=== PATIENT | female | born 1990 | race Caucasian/White ===

== ENCOUNTER 2016-12-26 07:15 | Observation (INO) | payer MEDICARE, OTHER ==
--- NOTE | 2016-12-26 07:45 | ED ---
General Adult HPI - General Chief complaint: Abdominal Pain Stated complaint: abdominal pain Time Seen by Provider: 12/26/16 07:16 Source: patient, EMS, RN notes reviewed Mode of arrival: EMS Limitations: no limitations - History of Present Illness Initial comments: Patient is a pleasant 26-year-old female presenting to the emergency department complaining of abdominal discomfort. Onset of symptoms was last night. Patient has had multiple episodes of diarrhea. Patient has nausea. No vomiting. Patient does have history of ulcer colitis. Patient states discomfort is worse than her normal ulcerative colitis. No fevers. Patient does not believe she is . Patient is on her menses. Discomfort is mostly the lower abdomen. Nausea improved with medicine by EMS however pain remains. - Related Data Home Medications Medication Instructions Recorded Confirmed Dicyclomine [Bentyl] 20 mg PO QID PRN 12/26/16 12/26/16 Allergies Allergy/AdvReac Type Severity Reaction Status Date / Time codeine Allergy abd pain, Verified 12/26/16 07:41 itching Review of Systems ROS Statement: Those systems with pertinent positive or pertinent negative responses have been documented in the HPI. ROS Other: All systems not noted in ROS Statement are negative. Constitutional: Denies: fever Eyes: Denies: eye pain ENT: Denies: ear pain Respiratory: Denies: cough Cardiovascular: Denies: chest pain Endocrine: Denies: fatigue Gastrointestinal: Reports: abdominal pain, nausea, diarrhea. Denies: vomiting Genitourinary: Denies: dysuria Musculoskeletal: Denies: back pain Skin: Denies: rash Neurological: Denies: weakness Past Medical History Additional Past Medical History / Comment(s): ulcerative colitis-recent flare- ups, anemia (iron & pernicious) History of Any Multi-Drug Resistant Organisms: None Reported Past Surgical History: Cholecystectomy Additional Past Surgical History / Comment(s): colonoscopies Past Anesthesia/Blood Transfusion Reactions: No Reported Reaction Past Psychological History: Anxiety Smoking Status: Current every day smoker Past Alcohol Use History: None Reported Additional Past Alcohol Use History / Comment(s): smoking: started 2007 1.2 ppd Past Drug Use History: None Reported - Past Family History Mother Additional Family Medical History / Comment(s): "she had a lot of cysts on her ovaries" Father History Unknown: Yes General Exam Limitations: no limitations General appearance: alert Head exam: Present: atraumatic Eye exam: Present: normal appearance, PERRL ENT exam: Present: normal oropharynx Neck exam: Present: normal inspection Respiratory exam: Present: normal lung sounds bilaterally Cardiovascular Exam: Present: regular rate, normal rhythm Expanded Peripheral pulses: 2+: Dorsalis Pedis (R), Dorsalis Pedis (L) GI/Abdominal exam: Present: soft, tenderness (Mild to moderate tenderness lower abdomen), guarding, normal bowel sounds. Absent: distended, rebound, rigid, pulsatile mass External exam: Present: normal external exam (HARPER Friedman present) Speculum exam: Present: vaginal bleeding (Moderate with clots) By manual exam: Present: uterine tenderness (Mild). Absent: adnexal tenderness , adnexal mass Extremities exam: Present: normal inspection. Absent: pedal edema, calf tenderness Neurological exam: Present: alert Psychiatric exam: Present: normal affect, normal mood Skin exam: Present: normal color Course Vital Signs 12/26/16 12/26/16 12/26/16 07:16 08:04 08:47 Temperature 97.1 F L Pulse Rate 55 L 69 86 Respiratory 24 18 20 Rate Blood Pressure 163/119 100/60 110/58 O2 Sat by Pulse 100 99 97 Oximetry 12/26/16 10:11 Temperature Pulse Rate 108 H Respiratory 18 Rate Blood Pressure 122/61 O2 Sat by Pulse 98 Oximetry - Reevaluation(s) Reevaluation #1: 12/26/16 08:40 Patient states last menstrual period was approximately 6 weeks ago. Patient had one previous and therefore is . EKG Findings - EKG Comments: EKG Findings:: Normal sinus rhythm at 70. Normal intervals. Normal axis. Normal QRS. Normal ST-T. Medical Decision Making - Medical Decision Making Patient reevaluated and has continued bleeding and pain. Case discussed with Dr. Zavaleta who is agreeable to admit for observation and will see patient following his surgical case. - Lab Data Result diagrams: 12/26/16 07:20 12/26/16 07:20 Lab Results 12/26/16 12/26/16 12/26/16 Range/Units 07:20 07:20 07:20 WBC 13.7 H (3.8-10.6) k/uL RBC 4.23 (3.80-5.40) m/uL Hgb 11.8 (11.4-16.0) gm/dL Hct 35.3 (34.0-46.0) % MCV 83.5 (80.0-100.0) fL MCH 27.9 (25.0-35.0) pg MCHC 33.4 (31.0-37.0) g/dL RDW 16.1 H (11.5-15.5) % Plt Count 316 (150-450) k/uL Neutrophils % 84 % Lymphocytes % 12 % Monocytes % 3 % Eosinophils % 1 % Basophils % 0 % Neutrophils # 11.4 H (1.3-7.7) k/uL Lymphocytes # 1.6 (1.0-4.8) k/uL Monocytes # 0.4 (0-1.0) k/uL Eosinophils # 0.1 (0-0.7) k/uL Basophils # 0.0 (0-0.2) k/uL Anisocytosis Slight PT 10.4 (9.0-12.0) sec INR 1.0 (<1.1) APTT 23.7 (22.0-30.0) sec Sodium 139 (137-145) mmol/L Potassium 3.8 (3.5-5.1) mmol/L Chloride 107 (98-107) mmol/L Carbon Dioxide 19 L (22-30) mmol/L Anion Gap 13 mmol/L BUN 4 L (7-17) mg/dL Creatinine 0.54 (0.52-1.04) mg/dL Est GFR (MDRD) Af Amer >60 (>60 ml/min/1.73 sqM) Est GFR (MDRD) Non-Af >60 (>60 ml/min/1.73 sqM) Glucose 100 H (74-99) mg/dL Calcium 9.6 (8.4-10.2) mg/dL Total Bilirubin 0.4 (0.2-1.3) mg/dL AST 19 (14-36) U/L ALT 17 (9-52) U/L Alkaline Phosphatase 68 (38-126) U/L Total Protein 7.0 (6.3-8.2) g/dL Albumin 4.2 (3.5-5.0) g/dL Amylase 41 (30-110) U/L Lipase 46 (23-300) U/L HCG, Quant mIU/mL Urine Color Urine Appearance (Clear) Urine pH (5.0-8.0) Ur Specific [place] (1.001-1.035) Urine Protein (Negative) Urine Glucose (UA) (Negative) Urine Ketones (Negative) Urine Blood (Negative) Urine Nitrite (Negative) Urine Bilirubin (Negative) Urine Urobilinogen (<2.0) mg/dL Ur Leukocyte Esterase (Negative) Urine RBC (0-5) /hpf Urine WBC (0-5) /hpf Urine HCG, Qual (Not Detectd) Blood Type Blood Type Recheck 12/26/16 12/26/16 12/26/16 Range/Units 07:20 07:35 07:35 WBC (3.8-10.6) k/uL RBC (3.80-5.40) m/uL Hgb (11.4-16.0) gm/dL Hct (34.0-46.0) % MCV (80.0-100.0) fL MCH (25.0-35.0) pg MCHC (31.0-37.0) g/dL RDW (11.5-15.5) % Plt Count (150-450) k/uL Neutrophils % % Lymphocytes % % Monocytes % % Eosinophils % % Basophils % % Neutrophils # (1.3-7.7) k/uL Lymphocytes # (1.0-4.8) k/uL Monocytes # (0-1.0) k/uL Eosinophils # (0-0.7) k/uL Basophils # (0-0.2) k/uL Anisocytosis PT (9.0-12.0) sec INR (<1.1) APTT (22.0-30.0) sec Sodium (137-145) mmol/L Potassium (3.5-5.1) mmol/L Chloride (98-107) mmol/L Carbon Dioxide (22-30) mmol/L Anion Gap mmol/L BUN (7-17) mg/dL Creatinine (0.52-1.04) mg/dL Est GFR (MDRD) Af Amer (>60 ml/min/1.73 sqM) Est GFR (MDRD) Non-Af (>60 ml/min/1.73 sqM) Glucose (74-99) mg/dL Calcium (8.4-10.2) mg/dL Total Bilirubin (0.2-1.3) mg/dL AST (14-36) U/L ALT (9-52) U/L Alkaline Phosphatase (38-126) U/L Total Protein (6.3-8.2) g/dL Albumin (3.5-5.0) g/dL Amylase (30-110) U/L Lipase (23-300) U/L HCG, Quant 7654.0 mIU/mL Urine Color Red Urine Appearance Cloudy H (Clear) Urine pH 6.0 (5.0-8.0) Ur Specific [place] 1.017 (1.001-1.035) Urine Protein 1+ H (Negative) Urine Glucose (UA) Negative (Negative) Urine Ketones Trace H (Negative) Urine Blood Large H (Negative) Urine Nitrite Negative (Negative) Urine Bilirubin Negative (Negative) Urine Urobilinogen <2.0 (<2.0) mg/dL Ur Leukocyte Esterase Small H (Negative) Urine RBC >182 H (0-5) /hpf Urine WBC 53 H (0-5) /hpf Urine HCG, Qual Detected (Not Detectd) Blood Type Blood Type Recheck 12/26/16 Range/Units 08:20 WBC (3.8-10.6) k/uL RBC (3.80-5.40) m/uL Hgb (11.4-16.0) gm/dL Hct (34.0-46.0) % MCV (80.0-100.0) fL MCH (25.0-35.0) pg MCHC (31.0-37.0) g/dL RDW (11.5-15.5) % Plt Count (150-450) k/uL Neutrophils % % Lymphocytes % % Monocytes % % Eosinophils % % Basophils % % Neutrophils # (1.3-7.7) k/uL Lymphocytes # (1.0-4.8) k/uL Monocytes # (0-1.0) k/uL Eosinophils # (0-0.7) k/uL Basophils # (0-0.2) k/uL Anisocytosis PT (9.0-12.0) sec INR (<1.1) APTT (22.0-30.0) sec Sodium (137-145) mmol/L Potassium (3.5-5.1) mmol/L Chloride (98-107) mmol/L Carbon Dioxide (22-30) mmol/L Anion Gap mmol/L BUN (7-17) mg/dL Creatinine (0.52-1.04) mg/dL Est GFR (MDRD) Af Amer (>60 ml/min/1.73 sqM) Est GFR (MDRD) Non-Af (>60 ml/min/1.73 sqM) Glucose (74-99) mg/dL Calcium (8.4-10.2) mg/dL Total Bilirubin (0.2-1.3) mg/dL AST (14-36) U/L ALT (9-52) U/L Alkaline Phosphatase (38-126) U/L Total Protein (6.3-8.2) g/dL Albumin (3.5-5.0) g/dL Amylase (30-110) U/L Lipase (23-300) U/L HCG, Quant mIU/mL Urine Color Urine Appearance (Clear) Urine pH (5.0-8.0) Ur Specific [place] (1.001-1.035) Urine Protein (Negative) Urine Glucose (UA) (Negative) Urine Ketones (Negative) Urine Blood (Negative) Urine Nitrite (Negative) Urine Bilirubin (Negative) Urine Urobilinogen (<2.0) mg/dL Ur Leukocyte Esterase (Negative) Urine RBC (0-5) /hpf Urine WBC (0-5) /hpf Urine HCG, Qual (Not Detectd) Blood Type O Positive Blood Type Recheck No - Radiology Data Radiology results: image reviewed (Ultrasound shows no IUP. There is a hypoechoic area 7 4 x 5.2 x 6.6 cm within the cervix and upper portion of the vagina.) Disposition Clinical Impression: Incomplete Disposition: ADMITTED IP TO THIS [facility] Referrals: Nakia Love DO [Primary Care Provider] - 1-2 days Time of Disposition: 10:45
[2016-12-26] MEDS ORDERED: HYDROmorphone 1 MG/ML 1 ML SYRINGE IVP STA ×2 (07:46→10:04)
[2016-12-26] MEDS ORDERED: SODIUM CHLORIDE 0.9% 1,000 ML IV STA (07:46)
[2016-12-26] MEDS ORDERED: FAMOTIDINE 20 MG/2 ML VIAL IV STA (07:46)
[2016-12-26] MEDS ORDERED: RX INFO: IV CONTRAST WAS GIVEN 1 EACH MISC MISCELLANE PRN (07:46)
[2016-12-26 08:01] LABS: Anisocytosis Slight; Basophils % (A) 0 %; CH 27.5; Eosinophils # (A) 0.1 k/uL (0-0.7); Eosinophils % (A) 1 %; HCT 35.3 % (34.0-46.0); HDW 2.68; HGB 11.8 gm/dL (11.4-16.0); Luc # (Auto) 0.11; Luc % (Auto) 1; Lymphocytes # (A) 1.6 k/uL (1.0-4.8); Lymphocytes % (A) 12 %; MCH 27.9 pg (25.0-35.0); MCHC 33.4 g/dL (31.0-37.0); MCV 83.5 fL (80.0-100.0); Mean Platelet Volume 7.8; Monocytes # (A) 0.4 k/uL (0-1.0); Monocytes % (A) 3 %; Neutrophils # (A) 11.4 k/uL (1.3-7.7); Neutrophils % (A) 84 %; RBC 4.23 m/uL (3.80-5.40); RDW 16.1 % (11.5-15.5); WBC 13.7 k/uL (3.8-10.6); WBC (Perox) 14.53
[2016-12-26 08:10] LABS: ALT 17 U/L (9-52); AST 19 U/L (14-36); Alkaline Phosphatase 68 U/L (38-126); Amylase 41 U/L (30-110); Anion Gap 13 mmol/L; Blood Urea Nitrogen 4 mg/dL (7-17); Calcium 9.6 mg/dL (8.4-10.2); Carbon Dioxide 19 mmol/L (22-30); Chloride 107 mmol/L (98-107); Glucose 100 mg/dL (74-99); Non-African American GFR(MDRD) >60 (>60 ml/min/1.73 sqM); Potassium 3.8 mmol/L (3.5-5.1); Sodium 139 mmol/L (137-145); Total Bilirubin 0.4 mg/dL (0.2-1.3)
[2016-12-26 08:12] LABS: Partial Thromboplastin Time 23.7 sec (22.0-30.0); Prothrombin Time 10.4 sec (9.0-12.0)
[2016-12-26 08:14] LABS: Appearance,Urine Cloudy (Clear); Bilirubin,Urine Negative (Negative); Glucose,Urine (UA) Negative (Negative); Ketones,Urine Trace (Negative); Leukocyte Esterase,Urine Small (Negative); Nitrite,Urine Negative (Negative); Particle Count 7607; Protein,Urine 1+ (Negative); RBC,Urine >182 /hpf (0-5); Specific Gravity,Urine 1.017 (1.001-1.035); UA Billing (MACRO vs. MICRO) MICRO; Urobilinogen,Urine <2.0 mg/dL (<2.0); WBC,Urine 53 /hpf (0-5)
--- NOTE | 2016-12-26 10:11 | US ---
EXAMINATION TYPE: US OB <= 14 wk fetus DATE OF EXAM: 12/26/2016 9:13 AM COMPARISON: NONE CLINICAL HISTORY: Pain. Right pelvic pain and bleeding x 1 day, LMP October 2016, 2, para 1 EXAM PERFORMED: Transabdominal (TA) EXAM MEASUREMENTS: GESTATIONAL AGE / DATING Physician Established: Not established yet Dates by LMP: Patient unsure of exact dates Dates by First Scan: This is 1st scan Dates by Current Scan for: No IUP seen at this time MATERNAL ANATOMY Uterus: 13.5 x 5.2 x 6.5cm, anteverted, 7.4 x 5.2 x 6.6cm hypoechoic area within cervix and upper por tion of vagina Endometrium: measuring 0.4cm at fundal portion and 2.7cm at VERONICA with heterogeneous material within Right Ovary: 3.9 x 2.8 x 2.1cm, 2.6 x 1.6 x 1.7cm cystic area Left Ovary: 3.2 x 1.9 x 2.5cm Post CDS / Adnexa: wnl Presence of free fluid: no Presence of corpus luteal cyst: not seen with certainty at this time, cystic area right ovary possibl e corpus luteum Presence of subchorionic bleed: no GESTATION / SURVEY IUP: no IUP seen at this time Date of LMP: October 2016 Beta HcG (if available): 7,654.0 IMPRESSION: There is abnormal mass present at the level of the upper vagina, lower cervix, recommend pelvic exami nation. Follow-up as indicated.
[2016-12-26] MEDS ORDERED: NALOXONE 0.4 MG/ML 1 ML VIAL IV PRN (10:46)
[2016-12-26] MEDS ORDERED: ONDANSETRON 4 MG/2 ML VIAL IVP PRN (10:46)
[2016-12-26] MEDS ORDERED: SODIUM CHLORIDE 0.9% 1,000 ML IV SCH (11:00)
[2016-12-26 11:36] VITALS: BMI 22.8
[2016-12-26] MEDS: HYDROmorphone 1 MG/ML 1 ML SYRINGE IV PRN ×2 (12:41→17:22)
--- NOTE | 2016-12-26 14:05 | P.HPOB ---
History of Present Illness H&P Date: 12/26/16 Chief Complaint: Incomplete The patient is a 26-year-old 2 para 1001 who presented to the emergency room this morning with heavy vaginal bleeding. Her last menstrual period was approximate 6 weeks ago and she did not realize that she was . Beta hCG done in the emergency room confirms with a level above 7000 units. Examination by the emergency room team demonstrated moderate to heavy vaginal bleeding with no evidence of tissue seen or felt in the cervix. Ultrasound confirmed hypoechoic structure in the lower uterine segment or cervix and possibly even vagina. Since admission for observation, the patient has continued to have moderate bleeding passing several plum size clots over the course of the last couple of hours. She did not intend to be but was using condoms for control reportedly. She denies any signs or symptoms of orthostasis or any other concerning findings at this time. Obstetrical history: 2 para 1001 with 1 term vaginal delivery 6 years ago. Method of contraception has been condoms Gynecologic history: Apparently unremarkable with no history of any infections to include STDs. Review of Systems Review of systems is confined to history of present illness. Past Medical History Additional Past Medical History / Comment(s): ulcerative colitis-recent flare- ups, anemia (iron & pernicious) History of Any Multi-Drug Resistant Organisms: None Reported Past Surgical History: Cholecystectomy Additional Past Surgical History / Comment(s): colonoscopies Past Anesthesia/Blood Transfusion Reactions: No Reported Reaction Past Psychological History: Anxiety Smoking Status: Current every day smoker Past Alcohol Use History: None Reported Additional Past Alcohol Use History / Comment(s): smoking: started 08/04 ppd Past Drug Use History: None Reported - Past Family History Mother Additional Family Medical History / Comment(s): "she had a lot of cysts on her ovaries" Father History Unknown: Yes Family Medical History: No Reported History Additional Family Medical History / Comment(s): dad side of family has ulcerative colitis Medications and Allergies Home Medications Medication Instructions Recorded Confirmed Type Dicyclomine [Bentyl] 20 mg PO QID PRN 12/26/16 12/26/16 History Allergies Allergy/AdvReac Type Severity Reaction Status Date / Time codeine Allergy Severe Rash/Hives Verified 12/26/16 11:25 Exam - Vital Signs Vital signs: Vital Signs Temp Pulse Pulse Resp BP BP Pulse Ox 12/26/16 11:30 96.8 F L 74 20 104/56 99 12/26/16 11:13 97.4 F L 84 18 96/51 97 12/26/16 10:11 108 H 18 122/61 98 12/26/16 08:47 86 20 110/58 97 12/26/16 08:04 69 18 100/60 99 12/26/16 07:16 97.1 F L 55 L 24 163/119 100 Intake and Output 12/25/16 12/26/16 12/26/16 22:59 06:59 14:59 Output Total 175 Balance -175 Output: Urine 175 Other: Voiding Method Toilet Weight 62.3 kg Patient Weight 12/27/16 06:59 Weight 62.3 kg In general, this is a well-developed, well-nourished white female in no acute distress. Her heart has a regular rhythm and rate without murmur. Her lungs are clear to auscultation bilaterally in all stiles. Her abdomen is nondistended, has normal active bowel sounds, is soft, nontender, and without any palpable masses, hepatosplenomegaly, or hernias. Her extremities are without any cyanosis, clubbing, or edema and are nontender to palpation bilaterally. Pelvic examination is deferred to the operating room. Results Result Diagrams: 12/26/16 07:20 12/26/16 07:20 Abnormal Lab Results - Last 24 Hours (Table) 12/26/16 12/26/16 12/26/16 Range/Units 07:20 07:20 07:35 WBC 13.7 H (3.8-10.6) k/uL RDW 16.1 H (11.5-15.5) % Neutrophils # 11.4 H (1.3-7.7) k/uL Carbon Dioxide 19 L (22-30) mmol/L BUN 4 L (7-17) mg/dL Glucose 100 H (74-99) mg/dL Urine Appearance Cloudy H (Clear) Urine Protein 1+ H (Negative) Urine Ketones Trace H (Negative) Urine Blood Large H (Negative) Ur Leukocyte Esterase Small H (Negative) Urine RBC >182 H (0-5) /hpf Urine WBC 53 H (0-5) /hpf Assessment and Plan (1) Incomplete Status: Acute Plan: I discussed with the patient the options for ongoing management of miscarriage to include conservative management allowing the patient to pass the tissue on her own. I also discussed dilation and curettage. Given the degree of her bleeding over the course of the last several hours, I have recommended D&C to which the patient has agreed. I discussed the risks and complications at length including the risk for bleeding, bleeding requiring transfusion, infection, and injury to local structures to specifically include the risk for uterine perforation and possible Asherman syndrome. She has understood all this and agreed to proceed. I have contacted the operating room and an aborted the case to be done as soon as possible. Should everything be uncomplicated is anticipated, she will likely be discharged home later today to follow-up in the office in 2 weeks' time.
[2016-12-26] MEDS ORDERED: IV FLUID CONTINUATION 1,000 ML IV ONE (14:41)
[2016-12-26] MEDS ORDERED: LIDOCAINE 1% INJ 10MG/ML (20 ML MDV) ONE (14:44)
[2016-12-26] MEDS ORDERED: MIDAZOLAM 2 MG/2 ML VIAL ONE (14:44)
[2016-12-26] MEDS ORDERED: PROPOFOL 10 MG/ML 20 ML VIAL IV ONE (14:44)
[2016-12-26] MEDS ORDERED: fentaNYL (PF) 50 MCG/ML 2 ML AMP ONE (14:44)
[2016-12-26] MEDS ORDERED: ONDANSETRON 4 MG/2 ML VIAL ONE (14:44)
[2016-12-26] MEDS ORDERED: KETOROLAC 30 MG/ML 1 ML VIAL ONE (14:44)
[2016-12-26] MEDS ORDERED: METOCLOPRAMIDE 5 MG/ML 2 ML VIAL IVP PRN (15:08)
[2016-12-26] MEDS ORDERED: SIMETHICONE 80 MG CHEWABLE PO PRN (15:08)
[2016-12-26] MEDS ORDERED: diphenhydrAMINE 50 MG/ML 1 ML VIAL IVP PRN (15:08)
[2016-12-26] MEDS ORDERED: IBUPROFEN 600 MG TAB PO PRN (15:08)
[2016-12-26] MEDS ORDERED: KETOROLAC 30 MG/ML 1 ML VIAL IVP PRN (15:08)
[2016-12-26] MEDS ORDERED: LACTATED RINGERS 1,000 ML IV SCH (15:15)
--- NOTE | 2016-12-26 15:16 | P.OP ---
Date of Procedure: 12/26/16 Preoperative Diagnosis: Incomplete , approximately 6 weeks Postoperative Diagnosis: Same Procedure(s) Performed: Dilation and aspiration curettage Implants: Anesthesia: other (Gen. by facemask) Surgeon: Jean-Paul Tovar Estimated Blood Loss (ml): 50 IV fluids (ml): 300 Urine output (ml): 5 Pathology: other (Intrauterine contents) Condition: stable Disposition: PACU Indications for Procedure: Operative Findings: Preoperative pelvic examination demonstrated a 5-6 week midplane to slightly anteverted mobile normal shaped uterus with cervix open to at least 1 cm and tissue palpable within the cervical os. The tissue is seen and the cervical os prior to procedure but regressed further up into the uterus with traction on the cervix using a tenaculum. Tissue was clearly seen passing through the tubing during aspiration curettage with a #9 curved aspiration curet. No tissue was produced using the sharp curet. The typical gritty texture was encountered throughout the cavity using the sharp curet. Description of Procedure: The patient was prepped and draped in usual fashion after general anesthesia was administered by the anesthesiologist. A weighted speculum was placed and the bladder drained of 5 mL of clear leilani urine. The anterior lip of the cervix was grasped with a single-tooth tenaculum and tissue seen in the os as noted above. A #9 curved aspiration curet was selected and placed to the fundus of the uterus after sounding to 9 cm. Suction was applied and thorough and circumferential aspiration curettage carried out. A moderate to significant amount of tissue seen passing through the tubing on the first and second pass. On the third pass, there was no further tissue noted. Aspiration curet was set aside and the sharp curet introduced into the cavity. Thorough circumferential sharp curettage was carried out with the typical gritty texture encountered and no tissue produced. One more quick pass was made with aspiration curet during which no tissue was noted. All instrumentation was removed. There was no ongoing bleeding from the tenaculum site or the cervix itself. Estimated blood loss for the entire case was 50 mL or less. There were no complications. All sponge, instrument, and needle counts were correct. The patient tolerated the procedure well and proceeded to the recovery room in stable condition.
--- NOTE | 2016-12-26 15:20 | P.DS ---
Providers Date of admission: 12/26/16 10:46 Expected date of discharge: 12/26/16 Attending physician: Jean-Paul Tovar Primary care physician: Nakia Love - Discharge Diagnosis(es) (1) Incomplete Current Visit: Yes Status: Acute Hospital Course: The patient is a 26-year-old 2 para 1001 admitted at approximate 6 weeks of gestation by last menstrual period dating with an active ongoing spontaneous miscarriage which was incomplete in nature based upon ultrasound and her ongoing bleeding. She was initially admitted for observation. Once I was able to evaluate the patient, we discussed options and agreed to proceed towards dilation and curettage as the bleeding was fairly significant. She was taken to the operating room where she underwent dilation and aspiration curettage and an uneventful and the uncomplicated fashion. She was returned to the floor then to be discharged home to follow-up in the office in 2 weeks' time. Discharge instructions included calling for any significantly increased bleeding or signs or symptoms of fever. She was also to abstain from anything in the vagina for at least 62-3 weeks time to include intercourse. Discharge medications included only [id number] analgesic pain medications and any other medications she might use at home. Maternal blood type is O+. Procedures: #1. Dilation and aspiration curettage Patient Condition at Discharge: Good Plan - Discharge Summary Discharge Medication List Dicyclomine [Bentyl] 20 mg PO QID PRN 12/26/16 [History] Follow up Appointment(s)/Referral(s): Nakia Love DO [Primary Care Provider] - 1-2 days Discharge Disposition: HOME SELF-CARE
[2016-12-26 17:09] VITALS: TEMP 97.5
[2016-12-26 18:21] VITALS: RESP 16
[2016-12-26 18:54] VITALS: BP 98/57; PULSE 72
== END 2016-12-26 19:00 | disposition home or self-care (01) ==
LOC: EC 07:15 → 6PED 10:46
PROVIDERS: ADMIT Obstetrics & Gynecology; ATTEND Obstetrics & Gynecology
DX: O03.4 Incomplete spontaneous abortion without complication (principal); K51.90 Ulcerative colitis, unspecified, without complications; D51.0 Vitamin B12 deficiency anemia due to intrinsic factor deficiency; F17.200 Nicotine dependence, unspecified, uncomplicated; F41.9 Anxiety disorder, unspecified; Z3A.01 Less than 8 weeks gestation of pregnancy
CPT/HCPCS: 59812; 96376 ×2; 96361; 96374; 96375; 99285; 36415; 93005; 86900; 86901; 88305; 80053; 82150; 83690; 85025; 85610; 85730; 81001; 81025; 84702; 76801; G0378; J2250; J2405; J2001; J3010; J1885; J1170; J2704

== ENCOUNTER 2016-12-27 16:37 | Inpatient (IN) | payer MEDICARE, OTHER ==
[2016-12-27] MEDS ORDERED: SODIUM CHLORIDE 0.9% 1,000 ML IV STA (17:17)
[2016-12-27] MEDS ORDERED: ONDANSETRON 4 MG/2 ML VIAL IVP STA (17:31)
[2016-12-27] MEDS ORDERED: HYDROmorphone 1 MG/ML 1 ML SYRINGE IVP STA ×2 (17:31→18:22)
[2016-12-27 17:52] LABS: ALT 24 U/L (9-52); AST 22 U/L (14-36); Alkaline Phosphatase 71 U/L (38-126); Amylase 40 U/L (30-110); Anion Gap 13 mmol/L; Blood Urea Nitrogen 3 mg/dL (7-17); Calcium 9.8 mg/dL (8.4-10.2); Carbon Dioxide 20 mmol/L (22-30); Chloride 108 mmol/L (98-107); Glucose 101 mg/dL (74-99); Non-African American GFR(MDRD) >60 (>60 ml/min/1.73 sqM); Partial Thromboplastin Time 23.1 sec (22.0-30.0); Potassium 4.2 mmol/L (3.5-5.1); Prothrombin Time 10.3 sec (9.0-12.0); Sodium 141 mmol/L (137-145); Total Bilirubin 0.3 mg/dL (0.2-1.3); Total Protein 6.6 g/dL (6.3-8.2)
[2016-12-27 17:53] LABS: Anisocytosis Slight; Basophils % (A) 0 %; CH 27.9; CHCM 33.6; Eosinophils # (A) 0.2 k/uL (0-0.7); Eosinophils % (A) 3 %; HCT 28.4 % (34.0-46.0); HDW 2.84; Luc # (Auto) 0.12; Luc % (Auto) 2; Lymphocytes # (A) 2.2 k/uL (1.0-4.8); Lymphocytes % (A) 28 %; MCH 27.8 pg (25.0-35.0); MCHC 33.4 g/dL (31.0-37.0); MCV 83.2 fL (80.0-100.0); Mean Platelet Volume 7.6; Monocytes # (A) 0.2 k/uL (0-1.0); Monocytes % (A) 3 %; Neutrophils # (A) 4.9 k/uL (1.3-7.7); Neutrophils % (A) 64 %; RBC 3.42 m/uL (3.80-5.40); RDW 16.3 % (11.5-15.5); WBC 7.7 k/uL (3.8-10.6); WBC (Perox) 7.87
[2016-12-27 17:55] LABS: HGB 9.5 gm/dL (11.4-16.0)
--- NOTE | 2016-12-27 17:56 | ED ---
Abdominal Pain HPI - General Chief Complaint: Abdominal Pain Stated Complaint: Abd Pain, Fever Time Seen by Provider: 12/27/16 17:16 Source: patient, RN notes reviewed Mode of arrival: ambulatory Limitations: no limitations - History of Present Illness Initial Comments: This is a 26-year-old female presents emergency Department with chief complaint of abdominal pain, weakness, and nausea vomiting. Patient states that she was admitted yesterday for incomplete had a D&C by Dr. Zavaleta and discharged. She states she was having some rectal bleeding over the last few days prior to this but states is very mild. She has a history of ulcerative colitis and states that the pain is worsened and she feels that she's having exacerbation of her ulcerative colitis. Patient currently is on Bentyl. Patient states that her hemoglobin was 11 prior to the [place] and states that she 's had a history of blood transfusion. Patient states she is very palpable, very weak and feels that she is anemic. Patient states that she's been vomiting throughout the day and very nauseated. Patient also states that she's had low-grade temp. Patient denies any cough or chest congestion. Patient states that she is having vaginal bleeding with no major clots but states that she is having approximately a pad every couple hours. Patient denies any dysuria - Related Data Home Medications Medication Instructions Recorded Confirmed Dicyclomine [Bentyl] 20 mg PO QID PRN 12/26/16 12/27/16 Allergies Allergy/AdvReac Type Severity Reaction Status Date / Time codeine Allergy Severe Rash/Hives Verified 12/27/16 17:12 Review of Systems ROS Statement: Those systems with pertinent positive or pertinent negative responses have been documented in the HPI. ROS Other: All systems not noted in ROS Statement are negative. Past Medical History Additional Past Medical History / Comment(s): ulcerative colitis-recent flare- ups, anemia (iron & pernicious) History of Any Multi-Drug Resistant Organisms: None Reported Past Surgical History: Cholecystectomy Additional Past Surgical History / Comment(s): colonoscopies, d & c Past Anesthesia/Blood Transfusion Reactions: No Reported Reaction Past Psychological History: Anxiety Smoking Status: Current every day smoker Past Alcohol Use History: None Reported Additional Past Alcohol Use History / Comment(s): smoking: started 08/04 ppd Past Drug Use History: None Reported - Past Family History Mother Additional Family Medical History / Comment(s): "she had a lot of cysts on her ovaries" Father History Unknown: Yes Family Medical History: No Reported History Additional Family Medical History / Comment(s): dad side of family has ulcerative colitis General Exam Limitations: no limitations General appearance: alert, in no apparent distress Head exam: Present: atraumatic, normocephalic, normal inspection Respiratory exam: Present: normal lung sounds bilaterally. Absent: respiratory distress, wheezes, rales, rhonchi, stridor Cardiovascular Exam: Present: normal rhythm, tachycardia, normal heart sounds. Absent: systolic murmur, diastolic murmur, rubs, gallop, clicks GI/Abdominal exam: Present: soft, tenderness (Moderate upper abdominal tenderness with mild to moderate lower), normal bowel sounds. Absent: distended , guarding, rebound, rigid Neurological exam: Present: alert Skin exam: Present: warm, dry, intact, normal color. Absent: rash Course Vital Signs 12/27/16 17:06 Temperature 100.0 F H Pulse Rate 118 H Respiratory 20 Rate Blood Pressure 138/57 O2 Sat by Pulse 100 Oximetry Medical Decision Making - Lab Data Result diagrams: 12/27/16 17:30 12/27/16 17:30 Lab Results 12/27/16 12/27/16 12/27/16 Range/Units 17:30 17:30 17:30 WBC 7.7 (3.8-10.6) k/uL RBC 3.42 L (3.80-5.40) m/uL Hgb 9.5 L D (11.4-16.0) gm/dL Hct 28.4 L (34.0-46.0) % MCV 83.2 (80.0-100.0) fL MCH 27.8 (25.0-35.0) pg MCHC 33.4 (31.0-37.0) g/dL RDW 16.3 H (11.5-15.5) % Plt Count 379 (150-450) k/uL Neutrophils % 64 % Lymphocytes % 28 % Monocytes % 3 % Eosinophils % 3 % Basophils % 0 % Neutrophils # 4.9 (1.3-7.7) k/uL Lymphocytes # 2.2 (1.0-4.8) k/uL Monocytes # 0.2 (0-1.0) k/uL Eosinophils # 0.2 (0-0.7) k/uL Basophils # 0.0 (0-0.2) k/uL Anisocytosis Slight PT 10.3 (9.0-12.0) sec INR 1.0 (<1.1) APTT 23.1 (22.0-30.0) sec Sodium 141 (137-145) mmol/L Potassium 4.2 (3.5-5.1) mmol/L Chloride 108 H (98-107) mmol/L Carbon Dioxide 20 L (22-30) mmol/L Anion Gap 13 mmol/L BUN 3 L (7-17) mg/dL Creatinine 0.60 (0.52-1.04) mg/dL Est GFR (MDRD) Af Amer >60 (>60 ml/min/1.73 sqM) Est GFR (MDRD) Non-Af >60 (>60 ml/min/1.73 sqM) Glucose 101 H (74-99) mg/dL Calcium 9.8 (8.4-10.2) mg/dL Total Bilirubin 0.3 (0.2-1.3) mg/dL AST 22 (14-36) U/L ALT 24 (9-52) U/L Alkaline Phosphatase 71 (38-126) U/L Total Protein 6.6 (6.3-8.2) g/dL Albumin 4.0 (3.5-5.0) g/dL Amylase 40 (30-110) U/L Lipase 41 (23-300) U/L Urine Color Urine Appearance (Clear) Urine pH (5.0-8.0) Ur Specific [place] (1.001-1.035) Urine Protein (Negative) Urine Glucose (UA) (Negative) Urine Ketones (Negative) Urine Blood (Negative) Urine Nitrite (Negative) Urine Bilirubin (Negative) Urine Urobilinogen (<2.0) mg/dL Ur Leukocyte Esterase (Negative) Urine RBC (0-5) /hpf Urine WBC (0-5) /hpf Ur Squamous Epith Cells (0-4) /hpf Urine Bacteria (None) /hpf Blood Type Blood Type Recheck Antibody Screen Spec Expiration Date 12/27/16 12/27/16 Range/Units 17:30 17:50 WBC (3.8-10.6) k/uL RBC (3.80-5.40) m/uL Hgb (11.4-16.0) gm/dL Hct (34.0-46.0) % MCV (80.0-100.0) fL MCH (25.0-35.0) pg MCHC (31.0-37.0) g/dL RDW (11.5-15.5) % Plt Count (150-450) k/uL Neutrophils % % Lymphocytes % % Monocytes % % Eosinophils % % Basophils % % Neutrophils # (1.3-7.7) k/uL Lymphocytes # (1.0-4.8) k/uL Monocytes # (0-1.0) k/uL Eosinophils # (0-0.7) k/uL Basophils # (0-0.2) k/uL Anisocytosis PT (9.0-12.0) sec INR (<1.1) APTT (22.0-30.0) sec Sodium (137-145) mmol/L Potassium (3.5-5.1) mmol/L Chloride (98-107) mmol/L Carbon Dioxide (22-30) mmol/L Anion Gap mmol/L BUN (7-17) mg/dL Creatinine (0.52-1.04) mg/dL Est GFR (MDRD) Af Amer (>60 ml/min/1.73 sqM) Est GFR (MDRD) Non-Af (>60 ml/min/1.73 sqM) Glucose (74-99) mg/dL Calcium (8.4-10.2) mg/dL Total Bilirubin (0.2-1.3) mg/dL AST (14-36) U/L ALT (9-52) U/L Alkaline Phosphatase (38-126) U/L Total Protein (6.3-8.2) g/dL Albumin (3.5-5.0) g/dL Amylase (30-110) U/L Lipase (23-300) U/L Urine Color Colorless Urine Appearance Clear (Clear) Urine pH 7.0 (5.0-8.0) Ur Specific [place] 1.001 (1.001-1.035) Urine Protein Negative (Negative) Urine Glucose (UA) Negative (Negative) Urine Ketones Negative (Negative) Urine Blood Negative (Negative) Urine Nitrite Negative (Negative) Urine Bilirubin Negative (Negative) Urine Urobilinogen <2.0 (<2.0) mg/dL Ur Leukocyte Esterase Small H (Negative) Urine RBC <1 (0-5) /hpf Urine WBC 1 (0-5) /hpf Ur Squamous Epith Cells 1 (0-4) /hpf Urine Bacteria Rare H (None) /hpf Blood Type O Positive Blood Type Recheck No Antibody Screen NEGATIVE Spec Expiration Date 12/30/20162329 Disposition Clinical Impression: Ulcerative colitis, Intractable abdominal pain, Anemia Disposition: ADMITTED IP TO THIS HOSP Condition: Fair Referrals: Nakia Love DO [Primary Care Provider] - 1-2 days
[2016-12-27 18:05] LABS: Appearance,Urine Clear (Clear); Bacteria,Urine Rare /hpf; Bilirubin,Urine Negative (Negative); Glucose,Urine (UA) Negative (Negative); Ketones,Urine Negative (Negative); Leukocyte Esterase,Urine Small (Negative); Nitrite,Urine Negative (Negative); Particle Count 1164; Protein,Urine Negative (Negative); RBC,Urine <1 /hpf (0-5); Specific Gravity,Urine 1.001 (1.001-1.035); Squamous Epithelial Cell,Urine 1 /hpf (0-4); UA Billing (MACRO vs. MICRO) MICRO; Urobilinogen,Urine <2.0 mg/dL (<2.0); WBC,Urine 1 /hpf (0-5)
[2016-12-27] MEDS ORDERED: METOCLOPRAMIDE 5 MG/ML 2 ML VIAL IVP STA (18:22)
[2016-12-27] MEDS ORDERED: ACETAMINOPHEN TAB 325 MG TAB PO PRN (18:35)
[2016-12-27] MEDS ORDERED: NALOXONE 0.4 MG/ML 1 ML VIAL IV PRN (18:35)
[2016-12-27] MEDS: SODIUM CHLORIDE 0.9% 1,000 ML IV SCH (19:25)
[2016-12-27] MEDS: HYDROmorphone 1 MG/ML 1 ML SYRINGE IV PRN (21:04)
[2016-12-27 21:29] VITALS: BMI 22.9
[2016-12-28] MEDS: ONDANSETRON 4 MG/2 ML VIAL IVP PRN ×2 (02:44→12:50)
[2016-12-28] MEDS: HYDROmorphone 1 MG/ML 1 ML SYRINGE IV PRN ×2 (05:51→12:49)
[2016-12-28 07:48] LABS: Anisocytosis Slight; Basophils % (A) 1 %; CH 27.2; CHCM 31.6; Eosinophils # (A) 0.2 k/uL (0-0.7); Eosinophils % (A) 4 %; HDW 2.69; Hypochromasia Slight; Luc # (Auto) 0.12; Luc % (Auto) 2; Lymphocytes # (A) 3.1 k/uL (1.0-4.8); Lymphocytes % (A) 49 %; MCH 27.1 pg (25.0-35.0); MCHC 31.3 g/dL (31.0-37.0); MCV 86.5 fL (80.0-100.0); Mean Platelet Volume 7.7; Monocytes # (A) 0.3 k/uL (0-1.0); Monocytes % (A) 5 %; Neutrophils # (A) 2.5 k/uL (1.3-7.7); Neutrophils % (A) 40 %; RBC 2.54 m/uL (3.80-5.40); RDW 16.3 % (11.5-15.5); WBC 6.3 k/uL (3.8-10.6); WBC (Perox) 5.89
[2016-12-28 07:50] LABS: HGB 6.9 gm/dL (11.4-16.0)
[2016-12-28] MEDS: PANTOPRAZOLE 40 MG/10 ML VIAL IV SCH (08:08)
[2016-12-28] MEDS: SODIUM CHLORIDE 0.9% 1,000 ML IV SCH ×2 (08:10→16:13)
[2016-12-28] MEDS ORDERED: SODIUM CHLORIDE 0.9% 500 ML IV ONE (08:44)
--- NOTE | 2016-12-28 14:00 | P.HPIM ---
History of Present Illness H&P Date: 12/28/16 Chief Complaint: Rectal and vaginal bleeding This is a 26-year-old female with past medical history significant for underlying ulcerative colitis who recently underwent a dilatation and irritation for spontaneous miscarriage 2 days ago. Patient was discharged from the hospital in a stable condition. She said that she continue to have vaginal bleeding after her discharge. She was using multiple pads throughout the day. She also noted large blood clots passing. Yesterday she was having a bowel movement and noticed bright red blood mixed with her stool. She is pretty confident that the blood source was her rectum and not her vaginal bleeding. She was alarmed and decided to come to the emergency room for further evaluation. She is also having abdominal pain that is mostly periumbilical that she rates as 5 out of 10 in severity. She denies any nausea or vomiting. She was evaluated and currently admitted for further evaluation. Hemoglobin this morning was 6.9 and patient is currently receiving blood transfusion. Review of Systems Review of system: 14 points review of systems were obtained and were negative except to what were mentioned in the HPI. Past Medical History Additional Past Medical History / Comment(s): ulcerative colitis-recent flare- ups, anemia (iron & pernicious) History of Any Multi-Drug Resistant Organisms: None Reported Past Surgical History: Cholecystectomy Additional Past Surgical History / Comment(s): colonoscopies, d & c Past Anesthesia/Blood Transfusion Reactions: No Reported Reaction Past Psychological History: Anxiety Smoking Status: Current every day smoker Past Alcohol Use History: None Reported Additional Past Alcohol Use History / Comment(s): smoking: started 08/04 ppd Past Drug Use History: None Reported - Past Family History Mother Additional Family Medical History / Comment(s): "she had a lot of cysts on her ovaries" Father History Unknown: Yes Family Medical History: No Reported History Additional Family Medical History / Comment(s): dad side of family has ulcerative colitis Medications and Allergies Home Medications Medication Instructions Recorded Confirmed Type Dicyclomine [Bentyl] 20 mg PO QID PRN 12/26/16 12/27/16 History Allergies Allergy/AdvReac Type Severity Reaction Status Date / Time codeine Allergy Severe Rash/Hives Verified 12/27/16 18:44 Physical Exam Vitals: Vital Signs Temp Pulse Pulse Resp BP BP Pulse Ox 12/28/16 13:03 98 F 90 16 112/54 98 12/28/16 12:45 98 F 90 16 112/54 98 12/28/16 10:54 97.6 F 82 16 94/51 99 12/28/16 10:50 16 12/28/16 10:24 98 F 75 16 96/54 96 12/28/16 10:14 97 F L 90 16 108/55 100 12/28/16 08:00 98.6 F 83 16 86/49 97 12/28/16 03:29 96.7 F L 78 16 97/54 99 12/28/16 00:40 94/50 12/28/16 00:00 97.4 F L 80 16 86/41 98 12/27/16 21:09 96.8 F L 84 16 115/57 98 12/27/16 19:17 98.5 F 88 16 103/51 97 12/27/16 18:00 94 18 117/69 12/27/16 17:06 100.0 F H 118 H 20 138/57 100 Intake and Output 12/27/16 12/28/16 12/28/16 22:59 06:59 14:59 Intake Total 980 1480 754 Balance 980 1480 754 Intake: IV 500 800 Sodium Chloride 0.9% 1, 500 800 000 ml @ 100 mls/hr IV . Q10H [facility] Rx#:[id number] Oral 480 680 444 Blood Product 310 Rc As-1 Unit 310 [id number] Rc As-1 Unit 0 [id number] Other: Voiding Method Toilet Toilet # Voids 2 Weight 62.596 kg 65.3 kg General: The patient is awake and alert, in no distress Eye: there is normal conjunctiva bilaterally. Neck: The neck is supple, there is no JVD. Cardiovascular: Normal S1-S2, no S3-S4, no murmurs. Respiratory: Lungs clear to auscultation bilaterally Gastrointestinal: Abdomen is soft, nontender Musculoskeletal: There is no pedal edema. Neurological:. Speech is normal. Skin: Skin is warm and dry Results CBC & Chem 7: 12/28/16 07:21 12/27/16 17:30 Labs: Abnormal Lab Results - Last 24 Hours (Table) 12/27/16 12/27/16 12/27/16 Range/Units 17:30 17:30 17:30 RBC 3.42 L (3.80-5.40) m/uL Hgb 9.5 L D (11.4-16.0) gm/dL Hct 28.4 L (34.0-46.0) % RDW 16.3 H (11.5-15.5) % Chloride 108 H (98-107) mmol/L Carbon Dioxide 20 L (22-30) mmol/L BUN 3 L (7-17) mg/dL Glucose 101 H (74-99) mg/dL Ur Leukocyte Esterase (Negative) Urine Bacteria (None) /hpf Crossmatch See Detail 12/27/16 12/28/16 Range/Units 17:50 07:21 RBC 2.54 L (3.80-5.40) m/uL Hgb 6.9 L* D (11.4-16.0) gm/dL Hct 22.0 L (34.0-46.0) % RDW 16.3 H (11.5-15.5) % Chloride (98-107) mmol/L Carbon Dioxide (22-30) mmol/L BUN (7-17) mg/dL Glucose (74-99) mg/dL Ur Leukocyte Esterase Small H (Negative) Urine Bacteria Rare H (None) /hpf Crossmatch Thrombosis Risk Factor Assmnt - Choose All That Apply Any of the Below Risk Factors Present?: No Other Risk Factors: Yes Each Risk Factor Represents 2 Points: Major surgery Other congenital or acquired thrombophilia - If yes, enter type in comment: No Thrombosis Risk Factor Assessment Total Risk Factor Score: 2 Thrombosis Risk Factor Assessment Level: Low Risk Assessment and Plan Plan: 1. Hematochezia: With underlying history of ulcerative colitis. Currently awaiting GI evaluation. 2. Recent D&C for spontaneous miscarriage with ongoing vaginal bleeding. OB/ SHIP LABORER consult for further evaluation. 3. Acute on chronic blood loss anemia, currently receiving 2 units of PRBC transfusion 4. Chronic iron deficiency anemia 5. Underlying ulcerative colitis with questionable flareup Today, I reviewed her medication list lab work results. Continue supportive care. IV fluid hydration. Appreciate beauty consultant's recommendations.
--- NOTE | 2016-12-28 14:50 | CONS ---
DATE OF CONSULTATION: 12/28/2016 REASON FOR CONSULTATION: Anemia. Abdominal pain and diarrhea. HISTORY OF PRESENT ILLNESS: The patient is a 26-year-old pleasant, young girl who was admitted to the hospital because of abdominal pain, nausea, vomiting, diarrhea with some blood in the stool. The patient was just here in the hospital with incomplete 2 days ago and underwent D&C by Dr. Tovar and she was discharged home. Following discharge to the hospital, she continued to have a significant vaginal bleeding and yesterday she had ongoing bleeding and had to change pads at least ten times through the day. The bleeding has gradually improved. However, she started developing more abdominal pain, mostly in the epigastric area with nausea, vomiting, and started having diarrhea with some blood in the stool. The patient has a remote history of ulcerative colitis diagnosed in [facility] however, about a year ago she was having severe diarrhea and hence she underwent an upper endoscopy as well as colonoscopy by [place], which showed no evidence of ulcerative colitis or Crohn's disease and in fact biopsies were completely normal. She was subsequently started on Bentyl 10 mg 3 times daily and her symptoms have significantly improved. In fact, she was having only 1 or 2 bowel movements until yesterday. This morning she did not have any bowel movements so far. She still has abdominal pain, some nausea, is on a liquid diet. Requesting for more food. She denies any fever, chills or night sweats. No recent antibiotic use. The past medical history is significant for: 1. Remote history of ulcerative colitis but no active colitis recently. 2. Anemia. PAST SURGICAL HISTORY: Cholecystectomy, recent D&C, EGD and colonoscopy a year ago. FAMILY HISTORY: Mom has cyst in the ovary, father had ulcerative colitis. ALLERGIES: CODEINE. Medications at home: Bentyl 10 mg 4 times daily. REVIEW OF SYSTEMS: CARDIOPULMONARY: No chest pain or shortness of breath. GENITOURINARY: No dysuria or hematuria. MUSCULOSKELETAL: Unremarkable. SKIN: Unremarkable. ENDOCRINE: Unremarkable. PSYCHIATRIC: Unremarkable. NEUROLOGY: Unremarkable. ENT/vision: Unremarkable. CONSTITUTIONAL: No recent weight loss. No fever, chills, night sweats. On physical examination, she appears comfortable in no apparent distress. Vital signs are stable. Blood pressure is 86/41, pulse rate 80, temperature 98.1. HEENT EXAMINATION: Unremarkable. Conjunctivae pink. Sclerae anicteric. Oral cavity, no lesions. NECK: No JVD. CHEST: Clear to auscultation. HEART: Regular rate and rhythm. ABDOMEN: Soft. Bowel sounds are positive. No organomegaly. EXTREMITIES: No pedal edema. SKIN: No rashes. NEURO: She is alert and oriented x3. No focal deficits. LABS: WBC 7.7, hemoglobin yesterday was 9.5, today down to 6.9, platelets normal. Basic metabolic panel is within normal limits. IMPRESSION: This is a lady who presents to the hospital with abdominal pain, nausea, vomiting, and diarrhea with some blood in the stool that started yesterday following the D&C for an incomplete that was performed 2 days ago. She had significant amount of vaginal bleeding yesterday, but also started with diarrhea with streaks of blood in the stool, came into the ER and hemoglobin was 6.9 g/dL. Four days ago hemoglobin was 11.3 g/dL. She did have an EGD and colonoscopy for a remote history of ulcerative colitis about a year ago which showed normal-appearing colon and biopsies did not show any evidence of active colitis. She was subsequently diagnosed with irritable bowel syndrome and has been on Bentyl 10 mg 4 times daily and was doing extremely well. At this time, possibility of infectious colitis needs to be considered. I doubt we are dealing with exacerbation of ulcerative colitis. RECOMMENDATIONS: 1. We will obtain stool studies. 2. Advance diet as tolerated. 3. No need for any steroids at the present time. 4. Continue with symptomatic and supportive care. 5. I agree with blood transfusion. 6. We will follow her closely during her hospital stay. Thank you for this consultation.
--- NOTE | 2016-12-28 16:47 | US ---
EXAMINATION TYPE: US pelvis complete DATE OF EXAM: 12/28/2016 COMPARISON: 12/26/2016 CLINICAL HISTORY: Bleeding post D C. D&C 2 days ago, bleeding and cramping, previous ultrasound 12/26 TECHNIQUE: Transabdominal (TA) Date of LMP: October 2016 EXAM MEASUREMENTS: Uterus: 12.7 x 4.6 x 5.6 cm Endometrial Stripe: 1.0 cm Right Ovary: 3.7 x 2.0 x 2.6 cm Left Ovary: 2.3 x 1.4 x 1.6 cm 1. Uterus: anteverted, wnl 2. Endometrium: appears wnl 3. Right Ovary: 1.9 x 1.4 x 1.8cm cystic area 4. Left Ovary: wnl 5. Bilateral Adnexa: wnl 6. Posterior cul-de-sac: wnl IMPRESSION: There is a 1.5 cm right ovarian cyst. Normal uterus and endometrium. There is clearing of the 6 cm mass in the vaginal vault or involving the cervix compared to the last exam 2 days ago. Thi s was probably a blood clot.
--- NOTE | 2016-12-28 17:30 | P.OBCN ---
History of Present Illness Consult date: 12/28/16 Reason for consult: other (Vaginal bleeding, anemia, status post D&C for incomplete ) History of present illness: The patient is a 26-year-old 2 para 1011 who initially presented to the emergency room on Thursday morning with a moderate to heavy vaginal bleeding was discovered at that time to have a incomplete based upon ultrasound imaging in the degree of bleeding that she was having. She was approximately 6 weeks by last menstrual period dating. As she was having fairly heavy bleeding, she was taken to the operating room where she underwent dilation and aspiration curettage in an uncomplicated fashion with the tissue seen passing through the tubing. Her cervix was open at the time of procedure. Following the procedure, she had no significant heavy bleeding but did report that she was soaking a pad yesterday approximately every 2-3 hours. She has a long- standing history of ulcerative colitis and has been found to be anemic on several occasions in her past history and has had transfusions as a result. She additionally is complaining of significant generalized abdominal pain, more in the upper quadrants then in the pelvic region. She reports that she has had some rectal bleeding over the last several days to week but does not feel that that had been enough to justify her degree of anemia. She did present with nausea and vomiting as well as weakness. She is status post transfusion of 2 units of packed red blood cells but denies any signs or symptoms of orthostasis throughout her entire stay. On questioning today, she denies any significant ongoing vaginal bleeding and is actually having minimal scanty bleeding when pads are changed every several hours. She denies any significant uterine cramping or pelvic pain. Pelvic ultrasound ordered and performed today demonstrates the uterus to be entirely devoid of any potential retained products of conception and otherwise normal in size and shape. There is no free fluid apparent nor any other pelvic findings of note. Obstetrical history 2 para 1011 with 1 term vaginal delivery and the aforementioned incomplete resulting in D&C 2 days ago. Gynecologic history: Unremarkable with no history of any infections to include STDs. Review of Systems Review of systems is confined to history of present illness. Past Medical History Additional Past Medical History / Comment(s): ulcerative colitis-recent flare- ups, anemia (iron & pernicious) History of Any Multi-Drug Resistant Organisms: None Reported Past Surgical History: Cholecystectomy Additional Past Surgical History / Comment(s): colonoscopies, d & c Past Anesthesia/Blood Transfusion Reactions: No Reported Reaction Past Psychological History: Anxiety Smoking Status: Current every day smoker Past Alcohol Use History: None Reported Additional Past Alcohol Use History / Comment(s): smoking: started 08/04 ppd Past Drug Use History: None Reported - Past Family History Mother Additional Family Medical History / Comment(s): "she had a lot of cysts on her ovaries" Father History Unknown: Yes Family Medical History: No Reported History Additional Family Medical History / Comment(s): dad side of family has ulcerative colitis Medications and Allergies Home Medications Medication Instructions Recorded Confirmed Type Dicyclomine [Bentyl] 20 mg PO QID PRN 12/26/16 12/27/16 History Allergies Allergy/AdvReac Type Severity Reaction Status Date / Time codeine Allergy Severe Rash/Hives Verified 12/27/16 18:44 Exam - Vital Signs Vital signs: Vital Signs Temp Pulse Pulse Resp BP BP Pulse Ox 12/28/16 16:15 16 12/28/16 16:05 97 F L 73 16 93/50 99 12/28/16 13:43 98.2 F 75 88/47 98 12/28/16 13:15 98.4 F 88 16 99/56 100 12/28/16 13:13 98.4 F 88 16 99/56 100 12/28/16 13:03 98 F 90 16 112/54 98 12/28/16 12:45 98 F 90 16 112/54 98 12/28/16 10:54 97.6 F 82 16 94/51 99 12/28/16 10:50 16 12/28/16 10:24 98 F 75 16 96/54 96 12/28/16 10:14 97 F L 90 16 108/55 100 12/28/16 08:00 98.6 F 83 16 86/49 97 12/28/16 03:29 96.7 F L 78 16 97/54 99 12/28/16 00:40 94/50 12/28/16 00:00 97.4 F L 80 16 86/41 98 12/27/16 21:09 96.8 F L 84 16 115/57 98 12/27/16 19:17 98.5 F 88 16 103/51 97 12/27/16 18:00 94 18 117/69 Intake and Output 12/28/16 12/28/16 12/28/16 06:59 14:59 22:59 Intake Total 1480 1554 310 Balance 1480 1554 310 Intake: IV 800 800 Sodium Chloride 0.9% 1, 800 800 000 ml @ 100 mls/hr IV . Q10H [facility] Rx#:[id number] Oral 680 444 Blood Product 310 310 Rc As-1 Unit 310 [id number] Rc As-1 Unit 0 310 [id number] Other: Voiding Method Toilet Toilet Toilet # Voids 2 3 Weight 65.3 kg In general, this is a well-developed, well-nourished, somewhat pale white female in no acute distress. Exam is limited to abdominal examination which demonstrates mild diffuse abdominal tenderness with no palpable masses nor any guarding or rebound. Bimanual pelvic examination demonstrates her cervix to be closed and uterus to be approximately 4-5 weeks in size, midplane to slightly anteverted, mobile, nontender, normal in shape. Any discomfort found during the pelvic exam is elicited with the abdominal examining hand. Her extremities are without any cyanosis, clubbing, or edema and are nontender to palpation bilaterally. Results Result Diagrams: 12/28/16 07:21 12/27/16 17:30 Abnormal Lab Results - Last 24 Hours (Table) 12/27/16 12/27/16 12/27/16 Range/Units 17:30 17:30 17:30 RBC 3.42 L (3.80-5.40) m/uL Hgb 9.5 L D (11.4-16.0) gm/dL Hct 28.4 L (34.0-46.0) % RDW 16.3 H (11.5-15.5) % Chloride 108 H (98-107) mmol/L Carbon Dioxide 20 L (22-30) mmol/L BUN 3 L (7-17) mg/dL Glucose 101 H (74-99) mg/dL Ur Leukocyte Esterase (Negative) Urine Bacteria (None) /hpf Crossmatch See Detail 12/27/16 12/28/16 Range/Units 17:50 07:21 RBC 2.54 L (3.80-5.40) m/uL Hgb 6.9 L* D (11.4-16.0) gm/dL Hct 22.0 L (34.0-46.0) % RDW 16.3 H (11.5-15.5) % Chloride (98-107) mmol/L Carbon Dioxide (22-30) mmol/L BUN (7-17) mg/dL Glucose (74-99) mg/dL Ur Leukocyte Esterase Small H (Negative) Urine Bacteria Rare H (None) /hpf Crossmatch Assessment and Plan (1) Abdominal pain Status: Acute (2) Anemia Status: Acute Plan: Her anemia may possibly have been the result of retained products which appears to be entirely resolved at this time. Her examination bears out a closed cervix with minimal bleeding. There was no blood on the examining glove hand at the time of exam. Ultrasound confirms no tissue noted inside the uterus. I suspect that her pain and possibly some of her bleeding may be of GI origin given her history of ulcerative colitis and history of previous anemia resulting in transfusions. I do not feel any intervention from a gynecologic perspective is warranted at this time and have asked her to follow-up in the office in 2 weeks as previously specified. I would strongly consider addressing her ulcerative colitis more directly if such a treatment is available. Negative for again allowing me to participate in this patient's care and you may certainly contact me if you have any further questions but otherwise I will sign off of the case at this time.
[2016-12-28] MEDS: HYDROcodone/APAP 5-325MG 1 EACH TAB PO PRN ×2 (18:17→23:27)
[2016-12-28 19:30] LABS: CH 28.6; CHCM 32.6; HCT 30.4 % (34.0-46.0); HDW 3.21; Hypochromasia Slight; MCH 28.6 pg (25.0-35.0); MCHC 32.4 g/dL (31.0-37.0); MCV 88.1 fL (80.0-100.0); RBC 3.44 m/uL (3.80-5.40); RDW 15.8 % (11.5-15.5); WBC 6.9 k/uL (3.8-10.6)
[2016-12-28 19:31] LABS: HGB 9.8 gm/dL (11.4-16.0)
[2016-12-29] MEDS: ONDANSETRON 4 MG/2 ML VIAL IVP PRN ×2 (01:56→07:55)
[2016-12-29] MEDS: SODIUM CHLORIDE 0.9% 1,000 ML IV SCH ×3 (02:00→21:18)
[2016-12-29 02:41] VITALS: RESP 18
[2016-12-29] MEDS: HYDROcodone/APAP 5-325MG 1 EACH TAB PO PRN ×4 (04:38→22:11)
[2016-12-29] MEDS: PANTOPRAZOLE 40 MG/10 ML VIAL IV SCH (07:55)
[2016-12-29 09:12] LABS: Anisocytosis Slight; CHCM 32.9; HCT 31.4 % (34.0-46.0); HDW 3.35; HGB 10.2 gm/dL (11.4-16.0); MCH 28.6 pg (25.0-35.0); MCHC 32.4 g/dL (31.0-37.0); MCV 88.4 fL (80.0-100.0); Mean Platelet Volume 7.7; RBC 3.55 m/uL (3.80-5.40); RDW 16.1 % (11.5-15.5); WBC 6.1 k/uL (3.8-10.6)
[2016-12-29 09:26] LABS: ALT 19 U/L (9-52); AST 15 U/L (14-36); Alkaline Phosphatase 50 U/L (38-126); Anion Gap 6 mmol/L; Blood Urea Nitrogen 6 mg/dL (7-17); Calcium 8.9 mg/dL (8.4-10.2); Carbon Dioxide 22 mmol/L (22-30); Chloride 111 mmol/L (98-107); Glucose 93 mg/dL (74-99); Non-African American GFR(MDRD) >60 (>60 ml/min/1.73 sqM); Sodium 139 mmol/L (137-145); Total Bilirubin 0.5 mg/dL (0.2-1.3); Total Protein 5.6 g/dL (6.3-8.2)
--- NOTE | 2016-12-29 13:38 | PN ---
Patient is a 26-year-old pleasant white female admitted with abdominal pain, nausea, vomiting, and some bloody diarrhea of one day duration. Since being in the hospital she did not have any further episodes of diarrhea. In her stool studies were requested but could not be done because she had no bowel movement. This morning she is feeling better. She had hemoglobin of 6.9 g/dL and received 2 units of blood transfusion. This morning it is 9.3 g/dL. Presently on a soft diet, tolerating well. She had no bowel movement this morning. She had incomplete and underwent a D&C last Thursday. After that she had significant amount of vaginal bleeding, but that also has subsided presently. On physical examination, she appears comfortable in no apparent distress. Vitals as are stable. Blood pressure is 94/50, pulse is 76, temperature 97.2. HEENT: Unremarkable. Conjunctivae pink. Sclerae anicteric. Oral cavity, no lesions. NECK: No JVD or lymph node enlargement. CHEST: Clear to auscultation. HEART: Regular rate and rhythm. ABDOMEN: Soft. Bowel sounds are positive. No organomegaly. EXTREMITIES: No pedal edema. SKIN: No rashes. NEURO: She is alert and oriented x3. No focal deficits. Labs from this morning, WBC 6.9, hemoglobin 9.8, platelets are 255. Urinalysis was negative. IMPRESSION: Abdominal pain with nausea, vomiting, and some bloody diarrhea of one day duration, probably infectious colitis. Since being in the hospital did not have any further episodes of bleeding and the diarrhea has completely resolved. As mentioned earlier she did have an EGD and colonoscopy a year ago which was completely within normal limits and was diagnosed with IBS. Presently on Bentyl 10 mg 4 times daily and doing extremely well. RECOMMENDATIONS: 1. Advanced to normal diet. 2. She can be discharged from today with outpatient follow up in 2 to 3 weeks. 3. Continue with Bentyl 10 mg 4 times daily as needed. Thank you for this consultation.
--- NOTE | 2016-12-29 14:05 | P.PN ---
Subjective Patient is doing a lot better today. No bowel movement since yesterday. Hemoglobin is significantly better after 2 units of blood transfusion for Objective - Vital Signs Vital signs: Vital Signs Temp 97.8 F 12/29/16 11:34 Pulse 72 12/29/16 11:34 Resp 18 12/29/16 11:34 BP 100/56 12/29/16 11:34 Pulse Ox 100 12/29/16 11:34 Intake & Output 12/28/16 12/29/16 12/29/16 18:59 06:59 18:59 Intake Total 1864 1700 Output Total 250 Balance 1864 1450 Weight 65.5 kg Intake: IV 800 1100 Sodium Chloride 0.9% 1, 800 1100 000 ml @ 100 mls/hr IV . Q10H [facility] Rx#:[id number] Oral 444 600 Blood Product 620 Rc As-1 Unit 310 [id number] Rc As-1 Unit 310 [id number] Output: Urine 250 Other: Voiding Method Toilet Toilet Toilet # Voids 3 1 1 - Exam General: The patient is awake and alert, in no distress Eye: there is normal conjunctiva bilaterally. Neck: The neck is supple, there is no JVD. Cardiovascular: Normal S1-S2, no S3-S4, no murmurs. Respiratory: Lungs clear to auscultation bilaterally Gastrointestinal: Abdomen is soft, nontender Musculoskeletal: There is no pedal edema. Neurological:. Speech is normal. Skin: Skin is warm and dry - Labs CBC & Chem 7: 12/29/16 08:59 12/29/16 08:59 Labs: Abnormal Lab Results - Last 24 Hours (Table) 12/27/16 12/28/16 12/29/16 Range/Units 17:30 19:00 08:59 RBC 3.44 L 3.55 L (3.80-5.40) m/uL Hgb 9.8 L D 10.2 L (11.4-16.0) gm/dL Hct 30.4 L 31.4 L (34.0-46.0) % RDW 15.8 H 16.1 H (11.5-15.5) % Chloride (98-107) mmol/L BUN (7-17) mg/dL Total Protein (6.3-8.2) g/dL Albumin (3.5-5.0) g/dL Crossmatch See Detail 12/29/16 Range/Units 08:59 RBC (3.80-5.40) m/uL Hgb (11.4-16.0) gm/dL Hct (34.0-46.0) % RDW (11.5-15.5) % Chloride 111 H (98-107) mmol/L BUN 6 L (7-17) mg/dL Total Protein 5.6 L (6.3-8.2) g/dL Albumin 3.2 L (3.5-5.0) g/dL Crossmatch Assessment and Plan Plan: 1. Hematochezia: With underlying history of ulcerative colitis. Patient was seen and evaluated by GI. No steroid or further workup recommended. No further bleeding documented. Awaiting patient to have a bowel movement. 2. Recent D&C for spontaneous miscarriage with ongoing vaginal bleeding. OB/ ELECTRIC CAR OPERATOR consulted for further evaluation. Patient underwent ultrasound, report reviewed. Cleared by DIP LUBE OPERATOR for discharge. 3. Acute on chronic blood loss anemia, status post 2 units of PRBC transfusion 4. Chronic iron deficiency anemia 5. Underlying ulcerative colitis with questionable flareup Today, I reviewed her medication list lab work results. Continue supportive care. Appreciate forestry consultant's recommendations. Hemoglobin remained stable and patient has a normal bowel movement today she will be discharged home tomorrow.
[2016-12-29] MEDS: DICYCLOMINE 20 MG TAB PO SCH ×2 (16:53→21:21)
[2016-12-29] MEDS ORDERED: ZOLPIDEM 5 MG TAB PO PRN (20:34)
[2016-12-29] MEDS: NICOTINE 14MG/24HR PATCH TRANSDERM SCH (21:21)
[2016-12-30 05:12] VITALS: TEMP 97.7
[2016-12-30] MEDS: SODIUM CHLORIDE 0.9% 1,000 ML IV SCH (05:56)
[2016-12-30 06:25] LABS: Anisocytosis Slight; CH 28.6; CHCM 33.2; HCT 31.8 % (34.0-46.0); HDW 3.21; HGB 10.6 gm/dL (11.4-16.0); MCH 28.9 pg (25.0-35.0); MCHC 33.4 g/dL (31.0-37.0); MCV 86.4 fL (80.0-100.0); Mean Platelet Volume 7.5; RBC 3.68 m/uL (3.80-5.40); RDW 16.1 % (11.5-15.5); WBC 7.5 k/uL (3.8-10.6)
[2016-12-30] MEDS: HYDROcodone/APAP 5-325MG 1 EACH TAB PO PRN ×2 (06:30→11:58)
[2016-12-30] MEDS: DICYCLOMINE 20 MG TAB PO SCH ×2 (07:54→11:58)
[2016-12-30] MEDS: NICOTINE 14MG/24HR PATCH TRANSDERM SCH (07:54)
[2016-12-30] MEDS ORDERED: PANTOPRAZOLE 40 MG TABLET PO SCH (09:00)
--- NOTE | 2016-12-30 11:07 | PN ---
DATE OF SERVICE: 12/30/2016 The patient is a 26-year-old pleasant lady admitted to the hospital with acute onset of nausea, vomiting, abdominal pain and bloody diarrhea for one day duration. Stool studies so far showed negative C. difficile toxin and negative for occult blood. The rest are pending. Her diarrhea has resolved. She had one solid bowel movement last night. No further bleeding. On physical examination, she appears comfortable in no apparent distress. Vital signs are stable. Blood pressure is 101/68, pulse rate 71, temperature 97.6. HEENT examination unremarkable. Conjunctivae pink. Sclerae anicteric. Oral cavity, no lesions. NECK: No JVD or lymph node enlargement. Chest was clear to auscultation. HEART: Regular rate and rhythm. ABDOMEN: Soft. Bowel sounds are positive. No organomegaly. EXTREMITIES: No pedal edema. SKIN: No rashes. NEURO: She is alert and oriented x3. No focal deficits. Labs from today, hemoglobin 10.5. Stool occult blood negative. C. difficile negative. IMPRESSION: Acute onset of abdominal pain, nausea, vomiting, diarrhea, most likely infectious colitis which subsequently resolved. Stool studies so far are negative. Her diarrhea has improved and so has the bleeding. Last hemoglobin 10.5, after 2 units of blood transfusion. RECOMMENDATIONS: 1. Continue with Bentyl 20 mg 4 times daily. 2. Advance diet as tolerated. 3. She can be discharged home today with an outpatient follow up in 2 weeks.
[2016-12-30 12:10] VITALS: BP 104/52; PULSE 66
--- NOTE | 2016-12-30 13:31 | P.DS ---
Providers Date of admission: 12/27/16 19:02 Expected date of discharge: 12/30/16 Attending physician: Cornelia Velasquez Consults: 12/27/16 18:35 Consult Physician Stat Consulting Provider: Nuria Muñiz Consult Reason/Comments: Ulcerative colitis Do you want consulting provider notified?: Yes 12/28/16 12:50 Consult Physician Routine Consulting Provider: Jean-Paul Tovar Consult Reason/Comments: bleeding Do you want consulting provider notified?: Yes Primary care physician: Nakia Love [facility] Course: 1. Hematochezia: With underlying history of ulcerative colitis. Patient was seen and evaluated by GI. No steroid or further workup recommended. No further bleeding documented. Patient had a normal bowel movement on the day of discharge. Follow-up with GI in 2 weeks in the office. 2. Recent D&C for spontaneous miscarriage with ongoing vaginal bleeding. OB/ FORESTRY SCIENTIST consulted for further evaluation. Patient underwent ultrasound, report reviewed. Cleared by SLOT FLOOR SUPERVISOR for discharge. 3. Acute on chronic blood loss anemia, status post 2 units of PRBC transfusion. Hemoglobin of 10.6 on the day of discharge. 4. Chronic iron deficiency anemia 5. Underlying ulcerative colitis with questionable flareup Patient Condition at Discharge: Fair Plan - Discharge Summary New Discharge Prescriptions: Acetaminophen Tab [Tylenol Tab] 500 mg PO Q6H #30 tablet Nicotine 14Mg/24Hr Patch [Habitrol] 1 patch TRANSDERM DAILY #30 patch Ondansetron [Zofran] 4 mg PO Q8HR PRN #15 tab PRN Reason: Nausea Discharge Medication List Dicyclomine [Bentyl] 20 mg PO QID PRN 12/26/16 [History] Acetaminophen Tab [Tylenol Tab] 500 mg PO Q6H #30 tablet 12/30/16 [Rx] Nicotine 14Mg/24Hr Patch [Habitrol] 1 patch TRANSDERM DAILY #30 patch 12/30/16 [ Rx] Ondansetron [Zofran] 4 mg PO Q8HR PRN #15 tab 12/30/16 [Rx] Follow up Appointment(s)/Referral(s): Jean-Paul Tovar MD [STAFF PHYSICIAN] - 2 Weeks Nakia Love DO [Primary Care Provider] - 1-2 days Discharge Disposition: HOME SELF-CARE
== END 2016-12-30 13:49 | disposition home or self-care (01) | DRG 386 ==
LOC: EC 16:37 → 6SEL 19:02
PROVIDERS: ADMIT Internal Medicine; ATTEND Internal Medicine
PROC: 30233N1 Transfusion of Nonautologous Red Blood Cells into Peripheral Vein, Percutaneous Approach (ICD-10-PCS; principal; 2016-12-28)
DX: K51.90 Ulcerative colitis, unspecified, without complications (principal); A09 Infectious gastroenteritis and colitis, unspecified; D62 Acute posthemorrhagic anemia; D50.9 Iron deficiency anemia, unspecified; F17.200 Nicotine dependence, unspecified, uncomplicated; F41.9 Anxiety disorder, unspecified; Z88.5 Allergy status to narcotic agent
CPT/HCPCS: 36415; 76856; 80053; 81001; 81025; 82150; 82272; 83690; 84702; 85025; 85027; 85610; 85730; 86850; 86900; 86901; 86920; 87045; 87046; 87324; 87328; 87329; 88305; 89055; 93005; 96361; 96374; 96375; 96376; 99285

== ENCOUNTER 2017-02-27 18:05 | Inpatient (IN) | payer MEDICARE, OTHER ==
[2017-02-27] MEDS ORDERED: SODIUM CHLORIDE 0.9% 1,000 ML IV ONE ×2 (18:58→21:40)
[2017-02-27] MEDS ORDERED: ONDANSETRON 4 MG/2 ML VIAL IVP STA (18:58)
[2017-02-27] MEDS ORDERED: HYDROmorphone 1 MG/ML 1 ML SYRINGE IVP STA ×2 (18:58→20:15)
--- NOTE | 2017-02-27 19:02 | ED ---
Abdominal Pain HPI <Donavan Rose - Last Filed: 02/27/17 22:10> - General Source: patient, RN notes reviewed Mode of arrival: ambulatory Limitations: no limitations <Honey Jennings - Last Filed: 02/28/17 03:29> - General Chief Complaint: Abdominal Pain Stated Complaint: Colitis Flare-up Time Seen by Provider: 02/27/17 18:45 - History of Present Illness Initial Comments: Patient is a 26-year-old female presents to the emergency room for evaluation of abdominal pain. Patient states she has history ulcerative colitis. Patient states she has not had a flareup in about a year. Patient states she began having diffuse abdominal pain starting yesterday. Patient states she's been having diarrhea with dark stools. Patient does also states she has a history of anemia. Patient states she recently had a blood transfusion about a month and a half ago after having a miscarriage. Patient states been nauseous but denies vomiting. Patient states she has a history cholecystectomy. Patient denies any other abdominal surgeries. Patient denies pain or burning during urination, trouble urinating or blood in urine. Patient states been having on and off fevers and chills. Patient denies chest pain or shortness of breath. Patient denies headache. Patient does states she feels lightheaded and weak and feels that she might be anemic. (Honey Jennings) - Related Data Home Medications Medication Instructions Recorded Confirmed Dicyclomine [Bentyl] 20 mg PO TID 12/26/16 02/27/17 Ferrous Sulfate [Feosol] 650 mg PO DAILY 02/27/17 02/27/17 Ondansetron [Zofran ODT] 4 mg PO QID PRN 02/27/17 02/27/17 Allergies Allergy/AdvReac Type Severity Reaction Status Date / Time codeine Allergy Unknown Rash/Hives Verified 02/27/17 20:04 Review of Systems ROS Other: All systems not noted in ROS Statement are negative. <Donavan Rose - Last Filed: 02/27/17 22:10> ROS Other: All systems not noted in ROS Statement are negative. <Honey Jennings - Last Filed: 02/28/17 03:29> ROS Statement: Those systems with pertinent positive or pertinent negative responses have been documented in the HPI. Past Medical History Additional Past Medical History / Comment(s): ulcerative colitis-recent flare- ups, anemia (iron & pernicious) History of Any Multi-Drug Resistant Organisms: None Reported Past Surgical History: Cholecystectomy Additional Past Surgical History / Comment(s): colonoscopies, d & c Past Anesthesia/Blood Transfusion Reactions: No Reported Reaction Past Psychological History: Anxiety Smoking Status: Current every day smoker Past Alcohol Use History: None Reported Past Drug Use History: None Reported - Past Family History Mother Additional Family Medical History / Comment(s): "she had a lot of cysts on her ovaries" Father History Unknown: Yes Family Medical History: No Reported History Additional Family Medical History / Comment(s): dad side of family has ulcerative colitis <Honey Jennings - Last Filed: 02/28/17 03:29> General Exam <Donavan Rose - Last Filed: 02/27/17 22:10> Limitations: no limitations General appearance: alert, in no apparent distress Head exam: Present: atraumatic, normocephalic, normal inspection Eye exam: Present: normal appearance ENT exam: Present: normal exam Neck exam: Present: normal inspection Respiratory exam: Present: normal lung sounds bilaterally. Absent: respiratory distress Cardiovascular Exam: Present: normal rhythm, tachycardia, normal heart sounds GI/Abdominal exam: Present: soft, tenderness (Diffuse tenderness on palpation), guarding (Voluntary guarding on palpating over the abdomen), normal bowel sounds. Absent: distended, rebound, rigid Rectal exam: Present: normal inspection, normal rectal tone, heme (-) stool Extremities exam: Present: normal inspection Back exam: Present: normal inspection Neurological exam: Present: alert, oriented X3, CN II-XII intact, normal gait Psychiatric exam: Present: normal affect, normal mood Skin exam: Present: warm, dry, intact, normal color. Absent: rash <Honey Jennings - Last Filed: 02/28/17 03:29> - General Exam Comments Initial Comments: Sitting in exam room, no acute distress. (Honey Jennings) Medical Decision Making - Lab Data Result diagrams: 02/27/17 19:30 02/27/17 19:30 <Donavan Rose - Last Filed: 02/27/17 22:10> - Lab Data Result diagrams: 02/27/17 19:30 02/27/17 19:30 - Radiology Data Radiology results: report reviewed, image reviewed <Honey Jennings - Last Filed: 02/28/17 03:29> - Medical Decision Making Patient was seen and examined. All diagnostics were reviewed. The case was discussed with the PA and I agree with the findings. Case was discussed with internal medicine and they are agreeable to admission with GI to consult in starting Solu-Medrol 60 mg 4 times a day. (Donavan Rose) Patient is a 26-year-old female who presents to the emergency room for evaluation of abdominal pain. Hemoglobin is stable at this time. Elevated WBC. Fecal occult negative.CT abdomen/pelvis: There are some mildly dilated small bowel loops with fluid and minimal wall thickening in the mid abdomen. This appears new compared to old exam and could relate to ileus or inflammatory bowel disease. Partial small bowel obstruction cannot be entirely excluded. It does appear the patient is having a ulcerative colitis flareup. Case discussed with Dr. Rose. Dr. Rose discussed case with Dr. Castillo who agreed to admit patient. Patient will started on steroids. (Honey Jennings) - Lab Data Lab Results 02/27/17 02/27/17 02/27/17 Range/Units 19:30 19:30 19:30 WBC 16.6 H (3.8-10.6) k/uL RBC 4.01 (3.80-5.40) m/uL Hgb 11.2 L (11.4-16.0) gm/dL Hct 34.6 (34.0-46.0) % MCV 86.2 (80.0-100.0) fL MCH 28.0 (25.0-35.0) pg MCHC 32.5 (31.0-37.0) g/dL RDW 14.9 (11.5-15.5) % Plt Count 460 H (150-450) k/uL Neutrophils % 81 % Lymphocytes % 11 % Monocytes % 4 % Eosinophils % 2 % Basophils % 0 % Neutrophils # 13.5 H (1.3-7.7) k/uL Lymphocytes # 1.9 (1.0-4.8) k/uL Monocytes # 0.7 (0-1.0) k/uL Eosinophils # 0.4 (0-0.7) k/uL Basophils # 0.0 (0-0.2) k/uL Hypochromasia Slight PT (9.0-12.0) sec INR (<1.2) APTT (22.0-30.0) sec Sodium 139 (137-145) mmol/L Potassium 3.6 (3.5-5.1) mmol/L Chloride 105 (98-107) mmol/L Carbon Dioxide 25 (22-30) mmol/L Anion Gap 9 mmol/L BUN 8 (7-17) mg/dL Creatinine 0.81 (0.52-1.04) mg/dL Est GFR (MDRD) Af Amer >60 (>60 ml/min/1.73 sqM) Est GFR (MDRD) Non-Af >60 (>60 ml/min/1.73 sqM) Glucose 91 (74-99) mg/dL Calcium 9.4 (8.4-10.2) mg/dL Total Bilirubin 0.4 (0.2-1.3) mg/dL AST 23 (14-36) U/L ALT 25 (9-52) U/L Alkaline Phosphatase 104 (38-126) U/L Total Protein 6.8 (6.3-8.2) g/dL Albumin 4.2 (3.5-5.0) g/dL Amylase <30 L (30-110) U/L Lipase 115 (23-300) U/L Urine Color Urine Appearance (Clear) Urine pH (5.0-8.0) Ur Specific [place] (1.001-1.035) Urine Protein (Negative) Urine Glucose (UA) (Negative) Urine Ketones (Negative) Urine Blood (Negative) Urine Nitrite (Negative) Urine Bilirubin (Negative) Urine Urobilinogen (<2.0) mg/dL Ur Leukocyte Esterase (Negative) Urine RBC (0-5) /hpf Urine WBC (0-5) /hpf Ur Squamous Epith Cells (0-4) /hpf Hyaline Casts (0-2) /lpf Urine Mucus (None) /hpf Urine HCG, Qual Not Detected (Not Detectd) Stool Occult Blood (Negative) Blood Type Blood Type Recheck Antibody Screen Spec Expiration Date 02/27/17 02/27/17 02/27/17 Range/Units 19:30 19:30 19:30 WBC (3.8-10.6) k/uL RBC (3.80-5.40) m/uL Hgb (11.4-16.0) gm/dL Hct (34.0-46.0) % MCV (80.0-100.0) fL MCH (25.0-35.0) pg MCHC (31.0-37.0) g/dL RDW (11.5-15.5) % Plt Count (150-450) k/uL Neutrophils % % Lymphocytes % % Monocytes % % Eosinophils % % Basophils % % Neutrophils # (1.3-7.7) k/uL Lymphocytes # (1.0-4.8) k/uL Monocytes # (0-1.0) k/uL Eosinophils # (0-0.7) k/uL Basophils # (0-0.2) k/uL Hypochromasia PT 10.8 (9.0-12.0) sec INR 1.1 (<1.2) APTT 23.0 (22.0-30.0) sec Sodium (137-145) mmol/L Potassium (3.5-5.1) mmol/L Chloride (98-107) mmol/L Carbon Dioxide (22-30) mmol/L Anion Gap mmol/L BUN (7-17) mg/dL Creatinine (0.52-1.04) mg/dL Est GFR (MDRD) Af Amer (>60 ml/min/1.73 sqM) Est GFR (MDRD) Non-Af (>60 ml/min/1.73 sqM) Glucose (74-99) mg/dL Calcium (8.4-10.2) mg/dL Total Bilirubin (0.2-1.3) mg/dL AST (14-36) U/L ALT (9-52) U/L Alkaline Phosphatase (38-126) U/L Total Protein (6.3-8.2) g/dL Albumin (3.5-5.0) g/dL Amylase (30-110) U/L Lipase (23-300) U/L Urine Color Dark Brown Urine Appearance Cloudy H (Clear) Urine pH 5.5 (5.0-8.0) Ur Specific [place] 1.049 H (1.001-1.035) Urine Protein 2+ H (Negative) Urine Glucose (UA) Negative (Negative) Urine Ketones Trace H (Negative) Urine Blood Negative (Negative) Urine Nitrite Negative (Negative) Urine Bilirubin 1+ H (Negative) Urine Urobilinogen 4.0 (<2.0) mg/dL Ur Leukocyte Esterase Small H (Negative) Urine RBC 4 (0-5) /hpf Urine WBC 16 H (0-5) /hpf Ur Squamous Epith Cells 27 H (0-4) /hpf Hyaline Casts 6 H (0-2) /lpf Urine Mucus Many H (None) /hpf Urine HCG, Qual (Not Detectd) Stool Occult Blood Negative (Negative) Blood Type Blood Type Recheck Antibody Screen Spec Expiration Date 02/27/17 Range/Units 19:30 WBC (3.8-10.6) k/uL RBC (3.80-5.40) m/uL Hgb (11.4-16.0) gm/dL Hct (34.0-46.0) % MCV (80.0-100.0) fL MCH (25.0-35.0) pg MCHC (31.0-37.0) g/dL RDW (11.5-15.5) % Plt Count (150-450) k/uL Neutrophils % % Lymphocytes % % Monocytes % % Eosinophils % % Basophils % % Neutrophils # (1.3-7.7) k/uL Lymphocytes # (1.0-4.8) k/uL Monocytes # (0-1.0) k/uL Eosinophils # (0-0.7) k/uL Basophils # (0-0.2) k/uL Hypochromasia PT (9.0-12.0) sec INR (<1.2) APTT (22.0-30.0) sec Sodium (137-145) mmol/L Potassium (3.5-5.1) mmol/L Chloride (98-107) mmol/L Carbon Dioxide (22-30) mmol/L Anion Gap mmol/L BUN (7-17) mg/dL Creatinine (0.52-1.04) mg/dL Est GFR (MDRD) Af Amer (>60 ml/min/1.73 sqM) Est GFR (MDRD) Non-Af (>60 ml/min/1.73 sqM) Glucose (74-99) mg/dL Calcium (8.4-10.2) mg/dL Total Bilirubin (0.2-1.3) mg/dL AST (14-36) U/L ALT (9-52) U/L Alkaline Phosphatase (38-126) U/L Total Protein (6.3-8.2) g/dL Albumin (3.5-5.0) g/dL Amylase (30-110) U/L Lipase (23-300) U/L Urine Color Urine Appearance (Clear) Urine pH (5.0-8.0) Ur Specific [place] (1.001-1.035) Urine Protein (Negative) Urine Glucose (UA) (Negative) Urine Ketones (Negative) Urine Blood (Negative) Urine Nitrite (Negative) Urine Bilirubin (Negative) Urine Urobilinogen (<2.0) mg/dL Ur Leukocyte Esterase (Negative) Urine RBC (0-5) /hpf Urine WBC (0-5) /hpf Ur Squamous Epith Cells (0-4) /hpf Hyaline Casts (0-2) /lpf Urine Mucus (None) /hpf Urine HCG, Qual (Not Detectd) Stool Occult Blood (Negative) Blood Type O Positive Blood Type Recheck No Antibody Screen NEGATIVE Spec Expiration Date 03/02/2017 - 2330 Disposition <Donavan Rose - Last Filed: 02/27/17 22:10> Decision Date: 02/27/17 <Honey Jennings - Last Filed: 02/28/17 03:29> Clinical Impression: Ulcerative colitis, Partial small bowel obstruction Disposition: ADMITTED IP TO THIS HOSP Condition: Stable
[2017-02-27 19:42] LABS: Basophils % (A) 0 %; CH 28.3; Eosinophils # (A) 0.4 k/uL (0-0.7); Eosinophils % (A) 2 %; HCT 34.6 % (34.0-46.0); HDW 3.12; HGB 11.2 gm/dL (11.4-16.0); Hypochromasia Slight; Luc # (Auto) 0.13; Luc % (Auto) 1; Lymphocytes # (A) 1.9 k/uL (1.0-4.8); Lymphocytes % (A) 11 %; MCHC 32.5 g/dL (31.0-37.0); MCV 86.2 fL (80.0-100.0); Mean Platelet Volume 7.4; Monocytes # (A) 0.7 k/uL (0-1.0); Monocytes % (A) 4 %; Neutrophils # (A) 13.5 k/uL (1.3-7.7); Neutrophils % (A) 81 %; RBC 4.01 m/uL (3.80-5.40); RDW 14.9 % (11.5-15.5); WBC 16.6 k/uL (3.8-10.6); WBC (Perox) 17.16
[2017-02-27 19:49] LABS: Appearance,Urine Cloudy (Clear); Bilirubin,Urine 1+ (Negative); Glucose,Urine (UA) Negative (Negative); Ketones,Urine Trace (Negative); Leukocyte Esterase,Urine Small (Negative); Mucus,Urine Many /hpf; Nitrite,Urine Negative (Negative); PH, Urine 5.5 (5.0-8.0); Particle Count 22917; Protein,Urine 2+ (Negative); RBC,Urine 4 /hpf (0-5); Squamous Epithelial Cell,Urine 27 /hpf (0-4); UA Billing (MACRO vs. MICRO) MICRO; WBC,Urine 16 /hpf (0-5)
[2017-02-27 19:50] LABS: Specific Gravity,Urine 1.049 (1.001-1.035)
[2017-02-27 19:52] LABS: ALT 25 U/L (9-52); AST 23 U/L (14-36); Alkaline Phosphatase 104 U/L (38-126); Amylase <30 U/L (30-110); Anion Gap 9 mmol/L; Blood Urea Nitrogen 8 mg/dL (7-17); Calcium 9.4 mg/dL (8.4-10.2); Carbon Dioxide 25 mmol/L (22-30); Chloride 105 mmol/L (98-107); Glucose 91 mg/dL (74-99); Non-African American GFR(MDRD) >60 (>60 ml/min/1.73 sqM); Potassium 3.6 mmol/L (3.5-5.1); Sodium 139 mmol/L (137-145); Total Bilirubin 0.4 mg/dL (0.2-1.3); Total Protein 6.8 g/dL (6.3-8.2)
[2017-02-27 20:06] LABS: INR 1.1 (<1.2); Prothrombin Time 10.8 sec (9.0-12.0)
[2017-02-27] MEDS ORDERED: RX INFO: IV CONTRAST WAS GIVEN 1 EACH MISC MISCELLANE PRN (20:11)
[2017-02-27] MEDS ORDERED: METOCLOPRAMIDE 5 MG/ML 2 ML VIAL IVP STA (20:15)
--- NOTE | 2017-02-27 21:04 | CT ---
EXAMINATION TYPE: CT abdomen pelvis w con DATE OF EXAM: 02/27/2017 COMPARISON: 12/30/2014 HISTORY: Nausea, vomiting and diarrhea, hx of ulcertive coloitis. CT DLP: 935 mGycm Automated exposure control for dose reduction was used. TECHNIQUE: Helical acquisition of images was performed from the lung bases through the pelvis. CONTRAST: Performed without Oral Contrast and with IV Contrast, patient injected with 100 mL of Omnipaque 300. FINDINGS: Lung bases are clear of consolidation. There is no pleural effusion. There are clips from cholecystec tevin. Liver spleen pancreas appear normal. Bile ducts are not dilated. There is no adrenal mass. Kidneys show satisfactory contrast opacification. There is no hydronephrosi s. There is no retroperitoneal adenopathy. There is no ascites. There is probably a 2.5 cm cyst on th e right ovary. Bladder is almost empty. There are some distended loops of small bowel in the left mid abdomen with fluid. These measure up to 3 cm. There is also mild wall thickening. I see no definite sign of appendicitis. Uterus appears nor mal. I see no bony destructive process. IMPRESSION: THERE ARE SOME MILDLY DILATED SMALL BOWEL LOOPS WITH FLUID AND MINIMAL WALL THICKENING IN THE MID ABD OMEN. THIS APPEARS NEW COMPARED TO OLD EXAM AND COULD RELATE TO ILEUS OR INFLAMMATORY BOWEL DISEASE. A PARTIAL SMALL BOWEL OBSTRUCTION CANNOT BE ENTIRELY EXCLUDED.
[2017-02-27] MEDS ORDERED: NALOXONE 0.4 MG/ML 1 ML VIAL IV PRN (21:41)
[2017-02-27] MEDS: SODIUM CHLORIDE 0.9% 1,000 ML IV SCH (21:58)
[2017-02-27] MEDS: HYDROmorphone 1 MG/ML 1 ML SYRINGE IV PRN (22:30)
[2017-02-27 22:42] VITALS: BMI 25.4
[2017-02-27] MEDS: methylPREDNISolone SOD SUCCI 125 MG/2 ML VIAL IV SCH (23:46)
[2017-02-28] MEDS: PROCHLORPERAZINE 5 MG TAB PO PRN ×2 (00:31→09:38)
[2017-02-28] MEDS: HYDROmorphone 1 MG/ML 1 ML SYRINGE IV PRN ×7 (03:27→23:06)
[2017-02-28] MEDS: methylPREDNISolone SOD SUCCI 125 MG/2 ML VIAL IV SCH ×4 (05:31→23:13)
[2017-02-28] MEDS: ONDANSETRON 4 MG/2 ML VIAL IVP PRN ×3 (06:29→23:05)
[2017-02-28 07:34] LABS: Basophils % (A) 0 %; CH 27.7; Eosinophils % (A) 0 %; HDW 3.08; HGB 10.3 gm/dL (11.4-16.0); Hypochromasia Moderate; Luc # (Auto) 0.03; Luc % (Auto) 0; Lymphocytes # (A) 0.6 k/uL (1.0-4.8); Lymphocytes % (A) 4 %; MCH 27.2 pg (25.0-35.0); MCHC 30.4 g/dL (31.0-37.0); MCV 89.5 fL (80.0-100.0); Mean Platelet Volume 7.5; Monocytes # (A) 0.1 k/uL (0-1.0); Monocytes % (A) 1 %; Neutrophils % (A) 95 %; RBC 3.79 m/uL (3.80-5.40); RDW 14.7 % (11.5-15.5); WBC 12.7 k/uL (3.8-10.6); WBC (Perox) 13.53
[2017-02-28] MEDS: SODIUM CHLORIDE 0.9% 1,000 ML IV SCH ×3 (07:34→23:05)
[2017-02-28 07:56] LABS: ALT 28 U/L (9-52); AST 21 U/L (14-36); Alkaline Phosphatase 99 U/L (38-126); Anion Gap 8 mmol/L; Blood Urea Nitrogen 4 mg/dL (7-17); Calcium 8.2 mg/dL (8.4-10.2); Carbon Dioxide 19 mmol/L (22-30); Chloride 111 mmol/L (98-107); Glucose 116 mg/dL (74-99); Non-African American GFR(MDRD) >60 (>60 ml/min/1.73 sqM); Potassium 4.2 mmol/L (3.5-5.1); Sodium 138 mmol/L (137-145); Total Bilirubin 0.3 mg/dL (0.2-1.3); Total Protein 5.8 g/dL (6.3-8.2)
--- NOTE | 2017-02-28 11:05 | CONS ---
REQUESTING PHYSICIAN: Dr. Castillo REASON FOR CONSULTATION: Abdominal pain, nausea, vomiting and diarrhea. HISTORY OF PRESENT ILLNESS: The patient is a 26-year-old pleasant white female know to me from her previous hospitalizations. She was diagnosed with irritable bowel syndrome a year ago. There was some questionable history of ulcerative colitis diagnosed 10 year ago but recent colonoscopy in November 2015 for evaluation of nausea, vomiting and diarrhea did not show any significant GI pathology and there was no evidence of ulcerative colitis. She was diagnosed with IBS and since has been on Bentyl 20 mg three times daily. She presents to the hospital with acute onset of epigastric pain associated with nausea, vomiting and diarrhea since Thursday night. She had about 10 bowel movements, loose to watery in consistency with some mucous, but no blood. The patient was getting worse despite taking Bentyl 20 mg three times daily. She also had low grade fever at home. She came to the emergency room. She had CT of the abdomen and pelvis that showed some dilated small bowel loops suspicious for ileus versus small bowel obstruction. This morning she is on clear liquid diet, tolerating well and requesting for advancing her diet. She says that she still has epigastric pain. Fever has resolved. No rectal bleeding or melena. Her past medical history is significant for irritable bowel syndrome diagnosed one year ago, questionable remote history of ulcerative colitis diagnosed 10 years ago. PAST SURGICAL HISTORY: Cholecystectomy, colonoscopies, D&C. Medications at home include: Zofran, Bentyl, iron sulfate. ALLERGIES: CODEINE. SOCIAL HISTORY: Chronic smoker. No alcohol use. FAMILY HISTORY: Mother has ovarian cysts. Father had ulcerative colitis. REVIEW OF SYSTEMS: CARDIOPULMONARY: No chest pain or shortness of breath. GENITOURINARY: No dysuria, hematuria. MUSCULOSKELETAL: Unremarkable. SKIN: Unremarkable. ENDOCRINE: Unremarkable. PSYCHIATRIC: Unremarkable. NEUROLOGICAL: Unremarkable. ENT/VISION: Unremarkable. CONSTITUTIONAL: No recent weight loss. No fever, chills or night sweats. On physical examination, temperature 98.4, blood pressure 170/61, pulse rate 83. HEENT examination unremarkable. Conjunctivae pink. Sclerae anicteric. Oral cavity, no lesions. No JVD or lymph node enlargement. Chest was clear to auscultation. Heart: Regular rate and rhythm. Abdomen is soft, bowel sounds are positive. No organomegaly. Extremities: No pedal edema. Skin: No rashes. Neuro: Alert and oriented x3. No focal deficits. Labs done at the time of admission to the hospital: WBC 16.6, hemoglobin 11.2, platelets are 416. This morning WBC 12.7. PT/INR are within normal limits. ALT, AST and alk phos are all within normal limits. Amylase and lipase are normal. IMPRESSION: 1. This is a lady who presents with acute onset of epigastric pain associated with nausea and vomiting, diarrhea for the last 3 days duration. She also says that she had low grade fever. Most likely we are dealing with infectious gastroenteritis which appears to be resolving. CT scan of the abdomen showed some dilated small bowel loops but clinically the patient does not have any evidence of small bowel obstruction. 2. History of irritable bowel syndrome diagnosed in November 2015. She had EGD and colonoscopy with biopsies that were unremarkable. No history of inflammatory bowel disease. RECOMMENDATIONS: 1. Obtain stool studies. 2. Advanced diet as tolerated. 3. Continue with symptomatic and supportive care. 4. No reason for endoscopic intervention. Will follow her closely during hospital stay. Thank you for this consultation. GIOVANNA
[2017-02-28] MEDS ORDERED: HYDROmorphone 1 MG/ML 1 ML SYRINGE IVP STA (13:09)
[2017-02-28 15:08] VITALS: RESP 16
--- NOTE | 2017-02-28 15:48 | P.HPIM ---
History of Present Illness H&P Date: 02/28/17 Chief Complaint: Abdominal pain Radha Flynn is a 26-year-old female patient of [facility] who presented to [facility] emergency room with a chief complaint of severe abdominal pain patient describes a pressure sensation in the epigastric area that she rates at 10 out of 10, she has a known history of ulcerative colitis that was diagnosed in 2010 she states that at that time she was in and out of the hospital every month or every other month but her colitis improved and she has not been in the hospital for the last year or 2. She does not take any medication for ulcerative colitis as outpatient at this time. She was evaluated in the past by Dr. Grey and [facility] however she does not follow with them at this time. Patient had an EGD and colonoscopy in 2015 that was negative. Computed tomography scan of the abdomen and pelvis was done on presentation to emergency room and revealed evidence of some dilated bowel loops suspicious for ileus versus small bowel obstruction. Past Medical History Additional Past Medical History / Comment(s): ulcerative colitis-recent flare- ups, anemia (iron & pernicious) History of Any Multi-Drug Resistant Organisms: None Reported Past Surgical History: Cholecystectomy Additional Past Surgical History / Comment(s): colonoscopies, d & c Past Anesthesia/Blood Transfusion Reactions: No Reported Reaction Past Psychological History: Anxiety Smoking Status: Current every day smoker Past Alcohol Use History: None Reported Past Drug Use History: None Reported - Past Family History Mother Additional Family Medical History / Comment(s): "she had a lot of cysts on her ovaries" Father History Unknown: Yes Family Medical History: No Reported History Additional Family Medical History / Comment(s): dad side of family has ulcerative colitis Medications and Allergies Home Medications Medication Instructions Recorded Confirmed Type Dicyclomine [Bentyl] 20 mg PO TID 12/26/16 02/27/17 History Ferrous Sulfate [Feosol] 650 mg PO DAILY 02/27/17 02/27/17 History Ondansetron [Zofran ODT] 4 mg PO QID PRN 02/27/17 02/27/17 History Allergies Allergy/AdvReac Type Severity Reaction Status Date / Time codeine Allergy Unknown Rash/Hives Verified 02/27/17 20:04 Physical Exam Vitals: Vital Signs Temp Pulse Pulse Resp BP BP Pulse Ox 02/28/17 15:28 89 16 02/28/17 15:00 97.6 F 89 16 102/55 96 02/28/17 08:00 94 18 02/28/17 07:00 98.0 F 94 18 108/65 98 02/28/17 00:00 88 17 02/27/17 22:32 97.7 F 88 17 114/72 100 02/27/17 21:59 98.4 F 83 18 117/61 96 02/27/17 20:22 98 18 115/66 100 02/27/17 18:25 97.6 F 110 H 20 110/62 99 Intake and Output 02/28/17 02/28/17 02/28/17 06:59 14:59 22:59 Intake Total 202 1540 Balance 202 1540 Intake: Intake, IV Titration 202 700 Amount Sodium Chloride 0.9% 1, 700 000 ml @ 100 mls/hr IV . Q10H JOSE Rx#:[id number] Oral 840 Other: Voiding Method Toilet Toilet # Voids 1 3 3 Weight 58.967 kg 58.967 kg Patient Weight 03/01/17 06:59 Weight 58.967 kg In general patient is alert and oriented 3 in no apparent distress HEENT head normocephalic and atraumatic Neck is supple no JVD no goiter no lymphadenopathy Chest exam reveals a few scattered rhonchi no wheezing Cardiac exam reveals regular heart sounds no gallops no murmurs Abdomen is soft with mild diffuse tenderness no organomegaly no palpable masses no rigidity or rebound Extremity exam reveals no edema no cyanosis or clubbing Results CBC & Chem 7: 02/28/17 06:52 02/28/17 06:52 Labs: Abnormal Lab Results - Last 24 Hours (Table) 02/27/17 02/27/17 02/27/17 Range/Units 19:30 19:30 19:30 WBC 16.6 H (3.8-10.6) k/uL RBC (3.80-5.40) m/uL Hgb 11.2 L (11.4-16.0) gm/dL MCHC (31.0-37.0) g/dL Plt Count 460 H (150-450) k/uL Neutrophils # 13.5 H (1.3-7.7) k/uL Lymphocytes # (1.0-4.8) k/uL Chloride (98-107) mmol/L Carbon Dioxide (22-30) mmol/L BUN (7-17) mg/dL Glucose (74-99) mg/dL Calcium (8.4-10.2) mg/dL Total Protein (6.3-8.2) g/dL Albumin (3.5-5.0) g/dL Amylase <30 L (30-110) U/L Urine Appearance Cloudy H (Clear) Ur Specific [place] 1.049 H (1.001-1.035) Urine Protein 2+ H (Negative) Urine Ketones Trace H (Negative) Urine Bilirubin 1+ H (Negative) Ur Leukocyte Esterase Small H (Negative) Urine WBC 16 H (0-5) /hpf Ur Squamous Epith Cells 27 H (0-4) /hpf Hyaline Casts 6 H (0-2) /lpf Urine Mucus Many H (None) /hpf 02/28/17 02/28/17 Range/Units 06:52 06:52 WBC 12.7 H (3.8-10.6) k/uL RBC 3.79 L (3.80-5.40) m/uL Hgb 10.3 L (11.4-16.0) gm/dL MCHC 30.4 L (31.0-37.0) g/dL Plt Count (150-450) k/uL Neutrophils # 12.0 H (1.3-7.7) k/uL Lymphocytes # 0.6 L (1.0-4.8) k/uL Chloride 111 H (98-107) mmol/L Carbon Dioxide 19 L (22-30) mmol/L BUN 4 L (7-17) mg/dL Glucose 116 H (74-99) mg/dL Calcium 8.2 L (8.4-10.2) mg/dL Total Protein 5.8 L (6.3-8.2) g/dL Albumin 3.4 L (3.5-5.0) g/dL Amylase (30-110) U/L Urine Appearance (Clear) Ur Specific [place] (1.001-1.035) Urine Protein (Negative) Urine Ketones (Negative) Urine Bilirubin (Negative) Ur Leukocyte Esterase (Negative) Urine WBC (0-5) /hpf Ur Squamous Epith Cells (0-4) /hpf Hyaline Casts (0-2) /lpf Urine Mucus (None) /hpf Thrombosis Risk Factor Assmnt - Choose All That Apply Other Risk Factors: No Other congenital or acquired thrombophilia - If yes, enter type in comment: No Assessment and Plan Plan: #1 abdominal pain with abnormal computed tomography scan showing dilated small bowel loops. At this time patient is maintained on clear liquid diet, she was started on IV steroids in the emergency room due to history of ulcerative colitis Stool studies were ordered to rule out infectious colitis GI consultation requested #2 severe pain continue was current pain management was when necessary Dilaudid. #3 underlying history of tobacco abuse patient was counseled to quit #4 continue to treat symptomatically Will add Protonix for GI prophylaxis and Lovenox for DVT prophylaxis will recheck labs and follow in a.m.
[2017-02-28] MEDS: ESOMEPRAZOLE 20 MG in SODIUM CHLORIDE 0.9% 50 ML IVPB SCH (16:45)
[2017-02-28] MEDS: ENOXAPARIN 40 MG/0.4 ML SYRINGE SQ SCH (16:46)
[2017-03-01] MEDS: HYDROmorphone 1 MG/ML 1 ML SYRINGE IV PRN ×4 (03:29→12:30)
[2017-03-01] MEDS: methylPREDNISolone SOD SUCCI 125 MG/2 ML VIAL IV SCH (05:35)
[2017-03-01 07:34] LABS: Basophils % (A) 0 %; CH 27.2; CHCM 30.4; Eosinophils % (A) 0 %; HCT 30.9 % (34.0-46.0); HDW 3.17; HGB 9.5 gm/dL (11.4-16.0); Hypochromasia Marked; Luc # (Auto) 0.06; Luc % (Auto) 0; Lymphocytes # (A) 0.8 k/uL (1.0-4.8); Lymphocytes % (A) 5 %; MCH 27.6 pg (25.0-35.0); MCHC 30.7 g/dL (31.0-37.0); MCV 89.9 fL (80.0-100.0); Monocytes # (A) 0.4 k/uL (0-1.0); Monocytes % (A) 2 %; Neutrophils # (A) 16.9 k/uL (1.3-7.7); Neutrophils % (A) 93 %; RBC 3.43 m/uL (3.80-5.40); RDW 14.1 % (11.5-15.5); WBC 18.3 k/uL (3.8-10.6); WBC (Perox) 18.01
[2017-03-01 08:03] LABS: ALT 19 U/L (9-52); AST 13 U/L (14-36); Alkaline Phosphatase 86 U/L (38-126); Anion Gap 8 mmol/L; Blood Urea Nitrogen 6 mg/dL (7-17); Calcium 8.7 mg/dL (8.4-10.2); Carbon Dioxide 21 mmol/L (22-30); Chloride 110 mmol/L (98-107); Glucose 136 mg/dL (74-99); Non-African American GFR(MDRD) >60 (>60 ml/min/1.73 sqM); Potassium 4.1 mmol/L (3.5-5.1); Sodium 139 mmol/L (137-145); Total Bilirubin <0.1 mg/dL (0.2-1.3); Total Protein 5.2 g/dL (6.3-8.2)
[2017-03-01 08:27] VITALS: BP 104/53; PULSE 82; TEMP 98.2
[2017-03-01] MEDS: ENOXAPARIN 40 MG/0.4 ML SYRINGE SQ SCH (08:35)
[2017-03-01] MEDS: ESOMEPRAZOLE 20 MG in SODIUM CHLORIDE 0.9% 50 ML IVPB SCH (08:35)
[2017-03-01] MEDS: ONDANSETRON 4 MG/2 ML VIAL IVP PRN (08:36)
--- NOTE | 2017-03-01 11:39 | PN ---
The patient is a 26-year-old pleasant lady with history of IBS admitted to the hospital with nausea, vomiting and diarrhea and epigastric pain of 2 days duration. This morning she is feeling much better, tolerating regular diet well. Abdominal pain has improved. Nausea, vomiting has subsided. She had no bowel movements since this morning. PHYSICAL EXAMINATION: She appears comfortable in no apparent distress. Vital signs are stable. Blood pressure 130/86, pulse rate 82 per minute and afebrile. HEENT: Unremarkable. Conjunctivae pink. Sclerae anicteric. Oral cavity no lesions. NECK: No JVD. No lymph node enlargement. CHEST: Clear to auscultation. HEART: Regular rate and rhythm. ABDOMEN: Soft, bowel sounds are positive. No organomegaly. EXTREMITIES: No pedal edema. SKIN: No rashes. NEURO: Alert, oriented x3. No focal deficits. Labs done today: WBC 10.3, hemoglobin 9.5, platelets are normal. Basic metabolic panel within normal limits. IMPRESSION: Acute onset of nausea, vomiting and diarrhea, possibly related to exacerbation of IBS or maybe superimposed viral gastroenteritis that has resolve.d. The patient was empirically started on IV steroids in the emergency room two days ago. Last EGD and colonoscopy in November 2015 did not show any evidence of inflammatory bowel disease. RECOMMENDATIONS: 1. Discontinue IV steroids. 2. Advance diet as tolerated. 3. She will be discharged from today with outpatient follow up in two weeks. 4. She will remain on Bentyl 20 mg four times daily. Thank you for this consultation. [facility]ENTERAyse
--- NOTE | 2017-03-01 12:31 | P.DS ---
Providers Date of admission: 02/27/17 21:41 Expected date of discharge: 03/01/17 Attending physician: Guicho Castillo Consults: 02/27/17 21:42 Consult Physician Urgent Consulting Provider: Nuria Muñiz Consult Reason/Comments: ulcerative colitis Do you want consulting provider notified?: Yes Primary care physician: Nakia Love [facility] Course: Diagnosis on discharge: #1 irritable bowel syndrome #2 possible viral gastroenteritis #3 anemia #4 remote history of ulcerative colitis #5 leukocytosis related to steroid use Hospital course Radha Flynn is a 26-year-old female patient of [facility] who presented to [facility] emergency room with a chief complaint of severe abdominal pain patient describes a pressure sensation in the epigastric area that she rates at 10 out of 10, she has a known history of ulcerative colitis that was diagnosed in 2010 she states that at that time she was in and out of the hospital every month or every other month but her colitis improved and she has not been in the hospital for the last year or 2. She does not take any medication for ulcerative colitis as outpatient at this time. She was evaluated in the past by Dr. Grey and Mary [facility] Patient had an EGD and colonoscopy in 2016 that was negative. And did not show any evidence of inflammatory bowel disease Computed tomography scan of the abdomen and pelvis was done on presentation to emergency room and revealed evidence of some dilated bowel loops suspicious for ileus versus small bowel obstruction. Patient improved gradually she was evaluated by Dr. Muñiz IV steroids were discontinued Patient was discharged home on 03/01/2017 She will follow-up with her primary care physician at [facility] she will also follow-up with Dr. Nuria Muñiz as outpatient Patient Condition at Discharge: Stable Plan - Discharge Summary New Discharge Prescriptions: Continue Dicyclomine [Bentyl] 20 mg PO TID Ondansetron [Zofran ODT] 4 mg PO QID PRN PRN Reason: Nausea Ferrous Sulfate [Iron (65 MG Elemental)] 650 mg PO DAILY Discharge Medication List Dicyclomine [Bentyl] 20 mg PO TID 12/26/16 [History] Ferrous Sulfate [Iron (65 MG Elemental)] 650 mg PO DAILY 02/27/17 [History] Ondansetron [Zofran ODT] 4 mg PO QID PRN 02/27/17 [History] Follow up Appointment(s)/Referral(s): Nakia Love DO [Primary Care Provider] - 1-2 days
[2017-03-01] MEDS: SODIUM CHLORIDE 0.9% 1,000 ML IV SCH (13:04)
== END 2017-03-01 14:17 | disposition home or self-care (01) | DRG 392 ==
LOC: EC 18:05 → 5MS5E 21:41
PROVIDERS: ADMIT Internal Medicine; ATTEND Internal Medicine
DX: K58.9 Irritable bowel syndrome, unspecified (principal); A09 Infectious gastroenteritis and colitis, unspecified; D64.9 Anemia, unspecified; F17.200 Nicotine dependence, unspecified, uncomplicated; T38.0X5A Adverse effect of glucocorticoids and synthetic analogues, initial encounter; D72.829 Elevated white blood cell count, unspecified; Z79.899 Other long term (current) drug therapy; Z88.5 Allergy status to narcotic agent
CPT/HCPCS: 36415; 74177; 80053; 81001; 81025; 82150; 82272; 83690; 85025; 85610; 85730; 86850; 86900; 86901; 96361; 96374; 96375; 96376; 99285

== ENCOUNTER 2017-03-10 13:36 | Emergency (ER) | payer MEDICARE, OTHER ==
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
[2017-03-10] MEDS ORDERED: HYDROmorphone 1 MG/ML 1 ML SYRINGE IM STA (16:35)
[2017-03-10 16:52] VITALS: BP 122/81; PULSE 96; RESP 18; TEMP 98.7
== END 2017-03-10 16:56 | disposition home or self-care (01) ==
LOC: EC 13:36
DX: S02.2XXA Fracture of nasal bones, initial encounter for closed fracture (principal); R51 Headache; H11.33 Conjunctival hemorrhage, bilateral; D64.9 Anemia, unspecified; F17.200 Nicotine dependence, unspecified, uncomplicated; Z88.5 Allergy status to narcotic agent; Z79.899 Other long term (current) drug therapy; Y08.89XA Assault by other specified means, initial encounter
CPT/HCPCS: 72125; 70486; 70450; 99284; 96372; J1170

== ENCOUNTER 2017-04-18 12:19 | Inpatient (IN) | payer MEDICARE, OTHER ==
[2017-04-18] MEDS ORDERED: SODIUM CHLORIDE 0.9% 1,000 ML IV STA ×2 (13:38)
[2017-04-18] MEDS ORDERED: MORPHINE SULFATE 4 MG/ML SYRINGE IV STA (13:38)
[2017-04-18] MEDS ORDERED: ONDANSETRON 4 MG/2 ML VIAL IVP STA ×2 (13:38→15:16)
[2017-04-18] MEDS ORDERED: PANTOPRAZOLE 40 MG/10 ML VIAL IVP STA (13:38)
--- NOTE | 2017-04-18 13:43 | ED ---
General Adult HPI - General Chief complaint: Abdominal Pain Stated complaint: ABd Pain, Fever Time Seen by Provider: 04/18/17 13:33 Source: patient, RN notes reviewed, old records reviewed Mode of arrival: ambulatory Limitations: no limitations - History of Present Illness Initial comments: 26-year-old female with history of ulcerative colitis and anemia presents with a three-day history of upper abdominal pain. Patient describes the pain as crampy and severe in nature. She is also had significant diarrhea and vomiting. Initially vomited food, now she has progressed to dry heaving multiple times per day. She also had diarrhea approximately every 2-3 hours. This is mostly mucus, no blood noted. Patient takes Bentyl and Motrin for ulcerative colitis at home. She is not on any long-term treatment for ulcerative colitis at this time. She has been unable to keep anything down over the past several days including her normal medications. She also complains of fever and chills. Diaphoresis. And dysuria. - Related Data Home Medications Medication Instructions Recorded Confirmed No Known Home Medications [No 04/18/17 04/18/17 Known Home Medications] Allergies Allergy/AdvReac Type Severity Reaction Status Date / Time codeine Allergy Unknown Rash/Hives Verified 04/18/17 14:23 Review of Systems ROS Statement: Those systems with pertinent positive or pertinent negative responses have been documented in the HPI. ROS Other: All systems not noted in ROS Statement are negative. Past Medical History Additional Past Medical History / Comment(s): ulcerative colitis-recent flare- ups, anemia (iron & pernicious) History of Any Multi-Drug Resistant Organisms: None Reported Past Surgical History: Cholecystectomy Additional Past Surgical History / Comment(s): colonoscopies, d & c Past Anesthesia/Blood Transfusion Reactions: No Reported Reaction Past Psychological History: Anxiety Smoking Status: Current every day smoker Past Alcohol Use History: None Reported Past Drug Use History: None Reported - Past Family History Mother Additional Family Medical History / Comment(s): "she had a lot of cysts on her ovaries" Father History Unknown: Yes Family Medical History: No Reported History Additional Family Medical History / Comment(s): dad side of family has ulcerative colitis General Exam Limitations: no limitations General appearance: alert, in no apparent distress, lethargic Head exam: Present: atraumatic, normocephalic Eye exam: Present: normal appearance (Pale conjunctiva), PERRL, other ENT exam: Present: mucous membranes dry Neck exam: Present: normal inspection. Absent: tenderness, meningismus Respiratory exam: Present: normal lung sounds bilaterally. Absent: respiratory distress, wheezes Cardiovascular Exam: Present: normal rhythm, tachycardia GI/Abdominal exam: Present: soft, tenderness (Tenderness to palpation in the right and left upper quadrants no rebound or guarding) Extremities exam: Present: normal inspection, normal capillary refill. Absent: pedal edema Back exam: Present: normal inspection, CVA tenderness (R), CVA tenderness (L) Neurological exam: Present: alert, oriented X3, CN II-XII intact. Absent: motor sensory deficit Psychiatric exam: Present: normal affect, normal mood Skin exam: Present: warm, dry, intact, pallor. Absent: cyanosis, diaphoretic Course Vital Signs 04/18/17 04/18/17 04/18/17 12:42 14:44 15:44 Temperature 97.8 F Pulse Rate 110 H 67 83 Respiratory 18 18 18 Rate Blood Pressure 129/63 103/58 92/53 O2 Sat by Pulse 95 100 93 L Oximetry - Reevaluation(s) Reevaluation #1: 04/18/17 16:19 On reevaluation, patient continues to have nausea and significant abdominal pain. She will be admitted for further treatment and evaluation Medical Decision Making - Medical Decision Making 26 yo female history of ulcerative colitis presenting with nausea vomiting diarrhea abdominal pain. Diarrhea nonbloody, mostly mucus. Vomiting has progressed to dry heaving. Abdominal pain upper abdomen. There is some tenderness to palpation. No rebound or guarding. No signs of acute abdomen. Patient has history of fever, no fever on the emergency department. Laboratory studies reveal normal white blood cell count, hemoglobin stable from previous at 10.6, no signs of acute kidney injury. Electrolytes including sodium and potassium are unremarkable. There is some mild acidosis with a CO2 of 17. Urinalysis shows no signs of infection. X-ray of the abdomen is negative for intraperitoneal air or obstruction. Patient receives multiple doses of antiemetics and pain medication while in the emergency department. She is not feeling better on reevaluation. She will be admitted for IV hydration, bowel rest, and pain control. Diagnosis: Intractable abdominal pain, ulcerative colitis - Lab Data Result diagrams: 04/18/17 13:51 04/18/17 14:47 Lab Results 04/18/17 04/18/17 04/18/17 Range/Units 13:00 13:00 13:51 WBC 6.2 (3.8-10.6) k/uL RBC 3.92 (3.80-5.40) m/uL Hgb 10.6 L (11.4-16.0) gm/dL Hct 32.5 L (34.0-46.0) % MCV 83.0 D (80.0-100.0) fL MCH 27.0 (25.0-35.0) pg MCHC 32.5 (31.0-37.0) g/dL RDW 15.3 (11.5-15.5) % Plt Count 312 (150-450) k/uL Neutrophils % 65 % Lymphocytes % 25 % Monocytes % 5 % Eosinophils % 3 % Basophils % 0 % Neutrophils # 4.0 (1.3-7.7) k/uL Lymphocytes # 1.6 (1.0-4.8) k/uL Monocytes # 0.3 (0-1.0) k/uL Eosinophils # 0.2 (0-0.7) k/uL Basophils # 0.0 (0-0.2) k/uL Hypochromasia Moderate Sodium (137-145) mmol/L Potassium (3.5-5.1) mmol/L Chloride (98-107) mmol/L Carbon Dioxide (22-30) mmol/L Anion Gap mmol/L BUN (7-17) mg/dL Creatinine (0.52-1.04) mg/dL Est GFR (MDRD) Af Amer (>60 ml/min/1.73 sqM) Est GFR (MDRD) Non-Af (>60 ml/min/1.73 sqM) Glucose (74-99) mg/dL Plasma Lactic Acid Artie (0.7-2.0) mmol/L Calcium (8.4-10.2) mg/dL Total Bilirubin (0.2-1.3) mg/dL AST (14-36) U/L ALT (9-52) U/L Alkaline Phosphatase (38-126) U/L Total Protein (6.3-8.2) g/dL Albumin (3.5-5.0) g/dL Amylase (30-110) U/L Lipase (23-300) U/L Urine Color Yellow Urine Appearance Cloudy H (Clear) Urine pH 5.0 (5.0-8.0) Ur Specific Hyden 1.017 (1.001-1.035) Urine Protein Negative (Negative) Urine Glucose (UA) Negative (Negative) Urine Ketones Negative (Negative) Urine Blood Negative (Negative) Urine Nitrite Negative (Negative) Urine Bilirubin Negative (Negative) Urine Urobilinogen <2.0 (<2.0) mg/dL Ur Leukocyte Esterase Moderate H (Negative) Urine RBC 2 (0-5) /hpf Urine WBC 9 H (0-5) /hpf Ur Squamous Epith Cells 10 H (0-4) /hpf Urine Mucus Rare H (None) /hpf Urine HCG, Qual Not Detected (Not Detectd) 04/18/17 04/18/17 Range/Units 13:51 14:47 WBC (3.8-10.6) k/uL RBC (3.80-5.40) m/uL Hgb (11.4-16.0) gm/dL Hct (34.0-46.0) % MCV (80.0-100.0) fL MCH (25.0-35.0) pg MCHC (31.0-37.0) g/dL RDW (11.5-15.5) % Plt Count (150-450) k/uL Neutrophils % % Lymphocytes % % Monocytes % % Eosinophils % % Basophils % % Neutrophils # (1.3-7.7) k/uL Lymphocytes # (1.0-4.8) k/uL Monocytes # (0-1.0) k/uL Eosinophils # (0-0.7) k/uL Basophils # (0-0.2) k/uL Hypochromasia Sodium 139 (137-145) mmol/L Potassium 4.6 (3.5-5.1) mmol/L Chloride 114 H (98-107) mmol/L Carbon Dioxide 17 L (22-30) mmol/L Anion Gap 8 mmol/L BUN 4 L (7-17) mg/dL Creatinine 0.59 (0.52-1.04) mg/dL Est GFR (MDRD) Af Amer >60 (>60 ml/min/1.73 sqM) Est GFR (MDRD) Non-Af >60 (>60 ml/min/1.73 sqM) Glucose 84 (74-99) mg/dL Plasma Lactic Acid Artie 0.9 (0.7-2.0) mmol/L Calcium 8.7 (8.4-10.2) mg/dL Total Bilirubin 0.5 (0.2-1.3) mg/dL AST 20 (14-36) U/L ALT 19 (9-52) U/L Alkaline Phosphatase 95 (38-126) U/L Total Protein 5.8 L (6.3-8.2) g/dL Albumin 3.4 L (3.5-5.0) g/dL Amylase <30 L (30-110) U/L Lipase 45 (23-300) U/L Urine Color Urine Appearance (Clear) Urine pH (5.0-8.0) Ur Specific Hyden (1.001-1.035) Urine Protein (Negative) Urine Glucose (UA) (Negative) Urine Ketones (Negative) Urine Blood (Negative) Urine Nitrite (Negative) Urine Bilirubin (Negative) Urine Urobilinogen (<2.0) mg/dL Ur Leukocyte Esterase (Negative) Urine RBC (0-5) /hpf Urine WBC (0-5) /hpf Ur Squamous Epith Cells (0-4) /hpf Urine Mucus (None) /hpf Urine HCG, Qual (Not Detectd) Disposition Clinical Impression: Ulcerative colitis, Abdominal pain Disposition: ADMITTED IP TO THIS [facility] Condition: Stable Referrals: Nakia Love DO [Primary Care Provider] - 1-2 days Decision to Admit Reason: Admit from EC Decision Date: 04/18/17 Decision Time: 15:45
[2017-04-18] MEDS ORDERED: HYDROmorphone 1 MG/ML 1 ML SYRINGE IVP STA ×2 (14:05→15:16)
[2017-04-18 14:12] LABS: Basophils % (A) 0 %; CHCM 31.4; Eosinophils # (A) 0.2 k/uL (0-0.7); Eosinophils % (A) 3 %; HCT 32.5 % (34.0-46.0); HDW 3.06; HGB 10.6 gm/dL (11.4-16.0); Hypochromasia Moderate; Luc # (Auto) 0.06; Luc % (Auto) 1; Lymphocytes # (A) 1.6 k/uL (1.0-4.8); Lymphocytes % (A) 25 %; MCHC 32.5 g/dL (31.0-37.0); Mean Platelet Volume 7.8; Monocytes # (A) 0.3 k/uL (0-1.0); Monocytes % (A) 5 %; Neutrophils % (A) 65 %; RBC 3.92 m/uL (3.80-5.40); RDW 15.3 % (11.5-15.5); WBC 6.2 k/uL (3.8-10.6); WBC (Perox) 6.49
[2017-04-18 14:45] LABS: Appearance,Urine Cloudy (Clear); Bilirubin,Urine Negative (Negative); Glucose,Urine (UA) Negative (Negative); Ketones,Urine Negative (Negative); Leukocyte Esterase,Urine Moderate (Negative); Mucus,Urine Rare /hpf; Nitrite,Urine Negative (Negative); Particle Count 9444; Protein,Urine Negative (Negative); RBC,Urine 2 /hpf (0-5); Specific Gravity,Urine 1.017 (1.001-1.035); Squamous Epithelial Cell,Urine 10 /hpf (0-4); UA Billing (MACRO vs. MICRO) MICRO; Urobilinogen,Urine <2.0 mg/dL (<2.0); WBC,Urine 9 /hpf (0-5)
--- NOTE | 2017-04-18 14:50 | XR ---
EXAMINATION TYPE: XR KUB DATE OF EXAM: 04/18/2017 2:24 PM CLINICAL HISTORY: Ulcerative colitis and abdominal pain TECHNIQUE: Single supine KUB image of the abdomen is obtained. COMPARISON: 09/09/2015. FINDINGS: Scattered gas is seen in non-distended small bowel loops. Gas and fecal material is seen in non-distended colon. There is no visceromegaly, pneumoperitoneum, or abnormal calcification apprecia denis. The lung bases are clear and the osseous structures are intact. Cholecystectomy clips are seen w ithin the gallbladder fossa. Slight dextroconvex scoliotic curvature of the lumbar spine is likely po sitional as it was not seen on the prior radiograph. IMPRESSION: Nonobstructive bowel gas pattern.
[2017-04-18 15:10] LABS: ALT 19 U/L (9-52); AST 20 U/L (14-36); Alkaline Phosphatase 95 U/L (38-126); Amylase <30 U/L (30-110); Anion Gap 8 mmol/L; Blood Urea Nitrogen 4 mg/dL (7-17); Calcium 8.7 mg/dL (8.4-10.2); Carbon Dioxide 17 mmol/L (22-30); Chloride 114 mmol/L (98-107); Glucose 84 mg/dL (74-99); Non-African American GFR(MDRD) >60 (>60 ml/min/1.73 sqM); Potassium 4.6 mmol/L (3.5-5.1); Sodium 139 mmol/L (137-145); Total Bilirubin 0.5 mg/dL (0.2-1.3); Total Protein 5.8 g/dL (6.3-8.2)
[2017-04-18] MEDS ORDERED: SODIUM CHLORIDE 0.9% 1,000 ML IV ONE (16:18)
[2017-04-18] MEDS ORDERED: NALOXONE 0.4 MG/ML 1 ML VIAL IV PRN (16:26)
[2017-04-18 18:18] VITALS: BMI 22.6
[2017-04-18] MEDS: HYDROmorphone 1 MG/ML 1 ML SYRINGE IV PRN ×2 (18:29→21:32)
[2017-04-18] MEDS: SODIUM CHLORIDE 0.9% 1,000 ML IV SCH (18:30)
[2017-04-19] MEDS: methylPREDNISolone SOD SUCCI 40 MG/ML 1 ML VIAL IV SCH ×2 (00:32→10:21)
[2017-04-19] MEDS: HYDROmorphone 1 MG/ML 1 ML SYRINGE IV PRN ×7 (00:33→20:33)
[2017-04-19] MEDS: SODIUM CHLORIDE 0.9% 1,000 ML IV SCH ×3 (01:38→20:40)
[2017-04-19] MEDS: ONDANSETRON 4 MG/2 ML VIAL IVP PRN ×2 (04:07→19:54)
[2017-04-19 07:54] LABS: Basophils % (A) 0 %; CH 25.6; CHCM 30.6; Eosinophils % (A) 0 %; HCT 31.6 % (34.0-46.0); HDW 3.06; Hypochromasia Marked; Luc # (Auto) 0.02; Luc % (Auto) 0; Lymphocytes # (A) 0.7 k/uL (1.0-4.8); Lymphocytes % (A) 8 %; MCH 26.6 pg (25.0-35.0); MCHC 31.7 g/dL (31.0-37.0); MCV 84.2 fL (80.0-100.0); Mean Platelet Volume 7.2; Monocytes # (A) 0.1 k/uL (0-1.0); Monocytes % (A) 1 %; Neutrophils # (A) 7.3 k/uL (1.3-7.7); Neutrophils % (A) 90 %; RBC 3.76 m/uL (3.80-5.40); RDW 15.1 % (11.5-15.5); WBC 8.1 k/uL (3.8-10.6); WBC (Perox) 8.55
[2017-04-19 08:08] LABS: ALT 22 U/L (9-52); AST 15 U/L (14-36); Alkaline Phosphatase 95 U/L (38-126); Anion Gap 9 mmol/L; Blood Urea Nitrogen 3 mg/dL (7-17); Calcium 9.2 mg/dL (8.4-10.2); Carbon Dioxide 20 mmol/L (22-30); Chloride 111 mmol/L (98-107); Glucose 133 mg/dL (74-99); Magnesium 1.4 mg/dL (1.6-2.3); Non-African American GFR(MDRD) >60 (>60 ml/min/1.73 sqM); Potassium 4.6 mmol/L (3.5-5.1); Sodium 140 mmol/L (137-145); Total Bilirubin 0.2 mg/dL (0.2-1.3); Total Protein 5.8 g/dL (6.3-8.2)
[2017-04-19] MEDS: PANTOPRAZOLE 40 MG/10 ML VIAL IV SCH (11:06)
--- NOTE | 2017-04-19 11:21 | P.HPIM ---
History of Present Illness H&P Date: 04/19/17 Chief Complaint: Abdominal pain 26-year-old female with past medical history noted for irritable bowel syndrome presented to the emergency room with abdominal pain. Patient was recently hospitalized and January. Patient keeps saying that she has ulcerative colitis and she was evaluated by GI many times and had scopes most recently in November 2015 and they were all negative for any evidence of inflammatory bowel disease. Patient said that her pain started couple of weeks ago and is mostly periumbilical that she rates as 10 out of 10. She said for the past couple of days she was having a lot of diarrhea up to 10 bowel movements of mucousy stool. She also said that she is having nausea and vomiting. She presented to the emergency room and was evaluated and abdominal x-ray showed nonobstructive bowel gas pattern. Patient was started on IV steroids given her reported history of ulcerative colitis and was admitted to the hospital for further evaluation. Patient did not have any episode of vomiting or diarrhea since admission. She was kept nothing by mouth. She is awaiting GI evaluation. Review of Systems Review of system: 14 points review of systems were obtained and were negative except to what were mentioned in the HPI. Past Medical History Additional Past Medical History / Comment(s): ulcerative colitis-recent flare- ups, anemia (iron & pernicious) History of Any Multi-Drug Resistant Organisms: None Reported Past Surgical History: Cholecystectomy Additional Past Surgical History / Comment(s): colonoscopies, d & c Past Anesthesia/Blood Transfusion Reactions: No Reported Reaction Past Psychological History: Anxiety Smoking Status: Current every day smoker Past Alcohol Use History: None Reported Additional Past Alcohol Use History / Comment(s): smoking: started 08/04 ppd Past Drug Use History: None Reported - Past Family History Mother Additional Family Medical History / Comment(s): "she had a lot of cysts on her ovaries" Father History Unknown: Yes Family Medical History: No Reported History Additional Family Medical History / Comment(s): dad side of family has ulcerative colitis Medications and Allergies Home Medications Medication Instructions Recorded Confirmed Type Dicyclomine [Bentyl] 20 mg PO QID 04/18/17 04/18/17 History Allergies Allergy/AdvReac Type Severity Reaction Status Date / Time codeine Allergy Unknown Rash/Hives Verified 04/18/17 14:23 Physical Exam Vitals: Vital Signs Temp Pulse Pulse Resp BP BP Pulse Ox 04/19/17 08:00 98 F 77 16 114/73 98 04/19/17 04:00 98.9 F 76 18 101/58 98 04/18/17 21:30 99.3 F 80 18 105/66 99 04/18/17 17:37 97.2 F L 81 18 110/64 99 04/18/17 17:22 97.8 F 83 16 102/55 99 04/18/17 15:44 83 18 92/53 93 L 04/18/17 14:44 67 18 103/58 100 04/18/17 12:42 97.8 F 110 H 18 129/63 95 Intake and Output 04/18/17 04/19/17 04/19/17 22:59 06:59 14:59 Intake Total 850 Output Total 350 1000 Balance -350 -150 Intake: Intake, IV Titration 850 Amount Sodium Chloride 0.9% 1, 850 000 ml @ 100 mls/hr IV . Q10H [facility] Rx#:[id number] Output: Urine 350 1000 Other: Weight 61.598 kg General: The patient is awake and alert, in no distress Eye: there is normal conjunctiva bilaterally. Neck: The neck is supple, there is no JVD. Cardiovascular: Normal S1-S2, no S3-S4, no murmurs. Respiratory: Lungs clear to auscultation bilaterally Gastrointestinal: Abdomen is soft, nontender Musculoskeletal: There is no pedal edema. Neurological:. Speech is normal. Skin: Skin is warm and dry Results CBC & Chem 7: 04/19/17 06:34 04/19/17 06:34 Labs: Abnormal Lab Results - Last 24 Hours (Table) 04/18/17 04/18/17 04/18/17 Range/Units 13:00 13:51 14:47 RBC (3.80-5.40) m/uL Hgb 10.6 L (11.4-16.0) gm/dL Hct 32.5 L (34.0-46.0) % Lymphocytes # (1.0-4.8) k/uL Chloride 114 H (98-107) mmol/L Carbon Dioxide 17 L (22-30) mmol/L BUN 4 L (7-17) mg/dL Glucose (74-99) mg/dL Magnesium (1.6-2.3) mg/dL Total Protein 5.8 L (6.3-8.2) g/dL Albumin 3.4 L (3.5-5.0) g/dL Amylase <30 L (30-110) U/L Urine Appearance Cloudy H (Clear) Ur Leukocyte Esterase Moderate H (Negative) Urine WBC 9 H (0-5) /hpf Ur Squamous Epith Cells 10 H (0-4) /hpf Urine Mucus Rare H (None) /hpf 04/19/17 04/19/17 Range/Units 06:34 06:34 RBC 3.76 L (3.80-5.40) m/uL Hgb 10.0 L (11.4-16.0) gm/dL Hct 31.6 L (34.0-46.0) % Lymphocytes # 0.7 L (1.0-4.8) k/uL Chloride 111 H (98-107) mmol/L Carbon Dioxide 20 L (22-30) mmol/L BUN 3 L (7-17) mg/dL Glucose 133 H (74-99) mg/dL Magnesium 1.4 L (1.6-2.3) mg/dL Total Protein 5.8 L (6.3-8.2) g/dL Albumin 3.4 L (3.5-5.0) g/dL Amylase (30-110) U/L Urine Appearance (Clear) Ur Leukocyte Esterase (Negative) Urine WBC (0-5) /hpf Ur Squamous Epith Cells (0-4) /hpf Urine Mucus (None) /hpf Thrombosis Risk Factor Assmnt - Choose All That Apply Any of the Below Risk Factors Present?: Yes Each Factor Represents 1 point: Hx of IBD Other Risk Factors: No Other congenital or acquired thrombophilia - If yes, enter type in comment: No Thrombosis Risk Factor Assessment Total Risk Factor Score: 1 Thrombosis Risk Factor Assessment Level: Low Risk Assessment and Plan Plan: 1. Abdominal pain 2. Reported nausea and vomiting 3. Underlying irritable bowel syndrome 4. Contaminated urine sample on urinalysis with no evidence of UTI This is a 26-year-old female that is here with abdominal pain. Patient did not have any vomiting or diarrhea since admission even though she reported having up to 10 bowel movements per day prior to presentation at home. Abdominal x- ray showed non-obstructive gas pattern. Patient was evaluated previously by GI and was informed that she does not have any evidence of ulcerative colitis that she keep reporting ulcerative colitis to medical staff. She was started on IV steroids which I would discontinue. She is showing evidence of pain medication seeking behavior. I would continue IV fluid hydration for now. Will keep nothing by mouth until seen by GI. Patient was counseled about her condition. Anticipate discharge home possibly tomorrow.
[2017-04-19] MEDS: HEPARIN SODIUM,PORCINE 5,000 UNIT/ML 1 ML VIAL SQ SCH (19:58)
--- NOTE | 2017-04-19 22:04 | P.CONS ---
History of Present Illness - Reason for Consult Consult date: 04/19/17 - History of Present Illness 26-year-old female with past medical history noted for irritable bowel syndrome presented to the emergency room with abdominal pain. Patient was recently hospitalized and [facility]. Patient keeps saying that she has ulcerative colitis and she was evaluated by GI many times and had scopes most recently in November 2015 and they were all negative for any evidence of inflammatory bowel disease. Patient said that her pain started couple of weeks ago and is mostly periumbilical that she rates as 10 out of 10. She said for the past couple of days she was having a lot of diarrhea up to 10 bowel movements of mucousy stool. She also said that she is having nausea and vomiting. She presented to the emergency room and was evaluated and abdominal x-ray showed nonobstructive bowel gas pattern. Patient was started on IV steroids given her reported history of ulcerative colitis and was admitted to the hospital for further evaluation. Patient did not have any episode of vomiting or diarrhea since admission. Review of Systems Constitutional: No fevers at home over the past year denies weight gain, or loss. HEENT: Negative for migraines, blurred vision or loss, earaches, drainage, tinnitus, oral mucosal lesions, dysphagia, or odynophagia. Cardiac: Negative for chest pain, arrhythmias, or palpitation. Respiratory: Negative for shortness of breath, hemoptysis, cough, or sputum production. Gastrointestinal: See HPI for pertinent findings. Genitourinary: Negative for hematuria, urgency, frequency, polyuria, dysuria. Musculoskeletal: Negative for muscle aches, swelling, arthritis, and arthralgias. Neurologic: Negative for stroke or TIA. Endocrine: Negative for thyroid problems. Skin: Negative for rash or itching. Psychiatric: Negative history for depression and anxiety. Past Medical History Additional Past Medical History / Comment(s): ulcerative colitis-recent flare- ups, anemia (iron & pernicious) History of Any Multi-Drug Resistant Organisms: None Reported Past Surgical History: Cholecystectomy Additional Past Surgical History / Comment(s): colonoscopies, d & c Past Anesthesia/Blood Transfusion Reactions: No Reported Reaction Past Psychological History: Anxiety Smoking Status: Current every day smoker Past Alcohol Use History: None Reported Additional Past Alcohol Use History / Comment(s): smoking: started 08/04 ppd Past Drug Use History: None Reported - Past Family History Mother Additional Family Medical History / Comment(s): "she had a lot of cysts on her ovaries" Father History Unknown: Yes Family Medical History: No Reported History Additional Family Medical History / Comment(s): dad side of family has ulcerative colitis Medications and Allergies Home Medications Medication Instructions Recorded Confirmed Type Dicyclomine [Bentyl] 20 mg PO QID 04/18/17 04/18/17 History Allergies Allergy/AdvReac Type Severity Reaction Status Date / Time codeine Allergy Unknown Rash/Hives Verified 04/18/17 14:23 Physical Exam Vitals: Vital Signs Temp Pulse Pulse Resp BP BP Pulse Ox 04/19/17 20:00 98.2 F 86 18 114/63 99 04/19/17 15:43 97.9 F 82 18 106/60 98 04/19/17 11:50 99.1 F 70 19 103/61 97 04/19/17 08:00 98 F 77 16 114/73 98 04/19/17 04:00 98.9 F 76 18 101/58 98 Intake and Output 04/19/17 04/19/17 04/19/17 06:59 14:59 22:59 Intake Total 850 360 Output Total 1000 700 700 Balance -150 -700 -340 Intake: Intake, IV Titration 850 Amount Sodium Chloride 0.9% 1, 850 000 ml @ 100 mls/hr IV . Q10H [facility] Rx#:[id number] Oral 360 Output: Urine 1000 700 700 Other: Voiding Method Toilet General appearance: The patient is alert, oriented, in no acute distress. HET: Head is normocephalic and atraumatic. Pupils are equal and reactive. Oropharynx is clear without lesions. Neck: Supple without lymphadenopathy. Trachea midline. Heart: S1 S2. Regular rate and rhythm. Lungs: No crackles or wheezes are heard. Abdomen: Soft, no definite masses felt. No tenderness. No peritoneal signs. No palpable organomegaly. Bowel sounds present. Extremities: Normal skin color and turgor. No cyanosis, rash, ulceration, clubbing, or edema. Radial and pedal pulses are 2/4 bilaterally. Neurological: No focal deficits. Strength and sensation are grossly intact. Results CBC & Chem 7: 04/19/17 06:34 04/19/17 06:34 Labs: Abnormal Lab Results - Last 24 Hours (Table) 04/19/17 04/19/17 Range/Units 06:34 06:34 RBC 3.76 L (3.80-5.40) m/uL Hgb 10.0 L (11.4-16.0) gm/dL Hct 31.6 L (34.0-46.0) % Lymphocytes # 0.7 L (1.0-4.8) k/uL Chloride 111 H (98-107) mmol/L Carbon Dioxide 20 L (22-30) mmol/L BUN 3 L (7-17) mg/dL Glucose 133 H (74-99) mg/dL Magnesium 1.4 L (1.6-2.3) mg/dL Total Protein 5.8 L (6.3-8.2) g/dL Albumin 3.4 L (3.5-5.0) g/dL Assessment and Plan Plan: 26-year-old female with history of irritable bowel syndrome, presenting with abdominal pain and altered bowel function. The possibility of gastroenteritis is something to be kept in mind because of the short duration since the beginning of the recurrence of her symptoms. Will allow liquid diet and see how she tolerates that. I did not schedule any repeat endoscopies at this time. I'll discuss with you and follow with you with interest.
[2017-04-20] MEDS: HYDROmorphone 1 MG/ML 1 ML SYRINGE IV PRN ×3 (00:20→10:10)
[2017-04-20] MEDS: SODIUM CHLORIDE 0.9% 1,000 ML IV SCH (05:56)
[2017-04-20] MEDS: ONDANSETRON 4 MG/2 ML VIAL IVP PRN (06:19)
[2017-04-20 06:48] LABS: Basophils % (A) 0 %; CH 25.6; Eosinophils % (A) 0 %; HCT 27.9 % (34.0-46.0); HDW 3.08; Hypochromasia Moderate; Luc # (Auto) 0.14; Luc % (Auto) 2; Lymphocytes % (A) 36 %; MCH 26.6 pg (25.0-35.0); MCV 83.1 fL (80.0-100.0); Mean Platelet Volume 7.1; Monocytes # (A) 0.5 k/uL (0-1.0); Monocytes % (A) 6 %; Neutrophils # (A) 4.6 k/uL (1.3-7.7); Neutrophils % (A) 55 %; RBC 3.36 m/uL (3.80-5.40); RDW 15.3 % (11.5-15.5); WBC 8.3 k/uL (3.8-10.6); WBC (Perox) 8.65
[2017-04-20 07:00] LABS: Anion Gap 5 mmol/L; Blood Urea Nitrogen 7 mg/dL (7-17); Calcium 8.7 mg/dL (8.4-10.2); Carbon Dioxide 23 mmol/L (22-30); Chloride 111 mmol/L (98-107); Glucose 82 mg/dL (74-99); Magnesium 1.3 mg/dL (1.6-2.3); Non-African American GFR(MDRD) >60 (>60 ml/min/1.73 sqM); Potassium 3.9 mmol/L (3.5-5.1); Sodium 139 mmol/L (137-145)
[2017-04-20] MEDS: HEPARIN SODIUM,PORCINE 5,000 UNIT/ML 1 ML VIAL SQ SCH (08:08)
[2017-04-20] MEDS: PANTOPRAZOLE 40 MG/10 ML VIAL IV SCH (08:09)
[2017-04-20 08:15] VITALS: PULSE 78
[2017-04-20] MEDS: MAGNESIUM SULFATE-D5W PMX 1 GM in DEXTROSE/WATER 1 100ML.BAG IVPB SCH ×2 (08:38→10:14)
[2017-04-20] MEDS ORDERED: traMADol 50 MG TAB PO PRN (11:07)
[2017-04-20 12:17] VITALS: BP 112/68; RESP 22; TEMP 97
[2017-04-20] MEDS ORDERED: DICYCLOMINE 20 MG TAB PO SCH (13:00)
--- NOTE | 2017-04-20 13:09 | P.DS ---
Providers Date of admission: 04/18/17 16:28 Expected date of discharge: 04/20/17 Attending physician: Cornelia Velasquez Consults: 04/19/17 11:16 Consult Physician Routine Consulting Provider: Nuria Muñiz Consult Reason/Comments: Abdominal pain Do you want consulting provider notified?: Yes Primary care physician: Nakia Love Hospital Course: Discharge diagnosis 1. Abdominal pain with vomiting and diarrhea. She's had no further episodes of vomiting and diarrhea. Symptoms are likely related to the gastroenteritis. Still having some abdominal discomfort but tolerating diet advancement. Evaluated by GI service there is no plan for endoscopy at this time 2. Reported nausea and vomiting 3. Underlying irritable bowel syndrome 4. Contaminated urine sample on urinalysis with no evidence of UTI 5. Hypomagnesemia 6. Anemia with known history of iron deficiency anemia. Her hemoglobin is at 9 at time of discharge. No signs of active bleeding. Patient did receive a lot of IV fluids and that could contribute to her anemia as well as she has the history of iron deficiency anemia. Hospital course 26-year-old female with past medical history noted for irritable bowel syndrome presented to the emergency room with abdominal pain. Patient was recently hospitalized and [facility]. Patient keeps saying that she has ulcerative colitis and she was evaluated by GI many times and had scopes most recently in November 2015 and they were all negative for any evidence of inflammatory bowel disease. Patient said that her pain started couple of weeks ago and is mostly periumbilical that she rates as 10 out of 10. She said for the past couple of days she was having a lot of diarrhea up to 10 bowel movements of mucousy stool. She also said that she is having nausea and vomiting. She presented to the emergency room and was evaluated and abdominal x-ray showed nonobstructive bowel gas pattern. Patient was started on IV steroids given her reported history of ulcerative colitis and was admitted to the hospital for further evaluation. Patient did not have any episode of vomiting or diarrhea since admission. Patient was seen evaluated by GI service. If her symptoms are likely related to a gastroenteritis. She's had no further vomiting or diarrhea. Diet has been advanced to full liquids at breakfast and soft at lunch. As of now she is tolerating diet. Still having some abdominal pain. There is concern of pain seeking behavior. IV Dilaudid has been discontinued. She is switched over to oral pain medication. If patient tolerates her lunch we will discharge her home. Have her follow-up with her PCP on Thursday for repeat magnesium and CBC. Patient is medically stable for discharge. Please refer to chart for any further details. I performed an examination of the patient and discussed their management with the physician Community Engagement Representative. I have reviewed the Physician Community Engagement Representative's notes and agree with the documented findings and plan of care Patient Condition at Discharge: Stable Plan - Discharge Summary New Discharge Prescriptions: Continue Dicyclomine [Bentyl] 20 mg PO QID Discharge Medication List Dicyclomine [Bentyl] 20 mg PO QID 04/18/17 [History] Follow up Appointment(s)/Referral(s): Nakia Love DO [Primary Care Provider] - 3 Days Activity/Diet/Wound Care/Special Instructions: Diet: soft Activity: as tolerated Discharge Disposition: HOME SELF-CARE
== END 2017-04-20 14:25 | disposition home or self-care (01) | DRG 392 ==
LOC: EC 12:19 → 6PED 16:28
PROVIDERS: ADMIT Internal Medicine; ATTEND Internal Medicine
DX: K52.9 Noninfective gastroenteritis and colitis, unspecified (principal); E87.2 Acidosis; E83.42 Hypomagnesemia; D50.9 Iron deficiency anemia, unspecified; F41.9 Anxiety disorder, unspecified; F17.200 Nicotine dependence, unspecified, uncomplicated; Z87.19 Personal history of other diseases of the digestive system; Z90.49 Acquired absence of other specified parts of digestive tract; Z88.6 Allergy status to analgesic agent; Z79.899 Other long term (current) drug therapy; Z76.5 Malingerer [conscious simulation]; Z83.79 Family history of other diseases of the digestive system; Z79.1 Long term (current) use of non-steroidal anti-inflammatories (NSAID)
CPT/HCPCS: 36415; 74000; 80048; 80053; 81001; 81025; 82150; 83605; 83690; 83735; 85025; 96361; 96374; 96375; 96376; 99285

== ENCOUNTER 2018-11-01 16:08 | Observation (INO) | payer MEDICARE, OTHER ==
[2018-11-01 17:18] LABS: Anisocytosis Slight; Basophils % (A) 1 %; Eosinophils # (A) 0.1 k/uL (0-0.7); Eosinophils % (A) 2 %; HCT 29.3 % (34.0-46.0); HGB 8.7 gm/dL (11.4-16.0); Hypochromasia Marked; Lymphocytes % (A) 34 %; MCH 20.2 pg (25.0-35.0); MCHC 29.6 g/dL (31.0-37.0); MCV 68.2 fL (80.0-100.0); Mean Platelet Volume 6.6; Microcytosis Marked; Monocytes # (A) 0.3 k/uL (0-1.0); Monocytes % (A) 5 %; Neutrophils # (A) 3.3 k/uL (1.3-7.7); Neutrophils % (A) 57 %; Platelet Count 412 k/uL (150-450); Poikilocytosis Slight; WBC 5.9 k/uL (3.8-10.6)
[2018-11-01 17:32] LABS: ALT 20 U/L (9-52); AST 21 U/L (14-36); Albumin 4.4 g/dL (3.5-5.0); Alkaline Phosphatase 79 U/L (38-126); Amylase 37 U/L (30-110); Anion Gap 7 mmol/L; Blood Urea Nitrogen 9 mg/dL (7-17); Calcium 9.8 mg/dL (8.4-10.2); Carbon Dioxide 24 mmol/L (22-30); Chloride 110 mmol/L (98-107); Glucose 90 mg/dL (74-99); Lipase 53 U/L (23-300); Potassium 4.3 mmol/L (3.5-5.1); Sodium 141 mmol/L (137-145); Total Bilirubin 0.4 mg/dL (0.2-1.3); Total Protein 7.2 g/dL (6.3-8.2)
[2018-11-01] MEDS ORDERED: MORPHINE SULFATE 2 MG/ML SYRINGE IVP STA (17:44)
[2018-11-01] MEDS ORDERED: ONDANSETRON 4 MG/2 ML VIAL IVP STA (17:44)
[2018-11-01] MEDS ORDERED: HYDROmorphone 0.5 MG/0.5 ML SYRINGE IVP STA (17:46)
[2018-11-01 18:04] LABS: Appearance,Urine Cloudy (Clear); Bilirubin,Urine Negative (Negative); Blood,Urine Negative (Negative); Color,Urine Yellow; Glucose,Urine (UA) Negative (Negative); Ketones,Urine Negative (Negative); Leukocyte Esterase,Urine Trace (Negative); Mucus,Urine Few /hpf; Nitrite,Urine Negative (Negative); Protein,Urine Trace (Negative); Specific Gravity,Urine 1.024 (1.001-1.035); Squamous Epithelial Cell,Urine 12 /hpf (0-4); Urobilinogen,Urine <2.0 mg/dL (<2.0); WBC,Urine 2 /hpf (0-5)
--- NOTE | 2018-11-01 18:06 | ED ---
Abdominal Pain HPI - General Chief Complaint: Abdominal Pain Stated Complaint: Vomiting/can not keep anything down/diarrhea Time Seen by Provider: 11/01/18 16:55 Source: patient Mode of arrival: ambulatory Limitations: no limitations - History of Present Illness Initial Comments: 28-year-old female past medical history of ulcerative colitis and anemia pr esenting today for chief complaint of abdominal pain, blood in stools, general malaise. Patient states that his history of ulcerative colitis as well as anemia. She states the past her day she's had diarrhea with blood in the stools. Patient states this has caused anemia in the past. Patient states is identical to her ulcerative colitis flares in the past. Patient states she is on Bentyl daily denies any use of new suppressants or steroids. 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 Patient states she's had cold intolerance increasing, general malaise and fatigue. She states this feels similar to her hemoglobin was low in the past and presented for medication. Patient states she also has had abdominal pain she states is mostly mid abdomen without radiation. Patient states his stabbing. Comes and goes. Patient admit to occasional vomiting and nausea, she denies hematemesis. Patient denies dysuria urgency frequency vaginal bleeding, , fever,night sweats. Review of system negative. Upon arrival patient heart rate elevated at 95. Blood pressure within normal limits. Patient appears pale. - Related Data Home Medications Medication Instructions Recorded Confirmed Dicyclomine [Bentyl] 20 mg PO QID PRN 04/18/17 11/01/18 Allergies Allergy/AdvReac Type Severity Reaction Status Date / Time codeine Allergy Unknown Rash/Hives Verified 11/01/18 17:34 Review of Systems ROS Statement: Those systems with pertinent positive or pertinent negative responses have been documented in the HPI. ROS Other: All systems not noted in ROS Statement are negative. Past Medical History Additional Past Medical History / Comment(s): ulcerative colitis-recent flare- ups, anemia (iron & pernicious) History of Any Multi-Drug Resistant Organisms: None Reported Past Surgical History: Cholecystectomy Additional Past Surgical History / Comment(s): colonoscopies, d & c Past Anesthesia/Blood Transfusion Reactions: No Reported Reaction Past Psychological History: Anxiety Smoking Status: Current every day smoker Past Alcohol Use History: None Reported Past Drug Use History: None Reported - Past Family History Mother Additional Family Medical History / Comment(s): "she had a lot of cysts on her ovaries" Father History Unknown: Yes Family Medical History: No Reported History Additional Family Medical History / Comment(s): dad side of family has ulcerative colitis General Exam - General Exam Comments Initial Comments: General: The patient is awake and alert, in no distress, and does not appear acutely ill. Eye: Pupils are equal, round and reactive to light, extra-ocular movements are intact. No nystagmus. There is normal conjunctiva bilaterally. No signs of icterus. Ears, nose, mouth and throat: There are moist mucous membranes and no oral lesions. Pale mucous membranes. Neck: The neck is supple, there is no tenderness or JVD. Cardiovascular: There is a regular rate and rhythm. No murmur, rub or gallop is appreciated. Respiratory: Lungs are clear to auscultation, respirations are non-labored, breath sounds are equal. No wheezes, stridor, rales, or rhonchi. Gastrointestinal: Soft, non-distended, diffusely tender lower abdomen without masses or organomegaly noted. There is no rebound or guarding present. No CVA tenderness. Bowel sounds are unremarkable. Musculoskeletal: Normal ROM, no tenderness. Strength 5/5. Sensation intact. Radial pulses equal bilaterally 2+. Neurological: A&O x 3. CN II-XII intact, There are no obvious motor or sensory deficits. Coordination appears grossly intact. Speech is normal. Skin: Skin is warm and dry and no rashes or lesions are noted. Psychiatric: Cooperative, appropriate mood & affect, normal judgment. Limitations: no limitations Course Vital Signs 11/01/18 11/01/18 16:11 18:40 Temperature 98.5 F Pulse Rate 94 65 Respiratory 18 17 Rate Blood Pressure 103/67 97/60 O2 Sat by Pulse 99 100 Oximetry Medical Decision Making - Medical Decision Making 28-year-old female presenting for abdominal pain, diarrhea with blood in stools. Patient history of ulcerative colitis. Patient hemoglobin 8.7. Patient complains of cold intolerance and fatigue. CT abdomen pelvic (-) for acute process. No rigidity or guarding on abdominal exam. No peritoneal irritation signs. At this time I feel has symptomatic anemia. Will be admitted for pain control and serial CBC. Patient is agreeable to admission. Discussed the case with her provider Dr. Mathur who is agreeable with plan of care and admission. - Lab Data Result diagrams: 11/01/18 17:00 11/01/18 17:00 Lab Results 11/01/18 11/01/18 11/01/18 Range/Units 17:00 17:00 17:40 WBC 5.9 (3.8-10.6) k/uL RBC 4.30 (3.80-5.40) m/uL Hgb 8.7 L (11.4-16.0) gm/dL Hct 29.3 L (34.0-46.0) % MCV 68.2 L (80.0-100.0) fL MCH 20.2 L (25.0-35.0) pg MCHC 29.6 L (31.0-37.0) g/dL RDW 17.0 H (11.5-15.5) % Plt Count 412 (150-450) k/uL Neutrophils % 57 % Lymphocytes % 34 % Monocytes % 5 % Eosinophils % 2 % Basophils % 1 % Neutrophils # 3.3 (1.3-7.7) k/uL Lymphocytes # 2.0 (1.0-4.8) k/uL Monocytes # 0.3 (0-1.0) k/uL Eosinophils # 0.1 (0-0.7) k/uL Basophils # 0.0 (0-0.2) k/uL Hypochromasia Marked Poikilocytosis Slight Anisocytosis Slight Microcytosis Marked Sodium 141 (137-145) mmol/L Potassium 4.3 (3.5-5.1) mmol/L Chloride 110 H (98-107) mmol/L Carbon Dioxide 24 (22-30) mmol/L Anion Gap 7 mmol/L BUN 9 (7-17) mg/dL Creatinine 0.55 (0.52-1.04) mg/dL Est GFR (CKD-EPI)AfAm >90 (>60 ml/min/1.73 sqM) Est GFR (CKD-EPI)NonAf >90 (>60 ml/min/1.73 sqM) Glucose 90 (74-99) mg/dL Calcium 9.8 (8.4-10.2) mg/dL Total Bilirubin 0.4 (0.2-1.3) mg/dL AST 21 (14-36) U/L ALT 20 (9-52) U/L Alkaline Phosphatase 79 (38-126) U/L Total Protein 7.2 (6.3-8.2) g/dL Albumin 4.4 (3.5-5.0) g/dL Amylase 37 (30-110) U/L Lipase 53 (23-300) U/L Urine Color Urine Appearance (Clear) Urine pH (5.0-8.0) Ur Specific [place] (1.001-1.035) Urine Protein (Negative) Urine Glucose (UA) (Negative) Urine Ketones (Negative) Urine Blood (Negative) Urine Nitrite (Negative) Urine Bilirubin (Negative) Urine Urobilinogen (<2.0) mg/dL Ur Leukocyte Esterase (Negative) Urine WBC (0-5) /hpf Ur Squamous Epith Cells (0-4) /hpf Urine Mucus (None) /hpf Urine HCG, Qual Not Detected (Not Detectd) 11/01/18 Range/Units 17:40 WBC (3.8-10.6) k/uL RBC (3.80-5.40) m/uL Hgb (11.4-16.0) gm/dL Hct (34.0-46.0) % MCV (80.0-100.0) fL MCH (25.0-35.0) pg MCHC (31.0-37.0) g/dL RDW (11.5-15.5) % Plt Count (150-450) k/uL Neutrophils % % Lymphocytes % % Monocytes % % Eosinophils % % Basophils % % Neutrophils # (1.3-7.7) k/uL Lymphocytes # (1.0-4.8) k/uL Monocytes # (0-1.0) k/uL Eosinophils # (0-0.7) k/uL Basophils # (0-0.2) k/uL Hypochromasia Poikilocytosis Anisocytosis Microcytosis Sodium (137-145) mmol/L Potassium (3.5-5.1) mmol/L Chloride (98-107) mmol/L Carbon Dioxide (22-30) mmol/L Anion Gap mmol/L BUN (7-17) mg/dL Creatinine (0.52-1.04) mg/dL Est GFR (CKD-EPI)AfAm (>60 ml/min/1.73 sqM) Est GFR (CKD-EPI)NonAf (>60 ml/min/1.73 sqM) Glucose (74-99) mg/dL Calcium (8.4-10.2) mg/dL Total Bilirubin (0.2-1.3) mg/dL AST (14-36) U/L ALT (9-52) U/L Alkaline Phosphatase (38-126) U/L Total Protein (6.3-8.2) g/dL Albumin (3.5-5.0) g/dL Amylase (30-110) U/L Lipase (23-300) U/L Urine Color Yellow Urine Appearance Cloudy H (Clear) Urine pH 8.0 (5.0-8.0) Ur Specific [place] 1.024 (1.001-1.035) Urine Protein Trace H (Negative) Urine Glucose (UA) Negative (Negative) Urine Ketones Negative (Negative) Urine Blood Negative (Negative) Urine Nitrite Negative (Negative) Urine Bilirubin Negative (Negative) Urine Urobilinogen <2.0 (<2.0) mg/dL Ur Leukocyte Esterase Trace H (Negative) Urine WBC 2 (0-5) /hpf Ur Squamous Epith Cells 12 H (0-4) /hpf Urine Mucus Few H (None) /hpf Urine HCG, Qual (Not Detectd) Disposition Clinical Impression: Diarrhea, Symptomatic anemia, Intractable abdominal pain, Hematochezia Disposition: ADMITTED IP TO THIS HOSP Condition: Stable Is patient prescribed a controlled substance at d/c from ED?: No Referrals: Nakia Love DO [Primary Care Provider] - 1-2 days Time of Disposition: 19:52 Decision to Admit Reason: Admit from EC Decision Date: 11/01/18 Decision Time: 19:55
--- NOTE | 2018-11-01 18:35 | CT ---
EXAMINATION TYPE: CT abdomen pelvis w con DATE OF EXAM: 11/01/2018 HISTORY: Generalized pain with nausea CT DLP: 528.6mGycm Automated Exposure Control for Dose Reduction was Utilized. CONTRAST: CT scan of the abdomen and pelvis is performed without oral but with with IV Contrast, patient inject ed with 100 mL of Isovue 300. COMPARISON: CT abdomen and pelvis February 27, 2017 FINDINGS: LUNG BASES: No significant abnormality is appreciated. LIVER/GB: Cholecystectomy clips are present. PANCREAS: No significant abnormality is seen. SPLEEN: No significant abnormality is seen. ADRENALS: No significant abnormality is seen. KIDNEYS: No significant abnormality is seen. BOWEL: Evaluation bowel is suboptimal secondary to lack of enteric contrast. UTERUS/ADNEXA: Anteverted uterus is redemonstrated. Both ovaries are redemonstrated and right ovary i s slightly larger than left ovary with anterior 1.9 cm hypodense lesion favoring prominent follicle o r simple small ovarian cysts noted axial image 73. LYMPH NODES: No greater than 1cm abdominal or pelvic lymph nodes are appreciated. OSSEOUS STRUCTURES: No significant abnormality is seen. OTHER: No significant additional abnormality is seen. IMPRESSION: No bowel obstruction. No significant new or acute finding is seen to account for patient' s clinical symptoms on this study.
[2018-11-01] MEDS ORDERED: SODIUM CHLORIDE 0.9% 1,000 ML IV ONE (19:41)
[2018-11-01] MEDS ORDERED: NALOXONE 0.4 MG/ML 1 ML VIAL IV PRN (19:58)
[2018-11-01] MEDS: ONDANSETRON 4 MG/2 ML VIAL IVP PRN (20:30)
[2018-11-01] MEDS: HYDROmorphone 0.5 MG/0.5 ML SYRINGE IVP PRN ×2 (20:31→23:30)
[2018-11-01] MEDS: SODIUM CHLORIDE 0.9% 1,000 ML IV SCH (21:44)
[2018-11-01 21:59] VITALS: BMI 23.1
[2018-11-01 23:37] LABS: Anisocytosis Slight; Basophils % (A) 0 %; Eosinophils # (A) 0.1 k/uL (0-0.7); Eosinophils % (A) 2 %; HCT 26.5 % (34.0-46.0); HGB 7.6 gm/dL (11.4-16.0); Hypochromasia Marked; Lymphocytes # (A) 2.8 k/uL (1.0-4.8); Lymphocytes % (A) 42 %; MCH 20.2 pg (25.0-35.0); MCHC 28.6 g/dL (31.0-37.0); MCV 70.5 fL (80.0-100.0); Mean Platelet Volume 7.2; Microcytosis Marked; Monocytes # (A) 0.5 k/uL (0-1.0); Monocytes % (A) 7 %; Neutrophils # (A) 3.2 k/uL (1.3-7.7); Neutrophils % (A) 47 %; Platelet Count 321 k/uL (150-450); Poikilocytosis Slight; RBC 3.76 m/uL (3.80-5.40); WBC 6.8 k/uL (3.8-10.6)
[2018-11-02] MEDS: HYDROmorphone 0.5 MG/0.5 ML SYRINGE IVP PRN ×7 (03:17→22:36)
[2018-11-02] MEDS: ONDANSETRON 4 MG/2 ML VIAL IVP PRN ×2 (03:31→18:26)
[2018-11-02 03:45] LABS: Anisocytosis Slight; Basophils % (A) 0 %; Eosinophils # (A) 0.2 k/uL (0-0.7); Eosinophils % (A) 3 %; HCT 25.7 % (34.0-46.0); HGB 7.6 gm/dL (11.4-16.0); Hypochromasia Marked; Lymphocytes # (A) 3.1 k/uL (1.0-4.8); Lymphocytes % (A) 47 %; MCH 20.7 pg (25.0-35.0); MCHC 29.4 g/dL (31.0-37.0); MCV 70.3 fL (80.0-100.0); Mean Platelet Volume 7.4; Microcytosis Moderate; Monocytes # (A) 0.4 k/uL (0-1.0); Monocytes % (A) 6 %; Neutrophils # (A) 2.8 k/uL (1.3-7.7); Neutrophils % (A) 43 %; Platelet Count 325 k/uL (150-450); Poikilocytosis Slight; RBC 3.65 m/uL (3.80-5.40); RDW 16.6 % (11.5-15.5); WBC 6.5 k/uL (3.8-10.6)
--- NOTE | 2018-11-02 14:00 | P.HPIM ---
History of Present Illness H&P Date: 11/02/18 Chief Complaint: Abdominal pain This is a 28-year-old female with a known history of iron deficiency anemia and irritable bowel syndrome. There is a questionable history of ulcerative colitis. Patient reports she was diagnosed in 2009 with ulcerative colitis. Patient had colonoscopy and EGD in November 2015. At that time EGD had shown mild antral gastritis and colonoscopy was normal in appearance with no evidence of colitis. Patient presents to the emergency room with complaints of abdominal pain and diarrhea for about 5 days. The initial 3 days she reports that there was blood in the diarrhea. She's having about 10 bowel movements a day. She reports every time she eats causes multiple bowel movements. Computed tomography scan of the abdomen was negative. Fecal occult blood negative. Hemoglobin has dropped from 8.7-7.6. She's scheduled for IV iron today and tomorrow. GI has been placed on consult. Continue with IV fluids. Start patient on IV Protonix. She denies any chest pain or shortness of breath. Denies any nausea or vomiting. Reports feeling fatigued and tired. She also notes occasional shortness of breath. Review of Systems Please refer to HPI that was unremarkable Past Medical History Additional Past Medical History / Comment(s): ulcerative colitis-recent flare-up s, anemia (iron & pernicious) History of Any Multi-Drug Resistant Organisms: None Reported Past Surgical History: Cholecystectomy Additional Past Surgical History / Comment(s): colonoscopies, d & c Past Anesthesia/Blood Transfusion Reactions: No Reported Reaction Past Psychological History: Anxiety Smoking Status: Current every day smoker Past Alcohol Use History: None Reported Additional Past Alcohol Use History / Comment(s): smoking: started 2007 4-5 cigarettes per day Past Drug Use History: None Reported - Past Family History Mother Additional Family Medical History / Comment(s): "she had a lot of cysts on her ovaries" Father History Unknown: Yes Family Medical History: No Reported History Additional Family Medical History / Comment(s): dad side of family has ulcerative colitis Medications and Allergies Home Medications Medication Instructions Recorded Confirmed Type Dicyclomine [Bentyl] 20 mg PO QID PRN 04/18/17 11/01/18 History Allergies Allergy/AdvReac Type Severity Reaction Status Date / Time codeine Allergy Unknown Rash/Hives Verified 11/01/18 17:34 Physical Exam Vitals: Vital Signs Temp Pulse Pulse Resp BP BP Pulse Ox 11/02/18 12:15 97.6 F 68 14 99/63 100 11/02/18 07:58 97.8 F 62 20 99/61 99 11/02/18 03:26 97.8 F 75 16 101/64 98 11/01/18 22:08 16 11/01/18 21:47 98.4 F 65 16 100/62 100 11/01/18 18:40 65 17 97/60 100 11/01/18 16:11 98.5 F 94 18 103/67 99 Intake and Output 11/01/18 11/02/18 11/02/18 22:59 06:59 14:59 Intake Total 1000 100 Balance 1000 100 Intake: Intake, IV Titration 1000 Amount Sodium Chloride 0.9% 1, 1000 000 ml @ 999 mls/hr IV . Q1H1M ONE Rx#:[id number] Oral 100 Other: Voiding Method Toilet Toilet Toilet Weight 63 kg Gen.: Patient is pale no evidence of distress Head normocephalic Neck supple Lungs clear to auscultation bilaterally no wheezing or crackles Heart regular rate and rhythm S1-S2, no rub or gallop Abdomen is soft diffuse tenderness nondistended positive bowel sounds no hepatosplenomegaly Extremities no edema Neuro alert and orientated to 3 Results CBC & Chem 7: 11/02/18 03:20 11/01/18 17:00 Labs: Abnormal Lab Results - Last 24 Hours (Table) 11/01/18 11/01/18 11/01/18 Range/Units 17:00 17:00 17:40 RBC (3.80-5.40) m/uL Hgb 8.7 L (11.4-16.0) gm/dL Hct 29.3 L (34.0-46.0) % MCV 68.2 L (80.0-100.0) fL MCH 20.2 L (25.0-35.0) pg MCHC 29.6 L (31.0-37.0) g/dL RDW 17.0 H (11.5-15.5) % Chloride 110 H (98-107) mmol/L Urine Appearance Cloudy H (Clear) Urine Protein Trace H (Negative) Ur Leukocyte Esterase Trace H (Negative) Ur Squamous Epith Cells 12 H (0-4) /hpf Urine Mucus Few H (None) /hpf 11/01/18 11/02/18 Range/Units 23:18 03:20 RBC 3.76 L 3.65 L (3.80-5.40) m/uL Hgb 7.6 L 7.6 L (11.4-16.0) gm/dL Hct 26.5 L 25.7 L (34.0-46.0) % MCV 70.5 L 70.3 L (80.0-100.0) fL MCH 20.2 L 20.7 L (25.0-35.0) pg MCHC 28.6 L 29.4 L (31.0-37.0) g/dL RDW 17.0 H 16.6 H (11.5-15.5) % Chloride (98-107) mmol/L Urine Appearance (Clear) Urine Protein (Negative) Ur Leukocyte Esterase (Negative) Ur Squamous Epith Cells (0-4) /hpf Urine Mucus (None) /hpf Assessment and Plan Assessment: 1. Abdominal pain with bloody diarrhea: Patient is no longer having blood in the stools. Stool for occult blood was negative. Computed tomography scan of the abdomen and pelvis was negative for any acute abnormality. Hemoglobin has dropped to 7.6. She will receive IV iron. GI has been placed on consult. Last colonoscopy was in 2016 and reported normal at that time. Resume patient's Bentyl. We'll continue with Dilaudid as needed for pain control 2. Anemia with known iron deficiency anemia and possible acute blood loss anemia. Hemoglobin is 7.6. No further active bleeding. We'll give IV iron today and tomorrow. Check iron studies. 3. History of irritable bowel syndrome 4. Questionable history of ulcerative colitis 5. Nicotine dependence: Start nicotine patch GI prophylaxis Protonix and DVT prophylaxis SCDs Time with Patient: Greater than 30 (Greater than 50% of the total time spent in counseling and coordination of care.I performed an examination of the patient and discussed their management with the physician Administrator Social Welfare. I have reviewed the Physician Administrator Social Welfare's notes and agree with the documented findings and plan of care)
[2018-11-02] MEDS: PANTOPRAZOLE 40 MG/10 ML VIAL IVP SCH (14:53)
[2018-11-02] MEDS: NICOTINE 14MG/24HR PATCH TRANSDERM SCH (14:53)
[2018-11-02] MEDS: SODIUM CHLORIDE 0.9% 1,000 ML IV SCH ×2 (14:54→22:37)
[2018-11-02] MEDS: DICYCLOMINE 20 MG TAB PO PRN (14:55)
[2018-11-02] MEDS: SODIUM FERRIC GLUCONAT-SUCROSE 125 MG in SODIUM CHLORIDE 0.9% 100 ML IVPB SCH (15:46)
--- NOTE | 2018-11-02 19:04 | XR ---
EXAMINATION TYPE: XR chest 1V portable DATE OF EXAM: 11/02/2018 COMPARISON: 03/31/2014 HISTORY: Short of breath TECHNIQUE: Single frontal view of the chest is obtained. FINDINGS: Heart and mediastinum are normal. Lungs are clear. Diaphragm is normal. Bony thorax is int act. IMPRESSION: Normal chest. No change.
--- NOTE | 2018-11-02 23:47 | P.CONS ---
History of Present Illness - Reason for Consult Consult date: 11/02/18 Anemia, colitis Requesting physician: Guicho Castillo - Chief Complaint Anemia - History of Present Illness 28-year-old female with a medical history significant for iron deficiency anemia, IBS diarrhea predominant and a questionable history of ulcerative colitis who presented to the hospital with complaints of weakness and shortness of breath secondary to anemia. The patient reports feeling increasingly weak and short of breath at home which she attributes to anemia. The patient reports a history of ulcerative colitis but on review of the medical record she had a colonoscopy in January 2015 with negative biopsies of the terminal ileum and bowel and no gross abnormalities. She also had EGD and colonoscopy in 11/16/2015 for evaluation of anemia which was significant only for gastritis with a normal colon and terminal ileum and negative biopsies. She reports at baseline she is 5-6 bowel movements per day and intermittently sees blood. She reports that she is required treatment of her colitis with steroids in the past. She is on treatment with Bentyl which she takes multiple times per day. Hemoglobin was found to be 7.6 on presentation with testing for occult blood negative. Review of Systems REVIEW OF SYSTEMS: CONSTITUTIONAL: Denies any fevers, chills, weight change does report fatigue. CARDIOVASCULAR: Denies any chest pain, palpitations high or low blood pressures RESPIRATORY: Denies any hemoptysis or cough, but does report shortness of breath. GENITOURINARY: No dysuria or hematuria, but does report heavy menses. MUSCULOSKELETAL: No weakness reported. SKIN: Denies any new rashes or lesions, jaundice or pallor. PSYCHIATRIC: Denies any depression or anxiety. NEUROLOGY: Denies headache, denies any new focal deficits. EARS/NOSE/THROAT: No recent hearing change, congestion, nasal discharge or sore throat. EYES: No pain in eyes, discharge or change in vision. GASTROINTESTINAL: As per HPI. Past Medical History Additional Past Medical History / Comment(s): ulcerative colitis-recent flare- ups, anemia (iron & pernicious) History of Any Multi-Drug Resistant Organisms: None Reported Past Surgical History: Cholecystectomy Additional Past Surgical History / Comment(s): colonoscopies, d & c Past Anesthesia/Blood Transfusion Reactions: No Reported Reaction Past Psychological History: Anxiety Smoking Status: Current every day smoker Past Alcohol Use History: None Reported Additional Past Alcohol Use History / Comment(s): smoking: started 2007 4-5 cigarettes per day Past Drug Use History: None Reported - Past Family History Mother Additional Family Medical History / Comment(s): "she had a lot of cysts on her ovaries" Father History Unknown: Yes Family Medical History: No Reported History Additional Family Medical History / Comment(s): dad side of family has ulcerative colitis Medications and Allergies Home Medications Medication Instructions Recorded Confirmed Type Dicyclomine [Bentyl] 20 mg PO QID PRN 04/18/17 11/01/18 History Allergies Allergy/AdvReac Type Severity Reaction Status Date / Time codeine Allergy Unknown Rash/Hives Verified 11/01/18 17:34 Physical Exam Vitals: Vital Signs Temp Pulse Resp BP Pulse Ox 11/02/18 20:50 98.6 F 69 16 92/46 100 11/02/18 17:50 83 20 102/63 100 11/02/18 16:10 98 F 73 16 101/63 99 11/02/18 12:15 97.6 F 68 14 99/63 100 11/02/18 07:58 97.8 F 62 20 99/61 99 11/02/18 03:26 97.8 F 75 16 101/64 98 Intake and Output 11/02/18 11/02/18 11/03/18 14:59 22:59 06:59 Other: Voiding Method Toilet Toilet # Voids 3 2 On physical examination, patient appears comfortable in no apparent distress. HEAD: Normocephalic, atraumatic. EYES: No scleral icterus. No conjunctival injection. MOUTH: No lesions, tongue midline. NECK: Trachea midline, no gross abnormalities. CHEST: Clear to auscultation with no wheezing or rhonchi appreciated. HEART: Regular rate and rhythm. ABDOMEN: Soft, obese. Bowel sounds are positive. No organomegaly. No guarding or rigidity. EXTREMITIES: No pedal edema. SKIN: No rashes, no jaundice. NEUROLOGIC: Alert and oriented x3. No focal deficits. Results CBC & Chem 7: 11/02/18 03:20 11/01/18 17:00 Labs: Abnormal Lab Results - Last 24 Hours (Table) 11/01/18 11/02/18 Range/Units 23:18 03:20 RBC 3.76 L 3.65 L (3.80-5.40) m/uL Hgb 7.6 L 7.6 L (11.4-16.0) gm/dL Hct 26.5 L 25.7 L (34.0-46.0) % MCV 70.5 L 70.3 L (80.0-100.0) fL MCH 20.2 L 20.7 L (25.0-35.0) pg MCHC 28.6 L 29.4 L (31.0-37.0) g/dL RDW 17.0 H 16.6 H (11.5-15.5) % CT scan - abdomen: report reviewed (Computed tomography scan of the abdomen with no acute findings) Assessment and Plan (1) Symptomatic anemia Narrative/Plan: Patient presenting with symptomatic anemia, with stool testing negative for occult blood GI bleed is unlikely. Patient also reports a history of ulcerative colitis but past colonoscopies in 2014 and 2015 did not show active inflammation with negative biopsies of the small bowel and colon. Current Visit: Yes Status: Acute Code(s): D64.9 - ANEMIA, UNSPECIFIED SNOMED Code(s): 613121126 Plan: Supportive care Okay for diet Continue to monitor hemoglobin and transfuse as needed Iron infusion was ordered today Iron studies are pending Vitamin B-12 and folate levels ordered ESR and CRP pending Continue to monitor for signs or symptoms GI bleeding Continue Bentyl therapy Thank you for allowing us to participate in the care of this patient we will continue to follow
[2018-11-03] MEDS: HYDROmorphone 0.5 MG/0.5 ML SYRINGE IVP PRN ×7 (02:02→22:00)
[2018-11-03 02:20] LABS: Iron Saturation 56.77 (12.00-45.00)
[2018-11-03] MEDS: ONDANSETRON 4 MG/2 ML VIAL IVP PRN ×2 (06:05→18:42)
[2018-11-03] MEDS: NICOTINE 14MG/24HR PATCH TRANSDERM SCH (08:02)
[2018-11-03] MEDS: PANTOPRAZOLE 40 MG/10 ML VIAL IVP SCH (08:02)
[2018-11-03 08:21] LABS: Anisocytosis Slight; Basophils % (A) 0 %; Eosinophils # (A) 0.1 k/uL (0-0.7); Eosinophils % (A) 2 %; HCT 25.3 % (34.0-46.0); HGB 7.5 gm/dL (11.4-16.0); Hypochromasia Marked; Lymphocytes # (A) 1.4 k/uL (1.0-4.8); Lymphocytes % (A) 19 %; MCH 20.7 pg (25.0-35.0); MCHC 29.5 g/dL (31.0-37.0); MCV 70.3 fL (80.0-100.0); Mean Platelet Volume 7.1; Microcytosis Moderate; Monocytes # (A) 0.4 k/uL (0-1.0); Monocytes % (A) 5 %; Neutrophils # (A) 5.4 k/uL (1.3-7.7); Neutrophils % (A) 73 %; Platelet Count 333 k/uL (150-450); Poikilocytosis Slight; RDW 16.5 % (11.5-15.5); WBC 7.5 k/uL (3.8-10.6)
[2018-11-03 08:38] LABS: AST 16 U/L (14-36); Blood Urea Nitrogen 4 mg/dL (7-17); Carbon Dioxide 25 mmol/L (22-30); Glucose 87 mg/dL (74-99); Total Bilirubin 0.3 mg/dL (0.2-1.3); Total Protein 5.5 g/dL (6.3-8.2)
[2018-11-03] MEDS: SODIUM FERRIC GLUCONAT-SUCROSE 125 MG in SODIUM CHLORIDE 0.9% 100 ML IVPB SCH (09:00)
[2018-11-03 09:02] LABS: ALT 22 U/L (9-52); Albumin 3.2 g/dL (3.5-5.0); Alkaline Phosphatase 57 U/L (38-126); Anion Gap 5 mmol/L; Calcium 8.7 mg/dL (8.4-10.2); Chloride 109 mmol/L (98-107); Potassium 3.8 mmol/L (3.5-5.1); Sodium 139 mmol/L (137-145)
[2018-11-03 10:14] LABS: C Reactive Protein 5.5 mg/L (<10.0)
[2018-11-03 10:37] LABS: Erythrocyte Sedimentation Rate 11 mm/hr (0-20)
--- NOTE | 2018-11-03 11:54 | P.PN ---
Subjective Progress Note Date: 11/03/18 This is a 28-year-old female with a known history of iron deficiency anemia and irritable bowel syndrome. There is a questionable history of ulcerative colitis. Patient reports she was diagnosed in 2009 with ulcerative colitis. Patient had colonoscopy and EGD in November 2015. At that time EGD had shown mild antral gastritis and colonoscopy was normal in appearance with no evidence of colitis. Patient presents to the emergency room with complaints of abdominal pain and diarrhea for about 5 days. The initial 3 days she reports that there was blood in the diarrhea. She's having about 10 bowel movements a day. She reports every time she eats causes multiple bowel movements. Computed tomography scan of the abdomen was negative. Fecal occult blood negative. Hemoglobin has dropped from 8.7-7.6. She's scheduled for IV iron today and tomorrow. GI has been placed on consult. Continue with IV fluids. Start patient on IV Protonix. She denies any chest pain or shortness of breath. Denies any nausea or vomiting. Reports feeling fatigued and tired. She also notes occasional shortness of breath. On 11/03/2018 patient's alert and oriented 3. Patient is still complaining of upper epigastric pain. Did discuss case with GI Dr. Santiago planning EGD today. Hemoglobin 7.5. Patient to receive additional dose of IV iron today continue to monitor hemoglobin closely. Patient denies chest pain or shortness breath. Patient denies nausea vomiting or diarrhea. Patient denies any urinary burning or frequency. Objective - Vital Signs Vital signs: Vital Signs Temp 99.0 F 11/03/18 09:47 Pulse 83 11/03/18 08:00 Resp 20 11/03/18 08:00 BP 106/56 11/03/18 08:00 Pulse Ox 97 11/03/18 08:00 Intake & Output 11/02/18 11/03/18 11/03/18 18:59 06:59 18:59 Other: Voiding Method Toilet Toilet # Voids 3 1 - Exam Gen.: Patient is pale no evidence of distress Head normocephalic Neck supple Lungs clear to auscultation bilaterally no wheezing or crackles Heart regular rate and rhythm S1-S2, no rub or gallop Abdomen is soft diffuse tenderness nondistended positive bowel sounds no hepatosplenomegaly Extremities no edema Neuro alert and orientated to 3 - Labs CBC & Chem 7: 11/03/18 07:53 11/03/18 07:53 Labs: Abnormal Lab Results - Last 24 Hours (Table) 11/02/18 11/03/18 11/03/18 Range/Units 17:10 07:53 07:53 RBC 3.60 L (3.80-5.40) m/uL Hgb 7.5 L (11.4-16.0) gm/dL Hct 25.3 L (34.0-46.0) % MCV 70.3 L (80.0-100.0) fL MCH 20.7 L (25.0-35.0) pg MCHC 29.5 L (31.0-37.0) g/dL RDW 16.5 H (11.5-15.5) % Chloride 109 H (98-107) mmol/L BUN 4 L (7-17) mg/dL Iron 239 H (50-170) ug/dL Iron Saturation 56.77 H (12.00-45.00) Ferritin 3.5 L (10.0-291.0) ng/mL Total Protein 5.5 L (6.3-8.2) g/dL Albumin 3.2 L (3.5-5.0) g/dL Assessment and Plan Assessment: 1. Abdominal pain with bloody diarrhea: Patient is no longer having blood in the stools. Stool for occult blood was negative. Computed tomography scan of the abdomen and pelvis was negative for any acute abnormality. Hemoglobin has dropped to 7.6. She will receive IV iron. GI has been placed on consult. Last colonoscopy was in 2016 and reported normal at that time. Resume patient's Bentyl. We'll continue with Dilaudid as needed for pain control. Discussed case with GI services. Planning for EGD today. 2. Anemia with known iron deficiency anemia and possible acute blood loss anemia. Hemoglobin is 7.6. No further active bleeding. We'll give IV iron today and tomorrow. Check iron studies. Globin 7.5. Patient to receive iris tional dose of IV iron today. We'll continue to monitor 3. History of irritable bowel syndrome 4. Questionable history of ulcerative colitis 5. Nicotine dependence: Start nicotine patch GI prophylaxis Protonix and DVT prophylaxis SCDs I performed an examination of the patient and discussed their management with the Nurse Practitioner. I have reviewed the Nurse Practitioner's notes and ag ree with the documented findings and plan of care
[2018-11-03] MEDS ORDERED: PROPOFOL 10 MG/ML 20 ML VIAL IV ONE (13:39)
[2018-11-03] MEDS ORDERED: IV FLUID CONTINUATION 1,000 ML IV ONE (13:41)
[2018-11-03 13:44] LABS: Folate, Serum 10.9 ng/mL
--- NOTE | 2018-11-03 14:09 | P.PCN ---
Date of Procedure: 11/03/18 Description of Procedure: BRIEF HISTORY: 28-year-old female with a medical history significant for iron deficiency anemia, IBS diarrhea predominant and a questionable history of ulcerative colitis who presented to the hospital with complaints of weakness and shortness of breath secondary to anemia. The patient reports feeling increasingly weak and short of breath at home which she attributes to anemia. The patient reports a history of ulcerative colitis but on review of the medical record she had a colonoscopy in January 2015 with negative biopsies of the terminal ileum and bowel and no gross abnormalities. She also had EGD and colonoscopy in 11/16/2015 for evaluation of anemia which was significant only for gastritis with a normal colon and terminal ileum and negative biopsies. She reports at baseline she is 5-6 bowel movements per day and intermittently sees blood. She reports that she is required treatment of her colitis with steroids in the past. She is on treatment with Bentyl which she takes multiple times per day. Hemoglobin was found to be 7.6 on presentation with testing for occult blood negative. Patient had an episode of epigastric abdominal pain overnight and EGD was ordered for further evaluation. PROCEDURE PERFORMED: Esophagogastroduodenoscopy with biopsy. PREOPERATIVE DIAGNOSIS: Iron deficiency anemia, epigastric abdominal pain. ESTIMATED BLOOD LOSS: Minimal. IV sedation per anesthesia. PROCEDURE: After informed consent was obtained, the patient was brought into the endoscopy unit. IV sedation was administered by Anesthesia under continuous monitoring. Initially the Olympus GIF-190 video endoscope was inserted into the mouth. Esophagus intubated without any difficulty. It was gradually advanced into the stomach and duodenum and carefully examined. The bulb and the second part of the duodenum appeared normal, with biopsies taken. The scope at this time was withdrawn to the stomach, adequately insufflated with air, and upon careful examination, mucosa of the antrum, body, cardia and the fundus appeared grossly normal however there were 2 cratered nonbleeding antral ulcers without high risk stigmata for rebleeding with biopsies of the ulcers taken as well as biopsies of the antrum and body of the stomach. Small hiatal hernia was noted. The scope was then withdrawn into the esophagus. The GE junction was located at 34 cm from the incisors. The esophagus appeared normal. There were no erosions or ulcerations seen and the patient tolerated the procedure well. IMPRESSION: 1. 2 nonbleeding antral ulcers, biopsied. 2. Duodenal biopsies. Antrum and body biopsies. 3. Small hiatal hernia. RECOMMENDATIONS: The findings of this examination were discussed with the patient. Okay for diet. Continue Protonix twice daily. Await pathology from biopsies. Repeat EGD in 6-8 weeks to check for ulcer healing. Duodenal monitor hemoglobin and hematocrit and transfuse as needed. Avoid NSAID use.
[2018-11-03] MEDS: SODIUM CHLORIDE 0.9% 1,000 ML IV SCH (15:08)
[2018-11-03] MEDS: DICYCLOMINE 20 MG TAB PO PRN (18:42)
[2018-11-03] MEDS: PANTOPRAZOLE 40 MG TABLET PO SCH (22:00)
[2018-11-04] MEDS: HYDROmorphone 0.5 MG/0.5 ML SYRINGE IVP PRN ×3 (03:04→11:31)
[2018-11-04] MEDS: SODIUM CHLORIDE 0.9% 1,000 ML IV SCH (03:05)
[2018-11-04] MEDS: PANTOPRAZOLE 40 MG TABLET PO SCH (07:50)
[2018-11-04 07:57] LABS: ALT 23 U/L (9-52); AST 14 U/L (14-36); Albumin 3.1 g/dL (3.5-5.0); Alkaline Phosphatase 52 U/L (38-126); Anion Gap 5 mmol/L; Blood Urea Nitrogen 7 mg/dL (7-17); Calcium 8.6 mg/dL (8.4-10.2); Carbon Dioxide 26 mmol/L (22-30); Chloride 108 mmol/L (98-107); Glucose 84 mg/dL (74-99); Potassium 3.9 mmol/L (3.5-5.1); Sodium 139 mmol/L (137-145); Total Bilirubin 0.3 mg/dL (0.2-1.3); Total Protein 5.2 g/dL (6.3-8.2)
[2018-11-04 07:59] LABS: Anisocytosis Slight; Basophils % (A) 0 %; Eosinophils # (A) 0.2 k/uL (0-0.7); Eosinophils % (A) 3 %; HCT 24.1 % (34.0-46.0); HGB 7.1 gm/dL (11.4-16.0); Hypochromasia Marked; Lymphocytes # (A) 2.5 k/uL (1.0-4.8); Lymphocytes % (A) 37 %; MCH 20.1 pg (25.0-35.0); MCHC 29.4 g/dL (31.0-37.0); MCV 68.4 fL (80.0-100.0); Mean Platelet Volume 7.6; Microcytosis Marked; Monocytes # (A) 0.4 k/uL (0-1.0); Monocytes % (A) 6 %; Neutrophils # (A) 3.5 k/uL (1.3-7.7); Neutrophils % (A) 52 %; Platelet Count 350 k/uL (150-450); Poikilocytosis Slight; RBC 3.52 m/uL (3.80-5.40); RDW 17.2 % (11.5-15.5); WBC 6.8 k/uL (3.8-10.6)
[2018-11-04] MEDS: NICOTINE 14MG/24HR PATCH TRANSDERM SCH (08:23)
[2018-11-04 09:20] LABS: Polychromasia Present
[2018-11-04 10:30] VITALS: RESP 16
[2018-11-04] MEDS ORDERED: traMADol 50 MG TAB PO PRN (12:29)
[2018-11-04 12:50] VITALS: BP 107/69; PULSE 80; TEMP 97.9
--- NOTE | 2018-11-04 13:41 | P.PN ---
Subjective Progress Note Date: 11/04/18 This is a 28-year-old female with a known history of iron deficiency anemia and irritable bowel syndrome. There is a questionable history of ulcerative colitis. Patient reports she was diagnosed in 2009 with ulcerative colitis. Patient had colonoscopy and EGD in November 2015. At that time EGD had shown mild antral gastritis and colonoscopy was normal in appearance with no evidence of colitis. Patient presents to the emergency room with complaints of abdominal pain and diarrhea for about 5 days. The initial 3 days she reports that there was blood in the diarrhea. She's having about 10 bowel movements a day. She reports every time she eats causes multiple bowel movements. Computed tomography scan of the abdomen was negative. Fecal occult blood negative. Hemoglobin has dropped from 8.7-7.6. She's scheduled for IV iron today and tomorrow. GI has been placed on consult. Continue with IV fluids. Start patient on IV Protonix. She denies any chest pain or shortness of breath. Denies any nausea or vomiting. Reports feeling fatigued and tired. She also notes occasional shortness of breath. On 11/03/2018 patient's alert and oriented 3. Patient is still complaining of upper epigastric pain. Did discuss case with GI Dr. Santiago planning EGD today. Hemoglobin 7.5. Patient to receive additional dose of IV iron today continue to monitor hemoglobin closely. Patient denies chest pain or shortness breath. Patient denies nausea vomiting or diarrhea. Patient denies any urinary burning or frequency. 11/04/2018 patient lying in bed comfortably. Hemoglobin is down to 7.1. She did receive a total of 2 iron transfusions. Underwent EGD yesterday showing 2 nonbleeding antral ulcers and a small hiatal hernia. GI recommended Protonix 40 mg twice a day. Patient reports improvement in her abdominal pain. But it is printing grey cloth tender in the epigastric area. She's had no further bowel movements. No nausea or vomiting. Patient reporting that she is not been on her menstrual cyc le. Patient does report some shortness of breath and fatigue. She is satting 98% on room air Objective - Vital Signs Vital signs: Vital Signs Temp 98.0 F 11/04/18 08:57 Pulse 73 11/04/18 08:57 Resp 16 11/04/18 08:57 BP 98/60 11/04/18 08:57 Pulse Ox 98 11/04/18 08:57 Intake & Output 11/03/18 11/04/18 11/04/18 18:59 06:59 18:59 Intake Total 350 Balance 350 Intake: IV 50 Oral 300 Other: Voiding Method Toilet # Voids 1 1 - Exam Head normocephalic Neck supple Lungs clear to auscultation bilaterally no wheezing or crackles Heart regular rate and rhythm S1-S2, no rub or gallop Abdomen is soft epigastric tenderness nondistended positive bowel sounds no hepatosplenomegaly Extremities no edema Neuro alert and orientated to 3 - Labs CBC & Chem 7: 11/04/18 07:23 11/04/18 07:23 Labs: Abnormal Lab Results - Last 24 Hours (Table) 11/04/18 11/04/18 Range/Units 07:23 07:23 RBC 3.52 L (3.80-5.40) m/uL Hgb 7.1 L (11.4-16.0) gm/dL Hct 24.1 L (34.0-46.0) % MCV 68.4 L (80.0-100.0) fL MCH 20.1 L (25.0-35.0) pg MCHC 29.4 L (31.0-37.0) g/dL RDW 17.2 H (11.5-15.5) % Chloride 108 H (98-107) mmol/L Total Protein 5.2 L (6.3-8.2) g/dL Albumin 3.1 L (3.5-5.0) g/dL Assessment and Plan Assessment: 1. Abdominal pain with bloody diarrhea: Status post EGD revealing 2 nonbleeding antral ulcers and a small hiatal hernia. Continue Protonix 40 mg twice a day. Patient is no longer having blood in the stools. Stool for occult blood was negative. Computed tomography scan of the abdomen and pelvis was negative for any acute abnormality. Last colonoscopy was in 2016 and reported normal at that time. Resume patient's Bentyl. Discontinue Dilaudid. We will add Ultram as needed for pain control. Patient followed by GI service. Tolerating diet. 2. Anemia with known iron deficiency anemia and possible acute blood loss anemia. Patient has received 2 doses of IV iron. Hemoglobin remains low at 7.1. Iron levels high at 239. Iron level drawn during and IV iron transfusion. Will give patient another dose of IV iron prior to discharge 3. History of irritable bowel syndrome 4. Questionable history of ulcerative colitis 5. Nicotine dependence: Start nicotine patch. Discussed smoking cessation for greater than 3 minutes GI prophylaxis Protonix and DVT prophylaxis SCDs Encouraged patient ambulate in the hallway at least 3 times day I performed an examination of the patient and discussed their management with the physician Outpatient Therapist. I have reviewed the Physician Outpatient Therapist's notes and agree with the documented findings and plan of care
--- NOTE | 2018-11-04 13:55 | P.DS ---
Providers Date of admission: 11/01/18 19:57 Expected date of discharge: 11/04/18 Attending physician: Guicho Castillo Consults: 11/01/18 19:58 Consult Physician Routine Consulting Provider: Nuria Muñiz Consult Reason/Comments: intractable abdominal pain, symptomatic anemia, hx of UC/previous transfusi Do you want consulting provider notified?: Yes, Notify in am Primary care physician: Nakia Love Hospital Course: Discharge diagnosis 1. Abdominal pain with bloody diarrhea: Likely secondary to antral ulcers. Symptoms have now resolved. Status post EGD revealing 2 nonbleeding antral ulcers and a small hiatal hernia. Continue Protonix 40 mg twice a day. Patient is no longer having blood in the stools. Stool for occult blood was negative. Computed tomography scan of the abdomen and pelvis was negative for any acute abnormality. Last colonoscopy was in 2015 and reported normal at that time. Resume patient's Bentyl. 2. Anemia with known iron deficiency anemia and possible acute blood loss anemia secondary to antral ulcers. Patient's hemoglobin at discharge is 7.1. She will receive another IV iron transfusion. Recommend repeating CBC in 3 days with her primary care office. Also continue ferrous sulfate 3 and 25 mg twice a day 3. History of irritable bowel syndrome 4. Questionable history of ulcerative colitis 5. Nicotine dependence Hospital course This is a 28-year-old female with a known history of iron deficiency anemia and irritable bowel syndrome. There is a questionable history of ulcerative colitis. Patient reports she was diagnosed in 2009 with ulcerative colitis. Patient had colonoscopy and EGD in November 2015. At that time EGD had shown mild antral gastritis and colonoscopy was normal in appearance with no evidence of colitis. Patient presents to the emergency room with complaints of abdominal pain and diarrhea for about 5 days. The initial 3 days she reports that there was blood in the diarrhea. She's having about 10 bowel movements a day. She reports every time she eats causes multiple bowel movements. Computed tomography scan of the abdomen was negative. Fecal occult blood negative. Hemoglobin has dropped from 8.7-7.6. She's scheduled for IV iron today and tomorrow. GI has been placed on consult. Continue with IV fluids. Start patient on IV Protonix. She denies any chest pain or shortness of breath. Denies any nausea or vomiting. Reports feeling fatigued and tired. She also notes occasional shortness of breath. On 11/03/2018 patient's alert and oriented 3. Patient is still complaining of upper epigastric pain. Did discuss case with GI Dr. Santiago planning EGD today. Hemoglobin 7.5. Patient to receive additional dose of IV iron today continue to monitor hemoglobin closely. Patient denies chest pain or shortness breath. Patient denies nausea vomiting or diarrhea. Patient denies any urinary burning or frequency. 11/04/2018 patient lying in bed comfortably. Hemoglobin is down to 7.1. She did receive a total of 2 iron transfusions. Underwent EGD yesterday showing 2 nonbleeding antral ulcers and a small hiatal hernia. GI recommended Protonix 40 mg twice a day. Patient reports improvement in her abdominal pain. But it is naphthalene still operator in the epigastric area. She's had no further bowel movements. No nausea or vomiting. Patient reporting that she is not been on her menstrual cycle. Patient does report some shortness of breath and fatigue. She is satting 98% on room air Patient will be discharged on 11/04/2018. She is medically stable for discharge. As stated above hemoglobin at discharge is 7.1. She is receiving another transfusion of IV iron. We'll continue with ferrous sulfate 325 mg twice a day when discharge. Recommend following up with her PCP in 3 days to have a recheck on her CBC. Patient is to continue the Protonix 40 mg twice a day for her antral ulcers. Patient is agreeable to discharge. She'll follow up with GI service in 1 week. They're recommending a repeat EGD in 6-8 weeks to check for ulcer healing. Avoid NSAID use. I performed an examination of the patient and discussed their management with the physician Supervisor Furnace Process. I have reviewed the Physician Supervisor [employer] Process's notes and agree with the documented findings and plan of care Patient Condition at Discharge: Stable Plan - Discharge Summary Discharge Rx Participant: No New Discharge Prescriptions: New Ferrous Sulfate [Feosol] 325 mg PO BID #60 tab Pantoprazole [Protonix] 40 mg PO AC-BID #60 tablet. Continue Dicyclomine [Bentyl] 20 mg PO QID PRN PRN Reason: Gi Upset Discharge Medication List Dicyclomine [Bentyl] 20 mg PO QID PRN 04/18/17 [History] Ferrous Sulfate [Feosol] 325 mg PO BID #60 tab 11/04/18 [Rx] Pantoprazole [Protonix] 40 mg PO AC-BID #60 tablet. 11/04/18 [Rx] Follow up Appointment(s)/Referral(s): Nakia Love DO [Primary Care Provider] - 3 Days Jann Santiago MD [STAFF PHYSICIAN] - 1 Week Ambulatory/Diagnostic Orders: Complete Blood Count w/diff [LAB.AMB] Time Frame: 3 Days, Location: None Selected Activity/Diet/Wound Care/Special Instructions: Diet: bland, regular Activity: as tolerated Discharge Disposition: HOME SELF-CARE
[2018-11-04] MEDS ORDERED: SODIUM FERRIC GLUCONAT-SUCROSE 125 MG in SODIUM CHLORIDE 0.9% 100 ML IVPB ONE (14:00)
== END 2018-11-04 15:48 | disposition home or self-care (01) ==
LOC: EC 16:08 → 6PED 19:52 → UNDOADMIN 19:52 → 6PED 19:57
PROVIDERS: ADMIT Internal Medicine; ATTEND Internal Medicine
DX: R10.13 Epigastric pain (principal); K25.4 Chronic or unspecified gastric ulcer with hemorrhage; D50.9 Iron deficiency anemia, unspecified; K58.0 Irritable bowel syndrome with diarrhea; K44.9 Diaphragmatic hernia without obstruction or gangrene; F17.210 Nicotine dependence, cigarettes, uncomplicated; Z88.5 Allergy status to narcotic agent; Z90.49 Acquired absence of other specified parts of digestive tract; F41.9 Anxiety disorder, unspecified; Z87.19 Personal history of other diseases of the digestive system; Z83.79 Family history of other diseases of the digestive system; Z84.2 Family history of other diseases of the genitourinary system
CPT/HCPCS: 96361 ×3; 96365; 96366 ×2; 96376 ×4; 96375; 99285; 36415; 93005; 88305; 80053 ×3; 85652; 82607; 82728; 82150; 82746; 83540; 83550; 83690; 85025 ×4; 86140; 82272; 81001; 81025; 71045; 74177; 43239; G0378 ×4; S4990 ×3; J2405 ×3; J2916 ×3; J2704; C9113 ×2; J1170 ×4; Q9967

== ENCOUNTER 2019-02-19 17:25 | Emergency (ER) | payer OTHER ==
[2019-02-19] MEDS ORDERED: SODIUM CHLORIDE 0.9% 1,000 ML IV STA (17:38)
[2019-02-19] MEDS ORDERED: PANTOPRAZOLE 40 MG/10 ML VIAL IVP STA (17:38)
[2019-02-19] MEDS ORDERED: MORPHINE SULFATE 4 MG/ML SYRINGE IV STA (17:38)
[2019-02-19] MEDS ORDERED: ONDANSETRON 4 MG/2 ML VIAL IVP STA (17:38)
[2019-02-19 18:11] LABS: Anisocytosis Slight; Basophils % (A) 0 %; Eosinophils # (A) 0.4 k/uL (0-0.7); Eosinophils % (A) 4 %; HCT 33.3 % (34.0-46.0); HGB 10.7 gm/dL (11.4-16.0); Hypochromasia Slight; Lymphocytes # (A) 2.6 k/uL (1.0-4.8); Lymphocytes % (A) 28 %; MCH 25.4 pg (25.0-35.0); MCHC 32.1 g/dL (31.0-37.0); MCV 78.9 fL (80.0-100.0); Mean Platelet Volume 7.1; Microcytosis Slight; Monocytes # (A) 0.4 k/uL (0-1.0); Monocytes % (A) 4 %; Neutrophils # (A) 5.6 k/uL (1.3-7.7); Neutrophils % (A) 61 %; Platelet Count 415 k/uL (150-450); RBC 4.22 m/uL (3.80-5.40); RDW 17.2 % (11.5-15.5); WBC 9.2 k/uL (3.8-10.6)
--- NOTE | 2019-02-19 18:15 | XR ---
EXAMINATION TYPE: XR abdomen acute w cxr DATE OF EXAM: 02/19/2019 COMPARISON: 04/18/2017 HISTORY: Abdominal pain TECHNIQUE: Chest x-ray with supine and upright abdomen FINDINGS: Heart and mediastinum are normal. Lungs are clear. Diaphragm is normal. Bony thorax appears normal. T here are clips from cholecystectomy. Bowel gas pattern is normal. There is no sign of intestinal obst ruction or pneumoperitoneum. Fecal pattern is normal. There is no sign of a mass. There are no pathol ogic calcifications over the kidneys. Bony structures appear intact. IMPRESSION: Nonacute abdomen. Normal chest.
[2019-02-19 18:16] LABS: Amorphous Sediment,Urine Few /hpf; Appearance,Urine Cloudy (Clear); Bilirubin,Urine Negative (Negative); Blood,Urine Negative (Negative); Color,Urine Yellow; Glucose,Urine (UA) Negative (Negative); Ketones,Urine Negative (Negative); Leukocyte Esterase,Urine Trace (Negative); Mucus,Urine Rare /hpf; Nitrite,Urine Negative (Negative); PH, Urine 7.5 (5.0-8.0); Protein,Urine Trace (Negative); Specific Gravity,Urine 1.025 (1.001-1.035); Squamous Epithelial Cell,Urine 14 /hpf (0-4); WBC,Urine 10 /hpf (0-5)
[2019-02-19 18:34] LABS: ALT 14 U/L (9-52); AST 17 U/L (14-36); African American GFR (CKD) >90 (>60 ml/min/1.73 sqM); Albumin 4.3 g/dL (3.5-5.0); Alkaline Phosphatase 86 U/L (38-126); Amylase 46 U/L (30-110); Anion Gap 8 mmol/L; Blood Urea Nitrogen 14 mg/dL (7-17); Calcium 9.6 mg/dL (8.4-10.2); Carbon Dioxide 24 mmol/L (22-30); Chloride 110 mmol/L (98-107); Creatine Kinase 49 U/L (30-135); Glucose 92 mg/dL (74-99); Sodium 142 mmol/L (137-145); Total Bilirubin 0.3 mg/dL (0.2-1.3); Total Protein 6.9 g/dL (6.3-8.2)
[2019-02-19] MEDS ORDERED: HYDROmorphone 1 MG/ML 1 ML SYRINGE IVP STA (18:34)
[2019-02-19 18:49] LABS: HCG,Quantitative Serum <2.4 mIU/mL
--- NOTE | 2019-02-19 18:58 | ED ---
Abdominal Pain HPI - General Chief Complaint: Abdominal Pain Stated Complaint: Abd pain Time Seen by Provider: 02/19/19 17:36 Source: patient, RN notes reviewed, old records reviewed Mode of arrival: ambulatory Limitations: no limitations - History of Present Illness Initial Comments: This is a 28-year-old female the ER for evaluation. Patient resents today for evaluation regarding abdominal pain. History also placed. History of similar pain in the past she is having bowel was no blood, mild nausea with no vomiting. No fevers of recent. No recent significant weight loss. Patient denies drugs or alcohol. MD Complaint: abdominal pain -: hour(s) Location: diffuse Radiation: none Migration to: no migration Severity: moderate Severity scale (1-10): 4 Quality: aching Consistency: constant Improves With: nothing Worsens With: nothing Associated Symptoms: nausea, diarrhea - Related Data Home Medications Medication Instructions Recorded Confirmed Dicyclomine [Bentyl] 20 mg PO TID 04/18/17 02/19/19 Allergies Allergy/AdvReac Type Severity Reaction Status Date / Time codeine Allergy Unknown Rash/Hives Verified 02/19/19 17:47 Review of Systems ROS Statement: Those systems with pertinent positive or pertinent negative responses have been documented in the HPI. ROS Other: All systems not noted in ROS Statement are negative. Past Medical History Additional Past Medical History / Comment(s): ulcerative colitis-recent flare- ups, anemia (iron & pernicious) History of Any Multi-Drug Resistant Organisms: None Reported Past Surgical History: Cholecystectomy Additional Past Surgical History / Comment(s): colonoscopies, d & c Past Anesthesia/Blood Transfusion Reactions: No Reported Reaction Past Psychological History: Anxiety Smoking Status: Current every day smoker Past Alcohol Use History: Occasional Past Drug Use History: None Reported - Past Family History Mother Additional Family Medical History / Comment(s): "she had a lot of cysts on her ovaries" Father History Unknown: Yes Family Medical History: No Reported History Additional Family Medical History / Comment(s): dad side of family has ulcerative colitis General Exam Limitations: no limitations General appearance: alert, in no apparent distress Head exam: Present: atraumatic, normocephalic, normal inspection Eye exam: Present: normal appearance, PERRL, EOMI. Absent: scleral icterus, conjunctival injection, periorbital swelling ENT exam: Present: normal exam, mucous membranes moist Neck exam: Present: normal inspection. Absent: tenderness, meningismus, lymphadenopathy Respiratory exam: Present: normal lung sounds bilaterally. Absent: respiratory distress, wheezes, rales, rhonchi, stridor Cardiovascular Exam: Present: regular rate, normal rhythm, normal heart sounds. Absent: systolic murmur, diastolic murmur, rubs, gallop, clicks GI/Abdominal exam: Present: soft, normal bowel sounds. Absent: distended, tenderness, guarding, rebound, rigid Extremities exam: Present: normal inspection, full ROM, normal capillary refill. Absent: tenderness, pedal edema, joint swelling, calf tenderness Back exam: Present: normal inspection Neurological exam: Present: alert, oriented X3, CN II-XII intact Psychiatric exam: Present: normal affect, normal mood Skin exam: Present: warm, dry, intact, normal color. Absent: rash Course Vital Signs 02/19/19 02/19/19 17:27 19:43 Temperature 98.6 F 98.2 F Pulse Rate 100 86 Respiratory 18 16 Rate Blood Pressure 114/77 116/77 O2 Sat by Pulse 100 98 Oximetry - Reevaluation(s) Reevaluation #1: medical record is reviewed patient has adequate pain control Medical Decision Making - Medical Decision Making 20 female the ER with history of ulcer colitis having flare. Patient now has a dequate pain control. X-ray negative labwork is normal. Patient feels good for discharge - Lab Data Result diagrams: 02/19/19 17:40 02/19/19 17:40 Lab Results 02/19/19 02/19/19 02/19/19 Range/Units 17:40 17:40 17:40 WBC 9.2 (3.8-10.6) k/uL RBC 4.22 (3.80-5.40) m/uL Hgb 10.7 L (11.4-16.0) gm/dL Hct 33.3 L (34.0-46.0) % MCV 78.9 L (80.0-100.0) fL MCH 25.4 (25.0-35.0) pg MCHC 32.1 (31.0-37.0) g/dL RDW 17.2 H (11.5-15.5) % Plt Count 415 (150-450) k/uL Neutrophils % 61 % Lymphocytes % 28 % Monocytes % 4 % Eosinophils % 4 % Basophils % 0 % Neutrophils # 5.6 (1.3-7.7) k/uL Lymphocytes # 2.6 (1.0-4.8) k/uL Monocytes # 0.4 (0-1.0) k/uL Eosinophils # 0.4 (0-0.7) k/uL Basophils # 0.0 (0-0.2) k/uL Hypochromasia Slight Anisocytosis Slight Microcytosis Slight Sodium 142 (137-145) mmol/L Potassium 4.0 (3.5-5.1) mmol/L Chloride 110 H (98-107) mmol/L Carbon Dioxide 24 (22-30) mmol/L Anion Gap 8 mmol/L BUN 14 (7-17) mg/dL Creatinine 0.74 (0.52-1.04) mg/dL Est GFR (CKD-EPI)AfAm >90 (>60 ml/min/1.73 sqM) Est GFR (CKD-EPI)NonAf >90 (>60 ml/min/1.73 sqM) Glucose 92 (74-99) mg/dL Plasma Lactic Acid Artie 0.9 (0.7-2.0) mmol/L Calcium 9.6 (8.4-10.2) mg/dL Total Bilirubin 0.3 (0.2-1.3) mg/dL AST 17 (14-36) U/L ALT 14 (9-52) U/L Alkaline Phosphatase 86 (38-126) U/L Creatine Kinase 49 (30-135) U/L Total Protein 6.9 (6.3-8.2) g/dL Albumin 4.3 (3.5-5.0) g/dL Amylase 46 (30-110) U/L Lipase 114 (23-300) U/L HCG, Quant <2.4 mIU/mL Urine Color Urine Appearance (Clear) Urine pH (5.0-8.0) Ur Specific [place] (1.001-1.035) Urine Protein (Negative) Urine Glucose (UA) (Negative) Urine Ketones (Negative) Urine Blood (Negative) Urine Nitrite (Negative) Urine Bilirubin (Negative) Urine Urobilinogen (<2.0) mg/dL Ur Leukocyte Esterase (Negative) Urine WBC (0-5) /hpf Ur Squamous Epith Cells (0-4) /hpf Amorphous Sediment (None) /hpf Urine Mucus (None) /hpf 02/19/19 Range/Units 17:40 WBC (3.8-10.6) k/uL RBC (3.80-5.40) m/uL Hgb (11.4-16.0) gm/dL Hct (34.0-46.0) % MCV (80.0-100.0) fL MCH (25.0-35.0) pg MCHC (31.0-37.0) g/dL RDW (11.5-15.5) % Plt Count (150-450) k/uL Neutrophils % % Lymphocytes % % Monocytes % % Eosinophils % % Basophils % % Neutrophils # (1.3-7.7) k/uL Lymphocytes # (1.0-4.8) k/uL Monocytes # (0-1.0) k/uL Eosinophils # (0-0.7) k/uL Basophils # (0-0.2) k/uL Hypochromasia Anisocytosis Microcytosis Sodium (137-145) mmol/L Potassium (3.5-5.1) mmol/L Chloride (98-107) mmol/L Carbon Dioxide (22-30) mmol/L Anion Gap mmol/L BUN (7-17) mg/dL Creatinine (0.52-1.04) mg/dL Est GFR (CKD-EPI)AfAm (>60 ml/min/1.73 sqM) Est GFR (CKD-EPI)NonAf (>60 ml/min/1.73 sqM) Glucose (74-99) mg/dL Plasma Lactic Acid Artie (0.7-2.0) mmol/L Calcium (8.4-10.2) mg/dL Total Bilirubin (0.2-1.3) mg/dL AST (14-36) U/L ALT (9-52) U/L Alkaline Phosphatase (38-126) U/L Creatine Kinase (30-135) U/L Total Protein (6.3-8.2) g/dL Albumin (3.5-5.0) g/dL Amylase (30-110) U/L Lipase (23-300) U/L HCG, Quant mIU/mL Urine Color Yellow Urine Appearance Cloudy H (Clear) Urine pH 7.5 (5.0-8.0) Ur Specific [place] 1.025 (1.001-1.035) Urine Protein Trace H (Negative) Urine Glucose (UA) Negative (Negative) Urine Ketones Negative (Negative) Urine Blood Negative (Negative) Urine Nitrite Negative (Negative) Urine Bilirubin Negative (Negative) Urine Urobilinogen 2.0 (<2.0) mg/dL Ur Leukocyte Esterase Trace H (Negative) Urine WBC 10 H (0-5) /hpf Ur Squamous Epith Cells 14 H (0-4) /hpf Amorphous Sediment Few H (None) /hpf Urine Mucus Rare H (None) /hpf - Radiology Data Radiology results: report reviewed (X-ray abdominal series chest x-rays negative), image reviewed Disposition Clinical Impression: Ulcerative colitis, Abdominal pain Disposition: HOME SELF-CARE Condition: Good Instructions (If sedation given, give patient instructions): Abdominal Pain (ED) Is patient prescribed a controlled substance at d/c from ED?: No Referrals: Nakia Love DO [Primary Care Provider] - 1-2 days
[2019-02-19 19:43] VITALS: BP 116/77; PULSE 86; RESP 16; TEMP 98.2
== END 2019-02-19 19:43 | disposition home or self-care (01) ==
LOC: EC 17:25
DX: K51.90 Ulcerative colitis, unspecified, without complications (principal); F17.200 Nicotine dependence, unspecified, uncomplicated; Z88.5 Allergy status to narcotic agent; Z79.899 Other long term (current) drug therapy; Z90.49 Acquired absence of other specified parts of digestive tract; Z83.79 Family history of other diseases of the digestive system; Z53.8 Procedure and treatment not carried out for other reasons
CPT/HCPCS: 36415; 80053; 82150; 82550; 83605; 83690; 85025; 81001; 84702; 87086; 87077; 87186; 74022; 99284; 96374; 96375 ×2; 96361; J2405; J1170; C9113

== ENCOUNTER 2019-06-30 20:13 | Emergency (ER) | payer OTHER ==
[2019-06-30 20:21] VITALS: TEMP 97.6
[2019-06-30] MEDS ORDERED: SODIUM CHLORIDE 0.9% 500 ML 500 ML IV STA ×2 (20:33→21:43)
[2019-06-30] MEDS ORDERED: METOCLOPRAMIDE 5 MG/ML 2 ML VIAL IVP STA (20:33)
[2019-06-30] MEDS ORDERED: ONDANSETRON 4 MG/2 ML VIAL IVP STA (20:33)
[2019-06-30] MEDS ORDERED: diphenhydrAMINE 50 MG/ML 1 ML VIAL IVP STA (20:33)
[2019-06-30] MEDS ORDERED: SODIUM CHLORIDE 0.9% 1,000 ML IV STA ×2 (20:33)
--- NOTE | 2019-06-30 20:33 | ED ---
Nausea/Vomiting/Diarrhea HPI - General Chief complaint: Nausea/Vomiting/Diarrhea Stated complaint: Abd Pain Time Seen by Provider: 06/30/19 20:26 Source: patient, RN notes reviewed, old records reviewed Mode of arrival: ambulatory Limitations: no limitations - History of Present Illness Initial comments: This is a 29-year-old female here for evaluation or history of Crohn's colitis. Patient however severe abdominal pain severe not as severe vomiting. Denying current diarrhea no blood in her vomit or stool, no fevers. No no recent travels or sick contacts.Hospitalizations for similar complaint. Patient doesn't possibly of his the past her same MD complaint: nausea, vomiting, diarrhea -: days(s) Description of Vomiting: food contents, watery Description of Diarrhea: water Associated Abdominal Pain: Yes Location: periumbilical Radiation: chest Severity: moderate Severity scale (1-10): 5 Quality: cramping, stabbing, aching Consistency: intermittent Improves with: none, bowel movement Associated Symptoms: myalgias - Related Data Home Medications Medication Instructions Recorded Confirmed Dicyclomine [Bentyl] 20 mg PO TID 04/18/17 02/19/19 Allergies Allergy/AdvReac Type Severity Reaction Status Date / Time codeine Allergy Unknown Rash/Hives Verified 06/30/19 20:23 Review of Systems ROS Statement: Those systems with pertinent positive or pertinent negative responses have been documented in the HPI. ROS Other: All systems not noted in ROS Statement are negative. Past Medical History Additional Past Medical History / Comment(s): ulcerative colitis-recent flare- ups, anemia (iron & pernicious) History of Any Multi-Drug Resistant Organisms: None Reported Past Surgical History: Cholecystectomy Additional Past Surgical History / Comment(s): colonoscopies, d & c Past Anesthesia/Blood Transfusion Reactions: No Reported Reaction Past Psychological History: Anxiety Smoking Status: Current every day smoker Past Alcohol Use History: Occasional Past Drug Use History: None Reported - Past Family History Mother Additional Family Medical History / Comment(s): "she had a lot of cysts on her ovaries" Father History Unknown: Yes Family Medical History: No Reported History Additional Family Medical History / Comment(s): dad side of family has ulcerative colitis General Exam Limitations: no limitations General appearance: alert, in no apparent distress Head exam: Present: atraumatic, normocephalic, normal inspection Eye exam: Present: normal appearance, PERRL, EOMI. Absent: scleral icterus, conjunctival injection, periorbital swelling ENT exam: Present: normal exam, mucous membranes moist Neck exam: Present: normal inspection. Absent: tenderness, meningismus, lymphadenopathy Respiratory exam: Present: normal lung sounds bilaterally. Absent: respiratory distress, wheezes, rales, rhonchi, stridor Cardiovascular Exam: Present: normal rhythm, tachycardia, normal heart sounds. Absent: systolic murmur, diastolic murmur, rubs, gallop, clicks GI/Abdominal exam: Present: soft, normal bowel sounds. Absent: distended, tenderness, guarding, rebound, rigid Extremities exam: Present: normal inspection, full ROM, normal capillary refill. Absent: tenderness, pedal edema, joint swelling, calf tenderness Back exam: Present: normal inspection Neurological exam: Present: alert, oriented X3, CN II-XII intact Psychiatric exam: Present: normal affect, normal mood Skin exam: Present: warm, dry, intact, normal color. Absent: rash Course Vital Signs 06/30/19 06/30/19 20:19 21:20 Temperature 97.6 F Pulse Rate 109 H Respiratory 16 Rate Blood Pressure 120/73 106/70 O2 Sat by Pulse 97 100 Oximetry - Reevaluation(s) Reevaluation #1: 06/30/19 21:42 Medical record is reviewed Reevaluation #2: 06/30/19 21:42 Patient's pain is improved Medical Decision Making - Medical Decision Making 29-year-old female here for evaluation here for evaluation severe abdominal pain nausea vomiting symptoms are improving and the patient will be able to be discharged home - Lab Data Result diagrams: 06/30/19 20:40 06/30/19 20:40 Lab Results 06/30/19 06/30/19 06/30/19 Range/Units 20:40 20:40 20:40 WBC 6.5 (3.8-10.6) k/uL RBC 4.06 (3.80-5.40) m/uL Hgb 8.7 L (11.4-16.0) gm/dL Hct 29.1 L (34.0-46.0) % MCV 71.8 L (80.0-100.0) fL MCH 21.5 L (25.0-35.0) pg MCHC 29.9 L (31.0-37.0) g/dL RDW 16.4 H (11.5-15.5) % Plt Count 362 (150-450) k/uL Neutrophils % 51 % Lymphocytes % 38 % Monocytes % 6 % Eosinophils % 2 % Basophils % 1 % Neutrophils # 3.3 (1.3-7.7) k/uL Lymphocytes # 2.5 (1.0-4.8) k/uL Monocytes # 0.4 (0-1.0) k/uL Eosinophils # 0.2 (0-0.7) k/uL Basophils # 0.0 (0-0.2) k/uL Hypochromasia Marked Poikilocytosis Slight Anisocytosis Slight Microcytosis Moderate Sodium 142 (137-145) mmol/L Potassium 3.9 (3.5-5.1) mmol/L Chloride 106 (98-107) mmol/L Carbon Dioxide 23 (22-30) mmol/L Anion Gap 13 mmol/L BUN 10 (7-17) mg/dL Creatinine 0.76 (0.52-1.04) mg/dL Est GFR (CKD-EPI)AfAm >90 (>60 ml/min/1.73 sqM) Est GFR (CKD-EPI)NonAf >90 (>60 ml/min/1.73 sqM) Glucose 82 (74-99) mg/dL Calcium 9.9 (8.4-10.2) mg/dL Phosphorus 4.9 H (2.5-4.5) mg/dL Magnesium 1.5 L (1.6-2.3) mg/dL Total Bilirubin 0.3 (0.2-1.3) mg/dL AST 24 (14-36) U/L ALT 18 (9-52) U/L Alkaline Phosphatase 72 (38-126) U/L Total Protein 7.6 (6.3-8.2) g/dL Albumin 4.7 (3.5-5.0) g/dL Lipase 93 (23-300) U/L Urine Color Yellow Urine Appearance Clear (Clear) Urine pH 5.0 (5.0-8.0) Ur Specific [place] 1.014 (1.001-1.035) Urine Protein Negative (Negative) Urine Glucose (UA) Negative (Negative) Urine Ketones Negative (Negative) Urine Blood Negative (Negative) Urine Nitrite Negative (Negative) Urine Bilirubin Negative (Negative) Urine Urobilinogen <2.0 (<2.0) mg/dL Ur Leukocyte Esterase Negative (Negative) Disposition Clinical Impression: Ulcerative colitis, Abdominal pain, Intractable abdominal pain Disposition: HOME SELF-CARE Condition: Good Instructions (If sedation given, give patient instructions): Abdominal Pain (ED) Is patient prescribed a controlled substance at d/c from ED?: No Referrals: Nakia Love DO [Primary Care Provider] - 1-2 days
[2019-06-30] MEDS ORDERED: PANTOPRAZOLE 40 MG/10 ML VIAL IVP STA (20:34)
[2019-06-30] MEDS ORDERED: HYDROmorphone 1 MG/ML 1 ML SYRINGE IVP STA (20:34)
[2019-06-30 20:59] LABS: Anisocytosis Slight; Appearance,Urine Clear (Clear); Basophils % (A) 1 %; Bilirubin,Urine Negative (Negative); Blood,Urine Negative (Negative); Color,Urine Yellow; Eosinophils # (A) 0.2 k/uL (0-0.7); Eosinophils % (A) 2 %; Glucose,Urine (UA) Negative (Negative); HCT 29.1 % (34.0-46.0); HGB 8.7 gm/dL (11.4-16.0); Hypochromasia Marked; Ketones,Urine Negative (Negative); Leukocyte Esterase,Urine Negative (Negative); Lymphocytes # (A) 2.5 k/uL (1.0-4.8); Lymphocytes % (A) 38 %; MCH 21.5 pg (25.0-35.0); MCHC 29.9 g/dL (31.0-37.0); MCV 71.8 fL (80.0-100.0); Microcytosis Moderate; Monocytes # (A) 0.4 k/uL (0-1.0); Monocytes % (A) 6 %; Neutrophils # (A) 3.3 k/uL (1.3-7.7); Neutrophils % (A) 51 %; Nitrite,Urine Negative (Negative); Platelet Count 362 k/uL (150-450); Poikilocytosis Slight; Protein,Urine Negative (Negative); RBC 4.06 m/uL (3.80-5.40); RDW 16.4 % (11.5-15.5); Specific Gravity,Urine 1.014 (1.001-1.035); Urobilinogen,Urine <2.0 mg/dL (<2.0); WBC 6.5 k/uL (3.8-10.6)
[2019-06-30 21:13] LABS: ALT 18 U/L (9-52); AST 24 U/L (14-36); African American GFR (CKD) >90 (>60 ml/min/1.73 sqM); Albumin 4.7 g/dL (3.5-5.0); Alkaline Phosphatase 72 U/L (38-126); Anion Gap 13 mmol/L; Blood Urea Nitrogen 10 mg/dL (7-17); Calcium 9.9 mg/dL (8.4-10.2); Carbon Dioxide 23 mmol/L (22-30); Chloride 106 mmol/L (98-107); Glucose 82 mg/dL (74-99); Magnesium 1.5 mg/dL (1.6-2.3); Non-African American GFR(CKD) >90 (>60 ml/min/1.73 sqM); Phosphorus 4.9 mg/dL (2.5-4.5); Potassium 3.9 mmol/L (3.5-5.1); Sodium 142 mmol/L (137-145); Total Bilirubin 0.3 mg/dL (0.2-1.3); Total Protein 7.6 g/dL (6.3-8.2)
[2019-06-30] MEDS ORDERED: DIAZEPAM 5 MG/ML 2 ML INJ IVP STA (21:43)
[2019-06-30] MEDS ORDERED: MORPHINE SULFATE 4 MG/ML SYRINGE IVP STA (21:43)
[2019-06-30] MEDS ORDERED: KETOROLAC 30 MG/ML 1 ML VIAL IVP STA (21:43)
[2019-06-30 22:38] VITALS: BP 108/70; PULSE 80; RESP 18
== END 2019-06-30 22:38 | disposition home or self-care (01) ==
LOC: EC 20:13
DX: K51.90 Ulcerative colitis, unspecified, without complications (principal); R11.2 Nausea with vomiting, unspecified; F17.200 Nicotine dependence, unspecified, uncomplicated; Z79.899 Other long term (current) drug therapy; Z88.5 Allergy status to narcotic agent; Z90.49 Acquired absence of other specified parts of digestive tract; Z87.19 Personal history of other diseases of the digestive system
CPT/HCPCS: 36415; 80053; 83690; 83735; 84100; 85025; 81003; 99284; 96374; 96375 ×4; 96361; J1200; J2765; J2405; J1170; C9113

== ENCOUNTER 2019-07-26 23:08 | Inpatient (IN) | payer OTHER ==
[2019-07-26] MEDS ORDERED: ONDANSETRON 4 MG/2 ML VIAL IVP STA (23:59)
[2019-07-27 00:13] LABS: Anisocytosis Slight; Basophils % (A) 0 %; Eosinophils # (A) 0.2 k/uL (0-0.7); Eosinophils % (A) 1 %; HGB 7.7 gm/dL (11.4-16.0); Hypochromasia Marked; Lymphocytes # (A) 1.6 k/uL (1.0-4.8); Lymphocytes % (A) 11 %; MCH 20.7 pg (25.0-35.0); MCHC 29.6 g/dL (31.0-37.0); MCV 70.1 fL (80.0-100.0); Mean Platelet Volume 7.9; Microcytosis Marked; Monocytes # (A) 0.5 k/uL (0-1.0); Monocytes % (A) 3 %; Neutrophils # (A) 12.3 k/uL (1.3-7.7); Neutrophils % (A) 83 %; Platelet Count 409 k/uL (150-450); Poikilocytosis Slight; RBC 3.71 m/uL (3.80-5.40); RDW 16.9 % (11.5-15.5); WBC 14.8 k/uL (3.8-10.6)
[2019-07-27 00:27] LABS: ALT 15 U/L (4-34); AST 31 U/L (14-36); African American GFR (CKD) >90 (>60 ml/min/1.73 sqM); Albumin 3.9 g/dL (3.5-5.0); Alkaline Phosphatase 85 U/L (38-126); Anion Gap 7 mmol/L; Blood Urea Nitrogen 8 mg/dL (7-17); Calcium 9.3 mg/dL (8.4-10.2); Carbon Dioxide 23 mmol/L (22-30); Chloride 110 mmol/L (98-107); Glucose 110 mg/dL (74-99); Non-African American GFR(CKD) >90 (>60 ml/min/1.73 sqM); Sodium 140 mmol/L (137-145); Total Bilirubin 0.3 mg/dL (0.2-1.3); Total Protein 6.4 g/dL (6.3-8.2)
--- NOTE | 2019-07-27 00:34 | ED ---
Abdominal Pain HPI - General Chief Complaint: Abdominal Pain Stated Complaint: Abd Pain Time Seen by Provider: 07/26/19 23:34 Source: patient, EMS Mode of arrival: EMS Limitations: no limitations - History of Present Illness Initial Comments: Radha is a 29-year-old female with a history of Crohn's who presents to the emergency department today for evaluation of abdominal pain nausea and vomiting. Patient reports that she woke this morning with mid abdominal pain, nausea and vomiting. Pain is been constant throughout the day, progressively worsening. She's not been able to identify any exacerbating or relieving factors. She attempted to eat dinner but continued to vomit. She denies any diarrhea or constipation. She reports this does not feel similar to previous Crohn's flares. - Related Data Home Medications Medication Instructions Recorded Confirmed Dicyclomine [Bentyl] 20 mg PO TID 04/18/17 02/19/19 Allergies Allergy/AdvReac Type Severity Reaction Status Date / Time codeine Allergy Unknown Rash/Hives Verified 07/26/19 23:34 Review of Systems ROS Statement: Those systems with pertinent positive or pertinent negative responses have been documented in the HPI. ROS Other: All systems not noted in ROS Statement are negative. Past Medical History Additional Past Medical History / Comment(s): ulcerative colitis-recent flare- ups, anemia (iron & pernicious) History of Any Multi-Drug Resistant Organisms: None Reported Past Surgical History: Cholecystectomy Additional Past Surgical History / Comment(s): colonoscopies, d & c Past Anesthesia/Blood Transfusion Reactions: No Reported Reaction Past Psychological History: Anxiety Smoking Status: Current every day smoker Past Alcohol Use History: Occasional Past Drug Use History: None Reported - Past Family History Mother Additional Family Medical History / Comment(s): "she had a lot of cysts on her ovaries" Father History Unknown: Yes Family Medical History: No Reported History Additional Family Medical History / Comment(s): dad side of family has ulcerative colitis General Exam - General Exam Comments Initial Comments: Physical Exam GENERAL: Patient is well-developed and well-nourished. Patient is nontoxic and well- hydrated and is in no distress. HENT: Normocephalic, Atraumatic. EYES: PERRL, EOMI PULMONARY: Unlabored respirations. No audible rales rhonchi or wheezing was noted. CARDIOVASCULAR: There is a regular rate and rhythm without any murmurs gallops or rubs. ABDOMEN: Soft with normal bowel sounds. Endocrine to palpation in the epigastrium left upper and left lower quadrants SKIN: Skin is clear with no lesions or rashes and otherwise unremarkable. : Deferred NEUROLOGIC: Patient is alert and oriented x3. Moving all extremities spontaneously MUSCULOSKELETAL: Normal extremities with adequate strength and full range of motion. No lower extremity swelling or edema. No calf tenderness. PSYCHIATRIC: Normal psychiatric evaluation. Limitations: no limitations Course Vital Signs 07/26/19 23:23 Temperature 98.2 F Pulse Rate 85 Respiratory 18 Rate Blood Pressure 122/82 O2 Sat by Pulse 100 Oximetry Medical Decision Making - Medical Decision Making The patient was seen and evaluated, history is obtained from the patient and review of medical record Labs pain, patient has significant leukocytosis, chronic anemia slightly worse than previous Urinalysis with no gross signs of infection, patient is currently on her menses therefore there is some blood and protein noted Patient pain was treated with Dilaudid Patient with persistent pain and therefore computed tomography scan was obtained and did reveal an acute appendicitis. Patient was updated on findings, patient reports Dilaudid improve pain transiently, additional dose was ordered Patient care was discussed with surgeon media consultant Dr. Davies who agrees with plan for admission to observation for planned appendectomy later in the day. Patient was made nothing by mouth, antibiotics analgesics and antiemetics were ordered. - Lab Data Result diagrams: 07/26/19 23:30 07/26/19 23:30 Lab Results 07/26/19 07/26/19 07/26/19 Range/Units 23:30 23:30 23:52 WBC 14.8 H (3.8-10.6) k/uL RBC 3.71 L (3.80-5.40) m/uL Hgb 7.7 L (11.4-16.0) gm/dL Hct 26.0 L (34.0-46.0) % MCV 70.1 L (80.0-100.0) fL MCH 20.7 L (25.0-35.0) pg MCHC 29.6 L (31.0-37.0) g/dL RDW 16.9 H (11.5-15.5) % Plt Count 409 (150-450) k/uL Neutrophils % 83 % Lymphocytes % 11 % Monocytes % 3 % Eosinophils % 1 % Basophils % 0 % Neutrophils # 12.3 H (1.3-7.7) k/uL Lymphocytes # 1.6 (1.0-4.8) k/uL Monocytes # 0.5 (0-1.0) k/uL Eosinophils # 0.2 (0-0.7) k/uL Basophils # 0.0 (0-0.2) k/uL Hypochromasia Marked Poikilocytosis Slight Anisocytosis Slight Microcytosis Marked Sodium 140 (137-145) mmol/L Potassium 4.0 (3.5-5.1) mmol/L Chloride 110 H (98-107) mmol/L Carbon Dioxide 23 (22-30) mmol/L Anion Gap 7 mmol/L BUN 8 (7-17) mg/dL Creatinine 0.69 (0.52-1.04) mg/dL Est GFR (CKD-EPI)AfAm >90 (>60 ml/min/1.73 sqM) Est GFR (CKD-EPI)NonAf >90 (>60 ml/min/1.73 sqM) Glucose 110 H (74-99) mg/dL Calcium 9.3 (8.4-10.2) mg/dL Total Bilirubin 0.3 (0.2-1.3) mg/dL AST 31 (14-36) U/L ALT 15 (4-34) U/L Alkaline Phosphatase 85 (38-126) U/L Total Protein 6.4 (6.3-8.2) g/dL Albumin 3.9 (3.5-5.0) g/dL Lipase 87 (23-300) U/L Urine Color Urine Appearance (Clear) Urine pH (5.0-8.0) Ur Specific [place] (1.001-1.035) Urine Protein (Negative) Urine Glucose (UA) (Negative) Urine Ketones (Negative) Urine Blood (Negative) Urine Nitrite (Negative) Urine Bilirubin (Negative) Urine Urobilinogen (<2.0) mg/dL Ur Leukocyte Esterase (Negative) Urine RBC (0-5) /hpf Urine WBC (0-5) /hpf Ur Squamous Epith Cells (0-4) /hpf Urine Bacteria (None) /hpf Urine Mucus (None) /hpf Urine HCG, Qual Not Detected (Not Detectd) 07/26/19 Range/Units 23:52 WBC (3.8-10.6) k/uL RBC (3.80-5.40) m/uL Hgb (11.4-16.0) gm/dL Hct (34.0-46.0) % MCV (80.0-100.0) fL MCH (25.0-35.0) pg MCHC (31.0-37.0) g/dL RDW (11.5-15.5) % Plt Count (150-450) k/uL Neutrophils % % Lymphocytes % % Monocytes % % Eosinophils % % Basophils % % Neutrophils # (1.3-7.7) k/uL Lymphocytes # (1.0-4.8) k/uL Monocytes # (0-1.0) k/uL Eosinophils # (0-0.7) k/uL Basophils # (0-0.2) k/uL Hypochromasia Poikilocytosis Anisocytosis Microcytosis Sodium (137-145) mmol/L Potassium (3.5-5.1) mmol/L Chloride (98-107) mmol/L Carbon Dioxide (22-30) mmol/L Anion Gap mmol/L BUN (7-17) mg/dL Creatinine (0.52-1.04) mg/dL Est GFR (CKD-EPI)AfAm (>60 ml/min/1.73 sqM) Est GFR (CKD-EPI)NonAf (>60 ml/min/1.73 sqM) Glucose (74-99) mg/dL Calcium (8.4-10.2) mg/dL Total Bilirubin (0.2-1.3) mg/dL AST (14-36) U/L ALT (4-34) U/L Alkaline Phosphatase (38-126) U/L Total Protein (6.3-8.2) g/dL Albumin (3.5-5.0) g/dL Lipase (23-300) U/L Urine Color Yellow Urine Appearance Clear (Clear) Urine pH 8.0 (5.0-8.0) Ur Specific [place] 1.021 (1.001-1.035) Urine Protein Trace H (Negative) Urine Glucose (UA) Negative (Negative) Urine Ketones Negative (Negative) Urine Blood Trace H (Negative) Urine Nitrite Negative (Negative) Urine Bilirubin Negative (Negative) Urine Urobilinogen <2.0 (<2.0) mg/dL Ur Leukocyte Esterase Trace H (Negative) Urine RBC 1 (0-5) /hpf Urine WBC 4 (0-5) /hpf Ur Squamous Epith Cells 4 (0-4) /hpf Urine Bacteria Rare H (None) /hpf Urine Mucus Rare H (None) /hpf Urine HCG, Qual (Not Detectd) Disposition Clinical Impression: Acute appendicitis Disposition: ADMITTED IP TO THIS HOSP Condition: Stable
[2019-07-27 00:40] LABS: Appearance,Urine Clear (Clear); Bacteria,Urine Rare /hpf; Bilirubin,Urine Negative (Negative); Blood,Urine Trace (Negative); Color,Urine Yellow; Glucose,Urine (UA) Negative (Negative); Ketones,Urine Negative (Negative); Leukocyte Esterase,Urine Trace (Negative); Mucus,Urine Rare /hpf; Nitrite,Urine Negative (Negative); Protein,Urine Trace (Negative); RBC,Urine 1 /hpf (0-5); Specific Gravity,Urine 1.021 (1.001-1.035); Squamous Epithelial Cell,Urine 4 /hpf (0-4); Urobilinogen,Urine <2.0 mg/dL (<2.0); WBC,Urine 4 /hpf (0-5)
[2019-07-27] MEDS ORDERED: IOPAMIDOL CONTRAST (ORAL USE) VIAL PO PRN (01:04)
[2019-07-27] MEDS ORDERED: HYDROmorphone 1 MG/ML 1 ML SYRINGE IVP STA ×2 (01:05→01:57)
--- NOTE | 2019-07-27 01:54 | CT ---
EXAMINATION TYPE: CT abdomen pelvis w con DATE OF EXAM: 07/27/2019 COMPARISON: 11/01/2018 HISTORY: Abd pain CT DLP: 627.40 mGycm Automated exposure control for dose reduction was used. CONTRAST: Performed with IV Contrast, patient injected with 100 mL of Isovue 300. Lung bases are clear. There is no pleural effusion. Heart size is normal. spleen pancreas appear normal. There are clips from cholecystectomy. There is mild periportal edema. Stomach appears intact. There is no adrenal mass. Kidneys show satisfactory contrast opacification. There is no hydronephrosi s. Ureters are not dilated. Uterus is anteverted. Bladder distends smoothly. There is no free fluid in the pelvis. There is 3 cm cyst on the right ovary. There is dilated appendix with fluid that measures up to 13 mm. There is very minimal fat stranding a round the appendix. This is best seen on coronal image 40. The lumbar spine is intact. Bony pelvis is intact. IMPRESSION: Dilated fluid-filled appendix consistent with acute appendicitis that is a change compared to old exa m. No abscess. There is mild periportal edema that is nonspecific and could relate to hepatitis.
[2019-07-27] MEDS ORDERED: PIPERACILLIN-TAZOBACTAM 3.375 GM in SODIUM CHLORIDE 0.9% 100 ML IVPB STA (01:57)
[2019-07-27] MEDS ORDERED: HYDROmorphone 1 MG/ML 1 ML SYRINGE IVP PRN (01:59)
[2019-07-27] MEDS ORDERED: NALOXONE 0.4 MG/ML 1 ML VIAL IV PRN (01:59)
[2019-07-27] MEDS ORDERED: ONDANSETRON 4 MG/2 ML VIAL IVP PRN (01:59)
[2019-07-27] MEDS: SODIUM CHLORIDE 0.9% 1,000 ML IV SCH ×3 (02:23→23:19)
--- NOTE | 2019-07-27 08:44 | P.GSHP ---
History of Present Illness H&P Date: 07/27/19 29-year-old female presents to the emergency department with complaints of abdominal pain. She states that the abdominal pain began in the epigastrium and has migrated towards the right lower quadrant. She complained of some nausea episodes but denies any emesis. She denies any blood in her stool. She states that she felt feverish, however is unsure of any documented fevers. She states that she does have a history of ulcerative colitis for which she is not on any treatment. She does have chronic iron deficiency anemia and does follow with hematology for iron transfusions secondary to this. On workup in the emergency department, CT of the abdomen and pelvis was performed that did show a dilated appendix and concern for acute appendicitis. The patient denies any additional complaints at this time. - Review of Systems All systems: negative Past Medical History Additional Past Medical History / Comment(s): ulcerative colitis-recent flare- ups, anemia (iron & pernicious) History of Any Multi-Drug Resistant Organisms: None Reported Past Surgical History: Cholecystectomy Additional Past Surgical History / Comment(s): colonoscopies, d & c Past Anesthesia/Blood Transfusion Reactions: No Reported Reaction Past Psychological History: Anxiety Smoking Status: Current every day smoker Past Alcohol Use History: Occasional Additional Past Alcohol Use History / Comment(s): smoking: started 2008 4-5 cigarettes per day; 07/27/19 pt states she "smokes half a pack per day" Past Drug Use History: None Reported - Past Family History Mother Additional Family Medical History / Comment(s): "she had a lot of cysts on her ovaries" Father History Unknown: Yes Family Medical History: No Reported History Additional Family Medical History / Comment(s): dad side of family has ulcerative colitis Medications and Allergies Home Medications Medication Instructions Recorded Confirmed Type Dicyclomine [Bentyl] 20 mg PO TID 04/18/17 02/19/19 History Allergies Allergy/AdvReac Type Severity Reaction Status Date / Time codeine Allergy Unknown Rash/Hives Verified 07/26/19 23:34 Surgical - Exam Osteopathic Statement: *. No significant issues noted on an osteopathic structural exam other than those noted in the History and Physical/Consult. Vital Signs Temp Pulse Resp BP Pulse Ox 98.2 F 85 18 122/82 100 07/26/19 23:23 07/26/19 23:23 07/26/19 23:23 07/26/19 23:23 07/26/19 23:23 - General well nourished, no distress - Eyes PERRL - ENT Poor dentition - Respiratory normal respiratory effort - Abdomen Soft, tender to palpation in right lower quadrant, nondistended, no rebound, no guarding - Psychiatric oriented to time, oriented to person, oriented to place Results - Labs 07/26/19 23:30 07/26/19 23:30 Abnormal Lab Results - Last 24 Hours (Table) 07/26/19 07/26/19 07/26/19 Range/Units 23:30 23:30 23:52 WBC 14.8 H (3.8-10.6) k/uL RBC 3.71 L (3.80-5.40) m/uL Hgb 7.7 L (11.4-16.0) gm/dL Hct 26.0 L (34.0-46.0) % MCV 70.1 L (80.0-100.0) fL MCH 20.7 L (25.0-35.0) pg MCHC 29.6 L (31.0-37.0) g/dL RDW 16.9 H (11.5-15.5) % Neutrophils # 12.3 H (1.3-7.7) k/uL Chloride 110 H (98-107) mmol/L Glucose 110 H (74-99) mg/dL Urine Protein Trace H (Negative) Urine Blood Trace H (Negative) Ur Leukocyte Esterase Trace H (Negative) Urine Bacteria Rare H (None) /hpf Urine Mucus Rare H (None) /hpf Diabetes panel 07/26/19 Range/Units 23:30 Sodium 140 (137-145) mmol/L Potassium 4.0 (3.5-5.1) mmol/L Chloride 110 H (98-107) mmol/L Carbon Dioxide 23 (22-30) mmol/L BUN 8 (7-17) mg/dL Creatinine 0.69 (0.52-1.04) mg/dL Glucose 110 H (74-99) mg/dL Calcium 9.3 (8.4-10.2) mg/dL AST 31 (14-36) U/L ALT 15 (4-34) U/L Alkaline Phosphatase 85 (38-126) U/L Total Protein 6.4 (6.3-8.2) g/dL Albumin 3.9 (3.5-5.0) g/dL Calcium panel 07/26/19 Range/Units 23:30 Calcium 9.3 (8.4-10.2) mg/dL Albumin 3.9 (3.5-5.0) g/dL Pituitary panel 07/26/19 Range/Units 23:30 Sodium 140 (137-145) mmol/L Potassium 4.0 (3.5-5.1) mmol/L Chloride 110 H (98-107) mmol/L Carbon Dioxide 23 (22-30) mmol/L BUN 8 (7-17) mg/dL Creatinine 0.69 (0.52-1.04) mg/dL Glucose 110 H (74-99) mg/dL Calcium 9.3 (8.4-10.2) mg/dL Adrenal panel 07/26/19 Range/Units 23:30 Sodium 140 (137-145) mmol/L Potassium 4.0 (3.5-5.1) mmol/L Chloride 110 H (98-107) mmol/L Carbon Dioxide 23 (22-30) mmol/L BUN 8 (7-17) mg/dL Creatinine 0.69 (0.52-1.04) mg/dL Glucose 110 H (74-99) mg/dL Calcium 9.3 (8.4-10.2) mg/dL Total Bilirubin 0.3 (0.2-1.3) mg/dL AST 31 (14-36) U/L ALT 15 (4-34) U/L Alkaline Phosphatase 85 (38-126) U/L Total Protein 6.4 (6.3-8.2) g/dL Albumin 3.9 (3.5-5.0) g/dL Assessment and Plan (1) Acute appendicitis Narrative/Plan: 29-year-old female with acute appendicitis - Keep nothing by mouth - Begin antibiotics - Due to anemia, we will follow hemoglobin - Plan for laparoscopic appendectomy. Further recommendations after procedure. Current Visit: Yes Status: Acute Code(s): K35.80 - UNSPECIFIED ACUTE APPENDICITIS SNOMED Code(s): 54024188
[2019-07-27] MEDS ORDERED: LIDOCAINE 1% INJ 10MG/ML (20 ML MDV) ONE (08:53)
[2019-07-27] MEDS ORDERED: SUCCINYLCHOLINE CHLORIDE 100 MG/5 ML SYR IV ONE (08:53)
[2019-07-27] MEDS ORDERED: KETOROLAC 30 MG/ML 1 ML VIAL ONE (08:53)
[2019-07-27] MEDS ORDERED: ROCURONIUM BROMIDE 10 MG/ML 10 ML VIAL IV ONE (08:53)
[2019-07-27] MEDS ORDERED: NEOSTIGMINE 1 MG/ML 10 ML VIAL ONE (08:53)
[2019-07-27] MEDS ORDERED: PROPOFOL 10 MG/ML 20 ML VIAL IV ONE (08:53)
[2019-07-27] MEDS ORDERED: GLYCOPYRROLATE 0.2 MG/ML 2 ML VIAL ONE (08:53)
[2019-07-27] MEDS ORDERED: fentaNYL (PF) 50 MCG/ML 2 ML AMP ONE (08:53)
[2019-07-27] MEDS ORDERED: MIDAZOLAM 2 MG/2 ML VIAL ONE (08:53)
[2019-07-27] MEDS ORDERED: IV FLUID CONTINUATION 1,000 ML IV ONE (08:56)
[2019-07-27] MEDS ORDERED: BUPIVACAINE (PF) 0.25% 30 ML VIAL SQ ONE ×2 (09:11)
[2019-07-27] MEDS ORDERED: LACTATED RINGERS 1,000 ML IV ONE (09:16)
--- NOTE | 2019-07-27 09:45 | P.OP ---
Date of Procedure: 07/27/19 Preoperative Diagnosis: Acute appendicitis Postoperative Diagnosis: Acute appendicitis Procedure(s) Performed: Laparoscopic appendectomy Anesthesia: KIANNA Surgeon: Nav Davies Pathology: other (Appendix) Condition: stable Disposition: floor Indications for Procedure: This is a 29-year-old female that presented to the emergency department with abdominal pain. On workup she was found to have acute appendicitis. Secondary to this, plan for laparoscopic appendectomy was made. The patient was excellent the risks, benefits and alternatives to the procedure and did provide consent prior to attending the operating suite. Operative Findings: Inflamed and dilated appendix Description of Procedure: The patient was brought into the operating suite and placed in supine position on the operating table. Sedation was provided by anesthesia and the patient did undergo endotracheal intubation. The patient was then prepped and draped in regular sterile fashion. A super umbilical incision was made and dissection was carried to the fascia. The fascia was incised and entered with a 12 mm trocar. Pneumoperitoneum was achieved. 2 additional 5 mm trochars were placed. One was placed in the suprapubic region and one was placed in left lower quadrant. The patient was then positioned appropriately. The cecum was examined and the appendix was then clearly visualized. It was noted to be adhered to the terminal ileum with some exudative changes. The appendix was grasped and peeled off of the surrounding tissue. A window was then created between the appendix and the mesoappendix using a LigaSure device. Hemostasis was noted to be maintained. The base of the appendix was then clearly visualized. A stapler device was fired across the base of the appendix. Hemostasis was maintained. The appendix was then removed from the abdomen in an Endo Catch bag from the super umbilical incision site. Irrigation was then placed in the right lower quadrant and the pubis area. This was then suctioned. The super umbilical incision site was then closed with 0 Vicryl suture under direct visualization using a Jose Zendejas device. Pneumoperitoneum was released and all ports removed from the abdomen. All incision sites were closed with 4-0 Vicryl subcuticular suture.
[2019-07-27] MEDS: PIPERACILLIN-TAZOBACTAM 3.375 GM in SODIUM CHLORIDE 0.9% 100 ML IVPB SCH ×2 (10:00→17:55)
[2019-07-27] MEDS ORDERED: HYDROmorphone 0.5 MG/0.5 ML SYRINGE IVP ONE (10:15)
[2019-07-27] MEDS: KETOROLAC 30 MG/ML 1 ML VIAL IVP SCH ×3 (11:41→23:17)
[2019-07-27] MEDS: HYDROmorphone 0.5 MG/0.5 ML SYRINGE IVP PRN ×3 (12:31→23:16)
[2019-07-27] MEDS: HEPARIN SODIUM,PORCINE 5,000 UNIT/ML 1 ML VIAL SQ SCH ×2 (17:55→23:17)
[2019-07-27] MEDS: HYDROcodone/APAP 5-325MG 1 EACH TAB PO PRN (18:27)
[2019-07-28] MEDS: PIPERACILLIN-TAZOBACTAM 3.375 GM in SODIUM CHLORIDE 0.9% 100 ML IVPB SCH ×3 (02:07→19:18)
[2019-07-28] MEDS: HYDROmorphone 0.5 MG/0.5 ML SYRINGE IVP PRN ×2 (02:16→07:23)
[2019-07-28] MEDS: KETOROLAC 30 MG/ML 1 ML VIAL IVP SCH ×4 (05:07→23:18)
[2019-07-28] MEDS: HEPARIN SODIUM,PORCINE 5,000 UNIT/ML 1 ML VIAL SQ SCH ×3 (07:23→23:18)
[2019-07-28 08:49] LABS: Anisocytosis Slight; Basophils % (A) 0 %; Eosinophils % (A) 0 %; HCT 22.7 % (34.0-46.0); Hypochromasia Marked; Lymphocytes # (A) 2.5 k/uL (1.0-4.8); Lymphocytes % (A) 24 %; MCHC 28.9 g/dL (31.0-37.0); MCV 72.6 fL (80.0-100.0); Mean Platelet Volume 8.6; Microcytosis Moderate; Monocytes # (A) 0.4 k/uL (0-1.0); Monocytes % (A) 4 %; Neutrophils # (A) 7.7 k/uL (1.3-7.7); Neutrophils % (A) 71 %; Platelet Count 378 k/uL (150-450); RBC 3.13 m/uL (3.80-5.40); RDW 17.2 % (11.5-15.5); WBC 10.8 k/uL (3.8-10.6)
[2019-07-28 08:51] LABS: HGB 6.6 gm/dL (11.4-16.0)
[2019-07-28 08:53] LABS: African American GFR (CKD) >90 (>60 ml/min/1.73 sqM); Anion Gap 6 mmol/L; Blood Urea Nitrogen 12 mg/dL (7-17); Calcium 8.1 mg/dL (8.4-10.2); Carbon Dioxide 25 mmol/L (22-30); Chloride 110 mmol/L (98-107); Glucose 84 mg/dL (74-99); Non-African American GFR(CKD) >90 (>60 ml/min/1.73 sqM); Potassium 3.9 mmol/L (3.5-5.1); Sodium 141 mmol/L (137-145)
[2019-07-28 09:08] LABS: Ovalocytes Present; Poikilocytosis (M) Present; Polychromasia Present
[2019-07-28 09:09] LABS: Large Platelets Present
[2019-07-28] MEDS: HYDROcodone/APAP 5-325MG 1 EACH TAB PO PRN ×2 (09:39→23:18)
[2019-07-28] MEDS: SODIUM CHLORIDE 0.9% 1,000 ML IV SCH ×2 (09:39→20:45)
[2019-07-28 11:44] LABS: Reticulocyte % 1.8 % (0.5-2.0)
[2019-07-28] MEDS: MORPHINE SULFATE 2 MG/ML SYRINGE IVP PRN ×2 (12:54→18:11)
--- NOTE | 2019-07-28 16:13 | P.CONS ---
History of Present Illness - Reason for Consult Consult date: 07/28/19 persistent anemia post op Requesting physician: Nav Davies - Chief Complaint abd pain - History of Present Illness Ms. Flynn is a very pleasant 29-year-old female with a history of anemia since she was in high school, in 2010 she was diagnosed with irritable bowel disease (ulcerative colitis, diagnosed by patient and her family) patient was hospitalized in September 2015 with a flare, hemoglobin was in the 7 range, labs confirmed severe iron deficiency, B12 deficiency. She received IV iron, discharged on oral iron twice a day, she was referred to Dr. Adler after she was noted to have a persistently low hemoglobin. She had further workup, patient did receive parenteral iron. Dr. Adler felt that likely anemia was related to inflammation, heavy menses, gastrointestinal blood loss and likely a degree of malabsorption. Patient was also treated with parenteral B12, this was to be continued at her primary care physician's office. Pt has not been seen by hematology since 2015. Pt admitted for RLQ abd pain, associated with nausea and vomiting, unable to tolerate oral intake, no fever, chills, diarrhea or constipation, dysuria, she states her abd is tender but better then it was on admit. She continues to have rather heavy menses, denies any other bleeding, she has not recently taken iron, or received B12. Review of Systems 14 point ROS is negative except as stated in HPI Past Medical History Additional Past Medical History / Comment(s): ulcerative colitis-recent flare- ups, anemia (iron & pernicious) History of Any Multi-Drug Resistant Organisms: None Reported Past Surgical History: Cholecystectomy Additional Past Surgical History / Comment(s): colonoscopies, d & c Past Anesthesia/Blood Transfusion Reactions: No Reported Reaction Past Psychological History: Anxiety Smoking Status: Current every day smoker Past Alcohol Use History: Occasional Additional Past Alcohol Use History / Comment(s): smoking: started 2007 4-5 cigarettes per day; 07/27/19 pt states she "smokes half a pack per day" Past Drug Use History: None Reported - Past Family History Mother Additional Family Medical History / Comment(s): "she had a lot of cysts on her ovaries" Father History Unknown: Yes Family Medical History: No Reported History Additional Family Medical History / Comment(s): dad side of family has ulcerative colitis Medications and Allergies Home Medications Medication Instructions Recorded Confirmed Type Amoxicillin/Potassium Clav 1 tab PO Q12HR #10 tab 07/28/19 Rx [Augmentin 500-125 Tablet] HYDROcodone/APAP 5-325MG [[place] 1 each PO Q6HR PRN #10 tab 07/28/19 Rx 5-325] Allergies Allergy/AdvReac Type Severity Reaction Status Date / Time codeine Allergy Unknown Rash/Hives Verified 07/27/19 08:54 Physical Exam Vitals: Vital Signs Temp Pulse Pulse Pulse Resp BP BP 07/28/19 15:36 98.2 F 16 L 16 114/74 07/28/19 15:26 99.0 F 72 16 113/73 07/28/19 14:57 98.3 F 72 16 100/61 07/28/19 07:00 98.5 F 71 16 99/61 07/28/19 01:40 100/50 07/28/19 00:50 98.4 F 80 18 90/46 07/27/19 19:57 98.7 F 75 16 105/63 Pulse Ox 07/28/19 15:36 96 07/28/19 15:26 97 07/28/19 14:57 99 07/28/19 07:00 98 07/28/19 01:40 07/28/19 00:50 98 07/27/19 19:57 99 Intake and Output 07/28/19 07/28/19 07/28/19 06:59 14:59 22:59 Intake Total 0 Balance 0 Intake: Blood Product 0 Rc Pheresis 2 As3 Unit 0 [id number] Other: Voiding Method Toilet Toilet # Voids 2 - Constitutional General appearance: average body habitus, cooperative, no acute distress - EENT Eyes: anicteric sclerae, edentulous, poor dentition ENT: hearing grossly normal, normal oropharynx - Neck Neck: no lymphadenopathy - Respiratory Respiratory: bilateral: CTA - Cardiovascular Rhythm: regular Heart sounds: normal: S1, S2 Abnormal Heart Sounds: no systolic murmur, no diastolic murmur, no rub, no S3 Gallop, no S4 Gallop, no click, no other leg Peripheral Edema: bilateral: None - Gastrointestinal mild swelling, lap incisions well approximated, no bruising, drainage,mild tenderness General gastrointestinal: soft, tenderness - Integumentary Integumentary: normal, normal turgor - Neurologic Neurologic: CNII-XII intact - Musculoskeletal Musculoskeletal: strength equal bilaterally - Psychiatric Psychiatric: A&O x's 3, appropriate affect, intact judgment & insight Results CBC & Chem 7: 07/28/19 07:38 07/28/19 07:38 Labs: Abnormal Lab Results - Last 24 Hours (Table) 07/28/19 07/28/19 07/28/19 Range/Units 07:38 07:38 09:40 WBC 10.8 H (3.8-10.6) k/uL RBC 3.13 L (3.80-5.40) m/uL Hgb 6.6 L* (11.4-16.0) gm/dL Hct 22.7 L (34.0-46.0) % MCV 72.6 L (80.0-100.0) fL MCH 21.0 L (25.0-35.0) pg MCHC 28.9 L (31.0-37.0) g/dL RDW 17.2 H (11.5-15.5) % Chloride 110 H (98-107) mmol/L Calcium 8.1 L (8.4-10.2) mg/dL Crossmatch See Detail Assessment and Plan (1) Anemia Narrative/Plan: I confirmed with Dr. Love's office, patient has not received a B12 injection since July 23, 2018. Patient has not been taking iron. Anemia workup for iron deficiency and B12 deficiency is ordered. She will likely require supplementation. Will discuss with patient the importance of keeping up on these things so that she can reduce severity of anemia. On presentation years ago, patient's hemoglobin was in the 7 range, she was able to get into the normal Hgb range after several doses of iron and parenteral B12. She was anemia on admit and additional drop in Hgb is likely secondary to fluids that are typically administered with surgical procedures. Patient was not severely symptomatic. Pt ordered 1 unit of blood for Hgb 6.6. Transfuse to keep Hgb greater than or equal to 7. Current Visit: Yes Status: Chronic Priority: High Code(s): D64.9 - ANEMIA, UNSPECIFIED SNOMED Code(s): 221283603
[2019-07-28 16:37] LABS: % Iron Saturation 2.49 (12.00-45.00); Ferritin 8.9 ng/mL (10.0-291.0)
[2019-07-28] MEDS ORDERED: diphenhydrAMINE 50 MG/ML 1 ML VIAL IVP STA (18:29)
[2019-07-28] MEDS ORDERED: methylPREDNISolone SOD SUCCI 125 MG/2 ML VIAL IV STA (18:30)
--- NOTE | 2019-07-28 18:41 | XR ---
EXAMINATION TYPE: XR chest 1V DATE OF EXAM: 07/28/2019 COMPARISON: 02/19/2019 HISTORY: Abdominal pain. Short of breath. TECHNIQUE: Single view FINDINGS: There is no heart failure nor confluent pneumonic infiltrate. There is slight coarsening of the lung markings at the lung bases. There is no definite pleural effusion. There are no hilar ortega s. IMPRESSION: Slight increased lung markings. Inspiration decreased compared to old exam. No heart fail ure seen.
[2019-07-29] MEDS: PIPERACILLIN-TAZOBACTAM 3.375 GM in SODIUM CHLORIDE 0.9% 100 ML IVPB SCH ×2 (02:55→09:29)
[2019-07-29] MEDS: HYDROcodone/APAP 5-325MG 1 EACH TAB PO PRN ×2 (05:21→12:10)
[2019-07-29] MEDS: KETOROLAC 30 MG/ML 1 ML VIAL IVP SCH ×2 (05:21→12:07)
[2019-07-29 07:38] LABS: Anisocytosis Slight; Basophils % (A) 0 %; Eosinophils % (A) 0 %; HCT 26.4 % (34.0-46.0); HGB 7.9 gm/dL (11.4-16.0); Hypochromasia Marked; Lymphocytes # (A) 1.3 k/uL (1.0-4.8); Lymphocytes % (A) 14 %; MCHC 29.8 g/dL (31.0-37.0); MCV 73.9 fL (80.0-100.0); Mean Platelet Volume 8.5; Microcytosis Moderate; Monocytes # (A) 0.2 k/uL (0-1.0); Monocytes % (A) 2 %; Neutrophils # (A) 7.7 k/uL (1.3-7.7); Neutrophils % (A) 83 %; Platelet Count 384 k/uL (150-450); Poikilocytosis Moderate; RBC 3.57 m/uL (3.80-5.40); RDW 17.5 % (11.5-15.5); WBC 9.3 k/uL (3.8-10.6)
[2019-07-29 08:33] VITALS: RESP 16
[2019-07-29] MEDS: HEPARIN SODIUM,PORCINE 5,000 UNIT/ML 1 ML VIAL SQ SCH (09:29)
[2019-07-29] MEDS: SODIUM CHLORIDE 0.9% 1,000 ML IV SCH (14:32)
[2019-07-29 14:46] VITALS: BP 120/75; PULSE 80; TEMP 98.2
--- NOTE | 2019-07-29 15:12 | P.PN ---
Subjective Progress Note Date: 07/29/19 Patient had chest pain during her transfusion yesterday. Transfusion was stopped, she had CXR EKG and trops all negative. Medicine was consulted. Her chest pain is improved today. No complaints. Asking to go home Objective - Vital Signs Vital signs: Vital Signs Temp 98.2 F 07/29/19 14:45 Pulse 80 07/29/19 14:45 Resp 16 07/29/19 14:45 BP 120/75 07/29/19 14:45 Pulse Ox 96 07/29/19 14:45 Intake & Output 07/28/19 07/29/19 07/29/19 18:59 06:59 18:59 Intake Total 223 700 Balance 223 700 Intake: Intake, IV Titration 700 Amount Piperacillin-Tazobactam 3 100 .375 gm In Sodium Chloride 0.9% 100 ml @ 25 mls/hr IVPB Q8H [facility] Rx#: [id number] Sodium Chloride 0.9% 1, 600 000 ml @ 50 mls/hr IV . Q20H [facility] Rx#:[id number] Blood Product 223 Rc Pheresis 2 As3 Unit 223 [id number] Other: Voiding Method Toilet Toilet Toilet # Voids 2 2 - Constitutional General appearance: Present: cooperative - Respiratory Details: nonlabored - Cardiovascular Rhythm: regular - Gastrointestinal Gastrointestinal Comment(s): s/nt/nd - Psychiatric Psychiatric: Present: A&O x's 3 - Labs CBC & Chem 7: 07/29/19 07:08 07/28/19 07:38 Labs: Abnormal Lab Results - Last 24 Hours (Table) 07/28/19 07/28/19 07/29/19 Range/Units 07:38 09:40 07:08 RBC 3.57 L (3.80-5.40) m/uL Hgb 7.9 L (11.4-16.0) gm/dL Hct 26.4 L (34.0-46.0) % MCV 73.9 L (80.0-100.0) fL MCH 22.0 L (25.0-35.0) pg MCHC 29.8 L (31.0-37.0) g/dL RDW 17.5 H (11.5-15.5) % Iron 9 L (50-170) ug/dL % Saturation 2.49 L (12.00-45.00) Ferritin 8.9 L (10.0-291.0) ng/mL Crossmatch See Detail Assessment and Plan Assessment: s/p lap appy Plan: DC home follow up with primary and Dr. Davies
--- NOTE | 2019-07-29 16:43 | P.PN ---
Subjective Progress Note Date: 07/29/19 Principal diagnosis: persistent anemia Pt is feeling much better post op, she has had a BM, denies any bleeding, unusual pain or bruising Objective - Vital Signs Vital signs: Vital Signs Temp 98.2 F 07/29/19 14:45 Pulse 80 07/29/19 14:45 Resp 16 07/29/19 14:45 BP 120/75 07/29/19 14:45 Pulse Ox 96 07/29/19 14:45 Intake & Output 07/28/19 07/29/19 07/29/19 18:59 06:59 18:59 Intake Total 223 700 Balance 223 700 Intake: Intake, IV Titration 700 Amount Piperacillin-Tazobactam 3 100 .375 gm In Sodium Chloride 0.9% 100 ml @ 25 mls/hr IVPB Q8H [facility] Rx#: [id number] Sodium Chloride 0.9% 1, 600 000 ml @ 50 mls/hr IV . Q20H [facility] Rx#:[id number] Blood Product 223 Rc Pheresis 2 As3 Unit 223 [id number] Other: Voiding Method Toilet Toilet Toilet # Voids 2 2 - Constitutional General appearance: Present: average body habitus, cooperative, no acute distress - EENT Eyes: Present: EOMI ENT: Present: hearing grossly normal - Respiratory Details: respirations even and unlabored - Gastrointestinal General gastrointestinal: Present: normal bowel sounds, soft, tenderness - Neurologic Neurologic: Present: CNII-XII intact - Musculoskeletal Musculoskeletal: Present: strength equal bilaterally - Psychiatric Psychiatric: Present: A&O x's 3, appropriate affect, intact judgment & insight - Labs CBC & Chem 7: 07/29/19 07:08 07/28/19 07:38 Labs: Abnormal Lab Results - Last 24 Hours (Table) 07/28/19 07/28/19 07/29/19 Range/Units 07:38 09:40 07:08 RBC 3.57 L (3.80-5.40) m/uL Hgb 7.9 L (11.4-16.0) gm/dL Hct 26.4 L (34.0-46.0) % MCV 73.9 L (80.0-100.0) fL MCH 22.0 L (25.0-35.0) pg MCHC 29.8 L (31.0-37.0) g/dL RDW 17.5 H (11.5-15.5) % RBC Folate 1,076 H (280 - 791) ng/mL Crossmatch See Detail Assessment and Plan (1) Anemia Narrative/Plan: I confirmed with Dr. Love's office, patient has not received a B12 injection since July 23, 2018. Patient has not been taking iron. Anemia workup for iron deficiency and B12 deficiency is ordered. Hgb stable today post transfusion. She will require parenteral iron and B12 upplementation that can be provided in outpatient setting. Pt agreed with plan. Will have ofc sched f/u appt and contact pt Status: Chronic Priority: High Code(s): D64.9 - ANEMIA, UNSPECIFIED SNOMED Code(s): 101388546
[2019-07-30 15:48] LABS: Methylmalonic Acid 0.22 umol/L (<0.40)
== END 2019-07-29 16:19 | disposition home or self-care (01) | DRG 342 ==
LOC: EC 23:08 → 4SSUR 07-27 02:01 → OBSVTOIN 07-29 08:39
PROVIDERS: ADMIT Surgery; ATTEND Surgery
PROC: 0DTJ4ZZ Resection of Appendix, Percutaneous Endoscopic Approach (ICD-10-PCS; principal; 2019-07-27 07:40)
DX: K35.80 Unspecified acute appendicitis (principal); K50.911 Crohn's disease, unspecified, with rectal bleeding; K90.9 Intestinal malabsorption, unspecified; D50.9 Iron deficiency anemia, unspecified; F17.210 Nicotine dependence, cigarettes, uncomplicated; F41.9 Anxiety disorder, unspecified; N92.0 Excessive and frequent menstruation with regular cycle; E53.8 Deficiency of other specified B group vitamins; Z79.899 Other long term (current) drug therapy; Z88.5 Allergy status to narcotic agent; Z83.79 Family history of other diseases of the digestive system
CPT/HCPCS: 36415; 71045; 74177; 80048; 80053; 81001; 81025; 82607; 82728; 82747; 83540; 83550; 83690; 83921; 84484; 85025; 85045; 86850; 86880; 86900; 86901; 86920; 88304; 93005; 96374; 96376; 99285

== ENCOUNTER 2020-03-06 23:23 | Emergency (ER) | payer OTHER ==
[2020-03-06 23:31] VITALS: TEMP 98.4
--- NOTE | 2020-03-07 | ED ---
Psych HPI - General Chief Complaint: Psychiatric Symptoms Stated Complaint: Mental health Time Seen by Provider: 03/06/20 23:30 Source: patient, family Mode of arrival: ambulatory - History of Present Illness Initial Comments: This patient is 29-year-old woman who presents with concern that she is abusing methamphetamine and cocaine. Patient states she uses these approximately every day. She states that she is concerned that she is addicted and if she does not obtain help she will end up killing herself. Patient is here with mother who is highly supportive of her. MD Complaint: suicidal ideation, feels depressed -: days(s) Associated Psychiatric Symptoms: depression Quality: getting worse Improves With: none Worsens With: drug use Context: recent drug abuse Associated Symptoms: denies other symptoms - Related Data Previous Rx's Medication Instructions Recorded Amoxicillin/Potassium Clav 1 tab PO Q12HR #10 tab 07/28/19 [Augmentin 500-125 Tablet] HYDROcodone/APAP 5-325MG [[place] 1 each PO Q6HR PRN #10 tab 07/28/19 5-325] Allergies Allergy/AdvReac Type Severity Reaction Status Date / Time codeine Allergy Unknown Rash/Hives Verified 03/06/20 23:31 Review of Systems ROS Statement: Those systems with pertinent positive or pertinent negative responses have been documented in the HPI. ROS Other: All systems not noted in ROS Statement are negative. Constitutional: Denies: fever, chills Respiratory: Denies: cough, dyspnea Cardiovascular: Denies: chest pain, syncope Gastrointestinal: Denies: abdominal pain, nausea, vomiting Genitourinary: Reports: dysuria, frequency. Denies: hematuria Skin: Denies: rash Neurological: Denies: headache, weakness, numbness Psychiatric: Reports: depression, suicidal thoughts. Denies: auditory hallucinations, visual hallucinations, homicidal thoughts Past Medical History Additional Past Medical History / Comment(s): ulcerative colitis-recent flare- ups, anemia (iron & pernicious) History of Any Multi-Drug Resistant Organisms: None Reported Past Surgical History: Cholecystectomy Additional Past Surgical History / Comment(s): colonoscopies, d & c Past Anesthesia/Blood Transfusion Reactions: No Reported Reaction Past Psychological History: Anxiety Smoking Status: Current every day smoker Past Alcohol Use History: None Reported Past Drug Use History: Cocaine, Marijuana, Methamphetamine - Past Family History Mother Additional Family Medical History / Comment(s): "she had a lot of cysts on her ovaries" Father History Unknown: Yes Family Medical History: No Reported History Additional Family Medical History / Comment(s): dad side of family has ulcerative colitis General Exam General appearance: alert, in no apparent distress Head exam: Present: atraumatic, normocephalic Eye exam: Present: normal appearance. Absent: scleral icterus, conjunctival injection ENT exam: Present: normal oropharynx Neck exam: Present: normal inspection Respiratory exam: Present: normal lung sounds bilaterally. Absent: respiratory distress, wheezes, rales, rhonchi, stridor Cardiovascular Exam: Present: regular rate, normal rhythm, normal heart sounds. Absent: systolic murmur, diastolic murmur, rubs, gallop GI/Abdominal exam: Present: soft. Absent: distended, tenderness, guarding, rebound, rigid, mass Extremities exam: Present: normal inspection, normal capillary refill. Absent: pedal edema, calf tenderness Back exam: Present: normal inspection. Absent: CVA tenderness (R), CVA tenderness (L) Neurological exam: Present: alert Psychiatric exam: Present: depressed, suicidal ideation. Absent: agitated, anxious, flat affect, manic, homicidal ideation Skin exam: Present: warm, dry, intact, normal color. Absent: rash Course Vital Signs 03/06/20 23:26 Temperature 98.4 F Pulse Rate 99 Respiratory 18 Rate Blood Pressure 94/54 O2 Sat by Pulse 99 Oximetry Medical Decision Making - Medical Decision Making Patient is 29-year-old woman presenting to have help with substance abuse and also concerns about suicidal ideation. The patient is seen by EPS and they have come up with a safety plan. The patient will follow with substance abuse treatment. Patient is with her mother who is very supportive. Patient agrees to safety plan. - Lab Data Lab Results 03/06/20 03/06/20 03/06/20 Range/Units 00:01 23:50 23:50 Urine Color Yellow Urine Appearance Cloudy H (Clear) Urine pH 6.0 (5.0-8.0) Ur Specific [place] 1.027 (1.001-1.035) Urine Protein Trace H (Negative) Urine Glucose (UA) Negative (Negative) Urine Ketones Trace H (Negative) Urine Blood Negative (Negative) Urine Nitrite Negative (Negative) Urine Bilirubin Negative (Negative) Urine Urobilinogen <2.0 (<2.0) mg/dL Ur Leukocyte Esterase Small H (Negative) Urine RBC 13 H (0-5) /hpf Urine WBC 3 (0-5) /hpf Ur Squamous Epith Cells 22 H (0-4) /hpf Calcium Oxalate Crystal Few H (None) /hpf Urine Bacteria Rare H (None) /hpf Hyaline Casts 1 (0-2) /lpf Urine Mucus Few H (None) /hpf Urine HCG, Qual Not Detected (Not Detectd) Urine Opiates Screen Not Detected (NotDetected) Ur Oxycodone Screen Not Detected (NotDetected) Urine Methadone Screen Not Detected (NotDetected) Ur Propoxyphene Screen Not Detected (NotDetected) Ur Barbiturates Screen Not Detected (NotDetected) U Tricyclic Antidepress Not Detected (NotDetected) Ur Phencyclidine Scrn Not Detected (NotDetected) Ur Amphetamines Screen Detected H (NotDetected) U Methamphetamines Scrn Detected H (NotDetected) U Benzodiazepines Scrn Detected H (NotDetected) Urine Cocaine Screen Not Detected (NotDetected) U Marijuana (THC) Screen Detected H (NotDetected) Disposition Clinical Impression: Mood disorder Disposition: HOME SELF-CARE Condition: Good Is patient prescribed a controlled substance at d/c from ED?: No Referrals: Nakia Love DO [Primary Care Provider] - 1-2 days
[2020-03-07 00:11] LABS: Amphetamine Screen,Urine Detected (NotDetected); Barbiturate Screen,Urine Not Detected (NotDetected); Benzodiazepines Screen,Urine Detected (NotDetected); Cocaine Screen,Urine Not Detected (NotDetected); Methadone Screen, Urine Not Detected (NotDetected); Opiate Screen,Urine Not Detected (NotDetected); Oxycodone Screen, Urine Not Detected (NotDetected); Phencyclidine Screen,Urine Not Detected (NotDetected); Tricyclic Antidepressant,Urine Not Detected (NotDetected); Urn Cannabinoid Scrn Detected (NotDetected)
[2020-03-07 00:17] LABS: Appearance,Urine Cloudy (Clear); Bacteria,Urine Rare /hpf; Bilirubin,Urine Negative (Negative); Blood,Urine Negative (Negative); Calcium Oxalate Crystals,Urine Few /hpf; Color,Urine Yellow; Glucose,Urine (UA) Negative (Negative); Hyaline Casts,Urine 1 /lpf (0-2); Ketones,Urine Trace (Negative); Leukocyte Esterase,Urine Small (Negative); Mucus,Urine Few /hpf; Nitrite,Urine Negative (Negative); Protein,Urine Trace (Negative); RBC,Urine 13 /hpf (0-5); Specific Gravity,Urine 1.027 (1.001-1.035); Squamous Epithelial Cell,Urine 22 /hpf (0-4); Urobilinogen,Urine <2.0 mg/dL (<2.0); WBC,Urine 3 /hpf (0-5)
[2020-03-07] MEDS ORDERED: LORazepam 1 MG TAB PO STA (01:42)
[2020-03-07] MEDS ORDERED: PROMETHAZINE 25 MG TAB PO ONE (01:45)
[2020-03-07 02:37] VITALS: BP 98/51; PULSE 75; RESP 17
== END 2020-03-07 02:43 | disposition home or self-care (01) ==
LOC: EC 23:23
DX: F39 Unspecified mood [affective] disorder (principal); F17.200 Nicotine dependence, unspecified, uncomplicated; Z88.5 Allergy status to narcotic agent
CPT/HCPCS: 80306; 81001; 81025; 82075; 99285

== ENCOUNTER → 2020-03-07 | Outpatient (CLI) | payer OTHER | END | disposition home or self-care (01) | LOC: LABWHC1 14:00 | PROVIDERS: ATTEND Physician Assistant | DX: Z11.59 Encounter for screening for other viral diseases (principal) | CPT/HCPCS: 87635; C9803 ==

== ENCOUNTER 2020-12-26 08:57 | Observation (INO) | payer OTHER ==
[2020-12-26] MEDS ORDERED: HYDROmorphone 0.5 MG/0.5 ML SYRINGE IVP STA ×2 (09:09→09:49)
[2020-12-26] MEDS ORDERED: SODIUM CHLORIDE 0.9% 2,000 ML IV STA (09:09)
[2020-12-26] MEDS ORDERED: ONDANSETRON 4 MG/2 ML VIAL IVP STA (09:09)
[2020-12-26 09:29] LABS: Basophils % (A) 0 %; Eosinophils # (A) 0.2 k/uL (0-0.7); Eosinophils % (A) 3 %; HCT 42.4 % (34.0-46.0); HGB 14.7 gm/dL (11.4-16.0); Lymphocytes # (A) 2.2 k/uL (1.0-4.8); Lymphocytes % (A) 29 %; MCH 32.5 pg (25.0-35.0); MCHC 34.6 g/dL (31.0-37.0); MCV 94.1 fL (80.0-100.0); Mean Platelet Volume 7.3; Monocytes # (A) 0.3 k/uL (0-1.0); Monocytes % (A) 4 %; Neutrophils # (A) 4.8 k/uL (1.3-7.7); Neutrophils % (A) 63 %; Platelet Count 284 k/uL (150-450); RDW 12.3 % (11.5-15.5); WBC 7.6 k/uL (3.8-10.6)
[2020-12-26 09:38] LABS: ALT 19 U/L (4-34); AST 28 U/L (14-36); African American GFR (CKD) >90 (>60 ml/min/1.73 sqM); Albumin 4.6 g/dL (3.5-5.0); Alkaline Phosphatase 76 U/L (38-126); Anion Gap 9 mmol/L; Blood Urea Nitrogen 13 mg/dL (7-17); Calcium 9.5 mg/dL (8.4-10.2); Carbon Dioxide 23 mmol/L (22-30); Chloride 105 mmol/L (98-107); Glucose 94 mg/dL (74-99); Lipase 28 U/L (23-300); Non-African American GFR(CKD) >90 (>60 ml/min/1.73 sqM); Potassium 4.2 mmol/L (3.5-5.1); Sodium 137 mmol/L (137-145); Total Bilirubin 0.4 mg/dL (0.2-1.3); Total Protein 7.2 g/dL (6.3-8.2)
[2020-12-26 09:43] LABS: Partial Thromboplastin Time 23.9 sec (22.0-30.0); Prothrombin Time 10.8 sec (9.0-12.0)
[2020-12-26] MEDS ORDERED: FAMOTIDINE 20 MG/2 ML VIAL IV STA (09:49)
[2020-12-26] MEDS ORDERED: KETOROLAC 15 MG/ML 1 ML VIAL IVP STA (09:49)
[2020-12-26 11:22] LABS: Amorphous Sediment,Urine Rare /hpf; Appearance,Urine Cloudy (Clear); Bacteria,Urine Rare /hpf; Bilirubin,Urine Negative (Negative); Blood,Urine Negative (Negative); Color,Urine Yellow; Glucose,Urine (UA) Negative (Negative); Ketones,Urine Negative (Negative); Leukocyte Esterase,Urine Trace (Negative); Mucus,Urine Occasional /hpf; Nitrite,Urine Negative (Negative); Protein,Urine Negative (Negative); RBC,Urine 3 /hpf (0-5); Specific Gravity,Urine 1.023 (1.001-1.035); Squamous Epithelial Cell,Urine 25 /hpf (0-4); Urobilinogen,Urine <2.0 mg/dL (<2.0); WBC,Urine 4 /hpf (0-5)
--- NOTE | 2020-12-26 11:25 | ED ---
General Adult HPI - General Chief complaint: Nausea/Vomiting/Diarrhea Stated complaint: Vomiting/Nausea/Abd Pain Time Seen by Provider: 12/26/20 09:04 Source: patient, RN notes reviewed Mode of arrival: ambulatory Limitations: no limitations - History of Present Illness Initial comments: This is a 30-year-old female presents emergency Department chief complaint of abdominal pain. Patient's been having increasing abdominal pain in her upper abdomen, severe diarrhea which is bloody at times. Patient states that she's also had nausea vomiting. Patient states she has been seen her regular physician was here [place] [facility] for her ulcerative colitis. She has not seen GI recently they are trying to schedule her an appointment. Patient's had prior appendectomy, cholecystectomy no other abdominal surgeries denies any chance . Patient has no urinary frequency dysuria hematuria. Patient offers no complaints of fevers chills. - Related Data Home Medications Medication Instructions Recorded Confirmed Ferrous Sulfate [Iron (65 MG 325 mg PO DAILY 07/11/20 12/26/20 Elemental)] Dicyclomine HCl 10 mg PO TID PRN 12/26/20 12/26/20 Ondansetron HCl [Zofran] 4 mg PO Q6H PRN 12/26/20 12/26/20 QUEtiapine [SEROquel] 50 mg PO HS 12/26/20 12/26/20 Allergies Allergy/AdvReac Type Severity Reaction Status Date / Time codeine Allergy Unknown Rash/Hives Verified 12/26/20 08:58 Review of Systems ROS Statement: Those systems with pertinent positive or pertinent negative responses have been documented in the HPI. ROS Other: All systems not noted in ROS Statement are negative. Past Medical History Past Medical History: Blood Disorder Additional Past Medical History / Comment(s): ulcerative colitis-recent flare- ups, anemia (iron & pernicious). History of Any Multi-Drug Resistant Organisms: None Reported Past Surgical History: Appendectomy, Cholecystectomy Additional Past Surgical History / Comment(s): colonoscopies, d & c Past Anesthesia/Blood Transfusion Reactions: No Reported Reaction Past Psychological History: Anxiety Smoking Status: Current every day smoker Past Alcohol Use History: Occasional Past Drug Use History: None Reported - Past Family History Mother Additional Family Medical History / Comment(s): "she had a lot of cysts on her ovaries" Father History Unknown: Yes Family Medical History: No Reported History Additional Family Medical History / Comment(s): dad side of family has ulcerative colitis General Exam Limitations: no limitations General appearance: alert, in no apparent distress Head exam: Present: atraumatic, normocephalic, normal inspection Eye exam: Present: normal appearance, PERRL, EOMI. Absent: scleral icterus, conjunctival injection, periorbital swelling Neck exam: Present: normal inspection. Absent: tenderness, meningismus, lymphadenopathy Respiratory exam: Present: normal lung sounds bilaterally. Absent: respiratory distress, wheezes, rales, rhonchi, stridor Cardiovascular Exam: Present: normal rhythm, tachycardia, normal heart sounds. Absent: systolic murmur, diastolic murmur, rubs, gallop, clicks GI/Abdominal exam: Present: soft, tenderness (Mild to moderate upper), normal bowel sounds. Absent: distended, guarding, rebound, rigid Back exam: Absent: CVA tenderness (R), CVA tenderness (L) Neurological exam: Present: alert Skin exam: Present: warm, dry, intact, normal color. Absent: rash Course Vital Signs 12/26/20 12/26/20 12/26/20 08:58 10:15 12:06 Temperature 97.7 F Pulse Rate 106 H 85 74 Respiratory 16 20 18 Rate Blood Pressure 126/76 110/74 110/67 O2 Sat by Pulse 99 99 99 Oximetry Medical Decision Making - Medical Decision Making Laboratory unremarkable CT shows no evidence of moderate colitis no obstruction sepsis perforations. Patient discussed with Dr. Lee will admitted with IV steroids, GI consult. - Lab Data Result diagrams: 12/26/20 09:09 12/26/20 09:09 Lab Results 12/26/20 12/26/20 12/26/20 Range/Units 09:09 09:09 09:09 WBC 7.6 (3.8-10.6) k/uL RBC 4.50 (3.80-5.40) m/uL Hgb 14.7 (11.4-16.0) gm/dL Hct 42.4 (34.0-46.0) % MCV 94.1 (80.0-100.0) fL MCH 32.5 (25.0-35.0) pg MCHC 34.6 (31.0-37.0) g/dL RDW 12.3 (11.5-15.5) % Plt Count 284 (150-450) k/uL MPV 7.3 Neutrophils % 63 % Lymphocytes % 29 % Monocytes % 4 % Eosinophils % 3 % Basophils % 0 % Neutrophils # 4.8 (1.3-7.7) k/uL Lymphocytes # 2.2 (1.0-4.8) k/uL Monocytes # 0.3 (0-1.0) k/uL Eosinophils # 0.2 (0-0.7) k/uL Basophils # 0.0 (0-0.2) k/uL PT (9.0-12.0) sec INR (<1.2) APTT (22.0-30.0) sec Sodium 137 (137-145) mmol/L Potassium 4.2 (3.5-5.1) mmol/L Chloride 105 (98-107) mmol/L Carbon Dioxide 23 (22-30) mmol/L Anion Gap 9 mmol/L BUN 13 (7-17) mg/dL Creatinine 0.74 (0.52-1.04) mg/dL Est GFR (CKD-EPI)AfAm >90 (>60 ml/min/1.73 sqM) Est GFR (CKD-EPI)NonAf >90 (>60 ml/min/1.73 sqM) Glucose 94 (74-99) mg/dL Plasma Lactic Acid Artie (0.7-2.0) mmol/L Calcium 9.5 (8.4-10.2) mg/dL Total Bilirubin 0.4 (0.2-1.3) mg/dL AST 28 (14-36) U/L ALT 19 (4-34) U/L Alkaline Phosphatase 76 (38-126) U/L Total Protein 7.2 (6.3-8.2) g/dL Albumin 4.6 (3.5-5.0) g/dL Lipase 28 (23-300) U/L Urine Color Yellow Urine Appearance Cloudy H (Clear) Urine pH 5.0 (5.0-8.0) Ur Specific [place] 1.023 (1.001-1.035) Urine Protein Negative (Negative) Urine Glucose (UA) Negative (Negative) Urine Ketones Negative (Negative) Urine Blood Negative (Negative) Urine Nitrite Negative (Negative) Urine Bilirubin Negative (Negative) Urine Urobilinogen <2.0 (<2.0) mg/dL Ur Leukocyte Esterase Trace H (Negative) Urine RBC 3 (0-5) /hpf Urine WBC 4 (0-5) /hpf Ur Squamous Epith Cells 25 H (0-4) /hpf Amorphous Sediment Rare H (None) /hpf Urine Bacteria Rare H (None) /hpf Urine Mucus Occasional H (None) /hpf Urine HCG, Qual (Not Detectd) 12/26/20 12/26/20 12/26/20 Range/Units 09:15 09:15 09:15 WBC (3.8-10.6) k/uL RBC (3.80-5.40) m/uL Hgb (11.4-16.0) gm/dL Hct (34.0-46.0) % MCV (80.0-100.0) fL MCH (25.0-35.0) pg MCHC (31.0-37.0) g/dL RDW (11.5-15.5) % Plt Count (150-450) k/uL MPV Neutrophils % % Lymphocytes % % Monocytes % % Eosinophils % % Basophils % % Neutrophils # (1.3-7.7) k/uL Lymphocytes # (1.0-4.8) k/uL Monocytes # (0-1.0) k/uL Eosinophils # (0-0.7) k/uL Basophils # (0-0.2) k/uL PT 10.8 (9.0-12.0) sec INR 1.0 (<1.2) APTT 23.9 (22.0-30.0) sec Sodium (137-145) mmol/L Potassium (3.5-5.1) mmol/L Chloride (98-107) mmol/L Carbon Dioxide (22-30) mmol/L Anion Gap mmol/L BUN (7-17) mg/dL Creatinine (0.52-1.04) mg/dL Est GFR (CKD-EPI)AfAm (>60 ml/min/1.73 sqM) Est GFR (CKD-EPI)NonAf (>60 ml/min/1.73 sqM) Glucose (74-99) mg/dL Plasma Lactic Acid Artie 1.0 (0.7-2.0) mmol/L Calcium (8.4-10.2) mg/dL Total Bilirubin (0.2-1.3) mg/dL AST (14-36) U/L ALT (4-34) U/L Alkaline Phosphatase (38-126) U/L Total Protein (6.3-8.2) g/dL Albumin (3.5-5.0) g/dL Lipase (23-300) U/L Urine Color Urine Appearance (Clear) Urine pH (5.0-8.0) Ur Specific [place] (1.001-1.035) Urine Protein (Negative) Urine Glucose (UA) (Negative) Urine Ketones (Negative) Urine Blood (Negative) Urine Nitrite (Negative) Urine Bilirubin (Negative) Urine Urobilinogen (<2.0) mg/dL Ur Leukocyte Esterase (Negative) Urine RBC (0-5) /hpf Urine WBC (0-5) /hpf Ur Squamous Epith Cells (0-4) /hpf Amorphous Sediment (None) /hpf Urine Bacteria (None) /hpf Urine Mucus (None) /hpf Urine HCG, Qual Not Detected (Not Detectd) Disposition Clinical Impression: Exacerbation of ulcerative colitis, Intractable abdominal pain Disposition: ADMITTED IP TO THIS [facility] Condition: Fair Referrals: Suman Lee MD [Primary Care Provider] - 1-2 days
--- NOTE | 2020-12-26 12:09 | CT ---
EXAMINATION TYPE: CT abdomen pelvis w con DATE OF EXAM: 12/26/2020 HISTORY: ULCERATIVE COLITIS; pain and vomiting. CT DLP: 762.1mGycm Automated Exposure Control for Dose Reduction was Utilized. CONTRAST: CT scan of the abdomen and pelvis is performed without oral but with IV Contrast, patient injected wi th 100 mL of Isovue 300. COMPARISON: CT abdomen and pelvis July 27, 2019 and older CTs FINDINGS: LUNG BASES: No significant abnormality is appreciated. LIVER/GB: Cholecystectomy clips are redemonstrated. PANCREAS: No significant abnormality is seen. SPLEEN: No significant abnormality is seen. ADRENALS: No significant abnormality is seen. KIDNEYS: No significant abnormality is seen. BOWEL: Evaluation bowel is suboptimal secondary to lack of enteric contrast. No suspicious small or l arge bowel dilatation. Moderate wall thickening in the transverse colon mid to distal aspect extends into the left colon contiguously. No significant surrounding fat stranding. UTERUS/ADNEXA: Anteverted uterus is redemonstrated. Both ovaries are redemonstrated paired right ovar y shows continued increase enlargement with multiple low dense lesions likely reflecting ovarian cyst s. LYMPH NODES: No greater than 1cm abdominal or pelvic lymph nodes are appreciated. OSSEOUS STRUCTURES: No significant abnormality is seen. OTHER: No significant additional abnormality is seen. IMPRESSION: No bowel obstruction. Probable mild to moderate uncomplicated acute colitis versus produc t of poor distention.
[2020-12-26] MEDS ORDERED: methylPREDNISolone SOD SUCCI 125 MG/2 ML VIAL IV STA (12:21)
[2020-12-26] MEDS ORDERED: NALOXONE 0.4 MG/ML 1 ML VIAL IV PRN (12:22)
[2020-12-26] MEDS: HYDROmorphone 0.5 MG/0.5 ML SYRINGE IVP PRN ×4 (12:54→22:31)
[2020-12-26] MEDS: SODIUM CHLORIDE 0.9% 1,000 ML IV SCH ×2 (13:02→23:42)
[2020-12-26] MEDS: ONDANSETRON 4 MG/2 ML VIAL IVP PRN (16:09)
[2020-12-26] MEDS: PANTOPRAZOLE 40 MG/10 ML VIAL IVP SCH (16:18)
[2020-12-26] MEDS: NICOTINE 14MG/24HR PATCH TRANSDERM SCH (16:29)
[2020-12-26 17:55] LABS: Glucose,Whole Blood 163 mg/dL (75-99)
[2020-12-26] MEDS: methylPREDNISolone SOD SUCCI 125 MG/2 ML VIAL IV SCH ×2 (18:05→23:38)
[2020-12-26] MEDS: INSULIN ASPART (NovoLOG) 100 UNIT/ML VIAL SQ SCH ×2 (18:05→21:11)
[2020-12-26 20:49] LABS: Glucose,Whole Blood 135 mg/dL (75-99)
[2020-12-26] MEDS: QUEtiapine 50 MG TAB PO SCH (21:12)
[2020-12-26] MEDS ORDERED: DICYCLOMINE 10 MG CAP PO PRN (23:14)
[2020-12-27] MEDS: HYDROmorphone 0.5 MG/0.5 ML SYRINGE IVP PRN ×7 (01:55→22:47)
[2020-12-27] MEDS: ONDANSETRON 4 MG/2 ML VIAL IVP PRN ×3 (01:55→20:05)
[2020-12-27] MEDS: methylPREDNISolone SOD SUCCI 125 MG/2 ML VIAL IV SCH (05:33)
[2020-12-27 06:16] LABS: Glucose,Whole Blood 153 mg/dL (75-99)
[2020-12-27] MEDS: INSULIN ASPART (NovoLOG) 100 UNIT/ML VIAL SQ SCH ×2 (06:29→12:24)
[2020-12-27] MEDS: NICOTINE 14MG/24HR PATCH TRANSDERM SCH (08:17)
[2020-12-27] MEDS: PANTOPRAZOLE 40 MG/10 ML VIAL IVP SCH (08:20)
[2020-12-27] MEDS: SODIUM CHLORIDE 0.9% 1,000 ML IV SCH ×2 (11:55→11:56)
[2020-12-27 12:16] LABS: Glucose,Whole Blood 158 mg/dL (75-99)
[2020-12-27] MEDS ORDERED: HYOSCYAMINE ORAL DROPS 1.875 MG/15 ML BOTTLE PO PRN (14:48)
--- NOTE | 2020-12-27 15:32 | P.CONS ---
History of Present Illness - Reason for Consult Consult date: 12/27/20 Ulcerative colitis Requesting physician: Suman Lee - Chief Complaint Abdominal pain, diarrhea - History of Present Illness 30-year-old female who presented to the hospital for evaluation of symptoms of abdominal pain and diarrhea. The patient has reported a history of ulcerative colitis in the past however she has undergone multiple endoscopic evaluations locally with colonoscopy in 01/2015 and EGD and colonoscopy in 11/2015 significant for a normal-appearing colon and terminal ileum with negative random biopsies. The patient has no histologic evidence of ulcerative colitis on biopsies in the past. She has been treated for irritable bowel syndrome in the past and reports that she has been unable to tolerate Bentyl as she does not liquid makes her feel. She is also been treated for iron deficiency anemia in the past. Last EGD was in 11/2018 with 2 nonbleeding antral ulcers noted at that time as well as a small hiatal hernia. She reports that she is having abdominal pain diffusely across her abdomen described as cramping and burning in nature. She reports multiple episodes of loose stool. She denies any new medications, unusual foods or travel or other triggers. Hemoglobin currently stable at 14.7 with normal ESR and CRP. Computed tomography scan of the abdomen negative for any evidence of bowel obstruction with possible mild uncomplicated colitis versus under distention of the colon. Review of Systems REVIEW OF SYSTEMS: CONSTITUTIONAL: Denies any fevers, chills, weight change or fatigue. CARDIOVASCULAR: Denies any chest pain, palpitations high or low blood pressures RESPIRATORY: Denies any shortness of breath, hemoptysis or cough. GENITOURINARY: No dysuria or hematuria. MUSCULOSKELETAL: No weakness reported. SKIN: Denies any new rashes or lesions, jaundice or pallor. PSYCHIATRIC: Denies any depression or anxiety. NEUROLOGY: Denies headache, denies any new focal deficits. EARS/NOSE/THROAT: No recent hearing change, congestion, nasal discharge or sore throat. EYES: No pain in eyes, discharge or change in vision. GASTROINTESTINAL: As per HPI. Past Medical History Past Medical History: Blood Disorder Additional Past Medical History / Comment(s): ULCERATIVE COLITIS. ANEMIA History of Any Multi-Drug Resistant Organisms: None Reported Past Surgical History: Appendectomy, Cholecystectomy Additional Past Surgical History / Comment(s): D&C Past Anesthesia/Blood Transfusion Reactions: No Reported Reaction Past Psychological History: Anxiety, Depression Smoking Status: Current every day smoker Past Alcohol Use History: Occasional Past Drug Use History: None Reported - Past Family History Mother Additional Family Medical History / Comment(s): "she had a lot of cysts on her ovaries" Father History Unknown: Yes Family Medical History: No Reported History Additional Family Medical History / Comment(s): dad side of family has ulcerative colitis Medications and Allergies Home Medications Medication Instructions Recorded Confirmed Type Ferrous Sulfate [Iron (65 MG 325 mg PO DAILY 07/11/20 12/26/20 History Elemental)] Dicyclomine HCl 10 mg PO TID PRN 12/26/20 12/26/20 History Ondansetron HCl [Zofran] 4 mg PO Q6H PRN 12/26/20 12/26/20 History QUEtiapine [SEROquel] 50 mg PO HS 12/26/20 12/26/20 History Allergies Allergy/AdvReac Type Severity Reaction Status Date / Time codeine Allergy Unknown Rash/Hives Verified 12/26/20 13:38 Physical Exam Vitals: Vital Signs Temp Pulse Pulse Resp BP BP Pulse Ox 12/27/20 08:15 97.9 F 75 16 105/68 98 12/27/20 01:52 97.5 F L 73 16 98/61 98 12/26/20 20:25 16 12/26/20 19:00 98.3 F 76 18 102/68 97 12/26/20 14:25 98.4 F 87 16 106/65 97 12/26/20 12:06 74 18 110/67 99 Intake and Output 12/26/20 12/27/20 12/27/20 22:59 06:59 14:59 Intake Total 1500 Balance 1500 Intake: Oral 1500 Other: Voiding Method Toilet # Voids 1 1 # Bowel Movements 2 On physical examination, patient appears comfortable in no apparent distress. HEAD: Normocephalic, atraumatic. EYES: No scleral icterus. No conjunctival injection. MOUTH: No lesions, tongue midline. NECK: Trachea midline, no gross abnormalities. CHEST: Clear to auscultation with no wheezing or rhonchi appreciated. HEART: Regular rate and rhythm. ABDOMEN: Soft, mildly tender to palpation. Bowel sounds are positive. No organomegaly. No guarding or rigidity. EXTREMITIES: No pedal edema. SKIN: No rashes, no jaundice. NEUROLOGIC: Alert and oriented x3. No focal deficits. Results CBC & Chem 7: 12/26/20 09:09 12/26/20 09:09 Labs: Abnormal Lab Results - Last 24 Hours (Table) 12/26/20 12/26/20 12/27/20 Range/Units 17:53 20:47 06:15 POC Glucose (mg/dL) 163 H 135 H 153 H (75-99) mg/dL CT scan - abdomen: report reviewed (Computed tomography scan of the abdomen negative for any bowel obstruction with possible mild uncomplicated acute colitis versus under distention.) Assessment and Plan (1) Diarrhea Narrative/Plan: 30-year-old female presenting for abdominal pain and diarrhea. The patient reports a history of ulcerative colitis however she has had colonoscopy with random biopsies in 2014 as well as 2016 with a normal-appearing colon and terminal ileum and biopsies negative for any evidence of inflammatory bowel disease. She reports symptoms of periumbilical pain, cramping and burning. Multiple episodes of loose stool. Hemoglobin normal at 14.7 on presentation. Computed tomography scan suggestive of possible uncomplicated acute colitis versus under distention of the colon. ESR and CRP are normal. Unclear etiology, may be related to functional bowel disorder as patient has had no evidence of inflammatory bowel disease on multiple endoscopic evaluations in the past and has normal inflammatory markers at this time, stool studies will be ordered to rule out infectious process, or other etiology. Current Visit: No Status: Acute Code(s): R19.7 - DIARRHEA, UNSPECIFIED SNOMED Code(s): 43167132 (2) Intractable abdominal pain Current Visit: Yes Status: Acute Code(s): R10.9 - UNSPECIFIED ABDOMINAL PAIN SNOMED Code(s): 38413274 Plan: Supportive care Clear liquid diet Continue to monitor CBC, BMP, LFTs No indication for Solu-Medrol at this time is a patient has had endoscopic evaluation in 2014 in 2016 with negative random biopsies and no suggestion of inflammatory bowel disease Okay for antibiotic therapy with Unasyn 3 times a day for treatment of possible infectious colitis, although suspicion is for functional bowel disorder Trial of hyoscyamine 4 times a day as needed for abdominal pain and cramping Dietary modifications including a fodmap diet described to the patient at length Okay for discharge when otherwise medically stable with the patient encouraged to follow up with the GI service for continued monitoring and care Thank you for allowing us to participate in the care of the patient
[2020-12-27] MEDS ORDERED: methylPREDNISolone SOD SUCCI 40 MG/ML 1 ML VIAL IV SCH (16:00)
[2020-12-27] MEDS: AMPICILLIN-SULBACTAM 3 GM in SODIUM CHLORIDE 0.9% 100 ML IVPB SCH (16:32)
[2020-12-27] MEDS: QUEtiapine 50 MG TAB PO SCH (20:05)
[2020-12-27] MEDS ORDERED: NICOTINE 14MG/24HR PATCH TRANSDERM SCH (21:00)
[2020-12-27] MEDS ORDERED: QUEtiapine 50 MG TAB PO SCH (21:00)
[2020-12-28] MEDS: AMPICILLIN-SULBACTAM 3 GM in SODIUM CHLORIDE 0.9% 100 ML IVPB SCH ×2 (00:41→07:58)
[2020-12-28] MEDS: HYDROmorphone 0.5 MG/0.5 ML SYRINGE IVP PRN ×3 (03:01→09:49)
[2020-12-28] MEDS: SODIUM CHLORIDE 0.9% 1,000 ML IV SCH (06:45)
[2020-12-28] MEDS ORDERED: PANTOPRAZOLE 40 MG TABLET PO SCH (07:30)
--- NOTE | 2020-12-28 07:44 | P.HPIM ---
History of Present Illness H&P Date: 12/27/20 Chief Complaint: abdominal paln Radha Flynn is a 30 yo F with questionable history of Ulcerative colitis, who presented to the ED complaining of worsening nausea, vomiting, diarrhea and abdominal pain. She complains that over the past few days she has been feeling much worse, vomiting multiple times per day and diarreha with mucus and traces of blood. She was told in the past she had ulcerative colitis but recent colonoscopy negative for inflammatory bowel disease. On presentation, vitals stable, labs unremarkable, CT abd/pelvis with no acute findings. Review of Systems All systems: negative Constitutional: Reports malaise, Denies chills, Denies fever Eyes: denies blurred vision, denies pain Ears, nose, mouth and throat: Denies headache, Denies sore throat Cardiovascular: Denies chest pain, Denies shortness of breath Respiratory: Denies cough Gastrointestinal: Reports abdominal pain, Reports diarrhea, Reports nausea, Reports vomiting Genitourinary: Denies dysuria, Denies hematuria Musculoskeletal: Denies myalgias Integumentary: Denies pruritus, Denies rash Neurological: Denies numbness, Denies weakness Psychiatric: Denies anxiety, Denies depression Endocrine: Denies fatigue, Denies weight change Past Medical History Past Medical History: Blood Disorder Additional Past Medical History / Comment(s): ULCERATIVE COLITIS. ANEMIA History of Any Multi-Drug Resistant Organisms: None Reported Past Surgical History: Appendectomy, Cholecystectomy Additional Past Surgical History / Comment(s): D&C Past Anesthesia/Blood Transfusion Reactions: No Reported Reaction Past Psychological History: Anxiety, Depression Smoking Status: Current every day smoker Past Alcohol Use History: Occasional Past Drug Use History: None Reported - Past Family History Mother Additional Family Medical History / Comment(s): "she had a lot of cysts on her ovaries" Father History Unknown: Yes Family Medical History: No Reported History Additional Family Medical History / Comment(s): dad side of family has ulcerative colitis Medications and Allergies Home Medications Medication Instructions Recorded Confirmed Type Ferrous Sulfate [Iron (65 MG 325 mg PO DAILY 07/11/20 12/26/20 History Elemental)] Dicyclomine HCl 10 mg PO TID PRN 12/26/20 12/26/20 History Ondansetron HCl [Zofran] 4 mg PO Q6H PRN 12/26/20 12/26/20 History QUEtiapine [SEROquel] 50 mg PO HS 12/26/20 12/26/20 History Allergies Allergy/AdvReac Type Severity Reaction Status Date / Time codeine Allergy Unknown Rash/Hives Verified 12/26/20 13:38 Physical Exam Vitals: Vital Signs Temp Pulse Resp BP Pulse Ox 12/27/20 19:25 98.1 F 64 18 105/67 100 12/27/20 14:35 98.6 F 92 18 109/69 96 12/27/20 08:15 97.9 F 75 16 105/68 98 12/27/20 01:52 97.5 F L 73 16 98/61 98 Intake and Output 12/27/20 12/27/20 12/27/20 06:59 14:59 22:59 Intake Total 1500 240 Balance 1500 240 Intake: Oral 1500 240 Other: # Voids 1 1 # Bowel Movements 2 General: well nourished, well developed, NAD. Vitals reviewed Eyes: PERRL, EOMI, conjunctiva normal HENT: normocephalic, mucus membranes moist Neck: supple, no JVD Lungs: normal respiratory effort, no wheezes or rales CV: Regular rate and rhythm, no murmur. Peripheral pulses 2+ Abdomen: soft, nondistended, no organomegaly Lymph: no cervical or axillary LAD Skin: warm and dry. Neuro: A&Ox3, normal mood and affect Results CBC & Chem 7: 12/26/20 09:09 12/26/20 09:09 Labs: Abnormal Lab Results - Last 24 Hours (Table) 12/27/20 12/27/20 Range/Units 06:15 12:14 POC Glucose (mg/dL) 153 H 158 H (75-99) mg/dL Thrombosis Risk Factor Assmnt - Choose All That Apply Any of the Below Risk Factors Present?: Yes Each Factor Represents 1 point: Obesity (BMI >25) Thrombosis Risk Factor Assessment Total Risk Factor Score: 1 Thrombosis Risk Factor Assessment Level: Low Risk Assessment and Plan (1) Irritable bowel syndrome Current Visit: Yes Status: Acute Code(s): K58.9 - IRRITABLE BOWEL SYNDROME WITHOUT DIARRHEA SNOMED Code(s): 29583451 (2) Intractable abdominal pain Current Visit: Yes Status: Acute Code(s): R10.9 - UNSPECIFIED ABDOMINAL PAIN SNOMED Code(s): 22604931 (3) Abdominal pain Current Visit: No Status: Acute Code(s): R10.9 - UNSPECIFIED ABDOMINAL PAIN SNOMED Code(s): 05748625 Plan: 1. Nausea, vomiting, diarrhea. Intractable abdominal pain. Rule out UC flare vs IBD. GI consult. Start IV steroids. Pain control and bentyl prn
[2020-12-28] MEDS: ONDANSETRON 4 MG/2 ML VIAL IVP PRN (07:56)
[2020-12-28] MEDS: NICOTINE 14MG/24HR PATCH TRANSDERM SCH (07:59)
[2020-12-28 08:08] VITALS: BP 96/63; PULSE 72; RESP 18; TEMP 97.8
== END 2020-12-28 10:14 | disposition home or self-care (01) ==
LOC: EC 08:57 → 6PED 12:22
PROVIDERS: ADMIT Family Medicine; ATTEND Family Medicine
DX: K58.9 Irritable bowel syndrome, unspecified (principal); R11.2 Nausea with vomiting, unspecified; F41.9 Anxiety disorder, unspecified; F32.9 Major depressive disorder, single episode, unspecified; F17.200 Nicotine dependence, unspecified, uncomplicated; E66.9 Obesity, unspecified; Z68.25 Body mass index [BMI] 25.0-25.9, adult; K44.9 Diaphragmatic hernia without obstruction or gangrene; D51.0 Vitamin B12 deficiency anemia due to intrinsic factor deficiency; Z20.822 Contact with and (suspected) exposure to COVID-19; Z90.49 Acquired absence of other specified parts of digestive tract; Z79.899 Other long term (current) drug therapy; Z88.5 Allergy status to narcotic agent; Z87.11 Personal history of peptic ulcer disease; Z83.79 Family history of other diseases of the digestive system; Z84.2 Family history of other diseases of the genitourinary system
CPT/HCPCS: 96361 ×2; 96365; 96366; 96375 ×2; 96376 ×3; 99285; 36415; 80053; 85652; 83605; 83690; 85025; 85610; 85730; 86140; 81001; 81025; 87635; 74177; G0378 ×3; S4990 ×3; J2930 ×2; J2405 ×3; J0295 ×2; J1885; C9113 ×2; J1170 ×3; Q9967

== ENCOUNTER 2021-11-29 11:49 | Emergency (ER) | payer OTHER ==
[2021-11-29 12:01] VITALS: TEMP 98.5
[2021-11-29] MEDS ORDERED: SODIUM CHLORIDE 0.9% 1,000 ML IV STA (12:29)
[2021-11-29] MEDS ORDERED: ONDANSETRON ODT 8 MG TAB.RAPDIS PO STA (12:29)
[2021-11-29] MEDS ORDERED: HYDROmorphone 0.5 MG/0.5 ML SYRINGE IVP STA ×2 (12:29→14:16)
[2021-11-29] MEDS ORDERED: ONDANSETRON 4 MG/2 ML VIAL IVP STA (12:41)
[2021-11-29 13:16] LABS: Basophils # (A) 0.1 k/uL (0-0.2); Basophils % (A) 1 %; Eosinophils # (A) 0.1 k/uL (0-0.7); Eosinophils % (A) 2 %; HGB 13.2 gm/dL (11.4-16.0); Lymphocytes # (A) 1.2 k/uL (1.0-4.8); Lymphocytes % (A) 18 %; MCH 30.2 pg (25.0-35.0); MCHC 31.4 g/dL (31.0-37.0); MCV 96.2 fL (80.0-100.0); Mean Platelet Volume 7.6; Monocytes # (A) 0.4 k/uL (0-1.0); Monocytes % (A) 5 %; Neutrophils # (A) 5.1 k/uL (1.3-7.7); Neutrophils % (A) 74 %; Platelet Count 299 k/uL (150-450); RBC 4.36 m/uL (3.80-5.40); RDW 14.2 % (11.5-15.5)
[2021-11-29 13:22] LABS: ALT 21 U/L (4-34); AST 56 U/L (14-36); African American GFR (CKD) >90 (>60 ml/min/1.73 sqM); Albumin 4.2 g/dL (3.5-5.0); Alkaline Phosphatase 102 U/L (38-126); Amylase 40 U/L (30-110); Anion Gap 8 mmol/L; Blood Urea Nitrogen 8 mg/dL (7-17); Calcium 9.4 mg/dL (8.4-10.2); Carbon Dioxide 25 mmol/L (22-30); Chloride 104 mmol/L (98-107); Glucose 93 mg/dL (74-99); Lipase 111 U/L (23-300); Non-African American GFR(CKD) >90 (>60 ml/min/1.73 sqM); Potassium 3.8 mmol/L (3.5-5.1); Sodium 137 mmol/L (137-145); Total Bilirubin 0.9 mg/dL (0.2-1.3)
[2021-11-29 13:29] LABS: Appearance,Urine Cloudy (Clear); Bilirubin,Urine Negative (Negative); Blood,Urine Negative (Negative); Color,Urine Yellow; Glucose,Urine (UA) Negative (Negative); Ketones,Urine Negative (Negative); Leukocyte Esterase,Urine Negative (Negative); Mucus,Urine Moderate /hpf; Nitrite,Urine Negative (Negative); PH, Urine 6.5 (5.0-8.0); Protein,Urine Trace (Negative); RBC,Urine 2 /hpf (0-5); Specific Gravity,Urine 1.034 (1.001-1.035); Squamous Epithelial Cell,Urine 15 /hpf (0-4); WBC,Urine 2 /hpf (0-5)
[2021-11-29] MEDS ORDERED: methylPREDNISolone SOD SUCCI 125 MG/2 ML VIAL IV STA (14:16)
[2021-11-29] MEDS ORDERED: METOCLOPRAMIDE 5 MG/ML 2 ML VIAL IVP STA (14:16)
[2021-11-29 14:37] VITALS: BP 120/70; PULSE 71; RESP 17
--- NOTE | 2021-11-29 15:25 | ED ---
Abdominal Pain HPI - General Chief Complaint: Abdominal Pain Stated Complaint: colitis, Abd pain & Nausea Time Seen by Provider: 11/29/21 12:08 Source: patient, RN notes reviewed Mode of arrival: ambulatory Limitations: no limitations - History of Present Illness Initial Comments: This is a 31-year-old female who presents the emergency department for abdominal pain. The patient has a history of ulcerative colitis, states that she has not seen a medical typist in a few years and is not currently taking medication for the ulcerative colitis. She was able to make an appointment with Dr. Muñiz for 12/02. For the last 10 days she has had nausea, vomiting, diarrhea, and abdominal cramping. States that this feels like an ulcerative colitis flare up. Does not currently have blood in her stool. States that flareups are typically treated with prednisone. Denies any fevers, chills, chest pain, shortness of breath, dysuria, or hematuria. MD Complaint: abdominal pain Onset/Timin -: days(s) Quality: cramping Associated Symptoms: nausea, vomiting, diarrhea - Related Data Home Medications Medication Instructions Recorded Confirmed Ferrous Sulfate [Iron (65 MG 325 mg PO DAILY 07/11/20 11/29/21 Elemental)] QUEtiapine [SEROquel] 50 mg PO HS 12/26/20 11/29/21 Multivitamins, Thera [Multivitamin 1 tab PO DAILY 11/29/21 11/29/21 (formulary)] Previous Rx's Medication Instructions Recorded Metoclopramide [Reglan] 5 mg PO Q6H PRN #20 tab 11/29/21 Ondansetron Odt [Zofran Odt] 4 mg PO Q8HR PRN #20 tab 11/29/21 predniSONE 50 mg PO DAILY 5 Days #5 tab 11/29/21 Allergies Allergy/AdvReac Type Severity Reaction Status Date / Time codeine Allergy Unknown Rash/Hives Verified 11/29/21 13:46 Review of Systems ROS Statement: Those systems with pertinent positive or pertinent negative responses have been documented in the HPI. ROS Other: All systems not noted in ROS Statement are negative. Constitutional: Denies: fever, chills ENT: Denies: ear pain, throat pain Respiratory: Denies: cough, dyspnea Cardiovascular: Denies: chest pain, palpitations Endocrine: Denies: fatigue Gastrointestinal: Reports: abdominal pain, nausea, vomiting, diarrhea. Denies: hematemesis, melena, hematochezia Genitourinary: Denies: urgency, dysuria Musculoskeletal: Denies: back pain Skin: Denies: rash Neurological: Denies: headache Past Medical History Past Medical History: Blood Disorder Additional Past Medical History / Comment(s): ULCERATIVE COLITIS. ANEMIA History of Any Multi-Drug Resistant Organisms: None Reported Past Surgical History: Appendectomy, Cholecystectomy Additional Past Surgical History / Comment(s): D&C Past Anesthesia/Blood Transfusion Reactions: No Reported Reaction Past Psychological History: Anxiety, Depression Smoking Status: Current every day smoker Past Alcohol Use History: Occasional Past Drug Use History: None Reported - Past Family History Mother Additional Family Medical History / Comment(s): "she had a lot of cysts on her ovaries" Father History Unknown: Yes Family Medical History: No Reported History Additional Family Medical History / Comment(s): dad side of family has ulcerative colitis General Exam Limitations: no limitations General appearance: alert, in distress Head exam: Present: atraumatic, normocephalic, normal inspection Respiratory exam: Present: normal lung sounds bilaterally. Absent: respiratory distress, wheezes, rales, rhonchi, stridor Cardiovascular Exam: Present: regular rate, normal rhythm, normal heart sounds. Absent: systolic murmur, diastolic murmur, rubs, gallop, clicks GI/Abdominal exam: Present: soft, hyperactive bowel sounds. Absent: distended, tenderness, guarding, rebound, rigid Neurological exam: Present: alert, oriented X3, CN II-XII intact Psychiatric exam: Present: normal affect, normal mood Skin exam: Present: warm, dry, intact, normal color. Absent: rash Course Vital Signs 11/29/21 11/29/21 11:59 14:35 Temperature 98.5 F Pulse Rate 88 71 Respiratory 20 17 Rate Blood Pressure 118/77 120/70 O2 Sat by Pulse 100 99 Oximetry Medical Decision Making - Medical Decision Making This is a 31-year-old female who presents to the emergency department for abdominal pain. Lab work and urinalysis were negative. Patient tested negative for COVID and influenza. Nausea and vomiting were controlled with Zofran and Reglan. Pain was controlled with Dilaudid. Given that symptoms are consistent with previous flareups, we were able to control symptoms, and the lab work was unremarkable, will treat the patient with a dose of Solu-Medrol in the emergency department and discharge her on a five-day course of Prednisone. Rx for Zofran and Reglan sent to the pharmacy for nausea. Return precautions reviewed in depth, the patient is instructed to return to the emergency department with any new, worsening, or concerning symptoms. Patient verbalized understanding. This case was discussed in detail with the attending ED physician. Presentation, findings, and treatment plan discussed in detail as well. - Lab Data Result diagrams: 11/29/21 12:59 11/29/21 12:59 Lab Results 11/29/21 11/29/21 11/29/21 Range/Units 12:59 12:59 12:59 WBC 7.0 (3.8-10.6) k/uL RBC 4.36 (3.80-5.40) m/uL Hgb 13.2 (11.4-16.0) gm/dL Hct 42.0 (34.0-46.0) % MCV 96.2 (80.0-100.0) fL MCH 30.2 (25.0-35.0) pg MCHC 31.4 (31.0-37.0) g/dL RDW 14.2 (11.5-15.5) % Plt Count 299 (150-450) k/uL MPV 7.6 Neutrophils % 74 % Lymphocytes % 18 % Monocytes % 5 % Eosinophils % 2 % Basophils % 1 % Neutrophils # 5.1 (1.3-7.7) k/uL Lymphocytes # 1.2 (1.0-4.8) k/uL Monocytes # 0.4 (0-1.0) k/uL Eosinophils # 0.1 (0-0.7) k/uL Basophils # 0.1 (0-0.2) k/uL Sodium (137-145) mmol/L Potassium (3.5-5.1) mmol/L Chloride (98-107) mmol/L Carbon Dioxide (22-30) mmol/L Anion Gap mmol/L BUN (7-17) mg/dL Creatinine (0.52-1.04) mg/dL Est GFR (CKD-EPI)AfAm (>60 ml/min/1.73 sqM) Est GFR (CKD-EPI)NonAf (>60 ml/min/1.73 sqM) Glucose (74-99) mg/dL Plasma Lactic Acid Artie (0.7-2.0) mmol/L Calcium (8.4-10.2) mg/dL Total Bilirubin (0.2-1.3) mg/dL AST (14-36) U/L ALT (4-34) U/L Alkaline Phosphatase (38-126) U/L Troponin I (0.000-0.034) ng/mL Total Protein (6.3-8.2) g/dL Albumin (3.5-5.0) g/dL Amylase (30-110) U/L Lipase (23-300) U/L Urine Color Yellow Urine Appearance Cloudy H (Clear) Urine pH 6.5 (5.0-8.0) Ur Specific [place] 1.034 (1.001-1.035) Urine Protein Trace H (Negative) Urine Glucose (UA) Negative (Negative) Urine Ketones Negative (Negative) Urine Blood Negative (Negative) Urine Nitrite Negative (Negative) Urine Bilirubin Negative (Negative) Urine Urobilinogen 3.0 (<2.0) mg/dL Ur Leukocyte Esterase Negative (Negative) Urine RBC 2 (0-5) /hpf Urine WBC 2 (0-5) /hpf Ur Squamous Epith Cells 15 H (0-4) /hpf Urine Mucus Moderate H (None) /hpf Urine HCG, Qual Not Detected (Not Detectd) Coronavirus (PCR) (Not Detectd) Influenza Type A RNA (Not Detectd) Influenza Type B (PCR) (Not Detectd) 11/29/21 11/29/21 11/29/21 Range/Units 12:59 12:59 12:59 WBC (3.8-10.6) k/uL RBC (3.80-5.40) m/uL Hgb (11.4-16.0) gm/dL Hct (34.0-46.0) % MCV (80.0-100.0) fL MCH (25.0-35.0) pg MCHC (31.0-37.0) g/dL RDW (11.5-15.5) % Plt Count (150-450) k/uL MPV Neutrophils % % Lymphocytes % % Monocytes % % Eosinophils % % Basophils % % Neutrophils # (1.3-7.7) k/uL Lymphocytes # (1.0-4.8) k/uL Monocytes # (0-1.0) k/uL Eosinophils # (0-0.7) k/uL Basophils # (0-0.2) k/uL Sodium 137 (137-145) mmol/L Potassium 3.8 (3.5-5.1) mmol/L Chloride 104 (98-107) mmol/L Carbon Dioxide 25 (22-30) mmol/L Anion Gap 8 mmol/L BUN 8 (7-17) mg/dL Creatinine 0.79 (0.52-1.04) mg/dL Est GFR (CKD-EPI)AfAm >90 (>60 ml/min/1.73 sqM) Est GFR (CKD-EPI)NonAf >90 (>60 ml/min/1.73 sqM) Glucose 93 (74-99) mg/dL Plasma Lactic Acid Artie 0.9 (0.7-2.0) mmol/L Calcium 9.4 (8.4-10.2) mg/dL Total Bilirubin 0.9 (0.2-1.3) mg/dL AST 56 H (14-36) U/L ALT 21 (4-34) U/L Alkaline Phosphatase 102 (38-126) U/L Troponin I <0.012 (0.000-0.034) ng/mL Total Protein 7.0 (6.3-8.2) g/dL Albumin 4.2 (3.5-5.0) g/dL Amylase 40 (30-110) U/L Lipase 111 (23-300) U/L Urine Color Urine Appearance (Clear) Urine pH (5.0-8.0) Ur Specific [place] (1.001-1.035) Urine Protein (Negative) Urine Glucose (UA) (Negative) Urine Ketones (Negative) Urine Blood (Negative) Urine Nitrite (Negative) Urine Bilirubin (Negative) Urine Urobilinogen (<2.0) mg/dL Ur Leukocyte Esterase (Negative) Urine RBC (0-5) /hpf Urine WBC (0-5) /hpf Ur Squamous Epith Cells (0-4) /hpf Urine Mucus (None) /hpf Urine HCG, Qual (Not Detectd) Coronavirus (PCR) (Not Detectd) Influenza Type A RNA (Not Detectd) Influenza Type B (PCR) (Not Detectd) 11/29/21 11/29/21 Range/Units 12:59 12:59 WBC (3.8-10.6) k/uL RBC (3.80-5.40) m/uL Hgb (11.4-16.0) gm/dL Hct (34.0-46.0) % MCV (80.0-100.0) fL MCH (25.0-35.0) pg MCHC (31.0-37.0) g/dL RDW (11.5-15.5) % Plt Count (150-450) k/uL MPV Neutrophils % % Lymphocytes % % Monocytes % % Eosinophils % % Basophils % % Neutrophils # (1.3-7.7) k/uL Lymphocytes # (1.0-4.8) k/uL Monocytes # (0-1.0) k/uL Eosinophils # (0-0.7) k/uL Basophils # (0-0.2) k/uL Sodium (137-145) mmol/L Potassium (3.5-5.1) mmol/L Chloride (98-107) mmol/L Carbon Dioxide (22-30) mmol/L Anion Gap mmol/L BUN (7-17) mg/dL Creatinine (0.52-1.04) mg/dL Est GFR (CKD-EPI)AfAm (>60 ml/min/1.73 sqM) Est GFR (CKD-EPI)NonAf (>60 ml/min/1.73 sqM) Glucose (74-99) mg/dL Plasma Lactic Acid Artie (0.7-2.0) mmol/L Calcium (8.4-10.2) mg/dL Total Bilirubin (0.2-1.3) mg/dL AST (14-36) U/L ALT (4-34) U/L Alkaline Phosphatase (38-126) U/L Troponin I (0.000-0.034) ng/mL Total Protein (6.3-8.2) g/dL Albumin (3.5-5.0) g/dL Amylase (30-110) U/L Lipase (23-300) U/L Urine Color Urine Appearance (Clear) Urine pH (5.0-8.0) Ur Specific [place] (1.001-1.035) Urine Protein (Negative) Urine Glucose (UA) (Negative) Urine Ketones (Negative) Urine Blood (Negative) Urine Nitrite (Negative) Urine Bilirubin (Negative) Urine Urobilinogen (<2.0) mg/dL Ur Leukocyte Esterase (Negative) Urine RBC (0-5) /hpf Urine WBC (0-5) /hpf Ur Squamous Epith Cells (0-4) /hpf Urine Mucus (None) /hpf Urine HCG, Qual (Not Detectd) Coronavirus (PCR) Not Detected (Not Detectd) Influenza Type A RNA Not Detected (Not Detectd) Influenza Type B (PCR) Not Detected (Not Detectd) Disposition Clinical Impression: Ulcerative colitis Disposition: HOME SELF-CARE Instructions (If sedation given, give patient instructions): Ulcerative Colitis (ED) Additional Instructions: Return to the emergency department with any new, worsening, or concerning symptoms. Use the Zofran and Reglan as needed for nausea and vomiting. Take the prednisone as prescribed for 5 days. Follow-up with doctor Muñiz as scheduled on Thursday. Prescriptions: predniSONE 50 mg PO DAILY 5 Days #5 tab Metoclopramide [Reglan] 5 mg PO Q6H PRN #20 tab PRN Reason: Nausea And Vomiting Ondansetron Odt [Zofran Odt] 4 mg PO Q8HR PRN #20 tab PRN Reason: Nausea And Vomiting Is patient prescribed a controlled substance at d/c from ED?: No Referrals: Suman Lee MD [Primary Care Provider] - 1-2 days
== END 2021-11-29 15:39 | disposition home or self-care (01) ==
LOC: EC 11:49
DX: K51.90 Ulcerative colitis, unspecified, without complications (principal); F41.9 Anxiety disorder, unspecified; F32.A Depression, unspecified; F17.200 Nicotine dependence, unspecified, uncomplicated; Z20.822 Contact with and (suspected) exposure to COVID-19; Z88.5 Allergy status to narcotic agent; Z90.49 Acquired absence of other specified parts of digestive tract
CPT/HCPCS: 99284; 96374; 96375 ×3; 96376; 96361 ×2; 36415; 80053; 82150; 83605; 83690; 84484; 85025; 81001; 81025; 87502; 87635; J2765; J2930; J2405; J1170

== ENCOUNTER 2022-03-04 14:17 | Emergency (ER) | payer OTHER ==
[2022-03-04 14:22] VITALS: TEMP 98.1
[2022-03-04 15:21] VITALS: RESP 16
[2022-03-04] MEDS ORDERED: SODIUM CHLORIDE 0.9% 2,000 ML IV STA (15:24)
[2022-03-04] MEDS ORDERED: ONDANSETRON 4 MG/2 ML VIAL IVP STA ×2 (15:24→16:52)
[2022-03-04] MEDS ORDERED: DICYCLOMINE 20 MG TAB PO STA ×2 (15:26→16:52)
[2022-03-04] MEDS ORDERED: methylPREDNISolone SOD SUCCI 125 MG/2 ML VIAL IV STA (15:26)
[2022-03-04] MEDS ORDERED: HYDROmorphone 0.5 MG/0.5 ML SYRINGE IVP STA ×2 (15:26→16:51)
[2022-03-04 15:58] LABS: Basophils % (A) 0 %; Eosinophils # (A) 0.2 k/uL (0-0.7); Eosinophils % (A) 2 %; HCT 39.3 % (34.0-46.0); HGB 12.5 gm/dL (11.4-16.0); Lymphocytes # (A) 1.6 k/uL (1.0-4.8); Lymphocytes % (A) 19 %; MCH 29.4 pg (25.0-35.0); MCHC 31.7 g/dL (31.0-37.0); MCV 92.7 fL (80.0-100.0); Mean Platelet Volume 8.4; Monocytes # (A) 0.4 k/uL (0-1.0); Monocytes % (A) 4 %; Neutrophils # (A) 6.1 k/uL (1.3-7.7); Neutrophils % (A) 74 %; Platelet Count 319 k/uL (150-450); RBC 4.24 m/uL (3.80-5.40); WBC 8.3 k/uL (3.8-10.6)
--- NOTE | 2022-03-04 16:02 | ED ---
Abdominal Pain HPI - General Chief Complaint: Abdominal Pain Stated Complaint: Abd pain Time Seen by Provider: 03/04/22 14:44 Source: patient Mode of arrival: ambulatory - History of Present Illness Initial Comments: Patient is a 31-year-old female with past medical history of ulcerative colitis who presents to the emergency department with a chief complaint of lower abdominal pain. Patient states symptoms started 3 days ago. Patient endorses pain in the lower left and right abdomen. States the pain is consistent and 6/10 in severity. States the pain is typical of her ulcerative colitis flareups. Admits to nausea without vomiting. Admits to nonbloody diarrhea. Denies fever, chills, upper respiratory symptoms, side pain, shortness of breath, chest pain, burning with urination, blood in the urine, and other concerns. Patient states she has not had a scope in a couple years. States she was following with Dr. Muñiz but is looking elsewhere for another GI specialist. - Related Data Home Medications Medication Instructions Recorded Confirmed Ferrous Sulfate [Iron (65 MG 325 mg PO DAILY 07/11/20 11/29/21 Elemental)] Multivitamins, Thera [Multivitamin 1 tab PO DAILY 11/29/21 11/29/21 (formulary)] Previous Rx's Medication Instructions Recorded Dicyclomine [Bentyl] 20 mg PO TID #21 tablet 03/04/22 Ondansetron Odt [Zofran Odt] 4 mg PO Q8HR PRN #21 tab 03/04/22 predniSONE 50 mg PO DAILY #5 tab 03/04/22 Allergies Allergy/AdvReac Type Severity Reaction Status Date / Time codeine Allergy Unknown Rash/Hives Verified 03/04/22 16:19 Review of Systems ROS Statement: Those systems with pertinent positive or pertinent negative responses have been documented in the HPI. ROS Other: All systems not noted in ROS Statement are negative. Past Medical History Past Medical History: Blood Disorder Additional Past Medical History / Comment(s): ULCERATIVE COLITIS. ANEMIA History of Any Multi-Drug Resistant Organisms: None Reported Past Surgical History: Appendectomy, Cholecystectomy Additional Past Surgical History / Comment(s): D&C Past Anesthesia/Blood Transfusion Reactions: No Reported Reaction Past Psychological History: Anxiety, Depression Smoking Status: Current every day smoker Past Alcohol Use History: Occasional Past Drug Use History: None Reported - Past Family History Mother Additional Family Medical History / Comment(s): "she had a lot of cysts on her ovaries" Father History Unknown: Yes Family Medical History: No Reported History Additional Family Medical History / Comment(s): dad side of family has ulcerative colitis General Exam General appearance: alert, in no apparent distress Head exam: Present: atraumatic, normocephalic, normal inspection Eye exam: Present: normal appearance, PERRL, EOMI. Absent: scleral icterus, conjunctival injection, periorbital swelling Respiratory exam: Present: normal lung sounds bilaterally. Absent: respiratory distress, wheezes, rales, rhonchi, stridor Cardiovascular Exam: Present: regular rate, normal rhythm, normal heart sounds. Absent: systolic murmur, diastolic murmur, rubs, gallop, clicks GI/Abdominal exam: Present: soft, tenderness (mild in left and right lower quadrant), normal bowel sounds. Absent: distended, guarding, rebound, rigid Back exam: Absent: CVA tenderness (R), CVA tenderness (L) Neurological exam: Present: alert, oriented X3, CN II-XII intact Psychiatric exam: Present: normal affect, normal mood Skin exam: Present: warm, dry, intact, normal color. Absent: rash Course Vital Signs 03/04/22 03/04/22 14:18 15:20 Temperature 98.1 F Pulse Rate 82 85 Respiratory 18 16 Rate Blood Pressure 123/69 132/68 O2 Sat by Pulse 100 98 Oximetry Medical Decision Making - Medical Decision Making This is a 31-year-old female with ulcerative colitis who presents with lower abdominal pain. Thorough history and examination were performed. Patient is well-appearing and in no apparent distress. Afebrile. The abdomen is soft. There is mild tenderness in the right and left lower quadrant. Laboratory studies were obtained. Patient has normal white blood cell count 8.3. Liver enzymes are minimally to mildly elevated. AST at 108, ALT of 53, alk phos 127. CRP is within normal limits. ESR pending. Patient given Dilaudid, Bentyl, Solu-Medrol, and Zofran. On reevaluation patient states her symptoms have markedly improved. With symptoms typical of her ulcerative colitis, lack of fever, normal white blood cells/ESR, and improvement with medication, Imaging is not warranted at this time. Patient states 5 days of prednisone worked well for her last ulcerative colitis flareup. She will be discharged with Bentyl, prednisone, and Zofran. She is encouraged to establish care with a GI specialist. Return parameters discussed. Patient verbalizes understanding and is agreeable to this plan. Dr. Roland is my attending. - Lab Data Result diagrams: 03/04/22 15:45 03/04/22 15:45 Lab Results 03/04/22 03/04/22 03/04/22 Range/Units 15:45 15:45 15:45 WBC 8.3 (3.8-10.6) k/uL RBC 4.24 (3.80-5.40) m/uL Hgb 12.5 (11.4-16.0) gm/dL Hct 39.3 (34.0-46.0) % MCV 92.7 (80.0-100.0) fL MCH 29.4 (25.0-35.0) pg MCHC 31.7 (31.0-37.0) g/dL RDW 15.0 (11.5-15.5) % Plt Count 319 (150-450) k/uL MPV 8.4 Neutrophils % 74 % Lymphocytes % 19 % Monocytes % 4 % Eosinophils % 2 % Basophils % 0 % Neutrophils # 6.1 (1.3-7.7) k/uL Lymphocytes # 1.6 (1.0-4.8) k/uL Monocytes # 0.4 (0-1.0) k/uL Eosinophils # 0.2 (0-0.7) k/uL Basophils # 0.0 (0-0.2) k/uL ESR 8 (0-20) mm/hr Sodium (137-145) mmol/L Potassium (3.5-5.1) mmol/L Chloride (98-107) mmol/L Carbon Dioxide (22-30) mmol/L Anion Gap mmol/L BUN (7-17) mg/dL Creatinine (0.52-1.04) mg/dL Est GFR (CKD-EPI)AfAm (>60 ml/min/1.73 sqM) Est GFR (CKD-EPI)NonAf (>60 ml/min/1.73 sqM) Glucose (74-99) mg/dL Plasma Lactic Acid Artie (0.7-2.0) mmol/L Calcium (8.4-10.2) mg/dL Total Bilirubin (0.2-1.3) mg/dL AST (14-36) U/L ALT (4-34) U/L Alkaline Phosphatase (38-126) U/L C-Reactive Protein (<1.0) mg/dL Total Protein (6.3-8.2) g/dL Albumin (3.5-5.0) g/dL Lipase (23-300) U/L Urine Color Yellow Urine Appearance Cloudy H (Clear) Urine pH 6.5 (5.0-8.0) Ur Specific Page 1.025 (1.001-1.035) Urine Protein Trace H (Negative) Urine Glucose (UA) Negative (Negative) Urine Ketones Negative (Negative) Urine Blood Negative (Negative) Urine Nitrite Negative (Negative) Urine Bilirubin Negative (Negative) Urine Urobilinogen 2.0 (<2.0) mg/dL Ur Leukocyte Esterase Small H (Negative) Urine RBC 2 (0-5) /hpf Urine WBC 4 (0-5) /hpf Ur Squamous Epith Cells 5 H (0-4) /hpf Urine Mucus Many H (None) /hpf Urine HCG, Qual Not Detected (Not Detectd) 03/04/22 03/04/22 Range/Units 15:45 15:45 WBC (3.8-10.6) k/uL RBC (3.80-5.40) m/uL Hgb (11.4-16.0) gm/dL Hct (34.0-46.0) % MCV (80.0-100.0) fL MCH (25.0-35.0) pg MCHC (31.0-37.0) g/dL RDW (11.5-15.5) % Plt Count (150-450) k/uL MPV Neutrophils % % Lymphocytes % % Monocytes % % Eosinophils % % Basophils % % Neutrophils # (1.3-7.7) k/uL Lymphocytes # (1.0-4.8) k/uL Monocytes # (0-1.0) k/uL Eosinophils # (0-0.7) k/uL Basophils # (0-0.2) k/uL ESR (0-20) mm/hr Sodium 136 L (137-145) mmol/L Potassium 4.2 (3.5-5.1) mmol/L Chloride 103 (98-107) mmol/L Carbon Dioxide 29 (22-30) mmol/L Anion Gap 4 mmol/L BUN 9 (7-17) mg/dL Creatinine 0.64 (0.52-1.04) mg/dL Est GFR (CKD-EPI)AfAm >90 (>60 ml/min/1.73 sqM) Est GFR (CKD-EPI)NonAf >90 (>60 ml/min/1.73 sqM) Glucose 84 (74-99) mg/dL Plasma Lactic Acid Artie 0.8 (0.7-2.0) mmol/L Calcium 9.3 (8.4-10.2) mg/dL Total Bilirubin 0.8 (0.2-1.3) mg/dL AST 108 H (14-36) U/L ALT 53 H (4-34) U/L Alkaline Phosphatase 127 H (38-126) U/L C-Reactive Protein <0.5 (<1.0) mg/dL Total Protein 7.3 (6.3-8.2) g/dL Albumin 4.4 (3.5-5.0) g/dL Lipase 111 (23-300) U/L Urine Color Urine Appearance (Clear) Urine pH (5.0-8.0) Ur Specific Page (1.001-1.035) Urine Protein (Negative) Urine Glucose (UA) (Negative) Urine Ketones (Negative) Urine Blood (Negative) Urine Nitrite (Negative) Urine Bilirubin (Negative) Urine Urobilinogen (<2.0) mg/dL Ur Leukocyte Esterase (Negative) Urine RBC (0-5) /hpf Urine WBC (0-5) /hpf Ur Squamous Epith Cells (0-4) /hpf Urine Mucus (None) /hpf Urine HCG, Qual (Not Detectd) Disposition Clinical Impression: Ulcerative colitis, Diarrhea, Abdominal pain Disposition: HOME SELF-CARE Condition: Good Instructions (If sedation given, give patient instructions): Abdominal Pain (ED), Ulcerative Colitis (ED) Additional Instructions: Please take medication as directed. Follow-up with GI specialist in 1-2 days. Return to the emergency department experience new, concerning, or worsening symptoms. Prescriptions: Dicyclomine [Bentyl] 20 mg PO TID #21 tablet predniSONE 50 mg PO DAILY #5 tab Ondansetron Odt [Zofran Odt] 4 mg PO Q8HR PRN #21 tab PRN Reason: Nausea Is patient prescribed a controlled substance at d/c from ED?: No Referrals: Suman Lee MD [Primary Care Provider] - 1-2 days Nuria Muñiz MD [STAFF PHYSICIAN] - 1-2 days Time of Disposition: 16:55
[2022-03-04 16:10] LABS: African American GFR (CKD) >90 (>60 ml/min/1.73 sqM); Albumin 4.4 g/dL (3.5-5.0); Alkaline Phosphatase 127 U/L (38-126); Anion Gap 4 mmol/L; Blood Urea Nitrogen 9 mg/dL (7-17); Calcium 9.3 mg/dL (8.4-10.2); Carbon Dioxide 29 mmol/L (22-30); Chloride 103 mmol/L (98-107); Glucose 84 mg/dL (74-99); Lipase 111 U/L (23-300); Non-African American GFR(CKD) >90 (>60 ml/min/1.73 sqM); Sodium 136 mmol/L (137-145); Total Bilirubin 0.8 mg/dL (0.2-1.3); Total Protein 7.3 g/dL (6.3-8.2)
[2022-03-04 16:12] LABS: Appearance,Urine Cloudy (Clear); Bilirubin,Urine Negative (Negative); Blood,Urine Negative (Negative); Color,Urine Yellow; Glucose,Urine (UA) Negative (Negative); Ketones,Urine Negative (Negative); Leukocyte Esterase,Urine Small (Negative); Mucus,Urine Many /hpf; Nitrite,Urine Negative (Negative); PH, Urine 6.5 (5.0-8.0); Protein,Urine Trace (Negative); RBC,Urine 2 /hpf (0-5); Specific Gravity,Urine 1.025 (1.001-1.035); Squamous Epithelial Cell,Urine 5 /hpf (0-4); WBC,Urine 4 /hpf (0-5)
[2022-03-04 16:16] LABS: ALT 53 U/L (4-34); AST 108 U/L (14-36); C Reactive Protein <0.5 mg/dL (<1.0); Potassium 4.2 mmol/L (3.5-5.1)
[2022-03-04 16:49] LABS: Erythrocyte Sedimentation Rate 8 mm/hr (0-20)
[2022-03-04 17:25] VITALS: BP 110/60; PULSE 68
== END 2022-03-04 17:25 | disposition home or self-care (01) ==
LOC: EC 14:17
DX: K51.90 Ulcerative colitis, unspecified, without complications (principal); F17.200 Nicotine dependence, unspecified, uncomplicated; Z88.5 Allergy status to narcotic agent
CPT/HCPCS: 36415; 80053; 85652; 83605; 83690; 85025; 86140; 81001; 81025; 96374; 96375; 96376; 96361; 99284; J2930; J2405; J1170

== ENCOUNTER 2022-10-29 15:45 | Emergency (ER) | payer OTHER ==
[2022-10-29] MEDS ORDERED: ONDANSETRON 4 MG/2 ML VIAL IVP STA (17:39)
[2022-10-29] MEDS ORDERED: SODIUM CHLORIDE 0.9% 1,000 ML IV STA (17:39)
[2022-10-29] MEDS ORDERED: KETOROLAC 15 MG/ML 1 ML VIAL IVP STA ×2 (17:40→20:40)
--- NOTE | 2022-10-29 17:53 | ED ---
Abdominal Pain HPI - General Chief Complaint: Abdominal Pain Stated Complaint: Abd pain,fever Time Seen by Provider: 10/29/22 17:25 Source: patient Mode of arrival: ambulatory Limitations: no limitations - History of Present Illness Initial Comments: Patient is a 32-year-old female presenting with chief complaint of abdominal pain. Patient states the pain is been ongoing for the last 2 weeks. Located primarily periumbilically. She admits to intermittent nausea and vomiting. Pain is worse with eating. Patient has a history of ulcerative colitis. No fevers or chills. No chest pain or difficulty breathing. No hematemesis, hematochezia, melena. No dysuria or hematuria. She admits to some diarrhea, states that this is normal for her. - Related Data Home Medications Medication Instructions Recorded Confirmed Albuterol Sulfate [Albuterol 2 puff PO RT-Q4H PRN 10/29/22 10/29/22 Sulfate Hfa] QUEtiapine [SEROquel] 25 mg PO HS 10/29/22 10/29/22 Allergies Allergy/AdvReac Type Severity Reaction Status Date / Time codeine Allergy Unknown Rash/Hives Verified 10/29/22 20:42 Review of Systems ROS Statement: Those systems with pertinent positive or pertinent negative responses have been documented in the HPI. ROS Other: All systems not noted in ROS Statement are negative. Past Medical History Past Medical History: Blood Disorder Additional Past Medical History / Comment(s): ULCERATIVE COLITIS. ANEMIA History of Any Multi-Drug Resistant Organisms: None Reported Past Surgical History: Appendectomy, Cholecystectomy Additional Past Surgical History / Comment(s): D&C Past Anesthesia/Blood Transfusion Reactions: No Reported Reaction Past Psychological History: Anxiety, Depression Smoking Status: Current every day smoker Past Alcohol Use History: Occasional Past Drug Use History: None Reported - Past Family History Mother Additional Family Medical History / Comment(s): "she had a lot of cysts on her ovaries" Father History Unknown: Yes Family Medical History: No Reported History Additional Family Medical History / Comment(s): dad side of family has ulcerative colitis General Exam Limitations: no limitations General appearance: alert, in no apparent distress Head exam: Present: atraumatic, normocephalic, normal inspection Eye exam: Present: normal appearance Neck exam: Present: normal inspection, full ROM Respiratory exam: Present: normal lung sounds bilaterally. Absent: respiratory distress, wheezes, rales, rhonchi, stridor Cardiovascular Exam: Present: regular rate, normal rhythm, normal heart sounds. Absent: systolic murmur, diastolic murmur, rubs, gallop, clicks GI/Abdominal exam: Present: soft, tenderness. Absent: distended, guarding, rebound, rigid Neurological exam: Present: alert, oriented X3, CN II-XII intact Psychiatric exam: Present: normal affect, normal mood Skin exam: Present: warm, dry, intact, normal color. Absent: rash Course Vital Signs 10/29/22 10/29/22 16:32 20:59 Temperature 98.5 F 98.2 F Pulse Rate 67 80 Respiratory 20 17 Rate Blood Pressure 109/71 127/88 O2 Sat by Pulse 95 99 Oximetry Medical Decision Making - Medical Decision Making Was pt. sent in by a medical professional or institution (, PA, SERVICES ENGINEER, urgent care, hospital, or custodial...) When possible be specific @ -No Did you speak to anyone other than the patient for history (EMS, parent, family, police, friend...)? What history was obtained from this source @ -No Did you review nursing and triage notes (agree or disagree)? Why? @ -I reviewed and agree with nursing and triage notes Were old charts reviewed (outside hosp., previous admission, EMS record, old EKG, old radiological studies, urgent care reports/EKG's, custodial records)? Report findings @ -No old charts were reviewed Differential Diagnosis (chest pain, altered mental status, abdominal pain women, abdominal pain men, vaginal bleeding, weakness, fever, dyspnea, syncope, headache, dizziness, GI bleed, back pain, seizure, CVA, palpatations, mental health, musculoskeletal)? @ -MDM Differential Abdominal Pain Women: Appendicitis, Cholecystitis, diverticulosis, ischemic bowel, pancreatitis, hepatitis, UTI, gastroenteritis, AAA, incarcerated hernia, bowel obstruction, constipation, inflammatory bowel, hepatitis, peptic ulcer disease, splenic infarction, perforated viscus, vulvitis, ovarian torsion, PID, kidney stone, placenta abruption... This is not meant to be an all-inclusive list EKG interpreted by me (3pts min.). @ -As above X-rays interpreted by me (1pt min.). @ -None done CT interpreted by me (1pt min.). @ -CT shows a large cyst on the left ovary which is new compared to old exam. There are right-sided ovarian cyst without change. There is fatty infiltration of liver which appears new compared to old exam U/S interpreted by me (1pt. min.). @ -None done What testing was considered but not performed or refused? (CT, X-rays, U/S, labs)? Why? @ -None What meds were considered but not given or refused? Why? @ -None Did you discuss the management of the patient with other professionals (professionals i.e. , PA, SERVICES ENGINEER, lab, RT, psych nurse, social worker assistant, customer account technician, teacher, conservation officer, therapeutic case manager)? Give summary @ -No Was smoking cessation discussed for >3mins.? @ -No Was critical care preformed (if so, how long)? @ -No Were there social determinants of health that impacted care today? How? (Homelessness, low income, unemployed, alcoholism, drug addiction, transportation, low edu. Level, literacy, decrease access to med. care, senior care, rehab)? @ -No Was there de-escalation of care discussed even if they declined (Discuss DNR or withdrawal of care, Hospice)? DNR status @ -No What co-morbidities impacted this encounter? (DM, HTN, Smoking, COPD, CAD, Cancer, CVA, ARF, Chemo, Hep., AIDS, mental health diagnosis, sleep apnea, morbid obesity)? @ -None Was patient admitted / discharged? Hospital course, mention meds given and route, prescriptions, significant lab abnormalities, going to OR and other pert inent info. @ -Patient is a 32-year-old female presenting with chief complaint of abdominal pain, mainly periumbilically. She has history of ulcerative colitis. On physical examination there is diffuse tenderness, abdomen is soft and nondistended, examination is unimpressive. Lab work shows no leukocytosis. Hemoglobin 10.8, consistent with baseline. AST 383 ALT 101 alkaline phosphatase 206, these values appear to have been steadily increasing over the last year. Amylase and lipase are WNL. Urine is negative for any bleeding or infectious process and hCG is negative. CT shows ovarian cysts, as well as fatty infiltration of the liver. Patient is having no pelvic pain. Patient received Toradol, Reglan, and Zofran. Patient requested Dilaudid by name, declined at this time as patient is sitting up in bed in no acute distress. Patient is educated on labs and imaging findings. I stressed the importance of following up with her PCP regarding her elevated LFTs, stated that she must call office tomorrow for follow-up, she states that she has good follow-up with her PCP. Follow-up with PCP. Report back to ER with any new or worsening symptoms. Discussed return parameters and answered all questions. Patient conveyed verbal understanding and agreed to the plan. I discussed this case in detail with my attending Dr. Aviles Undiagnosed new problem with uncertain prognosis? @ -No Drug Therapy requiring intensive monitoring for toxicity (Heparin, Nitro, Insulin, Cardizem)? @ -No Were any procedures done? @ -No Diagnosis/symptom? @ -Transaminitis Acute, or Chronic, or Acute on Chronic? @ -Acute on chronic Uncomplicated (without systemic symptoms) or Complicated (systemic symptoms)? @ -Uncomplicated Side effects of treatment? @ -No Exacerbation, Progression, or Severe Exacerbation? @ -No Poses a threat to life or bodily function? How? (Chest pain, [place], NH, pneumonia, PE, COPD, DKA, ARF, appy, cholecystitis, CVA, Diverticulitis, Homicidal, Suicidal, threat to staff... and all critical care pts) @ -Without follow-up potentially - Lab Data Result diagrams: 10/29/22 18:07 10/29/22 18:07 Lab Results 10/29/22 10/29/22 10/29/22 Range/Units 18:07 18:07 18:07 WBC 6.2 (3.8-10.6) k/uL RBC 3.85 (3.80-5.40) m/uL Hgb 10.8 L (11.4-16.0) gm/dL Hct 33.7 L (34.0-46.0) % MCV 87.5 (80.0-100.0) fL MCH 28.1 (25.0-35.0) pg MCHC 32.1 (31.0-37.0) g/dL RDW 16.1 H (11.5-15.5) % Plt Count 264 (150-450) k/uL MPV 7.8 Neutrophils % 61 % Lymphocytes % 31 % Monocytes % 4 % Eosinophils % 3 % Basophils % 0 % Neutrophils # 3.8 (1.3-7.7) k/uL Lymphocytes # 1.9 (1.0-4.8) k/uL Monocytes # 0.3 (0-1.0) k/uL Eosinophils # 0.2 (0-0.7) k/uL Basophils # 0.0 (0-0.2) k/uL Anisocytosis Slight PT 10.7 (9.0-12.0) sec INR 1.0 (<1.2) APTT 25.2 (22.0-30.0) sec Sodium (137-145) mmol/L Potassium (3.5-5.1) mmol/L Chloride (98-107) mmol/L Carbon Dioxide (22-30) mmol/L Anion Gap mmol/L BUN (7-17) mg/dL Creatinine (0.52-1.04) mg/dL Est GFR (CKD-EPI)AfAm (>60 ml/min/1.73 sqM) Est GFR (CKD-EPI)NonAf (>60 ml/min/1.73 sqM) Glucose (74-99) mg/dL Plasma Lactic Acid Artie (0.7-2.0) mmol/L Calcium (8.4-10.2) mg/dL Total Bilirubin (0.2-1.3) mg/dL AST (14-36) U/L ALT (4-34) U/L Alkaline Phosphatase (38-126) U/L Total Protein (6.3-8.2) g/dL Albumin (3.5-5.0) g/dL Amylase (30-110) U/L Lipase (23-300) U/L Urine Color Yellow Urine Appearance Clear (Clear) Urine pH 6.0 (5.0-8.0) Ur Specific [place] 1.015 (1.001-1.035) Urine Protein Negative (Negative) Urine Glucose (UA) Negative (Negative) Urine Ketones Negative (Negative) Urine Blood Negative (Negative) Urine Nitrite Negative (Negative) Urine Bilirubin Negative (Negative) Urine Urobilinogen <2.0 (<2.0) mg/dL Ur Leukocyte Esterase Negative (Negative) Urine HCG, Qual (Not Detectd) 10/29/22 10/29/22 10/29/22 Range/Units 18:07 18:07 18:07 WBC (3.8-10.6) k/uL RBC (3.80-5.40) m/uL Hgb (11.4-16.0) gm/dL Hct (34.0-46.0) % MCV (80.0-100.0) fL MCH (25.0-35.0) pg MCHC (31.0-37.0) g/dL RDW (11.5-15.5) % Plt Count (150-450) k/uL MPV Neutrophils % % Lymphocytes % % Monocytes % % Eosinophils % % Basophils % % Neutrophils # (1.3-7.7) k/uL Lymphocytes # (1.0-4.8) k/uL Monocytes # (0-1.0) k/uL Eosinophils # (0-0.7) k/uL Basophils # (0-0.2) k/uL Anisocytosis PT (9.0-12.0) sec INR (<1.2) APTT (22.0-30.0) sec Sodium 137 (137-145) mmol/L Potassium 4.7 (3.5-5.1) mmol/L Chloride 104 (98-107) mmol/L Carbon Dioxide 25 (22-30) mmol/L Anion Gap 8 mmol/L BUN 10 (7-17) mg/dL Creatinine 0.51 L (0.52-1.04) mg/dL Est GFR (CKD-EPI)AfAm >90 (>60 ml/min/1.73 sqM) Est GFR (CKD-EPI)NonAf >90 (>60 ml/min/1.73 sqM) Glucose 83 (74-99) mg/dL Plasma Lactic Acid Artie 1.7 (0.7-2.0) mmol/L Calcium 8.3 L (8.4-10.2) mg/dL Total Bilirubin 0.6 (0.2-1.3) mg/dL AST 383 H (14-36) U/L ALT 101 H (4-34) U/L Alkaline Phosphatase 206 H (38-126) U/L Total Protein 6.5 (6.3-8.2) g/dL Albumin 3.6 (3.5-5.0) g/dL Amylase 37 (30-110) U/L Lipase 136 (23-300) U/L Urine Color Urine Appearance (Clear) Urine pH (5.0-8.0) Ur Specific [place] (1.001-1.035) Urine Protein (Negative) Urine Glucose (UA) (Negative) Urine Ketones (Negative) Urine Blood (Negative) Urine Nitrite (Negative) Urine Bilirubin (Negative) Urine Urobilinogen (<2.0) mg/dL Ur Leukocyte Esterase (Negative) Urine HCG, Qual Not Detected (Not Detectd) Disposition Clinical Impression: Abdominal pain, Transaminitis Disposition: HOME SELF-CARE Condition: Good Instructions (If sedation given, give patient instructions): Non-Alcoholic Fatty Liver Disease (ED), Abdominal Pain (ED) Additional Instructions: Follow-up with PCP, call his office tomorrow. Report back to ER with any new or worsening symptoms. Do not take Tylenol, [place], or any other medications containing acetaminophen until cleared by your PCP. Is patient prescribed a controlled substance at d/c from ED?: No Referrals: Suman Lee MD [Primary Care Provider] - 1-2 days Time of Disposition: 20:43
[2022-10-29 18:19] LABS: Anisocytosis Slight; Basophils % (A) 0 %; Eosinophils # (A) 0.2 k/uL (0-0.7); Eosinophils % (A) 3 %; HCT 33.7 % (34.0-46.0); HGB 10.8 gm/dL (11.4-16.0); Lymphocytes # (A) 1.9 k/uL (1.0-4.8); Lymphocytes % (A) 31 %; MCH 28.1 pg (25.0-35.0); MCHC 32.1 g/dL (31.0-37.0); MCV 87.5 fL (80.0-100.0); Mean Platelet Volume 7.8; Monocytes # (A) 0.3 k/uL (0-1.0); Monocytes % (A) 4 %; Neutrophils # (A) 3.8 k/uL (1.3-7.7); Neutrophils % (A) 61 %; Platelet Count 264 k/uL (150-450); RBC 3.85 m/uL (3.80-5.40); RDW 16.1 % (11.5-15.5); WBC 6.2 k/uL (3.8-10.6)
[2022-10-29 18:31] LABS: ALT 101 U/L (4-34); AST 383 U/L (14-36); African American GFR (CKD) >90 (>60 ml/min/1.73 sqM); Albumin 3.6 g/dL (3.5-5.0); Alkaline Phosphatase 206 U/L (38-126); Amylase 37 U/L (30-110); Anion Gap 8 mmol/L; Blood Urea Nitrogen 10 mg/dL (7-17); Calcium 8.3 mg/dL (8.4-10.2); Carbon Dioxide 25 mmol/L (22-30); Chloride 104 mmol/L (98-107); Glucose 83 mg/dL (74-99); Lipase 136 U/L (23-300); Non-African American GFR(CKD) >90 (>60 ml/min/1.73 sqM); Sodium 137 mmol/L (137-145); Total Bilirubin 0.6 mg/dL (0.2-1.3); Total Protein 6.5 g/dL (6.3-8.2)
[2022-10-29 18:40] LABS: Partial Thromboplastin Time 25.2 sec (22.0-30.0); Prothrombin Time 10.7 sec (9.0-12.0)
[2022-10-29 18:41] LABS: Potassium 4.7 mmol/L (3.5-5.1)
[2022-10-29 19:04] LABS: Appearance,Urine Clear (Clear); Bilirubin,Urine Negative (Negative); Blood,Urine Negative (Negative); Color,Urine Yellow; Glucose,Urine (UA) Negative (Negative); Ketones,Urine Negative (Negative); Leukocyte Esterase,Urine Negative (Negative); Nitrite,Urine Negative (Negative); Protein,Urine Negative (Negative); Specific Gravity,Urine 1.015 (1.001-1.035); Urobilinogen,Urine <2.0 mg/dL (<2.0)
--- NOTE | 2022-10-29 20:03 | CT ---
EXAMINATION TYPE: CT abdomen pelvis w con DATE OF EXAM: 10/29/2022 COMPARISON: 12/26/2020 HISTORY: periumbilical pain CT DLP: 551.5 mGycm Automated exposure control for dose reduction was used. CONTRAST: Performed with IV Contrast, patient injected with 100 mL of Isovue 300. Images obtained from the diaphragm to the floor the pelvis with the IV contrast. Lung bases are clear. No pleural effusion. Heart size is normal. No pericardial effusion. Liver and s pleen are intact. No pancreatic mass. There are clips from cholecystectomy. There is mild fatty repla cement of the liver. Stomach is intact. There is no adrenal mass. Kidneys show satisfactory contrast opacification. No hydronephrosis. Delaye d images show normal renal excretion. No retroperitoneal adenopathy. There are clips apparently from appendectomy. Bladder distends smoothly. Uterus is anteverted. There is a 3 cm cyst on the left ovary . There are 2 cysts on the right ovary that measure each 2 cm. There is no mesenteric edema. No ascites or free air. No sign of a bowel obstruction. The lumbar vert ebrae have normal alignment. Posterior elements are intact. No compression fracture. Bony pelvis is i ntact. The hip joints are intact. Sacroiliac joints are intact. IMPRESSION: There is a large cyst on the left ovary which is new compared to the old exam. There are right-sided ovarian cysts without change. There is fatty infiltration of the liver which appears new compared to old exam.
[2022-10-29] MEDS ORDERED: METOCLOPRAMIDE 5 MG/ML 2 ML VIAL IVP STA (20:40)
[2022-10-29 20:59] VITALS: BP 127/88; PULSE 80; RESP 17; TEMP 98.2
[2022-10-30 03:32] LABS: Hepatitis A Antibody IgM Nonreactive (Nonreactive); Hepatitis B Core IgM Nonreactive (Nonreactive); Hepatitis B Surface Antigen Nonreactive (Nonreactive); Hepatitis C IgG Antibody Nonreactive (Nonreactive)
== END 2022-10-29 21:00 | disposition home or self-care (01) ==
LOC: EC 15:45
DX: N83.201 Unspecified ovarian cyst, right side (principal); N83.202 Unspecified ovarian cyst, left side; F32.A Depression, unspecified; F41.9 Anxiety disorder, unspecified; F17.200 Nicotine dependence, unspecified, uncomplicated; Z88.8 Allergy status to other drugs, medicaments and biological substances
CPT/HCPCS: 36415; 80053; 80074; 82150; 83605; 83690; 85025; 85610; 85730; 81003; 81025; 74177; 99284; 96374; 96376; 96375 ×2; 96361; J2765; J2405; J1885; Q9967

== ENCOUNTER 2023-08-20 08:48 | Emergency (ER) | payer OTHER ==
[2023-08-20 08:54] VITALS: RESP 18
[2023-08-20] MEDS ORDERED: SODIUM CHLORIDE 0.9% 1,000 ML IV STA (09:22)
[2023-08-20] MEDS ORDERED: HYDROmorphone 0.5 MG/0.5 ML SYRINGE IVP STA ×2 (09:22→10:29)
[2023-08-20] MEDS ORDERED: DEXAMETHASONE SOD PHOSPHATE 10 MG/ML 1 ML VIAL IVP STA (09:22)
[2023-08-20] MEDS ORDERED: AMPICILLIN-SULBACTAM 3 GM in SODIUM CHLORIDE 0.9% 100 ML IVPB STA (09:22)
--- NOTE | 2023-08-20 09:22 | ED ---
General Adult HPI - General Chief complaint: Recheck/Abnormal Lab/Rx Stated complaint: Facial Swelling Time Seen by Provider: 08/20/23 08:56 Source: patient, RN notes reviewed, old records reviewed Mode of arrival: ambulatory Limitations: no limitations - History of Present Illness Initial comments: She is a 33-year-old female presents emergency Department complaining of right- sided facial pain. Has a history of poor dentition and was diagnosed with a possible until infection yesterday in urgent care. Symptoms have been present on and off for the last week. That is worsening right-sided facial swelling today. States she has had a few days of some pain with movement of the right eye, pain over the right side of her face in general. Denies any ear drainage or plugging. Denies any sore throat. Denies any difficulty in swallowing or difficulty in breathing. Swelling seems isolated to the right cheek, surrounding the right eye. Denies any blurry vision. Has a dentist appointment scheduled for early next week but per instruction of urgent care if swelling Got Worse She Should Present to the Emergency Department for Evaluation. She has taken one dose of her antibiotic that was prescribed, clindamycin. She has not taken any of the steroid that was prescribed. She is a history of ulcerative colitis but is not on any immunosuppressive medications. Also history of anemia. Presents for further evaluation. - Related Data Home Medications Medication Instructions Recorded Confirmed Albuterol Sulfate [Albuterol 2 puff PO RT-Q4H PRN 10/29/22 10/29/22 Sulfate Hfa] QUEtiapine [SEROquel] 25 mg PO HS 10/29/22 10/29/22 Previous Rx's Medication Instructions Recorded Amoxic-Pot Clav 875-125Mg 1 tab PO Q12HR 7 Days #14 tab 08/20/23 [Augmentin 875-125] Allergies Allergy/AdvReac Type Severity Reaction Status Date / Time codeine Allergy Unknown Rash/Hives Verified 08/20/23 08:53 Review of Systems ROS Statement: Those systems with pertinent positive or pertinent negative responses have been documented in the HPI. Review of Systems: CONST: Denies fever EYES: Denies blurry vision ENT: Endorses right-sided facial swelling, pain. Also endorses right upper tooth pain. C/V: Denies Chest pain RESP: Denies shortness of breath GI: Denies abdominal pain : Denies dysuria SKIN: Denies rash. MSK: Denies joint pain. NEURO: Denies headache ROS Other: All systems not noted in ROS Statement are negative. Past Medical History Past Medical History: Blood Disorder Additional Past Medical History / Comment(s): ULCERATIVE COLITIS. ANEMIA History of Any Multi-Drug Resistant Organisms: None Reported Past Surgical History: Appendectomy, Cholecystectomy Additional Past Surgical History / Comment(s): D&C Past Anesthesia/Blood Transfusion Reactions: No Reported Reaction Past Psychological History: Anxiety, Depression Smoking Status: Current every day smoker Past Alcohol Use History: Occasional Past Drug Use History: None Reported - Past Family History Mother Additional Family Medical History / Comment(s): "she had a lot of cysts on her ovaries" Father History Unknown: Yes Family Medical History: No Reported History Additional Family Medical History / Comment(s): dad side of family has ulcerative colitis General Exam - General Exam Comments Initial Comments: General: Appears in mild distress. HEAD: Normal with no signs of head trauma. EYES: PERRLA, EOMI, conjunctiva normal, no discharge. Pupils are 3 mm equal bilaterally. ENT: Hearing grossly intact, normal oropharynx. Right-sided periorbital edema with edema of the right cheek. Patient also has tetanus palpation of the right upper teeth with multiple dental caries. No obvious abscess appreciated. Posterior oropharynx within acceptable limits without any obvious edema. Uvula is midline. No floor the mouth swelling or tongue edema. No stridor auscultated. No evidence of Conrad angina at this time. RESPIRATORY: Clear breath sounds bilaterally. No wheezes, rales, or rhonchi. C/V: Regular rate and rhythm. S1 and S2 auscultated, peripheral pulses 2+ and intact throughout ABD: Abd is soft, nontender, nondistended EXT: Normal range of motion, no obvious deformity SKIN: No rashes or lesions observed on exposed skin. NEURO: Alert and oriented x 4. Cranial nerves II-XII intact. No focal sensory or strength deficits. Ambulates without issue. Limitations: no limitations Course Vital Signs 08/20/23 08/20/23 08/20/23 08:50 10:25 11:42 Temperature 98.4 F 97.7 F 98 F Pulse Rate 78 97 90 Respiratory 18 18 18 Rate Blood Pressure 110/65 117/77 115/84 O2 Sat by Pulse 99 100 100 Oximetry Medical Decision Making - Medical Decision Making Was pt. sent in by a medical professional or institution (, ANNA, SENIOR DIRECTOR, urgent care, hospital, or [facility]...) When possible be specific @ -No Did you speak to anyone other than the patient for history (EMS, parent, family, police, friend...)? What history was obtained from this source @ -No Did you review nursing and triage notes (agree or disagree)? Why? @ -I reviewed and agree with nursing and triage notes Were old charts reviewed (outside hosp., previous admission, EMS record, old EKG, old radiological studies, urgent care reports/EKG's, [facility] records)? Report findings @ -No old charts were reviewed Differential Diagnosis (chest pain, altered mental status, abdominal pain women, abdominal pain men, vaginal bleeding, weakness, fever, dyspnea, syncope, headache, dizziness, GI bleed, back pain, seizure, CVA, palpatations, mental health, musculoskeletal)? @ -Conrad angina, dental caries, dental infection, preseptal cellulitis, septal cellulitis. This list is not all inclusive. EKG interpreted by me (3pts min.). @ -None done X-rays interpreted by me (1pt min.). @ -None done CT interpreted by me (1pt min.). @ -CT brain and facial bones remarkable for no acute intracranial process. Patient does have periorbital cellulitis. U/S interpreted by me (1pt. min.). @ -None done What testing was considered but not performed or refused? (CT, X-rays, U/S, labs)? Why? @ -None What meds were considered but not given or refused? Why? @ -None Did you discuss the management of the patient with other professionals (professionals i.e. ANNA [place], SENIOR DIRECTOR, lab, RT, psych nurse, social worker health services, photography coordinator, teacher, railway patrol officer, estate manager)? Give summary @ -No Was smoking cessation discussed for >3mins.? @ -No Was critical care preformed (if so, how long)? @ -No Were there social determinants of health that impacted care today? How? (Homelessness, low income, unemployed, alcoholism, drug addiction, transportation, low edu. Level, literacy, decrease access to med. care, intermediate, rehab)? @ -No Was there de-escalation of care discussed even if they declined (Discuss DNR or withdrawal of care, Hospice)? DNR status @ -No What co-morbidities impacted this encounter? (DM, HTN, Smoking, COPD, CAD, Cancer, CVA, ARF, Chemo, Hep., AIDS, mental health diagnosis, sleep apnea, morbid obesity)? @ -None Was patient admitted / discharged? Hospital course, mention meds given and route, prescriptions, significant lab abnormalities, going to OR and other pertinent info. @ -Based on the patient's presentation and physical exam, presents for right- sided facial edema and pain. Has pain with movement of the right eye. Is requesting CT imaging of the brain is urgent care made her nervous infection may have spread. Has no neurological complaints but did recommend imaging of the facial bones and we will include CT of the brain at this time as well. She was in agreement this plan. She'll be empirically given a dose of IV Unasyn, steroids, fluids. Basic labs will be obtained. Patient was in agreement with this plan. Vital signs within acceptable limits. CT imaging reveals periorbital cellulitis. No acute intracranial process. Vital signs are within acceptable limits except for mild hypomagnesemia which will be replaced. I discussed results of the patient. She'll be discharged home at this time. She'll be discharged home with additional antibiotic Augmentin. Patient was in agreement this plan. She'll complete her course of steroids, antibiotics and follow-up with dentistry. I will provide the patient with a prescription for Augmentin, start pack Tylenol 3. I instructed the patient to follow up with their PCP in the next 1-3 days . I explained that the patient should return to the emergency department if they experience any worsening symptoms. Strict return precautions were discussed with the patient. The patient expressed understanding of these instructions. I answered all questions that the patient had. The patient was discharged home in good condition with their prescriptions and follow up information.. Undiagnosed new problem with uncertain prognosis? @ -No Drug Therapy requiring intensive monitoring for toxicity (Heparin, Nitro, Insulin, Cardizem)? @ -No Were any procedures done? @ -No Diagnosis/symptom? @ -Periorbital cellulitis, dental caries Acute, or Chronic, or Acute on Chronic? @ -Acute Uncomplicated (without systemic symptoms) or Complicated (systemic symptoms)? @ -Dictated Side effects of treatment? @ -none Exacerbation, Progression, or Severe Exacerbation] @ -no Poses a threat to life or bodily function? @ -Unlikely - Lab Data Result diagrams: 08/20/23 09:27 08/20/23 09:27 Lab Results 08/20/23 08/20/23 Range/Units 09: 09:27 WBC 10.4 (3.8-10.6) k/uL RBC 3.61 L (3.80-5.40) m/uL Hgb 10.0 L (11.4-16.0) gm/dL Hct 31.3 L (34.0-46.0) % MCV 86.6 (80.0-100.0) fL MCH 27.6 (25.0-35.0) pg MCHC 31.9 (31.0-37.0) g/dL RDW 17.3 H (11.5-15.5) % Plt Count 333 (150-450) k/uL MPV 7.9 Neutrophils % 93 % Lymphocytes % 5 % Monocytes % 1 % Eosinophils % 1 % Basophils % 0 % Neutrophils # 9.6 H (1.3-7.7) k/uL Lymphocytes # 0.5 L (1.0-4.8) k/uL Monocytes # 0.1 (0-1.0) k/uL Eosinophils # 0.1 (0-0.7) k/uL Basophils # 0.0 (0-0.2) k/uL Hypochromasia Moderate Anisocytosis Slight Sodium 144 (137-145) mmol/L Potassium 4.1 (3.5-5.1) mmol/L Chloride 112 H (98-107) mmol/L Carbon Dioxide 22 (22-30) mmol/L Anion Gap 10 mmol/L BUN 7 (7-17) mg/dL Creatinine 0.67 (0.52-1.04) mg/dL Est GFR (CKD-EPI)AfAm >90 (>60 ml/min/1.73 sqM) Est GFR (CKD-EPI)NonAf >90 (>60 ml/min/1.73 sqM) Glucose 119 H (74-99) mg/dL Calcium 8.7 (8.4-10.2) mg/dL Magnesium 1.2 L (1.6-2.3) mg/dL Total Bilirubin 0.4 (0.2-1.3) mg/dL AST 211 H (14-36) U/L ALT 73 H (4-34) U/L Alkaline Phosphatase 189 H (38-126) U/L Total Protein 7.0 (6.3-8.2) g/dL Albumin 3.9 (3.5-5.0) g/dL Disposition Clinical Impression: Dental caries, Preseptal cellulitis Disposition: HOME SELF-CARE Condition: Good Instructions (If sedation given, give patient instructions): Periorbital Cellulitis in Adults (ED) Prescriptions: Amoxic-Pot Clav 875-125Mg [Augmentin 875-125] 1 tab PO Q12HR 7 Days #14 tab Is patient prescribed a controlled substance at d/c from ED?: No Referrals: Nakia Love DO [Primary Care Provider] - 1-2 days Ramu Blackburn DO [Doctor of Osteopathic Medicine] - 1-2 days Time of Disposition: 10:32
[2023-08-20 09:51] LABS: Anisocytosis Slight; Basophils % (A) 0 %; Eosinophils # (A) 0.1 k/uL (0-0.7); Eosinophils % (A) 1 %; HCT 31.3 % (34.0-46.0); Hypochromasia Moderate; Lymphocytes # (A) 0.5 k/uL (1.0-4.8); Lymphocytes % (A) 5 %; MCH 27.6 pg (25.0-35.0); MCHC 31.9 g/dL (31.0-37.0); MCV 86.6 fL (80.0-100.0); Mean Platelet Volume 7.9; Monocytes # (A) 0.1 k/uL (0-1.0); Monocytes % (A) 1 %; Neutrophils # (A) 9.6 k/uL (1.3-7.7); Neutrophils % (A) 93 %; Platelet Count 333 k/uL (150-450); RBC 3.61 m/uL (3.80-5.40); RDW 17.3 % (11.5-15.5); WBC 10.4 k/uL (3.8-10.6)
[2023-08-20 10:03] LABS: ALT 73 U/L (4-34); AST 211 U/L (14-36); African American GFR (CKD) >90 (>60 ml/min/1.73 sqM); Albumin 3.9 g/dL (3.5-5.0); Alkaline Phosphatase 189 U/L (38-126); Anion Gap 10 mmol/L; Blood Urea Nitrogen 7 mg/dL (7-17); Calcium 8.7 mg/dL (8.4-10.2); Carbon Dioxide 22 mmol/L (22-30); Chloride 112 mmol/L (98-107); Glucose 119 mg/dL (74-99); Magnesium 1.2 mg/dL (1.6-2.3); Non-African American GFR(CKD) >90 (>60 ml/min/1.73 sqM); Potassium 4.1 mmol/L (3.5-5.1); Sodium 144 mmol/L (137-145); Total Bilirubin 0.4 mg/dL (0.2-1.3)
--- NOTE | 2023-08-20 10:08 | CT ---
EXAMINATION TYPE: CT brain wo con, CT facial bones wo con DATE OF EXAM: 08/20/2023 COMPARISON: Prior CT brain March 10, 2017 HISTORY: PT C/O right side facial swelling x1week. Evaluate for orbital cellulitis. CT DLP: 1285.4 mGycm. Automated Exposure Control for Dose Reduction was Utilized. TECHNIQUE: CT scan of the head and facial bones are performed without contrast. FINDINGS: There is no acute intracranial hemorrhage, mass effect, or midline shift identified. The ventricles and sulci are within normal limits in size. Martinez-white matter differentiation is maintai dewayne. The calvarium is intact. Orbital floors and painter are intact. There is asymmetric moderate to severe anterior right preseptal swelling. Globes are intact bilaterally. Intraconal fat is preserved bilaterally. Zygomatic arches ar e intact. Nasal bones are intact. No acute displaced facial bone fracture. Eccentric mild to moderate mucosal thickening left maxillary sinus. Remainder the paranasal sinuses are clear. Lack of dentitio n central maxilla is seen. There are multiple cavitary fillings identified bilaterally. IMPRESSION: Asymmetric moderate to severe right-sided preseptal soft tissue swelling anteriorly. No r ight-sided postseptal inflammatory change identified. No acute intracranial hemorrhage or midline jeff ft.
[2023-08-20] MEDS ORDERED: MAGNESIUM SULFATE-D5W PMX 1 GM in DEXTROSE/WATER 1 100ML.BAG IVPB ONE (10:19)
[2023-08-20] MEDS ORDERED: ACET/COD 300 MG/30 MG STARTER PACK 6 TAB BTL PO STA (11:37)
[2023-08-20 11:50] VITALS: BP 115/84; PULSE 90; TEMP 98
== END 2023-08-20 11:43 | disposition home or self-care (01) ==
LOC: EC 08:48
DX: K02.9 Dental caries, unspecified (principal); L03.213 Periorbital cellulitis; F17.200 Nicotine dependence, unspecified, uncomplicated; Z86.59 Personal history of other mental and behavioral disorders; Z90.49 Acquired absence of other specified parts of digestive tract
CPT/HCPCS: 99284; 96375 ×2; 96376; 96365; 96367; 36415; 80053; 83735; 85025; 87040; 70486; 70450; J1100; J3475; J0295; J1170

== ENCOUNTER 2023-11-18 07:46 | Emergency (ER) | payer OTHER ==
[2023-11-18 08:22] VITALS: RESP 18
[2023-11-18] MEDS: SODIUM CHLORIDE 0.9% 2,000 ML IV STA (08:53)
[2023-11-18] MEDS: methylPREDNISolone SOD SUCCI 125 MG/2 ML VIAL IV STA (08:58)
[2023-11-18] MEDS: droPERidol 5 MG/2 ML VIAL IVP ONE (08:59)
[2023-11-18 09:07] LABS: Anisocytosis Slight; Basophils % (A) 0 %; Eosinophils # (A) 0.2 k/uL (0-0.7); Eosinophils % (A) 2 %; HCT 38.1 % (34.0-46.0); Hypochromasia Slight; Lymphocytes # (A) 1.9 k/uL (1.0-4.8); Lymphocytes % (A) 19 %; MCHC 31.4 g/dL (31.0-37.0); MCV 92.4 fL (80.0-100.0); Mean Platelet Volume 7.4; Monocytes # (A) 0.5 k/uL (0-1.0); Monocytes % (A) 5 %; Neutrophils # (A) 7.1 k/uL (1.3-7.7); Neutrophils % (A) 73 %; Platelet Count 356 k/uL (150-450); RBC 4.13 m/uL (3.80-5.40); WBC 9.7 k/uL (3.8-10.6)
[2023-11-18 09:16] LABS: ALT 114 U/L (4-34); African American GFR (CKD) >90 (>60 ml/min/1.73 sqM); Albumin 4.2 g/dL (3.5-5.0); Anion Gap 8 mmol/L; Blood Urea Nitrogen 10 mg/dL (7-17); Calcium 9.4 mg/dL (8.4-10.2); Carbon Dioxide 27 mmol/L (22-30); Chloride 107 mmol/L (98-107); Glucose 97 mg/dL (74-99); Lipase 141 U/L (23-300); Non-African American GFR(CKD) >90 (>60 ml/min/1.73 sqM); Sodium 142 mmol/L (137-145); Total Bilirubin 0.5 mg/dL (0.2-1.3); Total Protein 7.4 g/dL (6.3-8.2)
[2023-11-18 09:20] LABS: Potassium 3.9 mmol/L (3.5-5.1)
[2023-11-18 09:21] LABS: AST 263 U/L (14-36); Alkaline Phosphatase 153 U/L (38-126)
--- NOTE | 2023-11-18 09:51 | ED ---
General Adult HPI - General Chief complaint: Nausea/Vomiting/Diarrhea Stated complaint: fever,abd pain Time Seen by Provider: 11/18/23 08:03 Source: patient, RN notes reviewed Mode of arrival: ambulatory Limitations: no limitations - History of Present Illness Initial comments: 33-year-old female presents emergency department complaint abdominal pain, di arrhea. Patient has a history of ulcerative colitis she is not on no current medications treatment of her also colitis she states she sees Dr. Calvert last colonoscopy 2 years ago denies any rectal bleeding she states she started having diarrhea abdominals comfort 4 to 5 days ago was seen urgent care states she was given steroids antiemetics and antibiotics. He has no dysuria no significant vomiting no fever. Patient cannot localize abdominal pain states is diffuse no chest pain no flank pain - Related Data Home Medications Medication Instructions Recorded Confirmed Azithromycin [Zithromax] See Taper PO DIRECTED 11/18/23 11/18/23 Cyanocobalamin (Vitamin B-12) 1,000 mcg PO DAILY 11/18/23 11/18/23 [Vitamin B-12] Ferrous Sulfate [Feosol] 325 mg PO DAILY 11/18/23 11/18/23 Multivit with Calcium,Iron,Min 1 tab PO DAILY 11/18/23 11/18/23 [Women's Multivitamin] Ondansetron Odt [Zofran Odt] 4 mg PO Q8HR PRN 11/18/23 11/18/23 methylPREDNISolone Dose Pack See Taper PO DIRECTED 11/18/23 11/18/23 [Medrol Dose Pack] Allergies Allergy/AdvReac Type Severity Reaction Status Date / Time codeine Allergy Unknown Rash/Hives Verified 11/18/23 09:17 Review of Systems ROS Statement: Those systems with pertinent positive or pertinent negative responses have been documented in the HPI. ROS Other: All systems not noted in ROS Statement are negative. Past Medical History Past Medical History: Blood Disorder Additional Past Medical History / Comment(s): ULCERATIVE COLITIS. ANEMIA History of Any Multi-Drug Resistant Organisms: None Reported Past Surgical History: Appendectomy, Cholecystectomy Additional Past Surgical History / Comment(s): D&C Past Anesthesia/Blood Transfusion Reactions: No Reported Reaction Past Psychological History: Anxiety, Depression Smoking Status: Current every day smoker Past Alcohol Use History: Occasional Past Drug Use History: None Reported - Past Family History Mother Additional Family Medical History / Comment(s): "she had a lot of cysts on her ovaries" Father History Unknown: Yes Family Medical History: No Reported History Additional Family Medical History / Comment(s): dad side of family has ulcerative colitis General Exam Limitations: no limitations General appearance: alert, in no apparent distress Head exam: Present: atraumatic, normocephalic, normal inspection Neck exam: Present: normal inspection, full ROM. Absent: tenderness, meningismus, lymphadenopathy Respiratory exam: Present: normal lung sounds bilaterally. Absent: respiratory distress, wheezes, rales, rhonchi, stridor Cardiovascular Exam: Present: normal rhythm, tachycardia, normal heart sounds. Absent: systolic murmur, diastolic murmur, rubs, gallop, clicks GI/Abdominal exam: Present: soft, tenderness, normal bowel sounds. Absent: distended, guarding, rebound, rigid Neurological exam: Present: alert, oriented X3, CN II-XII intact Skin exam: Present: warm, dry, intact, normal color. Absent: rash Course Vital Signs 11/18/23 11/18/23 07:49 11:22 Temperature 98.2 F 98 F Pulse Rate 114 H 97 Respiratory 18 18 Rate Blood Pressure 119/84 126/88 O2 Sat by Pulse 100 99 Oximetry Medical Decision Making - Medical Decision Making Was pt. sent in by a medical professional or institution (ANNA [place], LABOR SERVICE REPRESENTATIVE, urgent care, hospital, or retirement...) When possible be specific @ -No Did you speak to anyone other than the patient for history (EMS, parent, family, police, friend...)? What history was obtained from this source @ -No Did you review nursing and triage notes (agree or disagree)? Why? @ -I reviewed and agree with nursing and triage notes Were old charts reviewed (outside hosp., previous admission, EMS record, old EKG, old radiological studies, urgent care reports/EKG's, retirement records)? Report findings @ -Reviewed prior CBC, comp and CT Differential Diagnosis (chest pain, altered mental status, abdominal pain women, abdominal pain men, vaginal bleeding, weakness, fever, dyspnea, syncope, headache, dizziness, GI bleed, back pain, seizure, CVA, palpatations, mental health, musculoskeletal)? @ -Differential Abdominal Pain Women: Appendicitis, Cholecystitis, diverticulosis, ischemic bowel, pancreatitis, hepatitis, UTI, gastroenteritis, AAA, incarcerated hernia, bowel obstruction, constipation, inflammatory bowel, hepatitis, peptic ulcer disease, splenic infarction, perforated viscus, vulvitis, ovarian torsion, PID, kidney stone, placenta abruption, this is not meant to be an all-inclusive list EKG interpreted by me (3pts min.). @ -None X-rays interpreted by me (1pt min.). @ -None done CT interpreted by me (1pt min.). @ -None done U/S interpreted by me (1pt. min.). @ -None done What testing was considered but not performed or refused? (CT, X-rays, U/S, labs)? Why? @ -None What meds were considered but not given or refused? Why? @ -None Did you discuss the management of the patient with other professionals (abbi lujan i.e. , PA, LABOR SERVICE REPRESENTATIVE, lab, RT, psych nurse, pediatric social worker, cemetery keeper, teacher, toxics program officer, case filler)? Give summary @ -No Was smoking cessation discussed for >3mins.? @ -No Was critical care preformed (if so, how long)? @ -No Were there social determinants of health that impacted care today? How? (Homelessness, low income, unemployed, alcoholism, drug addiction, transportation, low edu. Level, literacy, decrease access to med. care, intermediate, rehab)? @ -No Was there de-escalation of care discussed even if they declined (Discuss DNR or withdrawal of care, Hospice)? DNR status @ -No What co-morbidities impacted this encounter? (DM, HTN, Smoking, COPD, CAD, Cancer, CVA, ARF, Chemo, Hep., AIDS, mental health diagnosis, sleep apnea, morbid obesity)? @ -Ulcerative colitis Was patient admitted / discharged? Hospital course, mention meds given and route, prescriptions, significant lab abnormalities, going to OR and other pertinent info. @ -Discharge patient is great improved after antiemetics, analgesics and IV fluids. Patient is discharged in stable condition with follow-up with GI. Undiagnosed new problem with uncertain prognosis? @ -No Drug Therapy requiring intensive monitoring for toxicity (Heparin, Nitro, Insulin, Cardizem)? @ -No Were any procedures done? @ -No Diagnosis/symptom? @ -Abdominal pain, ulcerative colitis Acute, or Chronic, or Acute on Chronic? @ -Acute Uncomplicated (without systemic symptoms) or Complicated (systemic symptoms)? @ -Uncomplicated Side effects of treatment? @ -No Exacerbation, Progression, or Severe Exacerbation? @ -No Poses a threat to life or bodily function? How? (Chest pain, [place], [place], pneumonia, PE, COPD, DKA, ARF, appy, cholecystitis, CVA, Diverticulitis, Homicidal, Suicidal, threat to staff... and all critical care pts) @ -No - Lab Data Result diagrams: 11/18/23 08:53 11/18/23 08:53 Lab Results 11/18/23 11/18/23 11/18/23 Range/Units 08:53 08:53 08:53 WBC 9.7 (3.8-10.6) k/uL RBC 4.13 (3.80-5.40) m/uL Hgb 12.0 (11.4-16.0) gm/dL Hct 38.1 (34.0-46.0) % MCV 92.4 (80.0-100.0) fL MCH 29.0 (25.0-35.0) pg MCHC 31.4 (31.0-37.0) g/dL RDW 16.0 H (11.5-15.5) % Plt Count 356 (150-450) k/uL MPV 7.4 Neutrophils % 73 % Lymphocytes % 19 % Monocytes % 5 % Eosinophils % 2 % Basophils % 0 % Neutrophils # 7.1 (1.3-7.7) k/uL Lymphocytes # 1.9 (1.0-4.8) k/uL Monocytes # 0.5 (0-1.0) k/uL Eosinophils # 0.2 (0-0.7) k/uL Basophils # 0.0 (0-0.2) k/uL Hypochromasia Slight Anisocytosis Slight Sodium 142 (137-145) mmol/L Potassium 3.9 (3.5-5.1) mmol/L Chloride 107 (98-107) mmol/L Carbon Dioxide 27 (22-30) mmol/L Anion Gap 8 mmol/L BUN 10 (7-17) mg/dL Creatinine 0.51 L (0.52-1.04) mg/dL Est GFR (CKD-EPI)AfAm >90 (>60 ml/min/1.73 sqM) Est GFR (CKD-EPI)NonAf >90 (>60 ml/min/1.73 sqM) Glucose 97 (74-99) mg/dL Plasma Lactic Acid Artie 1.3 (0.7-2.0) mmol/L Calcium 9.4 (8.4-10.2) mg/dL Total Bilirubin 0.5 (0.2-1.3) mg/dL AST 263 H (14-36) U/L ALT 114 H (4-34) U/L Alkaline Phosphatase 153 H (38-126) U/L C-Reactive Protein <0.5 (<1.0) mg/dL Total Protein 7.4 (6.3-8.2) g/dL Albumin 4.2 (3.5-5.0) g/dL Lipase 141 (23-300) U/L Serum Alcohol mg/dL 11/18/23 Range/Units 08:56 WBC (3.8-10.6) k/uL RBC (3.80-5.40) m/uL Hgb (11.4-16.0) gm/dL Hct (34.0-46.0) % MCV (80.0-100.0) fL MCH (25.0-35.0) pg MCHC (31.0-37.0) g/dL RDW (11.5-15.5) % Plt Count (150-450) k/uL MPV Neutrophils % % Lymphocytes % % Monocytes % % Eosinophils % % Basophils % % Neutrophils # (1.3-7.7) k/uL Lymphocytes # (1.0-4.8) k/uL Monocytes # (0-1.0) k/uL Eosinophils # (0-0.7) k/uL Basophils # (0-0.2) k/uL Hypochromasia Anisocytosis Sodium (137-145) mmol/L Potassium (3.5-5.1) mmol/L Chloride (98-107) mmol/L Carbon Dioxide (22-30) mmol/L Anion Gap mmol/L BUN (7-17) mg/dL Creatinine (0.52-1.04) mg/dL Est GFR (CKD-EPI)AfAm (>60 ml/min/1.73 sqM) Est GFR (CKD-EPI)NonAf (>60 ml/min/1.73 sqM) Glucose (74-99) mg/dL Plasma Lactic Acid Artie (0.7-2.0) mmol/L Calcium (8.4-10.2) mg/dL Total Bilirubin (0.2-1.3) mg/dL AST (14-36) U/L ALT (4-34) U/L Alkaline Phosphatase (38-126) U/L C-Reactive Protein (<1.0) mg/dL Total Protein (6.3-8.2) g/dL Albumin (3.5-5.0) g/dL Lipase (23-300) U/L Serum Alcohol 187 mg/dL Disposition Clinical Impression: Ulcerative colitis, Diarrhea Disposition: HOME SELF-CARE Condition: Undetermined Additional Instructions: Please return to the Emergency Department if symptoms worsen or any other concerns. Is patient prescribed a controlled substance at d/c from ED?: No Referrals: Nakia Love DO [Primary Care Provider] - 1-2 days Time of Disposition: 11:04
[2023-11-18 11:02] LABS: C Reactive Protein <0.5 mg/dL (<1.0)
[2023-11-18 11:59] VITALS: BP 126/88; PULSE 97; TEMP 98
== END 2023-11-18 11:23 | disposition home or self-care (01) ==
LOC: EC 07:46
DX: K51.90 Ulcerative colitis, unspecified, without complications (principal); F17.200 Nicotine dependence, unspecified, uncomplicated; Z88.5 Allergy status to narcotic agent; Z90.49 Acquired absence of other specified parts of digestive tract
CPT/HCPCS: 36415; 80053; 83605; 83690; 85025; 86140; 99284; 96374; 96375; 96361 ×2; G0480; J1790; J2919; 80320

== ENCOUNTER 2024-04-14 17:41 | Emergency (ER) | payer OTHER ==
--- NOTE | 2024-04-14 17:55 | ED ---
Abdominal Pain HPI - General Source: patient, RN notes reviewed Mode of arrival: ambulatory Limitations: no limitations <Michelle Smart - Last Filed: 04/14/24 17:54> <Masood Mathur - Last Filed: 04/15/24 00:14> - General Stated Complaint: Abdominal Pain Time Seen by Provider: 04/14/24 17:54 - History of Present Illness Initial Comments: Quick note: 33-year-old female presented the ER with a chief complaint of abdominal pain. She reports for the past 3 weeks she has been feeling a bilateral abdominal pain with centralization around her umbilicus. She reports she is having dry heaves and vomiting as well. She states she has been running fevers and feeling fatigued. She does report radiation of the pain to her middle back. Endorsing associated diarrhea. History of an appendectomy and ulcerative colitis. (Michelle Smart) Dictation was produced using [employer] dictation software. please excuse any grammatical, word or spelling errors. Chief Complaint: 33-year-old female with couple weeks of abdominal pain History of Present Illness: Patient 33-year-old female with worsening abdominal pain. Patient reports history of ulcerative colitis for the last couple weeks has been having periumbilical abdominal pain. States it is starting to get worse and radiating to her bilateral flanks. She states that she has been having fever and chills. She states that she is also has a cough. Patient also complains of productive cough with posttussive emesis. Patient denies any drug use. She states she drinks occasionally. She did see her primary care doctor recently had some blood work however does not know the results of that yet. The ROS documented in this emergency department record has been reviewed and confirmed by me. Those systems with pertinent positive or negative responses have been documented in the HPI. All other systems are other negative and/or noncontributory. (Masood Mathur) - Related Data Home Medications Medication Instructions Recorded Confirmed Azithromycin [Zithromax] See Taper PO DIRECTED 11/18/23 11/18/23 Cyanocobalamin (Vitamin B-12) 1,000 mcg PO DAILY 11/18/23 11/18/23 [Vitamin B-12] Ferrous Sulfate [Feosol] 325 mg PO DAILY 11/18/23 11/18/23 Multivit with Calcium,Iron,Min 1 tab PO DAILY 11/18/23 11/18/23 [Women's Multivitamin] Ondansetron Odt [Zofran Odt] 4 mg PO Q8HR PRN 11/18/23 11/18/23 methylPREDNISolone Dose Pack See Taper PO DIRECTED 11/18/23 11/18/23 [Medrol Dose Pack] Allergies Allergy/AdvReac Type Severity Reaction Status Date / Time codeine Allergy Unknown Rash/Hives Verified 11/18/23 09:17 Review of Systems ROS Other: All systems not noted in ROS Statement are negative. <Michelle Smart - Last Filed: 04/14/24 17:54> ROS Other: All systems not noted in ROS Statement are negative. <Masood Mathur - Last Filed: 04/15/24 00:14> ROS Statement: Those systems with pertinent positive or pertinent negative responses have been documented in the HPI. Past Medical History Past Medical History: Blood Disorder Additional Past Medical History / Comment(s): ULCERATIVE COLITIS. ANEMIA History of Any Multi-Drug Resistant Organisms: None Reported Past Surgical History: Appendectomy, Cholecystectomy Additional Past Surgical History / Comment(s): D&C Past Anesthesia/Blood Transfusion Reactions: No Reported Reaction Past Psychological History: Anxiety, Depression Smoking Status: Current every day smoker Past Alcohol Use History: Occasional Past Drug Use History: None Reported - Past Family History Mother Additional Family Medical History / Comment(s): "she had a lot of cysts on her ovaries" Father History Unknown: Yes Family Medical History: No Reported History Additional Family Medical History / Comment(s): dad side of family has ulcerative colitis <Michelle Smart - Last Filed: 04/14/24 17:54> General Exam <Michelle Smart - Last Filed: 04/14/24 17:54> <Masood Mathur - Last Filed: 04/15/24 00:14> - General Exam Comments Initial Comments: Visual Physical Exam Vital signs reviewed General: Well-appearing, nontoxic, no acute distress. Head: Normocephalic, atraumatic Eyes: PERRLA, EOMI ENT: Airway patent Chest: Nonlabored breathing Skin: No visual rash, normal skin tone Neuro: Alert and oriented 3 Musculoskeletal: No gross abnormalities (Michelle Smart) PHYSICAL EXAM: General Impression: Alert and oriented x3, not in acute distress, poor dentition HEENT: Normocephalic atraumatic, extra-ocular movements intact, pupils equal and reactive to light bilaterally, mucous membranes moist. Cardiovascular: Heart regular rate and rhythm Chest: Able to complete full sentences, no retractions, no tachypnea Abdomen: abdomen soft, diffuse abdominal tenderness, non-distended, no organomegaly Musculoskeletal: Pulses present and equal in all extremities, no peripheral edema Motor: no focal deficits noted Neurological: CN II-XII grossly intact, no focal motor or sensory deficits noted Skin: Intact with no visualized rashes Psych: Normal affect and mood (Masood Mathur) Course Vital Signs 04/14/24 04/14/24 17:55 23:51 Temperature 97.8 F 97.2 F L Pulse Rate 111 H 86 Respiratory 18 16 Rate Blood Pressure 122/80 109/81 O2 Sat by Pulse 98 98 Oximetry Medical Decision Making <Michelle Smart - Last Filed: 04/14/24 17:54> - Lab Data Result diagrams: 04/14/24 18:14 04/14/24 18:14 <Masood Mathur - Last Filed: 04/15/24 00:14> - Medical Decision Making I performed the quick note portion of this chart. Electronically signed by Michelle Smart PA-C (Michelle Smart) Was pt. sent in by a medical professional or institution ([facility] [place], SERVICER, urgent care, hospital, or custodial...) When possible be specific @ -No Did you speak to anyone other than the patient for history (EMS, parent, family, police, friend...)? What history was obtained from this source @ -No Did you review nursing and triage notes (agree or disagree)? Why? @ -I reviewed and agree with nursing and triage notes Were old charts reviewed (outside hosp., previous admission, EMS record, old EKG, old radiological studies, urgent care reports/EKG's, custodial records)? Report findings @ -Previous CT was reviewed showing that patient had at that time no acute intra-abdominal processes Differential Diagnosis (chest pain, altered mental status, abdominal pain women, abdominal pain men, vaginal bleeding, musculoskeletal, weakness, fever, dyspnea, syncope, headache, dizziness, GI bleed, back pain, seizure, CVA, palpatations, mental health)? @ -Differential Abdominal Pain Women: Appendicitis, Cholecystitis, diverticulosis, ischemic bowel, pancreatitis, hepatitis, UTI, gastroenteritis, AAA, incarcerated hernia, bowel obstruction, constipation, inflammatory bowel, hepatitis, peptic ulcer disease, splenic infarction, perforated viscus, vulvitis, ovarian torsion, PID, kidney stone, placenta abruption, this is not meant to be an all-inclusive list EKG interpreted by me (3pts min.). @ -None done X-rays interpreted by me (1pt min.). @ -None done CT interpreted by me (1pt min.). @ -CT shows no acute processes U/S interpreted by me (1pt. min.). @ -None done What testing was considered but not performed or refused? (CT, X-rays, U/S, labs)? Why? @ -None What meds were considered but not given or refused? Why? @ -None Was smoking cessation discussed for >3mins.? @ -No Were there social determinants of health that impacted care today? How? (Homelessness, low income, unemployed, alcoholism, drug addiction, transportation, low edu. Level, literacy, decrease access to med. care, [place] [facility], rehab)? @ -No Was there de-escalation of care discussed even if they declined (Discuss DNR or withdrawal of care, Hospice)? DNR status @ -No What co-morbidities impacted this encounter? (DM, HTN, Smoking, COPD, CAD, Cancer, CVA, ARF, Chemo, Hep., AIDS, mental health diagnosis, sleep apnea, morbid obesity)? @ -Ulcerative colitis Was patient admitted / discharged? Hospital course, mention meds given and route, prescriptions, significant lab abnormalities, going to OR and other pertinent info. @ -33-year-old female presents to the emergency department for abdominal pain. Vital signs upon arrival are within acceptable limits. Patient is nondistressed. She does have palpatory abdominal pain. Laboratory evaluation obtained. Labs are within acceptable limits. There does appear to be some degree of liver inflammation. This seems to be chronic for patient. Urinalysis negative. CT is unremarkable. Patient given symptomatic treatment. Reevaluated at bedside at 12:15 AM found to be in stable medical addition. Disposition options were discussed. Patient offered observation admission. Patient wants to be discharged to follow-up with a primary care doctor. Did you discuss the management of the patient with other professionals (professionals i.e. , PA, SERVICER, lab, RT, psych nurse, adoption social worker, water system operator, teacher, plain clothes police officer, case fitter)? Give summary @ -No Was critical care preformed (if so, how long)? @ -No Undiagnosed new problem with uncertain prognosis? @ -No Drug Therapy requiring intensive monitoring for toxicity (Heparin, Nitro, Insulin, Cardizem)? @ -No Were any procedures done? @ -No Diagnosis/symptom? Acute, or Chronic, or Acute on Chronic? Uncomplicated (without systemic symptoms) or Complicated (systemic symptoms)? @ -Abdominal pain, NOS, no high risk features Side effects of treatment? @ -No Exacerbation, Progression, or Severe Exacerbation? @ -No Poses a threat to life or bodily function? How? (Chest pain, USA, NC, pneumonia, PE, COPD, DKA, ARF, appy, cholecystitis, CVA, Diverticulitis, Homicidal, Suicidal, threat to staff... and all critical care pts) @ -No (Masood Mathur) - Lab Data Lab Results 04/14/24 04/14/24 04/14/24 Range/Units 18:14 18:14 18:14 WBC 8.0 (3.8-10.6) k/uL RBC 3.75 L (3.80-5.40) m/uL Hgb 11.9 (11.4-16.0) gm/dL Hct 36.0 (34.0-46.0) % MCV 95.8 (80.0-100.0) fL MCH 31.6 (25.0-35.0) pg MCHC 33.0 (31.0-37.0) g/dL RDW 17.2 H (11.5-15.5) % Plt Count 289 (150-450) k/uL MPV 8.3 Neutrophils % 67 % Lymphocytes % 24 % Monocytes % 6 % Eosinophils % 2 % Basophils % 0 % Neutrophils # 5.4 (1.3-7.7) k/uL Lymphocytes # 1.9 (1.0-4.8) k/uL Monocytes # 0.5 (0-1.0) k/uL Eosinophils # 0.1 (0-0.7) k/uL Basophils # 0.0 (0-0.2) k/uL Anisocytosis Slight Macrocytosis Slight Sodium (137-145) mmol/L Potassium (3.5-5.1) mmol/L Chloride (98-107) mmol/L Carbon Dioxide (22-30) mmol/L Anion Gap mmol/L BUN (7-17) mg/dL Creatinine (0.52-1.04) mg/dL Est GFR (CKD-EPI)AfAm (>60 ml/min/1.73 sqM) Est GFR (CKD-EPI)NonAf (>60 ml/min/1.73 sqM) Glucose (74-99) mg/dL Plasma Lactic Acid Artie (0.7-2.0) mmol/L Calcium (8.4-10.2) mg/dL Total Bilirubin (0.2-1.3) mg/dL AST (14-36) U/L ALT (4-34) U/L Alkaline Phosphatase (38-126) U/L Total Protein (6.3-8.2) g/dL Albumin (3.5-5.0) g/dL Amylase (30-110) U/L Lipase (23-300) U/L Urine Color Colorless Urine Appearance Clear (Clear) Urine pH 5.5 (5.0-8.0) Ur Specific [place] 1.008 (1.001-1.035) Urine Protein Negative (Negative) Urine Glucose (UA) Negative (Negative) Urine Ketones Negative (Negative) Urine Blood Negative (Negative) Urine Nitrite Negative (Negative) Urine Bilirubin Negative (Negative) Urine Urobilinogen <2.0 (<2.0) mg/dL Ur Leukocyte Esterase Negative (Negative) Urine HCG, Qual Not Detected (Not Detectd) 04/14/24 04/14/24 Range/Units 18:14 18:14 WBC (3.8-10.6) k/uL RBC (3.80-5.40) m/uL Hgb (11.4-16.0) gm/dL Hct (34.0-46.0) % MCV (80.0-100.0) fL MCH (25.0-35.0) pg MCHC (31.0-37.0) g/dL RDW (11.5-15.5) % Plt Count (150-450) k/uL MPV Neutrophils % % Lymphocytes % % Monocytes % % Eosinophils % % Basophils % % Neutrophils # (1.3-7.7) k/uL Lymphocytes # (1.0-4.8) k/uL Monocytes # (0-1.0) k/uL Eosinophils # (0-0.7) k/uL Basophils # (0-0.2) k/uL Anisocytosis Macrocytosis Sodium 138 (137-145) mmol/L Potassium 3.8 (3.5-5.1) mmol/L Chloride 102 (98-107) mmol/L Carbon Dioxide 23 (22-30) mmol/L Anion Gap 13 mmol/L BUN 10 (7-17) mg/dL Creatinine 0.62 (0.52-1.04) mg/dL Est GFR (CKD-EPI)AfAm >90 (>60 ml/min/1.73 sqM) Est GFR (CKD-EPI)NonAf >90 (>60 ml/min/1.73 sqM) Glucose 99 (74-99) mg/dL Plasma Lactic Acid Artie 1.8 (0.7-2.0) mmol/L Calcium 9.5 (8.4-10.2) mg/dL Total Bilirubin 0.8 (0.2-1.3) mg/dL AST 329 H (14-36) U/L ALT 117 H (4-34) U/L Alkaline Phosphatase 207 H (38-126) U/L Total Protein 7.1 (6.3-8.2) g/dL Albumin 4.3 (3.5-5.0) g/dL Amylase 36 (30-110) U/L Lipase 102 (23-300) U/L Urine Color Urine Appearance (Clear) Urine pH (5.0-8.0) Ur Specific [place] (1.001-1.035) Urine Protein (Negative) Urine Glucose (UA) (Negative) Urine Ketones (Negative) Urine Blood (Negative) Urine Nitrite (Negative) Urine Bilirubin (Negative) Urine Urobilinogen (<2.0) mg/dL Ur Leukocyte Esterase (Negative) Urine HCG, Qual (Not Detectd) Disposition <Michelle Smart - Last Filed: 04/14/24 17:54> Is patient prescribed a controlled substance at d/c from ED?: No Time of Disposition: 00:14 <Masood Mathur - Last Filed: 04/15/24 00:14> Clinical Impression: Abdominal pain Disposition: HOME SELF-CARE Condition: Fair Instructions (If sedation given, give patient instructions): Abdominal Pain (ED) Referrals: Nakia Love DO [Primary Care Provider] - 1-2 days
[2024-04-14 18:20] LABS: Anisocytosis Slight; Basophils % (A) 0 %; Eosinophils # (A) 0.1 k/uL (0-0.7); Eosinophils % (A) 2 %; HGB 11.9 gm/dL (11.4-16.0); Lymphocytes # (A) 1.9 k/uL (1.0-4.8); Lymphocytes % (A) 24 %; MCH 31.6 pg (25.0-35.0); MCV 95.8 fL (80.0-100.0); Macrocytosis Slight; Mean Platelet Volume 8.3; Monocytes # (A) 0.5 k/uL (0-1.0); Monocytes % (A) 6 %; Neutrophils # (A) 5.4 k/uL (1.3-7.7); Neutrophils % (A) 67 %; Platelet Count 289 k/uL (150-450); RBC 3.75 m/uL (3.80-5.40); RDW 17.2 % (11.5-15.5)
[2024-04-14 18:23] LABS: Appearance,Urine Clear (Clear); Bilirubin,Urine Negative (Negative); Blood,Urine Negative (Negative); Color,Urine Colorless; Glucose,Urine (UA) Negative (Negative); Ketones,Urine Negative (Negative); Leukocyte Esterase,Urine Negative (Negative); Nitrite,Urine Negative (Negative); PH, Urine 5.5 (5.0-8.0); Protein,Urine Negative (Negative); Specific Gravity,Urine 1.008 (1.001-1.035); Urobilinogen,Urine <2.0 mg/dL (<2.0)
[2024-04-14 19:08] LABS: ALT 117 U/L (4-34); AST 329 U/L (14-36); African American GFR (CKD) >90 (>60 ml/min/1.73 sqM); Albumin 4.3 g/dL (3.5-5.0); Alkaline Phosphatase 207 U/L (38-126); Amylase 36 U/L (30-110); Anion Gap 13 mmol/L; Blood Urea Nitrogen 10 mg/dL (7-17); Calcium 9.5 mg/dL (8.4-10.2); Carbon Dioxide 23 mmol/L (22-30); Chloride 102 mmol/L (98-107); Glucose 99 mg/dL (74-99); Lipase 102 U/L (23-300); Non-African American GFR(CKD) >90 (>60 ml/min/1.73 sqM); Potassium 3.8 mmol/L (3.5-5.1); Sodium 138 mmol/L (137-145); Total Bilirubin 0.8 mg/dL (0.2-1.3); Total Protein 7.1 g/dL (6.3-8.2)
--- NOTE | 2024-04-14 21:44 | CT ---
EXAMINATION TYPE: CT abdomen pelvis w con DATE OF EXAM: 04/14/2024 COMPARISON: 10/29/2022 HISTORY: Pt c/o bilateral abdominal pain radiating to bilateral flanks CT DLP: 565.5 mGycm CONTRAST: CT scan of the abdomen and pelvis is performed without Oral Contrast and with IV Contrast, patient in jected with 100 mL of Isovue 300. FINDINGS: LUNG BASES-: No visible nodule. No infiltrate. LIVER/GB: Hepatic steatosis with a mild hepatomegaly. The gallbladder surgically absent. No space o ccupying hepatic lesion. Biliary tree is of normal caliber. PANCREAS: No inflammation. No distinct mass. SPLEEN: No splenic enlargement. No lesion seen. ADRENALS: No nodule. No thickening. KIDNEYS/BLADDER: No hydronephrosis. No nephrolithiasis. No distinct renal mass. Urinary bladder g rossly unremarkable. BOWEL: Appendectomy changes noted. Normal bowel caliber. No inflammation. GENITAL ORGANS: Right ovarian cyst measuring 3 cm with a small amount of adjacent free fluid. Uterus and left ovaries are grossly unremarkable. LYMPH NODES: No greater than 1cm abdominal or pelvic lymph nodes are appreciated. AORTA: No significant abnormality. OSSEOUS STRUCTURES: No significant abnormality is seen. OTHER: No significant additional abnormality is seen. IMPRESSION: 1. Right ovarian cyst measuring 3 cm with a small amount of adjacent free fluid.
[2024-04-14] MEDS: MORPHINE SULFATE 4 MG/ML SYRINGE IV STA (23:38)
[2024-04-14] MEDS: ONDANSETRON 4 MG/2 ML VIAL IVP STA (23:38)
[2024-04-14] MEDS: SODIUM CHLORIDE 0.9% 1,000 ML IV STA (23:38)
[2024-04-14 23:54] VITALS: TEMP 97.2
[2024-04-15] MEDS: MORPHINE SULFATE 2 MG/ML SYRINGE IVP STA (00:50)
[2024-04-15 01:17] VITALS: BP 111/73; PULSE 89; RESP 16
== END 2024-04-15 01:35 | disposition home or self-care (01) ==
LOC: EC 17:41
CPT/HCPCS: 36415; 74177; 80053; 81003; 81025; 82150; 83605; 83690; 85025; 96360; 96374; 96375; 99284

== ENCOUNTER 2024-06-20 09:40 | Day surgery (SDC) | payer OTHER ==
[~2024-06-20 09:40] MED LIST: LIDOCAINE 1% (10MG/ML) FOR IV START INTRADERMA PRN
[2024-06-20 10:28] VITALS: TEMP 96.2
[2024-06-20] MEDS: LACTATED RINGERS 1,000 ML IV SCH (10:33)
[2024-06-20] MEDS: IV FLUID CONTINUATION 1,000 ML IV ONE (10:33)
[2024-06-20] MEDS ORDERED: PROPOFOL 10 MG/ML 20 ML VIAL IV ONE (10:54)
--- NOTE | 2024-06-20 11:20 | P.OP ---
Date of Procedure: 06/20/24 Preoperative Diagnosis: Epigastric pain Postoperative Diagnosis: Gastric ulcer Normal colonoscopy Procedure(s) Performed: EGD Colonoscopy Anesthesia: MAC Surgeon: Nathanael Sparks Pathology: other (Stomach) Condition: stable Disposition: PACU Description of Procedure: The patient was placed on the endoscopy table in the lateral position. She received IV sedation. The gas was placed oropharynx passed in the esophagus and stomach. Scope was placed through the pylorus. The first and second portion of the duodenum appeared normal. Scope was brought back to the antrum and an ulcer was seen. This was biopsied. There was also antral gastritis. This was biopsied as well. The scope was then retroflexed Sruthi stomach appeared normal. The GE junction was at 40 cm. The distal esophagus appeared normal. The proximal So[employer]ix. Repeat scope withdrawn for patient. Next digital rectal exam was performed. This revealed no advancement. Colonoscope was then placed patient anus passed throughout the entire colon. The ileocecal valve was visualized. The cecum, ascending and transverse colon appeared normal. The descending and sigmoid colon appeared normal. Scope was back the rectum this appeared normal. Scope withdrawn the patient.
[2024-06-20 11:27] VITALS: RESP 14
[2024-06-20 11:46] VITALS: BP 132/88; PULSE 93
== END 2024-06-20 11:55 | disposition home or self-care (01) ==
LOC: ORWHC2ENDO 09:40
PROVIDERS: ATTEND Surgery
DX: K29.70 Gastritis, unspecified, without bleeding (principal); K25.9 Gastric ulcer, unspecified as acute or chronic, without hemorrhage or perforation; K31.9 Disease of stomach and duodenum, unspecified; F17.200 Nicotine dependence, unspecified, uncomplicated; F32.A Depression, unspecified; F41.9 Anxiety disorder, unspecified; Z88.5 Allergy status to narcotic agent
CPT/HCPCS: 81025; 88305; 88342; 88341; 45378; 43239; J2704

== ENCOUNTER 2024-10-14 06:29 | Emergency (ER) | payer OTHER ==
[2024-10-14 06:36] VITALS: RESP 18; TEMP 98
[2024-10-14 07:08] LABS: Anisocytosis Slight; Basophils % (A) 0 %; Eosinophils # (A) 0.1 k/uL (0-0.7); Eosinophils % (A) 1 %; HGB 9.9 gm/dL (11.4-16.0); Hypochromasia Moderate; Lymphocytes # (A) 1.7 k/uL (1.0-4.8); Lymphocytes % (A) 14 %; MCH 30.9 pg (25.0-35.0); MCV 99.8 fL (80.0-100.0); Macrocytosis Slight; Mean Platelet Volume 7.7; Monocytes # (A) 0.8 k/uL (0-1.0); Monocytes % (A) 6 %; Neutrophils # (A) 9.2 k/uL (1.3-7.7); Neutrophils % (A) 77 %; Platelet Count 339 k/uL (150-450)
--- NOTE | 2024-10-14 07:09 | ED ---
Nausea/Vomiting/Diarrhea HPI - General Chief complaint: Nausea/Vomiting/Diarrhea Stated complaint: Vomiting blood Time Seen by Provider: 10/14/24 07:05 Source: patient, RN notes reviewed, old records reviewed Mode of arrival: ambulatory Limitations: no limitations - History of Present Illness Initial comments: 34-year-old female with a past medical history significant of ulcerative colitis presented to the ER for evaluation of hematemesis. Patient reports yesterday she started to feel unwell and around 9:30 PM she started to have nausea, vomiting and diarrhea. She states diarrhea is chronic. She states she started noticed small specks of blood in her vomit last night which have progressively turned into streaks and vomiting, acid and blood. She also is reporting epigastric abdominal tenderness. She describes it as sharp in nature. No radi ation. Patient has followed up with Dr. Muñiz in the past and had EGD and colonoscopy performed. EGD did show peptic ulcers, she was on medications for these but has not taken it in "a while". She has not tried any medications for her symptoms currently. She is not on blood thinners. Patient reports she has required blood transfusions in the past. She denies any dizziness, lightheadedness, chest pain, shortness of breath, urinary complaints or peripheral edema. - Related Data Home Medications Medication Instructions Recorded Confirmed Ferrous Sulfate [Feosol] 325 mg PO DAILY 11/18/23 06/20/24 Multivit with Calcium,Iron,Min 1 tab PO DAILY 11/18/23 06/20/24 [Women's Multivitamin] Cyanocobalamin [Vitamin B-12 1,000 mcg SQ DIRECTED 06/17/24 06/20/24 Injection] QUEtiapine [SEROquel] 12.5 mg PO HS 06/17/24 06/20/24 Previous Rx's Medication Instructions Recorded Omeprazole 40 mg PO DAILY #90 cap 06/20/24 Ondansetron Odt [Zofran Odt] 4 mg PO Q8HR PRN #10 tab 10/14/24 Pantoprazole [Protonix] 40 mg PO DAILY #15 tab 10/14/24 Allergies Allergy/AdvReac Type Severity Reaction Status Date / Time codeine Allergy Unknown Rash/Hives Verified 10/14/24 06:33 Review of Systems ROS Statement: Those systems with pertinent positive or pertinent negative responses have been documented in the HPI. ROS Other: All systems not noted in ROS Statement are negative. Past Medical History Past Medical History: Blood Disorder Additional Past Medical History / Comment(s): ULCERATIVE COLITIS. ANEMIA History of Any Multi-Drug Resistant Organisms: None Reported Past Surgical History: Appendectomy, Cholecystectomy Additional Past Surgical History / Comment(s): D&C Past Anesthesia/Blood Transfusion Reactions: No Reported Reaction Past Psychological History: Anxiety, Depression Smoking Status: Current every day smoker Past Alcohol Use History: None Reported Past Drug Use History: None Reported - Past Family History Mother Additional Family Medical History / Comment(s): "she had a lot of cysts on her ovaries" Father History Unknown: Yes Family Medical History: No Reported History Additional Family Medical History / Comment(s): dad side of family has ulcerative colitis General Exam Limitations: no limitations General appearance: alert, in no apparent distress Respiratory exam: Present: normal lung sounds bilaterally. Absent: respiratory distress, wheezes, rales, rhonchi, stridor Cardiovascular Exam: Present: regular rate, normal rhythm, normal heart sounds. Absent: systolic murmur, diastolic murmur, rubs, gallop, clicks GI/Abdominal exam: Present: soft, tenderness (upper abdomen), normal bowel sounds Extremities exam: Present: normal inspection, full ROM, normal capillary refill. Absent: tenderness, pedal edema, joint swelling, calf tenderness Neurological exam: Present: alert, oriented X3, CN II-XII intact Skin exam: Present: warm, dry, intact, normal color. Absent: rash Course Vital Signs 10/14/24 10/14/24 10/14/24 06:33 08:23 09:05 Temperature 98.0 F Pulse Rate 136 H 112 H 105 H Respiratory 18 18 18 Rate Blood Pressure 116/81 114/76 104/73 O2 Sat by Pulse 100 97 97 Oximetry Medical Decision Making - Medical Decision Making Was pt. sent in by a medical professional or institution (, PA, PIPEMAN, urgent care, hospital, or penitentiary...) When possible be specific @ -No Did you speak to anyone other than the patient for history (EMS, parent, family, police, friend...)? What history was obtained from this source @ -No Did you review nursing and triage notes (agree or disagree)? Why? @ -I reviewed and agree with nursing and triage notes Were old charts reviewed (outside hosp., previous admission, EMS record, old EKG, old radiological studies, urgent care reports/EKG's, penitentiary records)? Report findings @ -No old charts were reviewed Differential Diagnosis (chest pain, altered mental status, abdominal pain women, abdominal pain men, vaginal bleeding, weakness, fever, dyspnea, syncope, headache, dizziness, GI bleed, back pain, seizure, CVA, palpatations, mental health, musculoskeletal)? @ -Differential GI Bleed: Esophageal varices, aortoenteric fistula, Aniya- Valentin, gastritis, peptic ulcer disease, diverticulosis, inflammatory bowel disease, hemorrhoids, fissure, colitis, malignancy, Meckel's diverticulum, this is not meant to be an all-inclusive list. EKG interpreted by me (3pts min.). @ -As above X-rays interpreted by me (1pt min.). @ -None done CT interpreted by me (1pt min.). @ -CTA abdomen pelvis showing no source of acute GI hemorrhage. Fairly severe distal acute gastritis. Suspecting acute colitis of the right colon. No bowel obstruction. U/S interpreted by me (1pt. min.). @ -None done What testing was considered but not performed or refused? (CT, X-rays, U/S, labs)? Why? @ -None What meds were considered but not given or refused? Why? @ -None Did you discuss the management of the patient with other professionals (professionals i.e. , PA, PIPEMAN, lab, RT, psych nurse, group social worker, union laborer, teacher, first officer and flight instructor, therapeutic case manager)? Give summary @ -No Was smoking cessation discussed for >3mins.? @ -No Was critical care preformed (if so, how long)? @ -No Were there social determinants of health that impacted care today? How? (Homelessness, low income, unemployed, alcoholism, drug addiction, transportation, low edu. Level, literacy, decrease access to med. care, alf, rehab)? @ -No Was there de-escalation of care discussed even if they declined (Discuss DNR or withdrawal of care, Hospice)? DNR status @ -No What co-morbidities impacted this encounter? (DM, HTN, Smoking, COPD, CAD, Cancer, CVA, ARF, Chemo, Hep., AIDS, mental health diagnosis, sleep apnea, morbid obesity)? @ -Ulcerative colitis Was patient admitted / discharged? Hospital course, mention meds given and route, prescriptions, significant lab abnormalities, going to OR and other pertinent info. @ -Discharge. 34 year old female presented to the ER for evaluation of hematemesis. PMHx ulcerative colitis. Upon rooming, history and physical exam completed. Vitals within acceptable limits. Laboratory studies showing a stable hemoglobin at 9.9. WBC 12 likely reactive. Transaminitis this appears to be chronic. Viral swabs negative. hCG negative. Urinalysis concerning of dehydration for which patient received IV fluids. CT abdomen pelvis showing no acute source of GI hemorrhage. Acute gastritis and colitis suspected. No bowel obstruction. Patient given symptomatic control in the ER with IV Protonix, Zofran, Reglan, Dilaudid and Tylenol. Upon reevaluation, patient resting comfortably in exam room no signs of acute distress. Results discussed with karyn spears, all questions answered. Patient reporting improvement of discomfort with no reoccurring episodes of nausea, vomiting or hematemesis in the emergency department. Patient is stable for discharge at this time as vital signs stable, stable hemoglobin with no recurrent episodes. I advised her to follow-up closely with GI, referral given. Patient discharged with Protonix and zofran prescription. I advised against NSAID use. Strict return parameters discussed. Patient discharged in stable condition. Patient verbally expressed understanding and agreed with care plan. Case discussed with ED attending, Dr. Love. Undiagnosed new problem with uncertain prognosis? @ -No Drug Therapy requiring intensive monitoring for toxicity (Heparin, Nitro, Insulin, Cardizem)? @ -No Were any procedures done? @ -No Diagnosis/symptom? @ -Abdominal pain Acute, or Chronic, or Acute on Chronic? @ -Acute Uncomplicated (without systemic symptoms) or Complicated (systemic symptoms)? @ -Complicated Side effects of treatment? @ -No Exacerbation, Progression, or Severe Exacerbation? @ -No Poses a threat to life or bodily function? How? (Chest pain, [place], [place], pneumonia, PE, COPD, DKA, ARF, appy, cholecystitis, CVA, Diverticulitis, Homicidal, Suicidal, threat to staff... and all critical care pts) @ -Low at this time - Lab Data Result diagrams: 10/14/24 06:59 10/14/24 06:59 Lab Results 10/14/24 10/14/24 10/14/24 Range/Units 06:59 06:59 06:59 WBC 12.0 H (3.8-10.6) k/uL RBC 3.20 L (3.80-5.40) m/uL Hgb 9.9 L (11.4-16.0) gm/dL Hct 32.0 L (34.0-46.0) % MCV 99.8 (80.0-100.0) fL MCH 30.9 (25.0-35.0) pg MCHC 31.0 (31.0-37.0) g/dL RDW 16.0 H (11.5-15.5) % Plt Count 339 (150-450) k/uL MPV 7.7 Neutrophils % 77 % Lymphocytes % 14 % Monocytes % 6 % Eosinophils % 1 % Basophils % 0 % Neutrophils # 9.2 H (1.3-7.7) k/uL Lymphocytes # 1.7 (1.0-4.8) k/uL Monocytes # 0.8 (0-1.0) k/uL Eosinophils # 0.1 (0-0.7) k/uL Basophils # 0.0 (0-0.2) k/uL Hypochromasia Moderate Anisocytosis Slight Macrocytosis Slight PT (10.0-12.5) sec INR (<1.2) APTT (22.0-30.0) sec Sodium (137-145) mmol/L Potassium (3.5-5.1) mmol/L Chloride (98-107) mmol/L Carbon Dioxide (22-30) mmol/L Anion Gap mmol/L BUN (7-17) mg/dL Creatinine (0.52-1.04) mg/dL Est GFR (CKD-EPI)AfAm (>60 ml/min/1.73 sqM) Est GFR (CKD-EPI)NonAf (>60 ml/min/1.73 sqM) Glucose (74-99) mg/dL Plasma Lactic Acid Artie (0.7-2.0) mmol/L Calcium (8.4-10.2) mg/dL Total Bilirubin (0.2-1.3) mg/dL AST (14-36) U/L ALT (4-34) U/L Alkaline Phosphatase (38-126) U/L Total Protein (6.3-8.2) g/dL Albumin (3.5-5.0) g/dL Amylase (30-110) U/L Lipase (23-300) U/L Urine Color Dark Brown Urine Appearance Cloudy H (Clear) Urine pH 6.5 (5.0-8.0) Ur Specific [place] 1.035 (1.001-1.035) Urine Protein 1+ H (Negative) Urine Glucose (UA) Trace H (Negative) Urine Ketones 1+ H (Negative) Urine Blood Negative (Negative) Urine Nitrite Negative (Negative) Urine Bilirubin 1+ H (Negative) Urine Urobilinogen 4.0 (<2.0) mg/dL Ur Leukocyte Esterase Trace H (Negative) Urine RBC 2 (0-5) /hpf Urine WBC 7 H (0-5) /hpf Ur Squamous Epith Cells 42 H (0-4) /hpf Urine Bacteria Occasional H (None) /hpf Urine Mucus Few H (None) /hpf Urine HCG, Qual Not Detected (Not Detectd) Influenza Type A (PCR) (Not Detectd) Influenza Type B (PCR) (Not Detectd) RSV (PCR) (Not Detectd) SARS-CoV-2 (PCR) (Not Detectd) Blood Type Blood Type Recheck Bld Type Recheck Status Antibody Screen Spec Expiration Date 10/14/24 10/14/24 10/14/24 Range/Units 06:59 06:59 06:59 WBC (3.8-10.6) k/uL RBC (3.80-5.40) m/uL Hgb (11.4-16.0) gm/dL Hct (34.0-46.0) % MCV (80.0-100.0) fL MCH (25.0-35.0) pg MCHC (31.0-37.0) g/dL RDW (11.5-15.5) % Plt Count (150-450) k/uL MPV Neutrophils % % Lymphocytes % % Monocytes % % Eosinophils % % Basophils % % Neutrophils # (1.3-7.7) k/uL Lymphocytes # (1.0-4.8) k/uL Monocytes # (0-1.0) k/uL Eosinophils # (0-0.7) k/uL Basophils # (0-0.2) k/uL Hypochromasia Anisocytosis Macrocytosis PT (10.0-12.5) sec INR (<1.2) APTT (22.0-30.0) sec Sodium 138 (137-145) mmol/L Potassium 3.3 L (3.5-5.1) mmol/L Chloride 99 (98-107) mmol/L Carbon Dioxide 29 (22-30) mmol/L Anion Gap 10 mmol/L BUN 15 (7-17) mg/dL Creatinine 0.42 L (0.52-1.04) mg/dL Est GFR (CKD-EPI)AfAm >90 (>60 ml/min/1.73 sqM) Est GFR (CKD-EPI)NonAf >90 (>60 ml/min/1.73 sqM) Glucose 101 H (74-99) mg/dL Plasma Lactic Acid Artie 1.7 (0.7-2.0) mmol/L Calcium 8.5 (8.4-10.2) mg/dL Total Bilirubin 1.0 (0.2-1.3) mg/dL AST 211 H (14-36) U/L ALT 79 H (4-34) U/L Alkaline Phosphatase 252 H (38-126) U/L Total Protein 6.5 (6.3-8.2) g/dL Albumin 3.6 (3.5-5.0) g/dL Amylase 40 (30-110) U/L Lipase 64 (23-300) U/L Urine Color Urine Appearance (Clear) Urine pH (5.0-8.0) Ur Specific [place] (1.001-1.035) Urine Protein (Negative) Urine Glucose (UA) (Negative) Urine Ketones (Negative) Urine Blood (Negative) Urine Nitrite (Negative) Urine Bilirubin (Negative) Urine Urobilinogen (<2.0) mg/dL Ur Leukocyte Esterase (Negative) Urine RBC (0-5) /hpf Urine WBC (0-5) /hpf Ur Squamous Epith Cells (0-4) /hpf Urine Bacteria (None) /hpf Urine Mucus (None) /hpf Urine HCG, Qual (Not Detectd) Influenza Type A (PCR) Not Detected (Not Detectd) Influenza Type B (PCR) Not Detected (Not Detectd) RSV (PCR) Not Detected (Not Detectd) SARS-CoV-2 (PCR) Not Detected (Not Detectd) Blood Type Blood Type Recheck Bld Type Recheck Status Antibody Screen Spec Expiration Date 10/14/24 10/14/24 Range/Units 07:15 08:07 WBC (3.8-10.6) k/uL RBC (3.80-5.40) m/uL Hgb (11.4-16.0) gm/dL Hct (34.0-46.0) % MCV (80.0-100.0) fL MCH (25.0-35.0) pg MCHC (31.0-37.0) g/dL RDW (11.5-15.5) % Plt Count (150-450) k/uL MPV Neutrophils % % Lymphocytes % % Monocytes % % Eosinophils % % Basophils % % Neutrophils # (1.3-7.7) k/uL Lymphocytes # (1.0-4.8) k/uL Monocytes # (0-1.0) k/uL Eosinophils # (0-0.7) k/uL Basophils # (0-0.2) k/uL Hypochromasia Anisocytosis Macrocytosis PT 14.1 H (10.0-12.5) sec INR 1.3 H (<1.2) APTT 24.7 (22.0-30.0) sec Sodium (137-145) mmol/L Potassium (3.5-5.1) mmol/L Chloride (98-107) mmol/L Carbon Dioxide (22-30) mmol/L Anion Gap mmol/L BUN (7-17) mg/dL Creatinine (0.52-1.04) mg/dL Est GFR (CKD-EPI)AfAm (>60 ml/min/1.73 sqM) Est GFR (CKD-EPI)NonAf (>60 ml/min/1.73 sqM) Glucose (74-99) mg/dL Plasma Lactic Acid Artie (0.7-2.0) mmol/L Calcium (8.4-10.2) mg/dL Total Bilirubin (0.2-1.3) mg/dL AST (14-36) U/L ALT (4-34) U/L Alkaline Phosphatase (38-126) U/L Total Protein (6.3-8.2) g/dL Albumin (3.5-5.0) g/dL Amylase (30-110) U/L Lipase (23-300) U/L Urine Color Urine Appearance (Clear) Urine pH (5.0-8.0) Ur Specific [place] (1.001-1.035) Urine Protein (Negative) Urine Glucose (UA) (Negative) Urine Ketones (Negative) Urine Blood (Negative) Urine Nitrite (Negative) Urine Bilirubin (Negative) Urine Urobilinogen (<2.0) mg/dL Ur Leukocyte Esterase (Negative) Urine RBC (0-5) /hpf Urine WBC (0-5) /hpf Ur Squamous Epith Cells (0-4) /hpf Urine Bacteria (None) /hpf Urine Mucus (None) /hpf Urine HCG, Qual (Not Detectd) Influenza Type A (PCR) (Not Detectd) Influenza Type B (PCR) (Not Detectd) RSV (PCR) (Not Detectd) SARS-CoV-2 (PCR) (Not Detectd) Blood Type O Positive Blood Type Recheck O Pos Bld Type Recheck Status No Antibody Screen NEGATIVE Spec Expiration Date 10/17/20242314 - EKG Data -: EKG Interpreted by Me EKG Comments: EKG taken at 7: 05 showing a sinus tachycardia. No ST segment elevations or depressions. No T wave inversions. Ventricular rate 110, NE interval 110, QRS duration 81, QT/QTc 333/398. - Radiology Data Radiology results: report reviewed, image reviewed Disposition Clinical Impression: Gastritis, Ulcerative colitis Disposition: HOME SELF-CARE Condition: Stable Instructions (If sedation given, give patient instructions): Acute Nausea and Vomiting (ED) Additional Instructions: Take protonix daily and follow-up with GI. I also recommend close follow-up with PCP in the next 1 to 3 days for reevaluation. I recommend against taking ibuprofen and other NSAIDs for pain control. I recommend Tylenol. Return to the ER for any new or worsening concerns Prescriptions: Pantoprazole [Protonix] 40 mg PO DAILY #15 tab Ondansetron Odt [Zofran Odt] 4 mg PO Q8HR PRN #10 tab PRN Reason: Nausea Is patient prescribed a controlled substance at d/c from ED?: No Referrals: Quin Lee DO [Primary Care Provider] - 1-2 days Nuria Muñiz MD [STAFF PHYSICIAN] - 1-2 days Time of Disposition: 08:54
[2024-10-14] MEDS: SODIUM CHLORIDE 0.9% 1,000 ML IV ONE (07:12)
[2024-10-14] MEDS: HYDROmorphone 0.5 MG/0.5 ML SYRINGE IVP STA (07:12)
[2024-10-14] MEDS: ONDANSETRON 4 MG/2 ML VIAL IVP STA (07:14)
[2024-10-14] MEDS: PANTOPRAZOLE 40 MG/10 ML VIAL IVP STA (07:14)
[2024-10-14] MEDS: ACETAMINOPHEN TAB 325 MG TAB PO STA (07:15)
[2024-10-14 07:31] LABS: ALT 79 U/L (4-34); AST 211 U/L (14-36); African American GFR (CKD) >90 (>60 ml/min/1.73 sqM); Albumin 3.6 g/dL (3.5-5.0); Alkaline Phosphatase 252 U/L (38-126); Amylase 40 U/L (30-110); Anion Gap 10 mmol/L; Blood Urea Nitrogen 15 mg/dL (7-17); Calcium 8.5 mg/dL (8.4-10.2); Carbon Dioxide 29 mmol/L (22-30); Chloride 99 mmol/L (98-107); Glucose 101 mg/dL (74-99); Lipase 64 U/L (23-300); Non-African American GFR(CKD) >90 (>60 ml/min/1.73 sqM); Potassium 3.3 mmol/L (3.5-5.1); Sodium 138 mmol/L (137-145); Total Protein 6.5 g/dL (6.3-8.2)
[2024-10-14 07:42] LABS: Influenza A Not Detected (Not Detectd); Influenza B Not Detected (Not Detectd); RSV Not Detected (Not Detectd)
[2024-10-14 07:49] LABS: Appearance,Urine Cloudy (Clear); Bacteria,Urine Occasional /hpf; Bilirubin,Urine 1+ (Negative); Blood,Urine Negative (Negative); Color,Urine Dark Brown; Glucose,Urine (UA) Trace (Negative); Ketones,Urine 1+ (Negative); Leukocyte Esterase,Urine Trace (Negative); Mucus,Urine Few /hpf; Nitrite,Urine Negative (Negative); PH, Urine 6.5 (5.0-8.0); Protein,Urine 1+ (Negative); RBC,Urine 2 /hpf (0-5); Specific Gravity,Urine 1.035 (1.001-1.035); Squamous Epithelial Cell,Urine 42 /hpf (0-4); WBC,Urine 7 /hpf (0-5)
[2024-10-14] MEDS: HYDROmorphone 1 MG/ML 1 ML SYRINGE IVP STA (08:21)
[2024-10-14] MEDS: METOCLOPRAMIDE 5 MG/ML 2 ML VIAL IVP STA (08:23)
[2024-10-14 08:34] LABS: INR 1.3 (<1.2); Partial Thromboplastin Time 24.7 sec (22.0-30.0); Prothrombin Time 14.1 sec (10.0-12.5)
--- NOTE | 2024-10-14 08:37 | CT ---
EXAMINATION TYPE: CT angio abdomen pelvis DATE OF EXAM: 10/14/2024 COMPARISON: Prior CT April 14, 2024 CLINICAL INDICATION: Female, 34 years old with history of hematemesis hx UC, ulcerative colitis, TECHNIQUE: CT scan of the abdomen and pelvis is performed without and with IV Contrast, patient injected with 10 0 mL of Isovue 370., (none if empty) Oral contrast used: without Oral Contrast (none if empty) CT DLP: 1116.7 mGycm, Automated exposure control for dose reduction was used. FINDINGS: VASCULAR: Patent celiac artery and SMA along with bilateral single renal arteries and TIMOTHY. No dissect ion. No AAA. Patent iliac and femoral artery vessels bilaterally without significant stenosis LUNG BASES: No significant abnormality is appreciated. LIVER/GB: Persistent hepatomegaly. Liver remains heterogeneously hypodense consistent with marked dif fuse fatty infiltrative hepatocellular disease. Cholecystectomy clips are redemonstrated. PANCREAS: No significant abnormality is seen. SPLEEN: No significant abnormality is seen. ADRENALS: No significant abnormality is seen. KIDNEYS: No significant abnormality is seen. BOWEL: Stomach poorly distended and thus suboptimally evaluated. Severe wall thickening of the distal stomach into the antrum is present. No abnormal small or large bowel dilatation is seen. Mild to mod erate wall thickening with mild fat stranding in the right colon. Mild to moderate wall thickening an d enhancement of the wall of the distal terminal ileum may be reactive. Mild to moderate wall thicken ing in the rectum without surrounding fat stranding. Appendix is surgically absent. There is no suspi cious area of [place] postcontrast images with increased density and propagation on delayed phase im ages to suggest active GI hemorrhage. UTERUS/ADNEXA: Anteverted uterus projects left of midline similar to prior. There are symmetric sligh tly prominent bilateral ovaries redemonstrated. LYMPH NODES: No greater than 1cm abdominal or pelvic lymph nodes are appreciated. OSSEOUS STRUCTURES: No significant abnormality is seen. OTHER: No significant additional abnormality is seen. IMPRESSION: 1. No source of active GI hemorrhage identified. 2. Probable fairly severe distal acute gastritis. 3. Suspect acute colitis in the right colon. Cannot exclude acute colitis in the rectum versus produc t of poor distention. 4. No bowel obstruction. [facility], , 10/14/2024 8:35 AM
[2024-10-14 09:06] VITALS: BP 104/73; PULSE 105
== END 2024-10-14 09:07 | disposition home or self-care (01) ==
LOC: EC 06:29
DX: K29.70 Gastritis, unspecified, without bleeding (principal); K51.90 Ulcerative colitis, unspecified, without complications; F17.200 Nicotine dependence, unspecified, uncomplicated; Z88.5 Allergy status to narcotic agent
CPT/HCPCS: 36415; 93005; 86900; 86901; 80053; 82150; 83605; 83690; 85025; 85610; 85730; 86850; 81001; 81025; 87636; 74174; 99284; 96374; 96375 ×3; 96376; 96361; J2765; J2405; J1171 ×2; Q9967; J2470